=== PATIENT | male | born 1960 ===

== ENCOUNTER 2020-04-17 17:04 | Outpatient (REF) | payer OTHER, MEDICAID, SELFPAY | END 2020-04-17 17:05 | disposition home or self-care (01) | LOC: HO.LAB 17:04 | PROVIDERS: Visit Provider Internal Medicine | DX: Z20.828 Contact with and (suspected) exposure to other viral communicable diseases (principal) | CPT/HCPCS: 87635 ==

== ENCOUNTER 2020-06-16 08:38 | Outpatient (REF) | payer OTHER, MEDICAID, SELFPAY ==
--- NOTE | 2020-06-16 09:12 | XR_ITS ---
EXAMINATION: XR CHEST CLINICAL INFORMATION: Chest pain. COMPARISON: None TECHNIQUE: 2 views of the chest were obtained. FINDINGS: No significant abnormality is noted involving the heart, lungs, mediastinum, bony thorax or soft tissues. XR/XR chest 2V IMPRESSION: Unremarkable chest examination.
[2020-06-16 09:31] LABS: MANUAL DIFF FLAG NO
[2020-06-16 09:34] LABS: Basophils Percent Auto 0.6 % (0-2); Eosinophils Absolute Auto 0.1 X10*3/uL (0.0-0.4); Eosinophils Percent Auto 1.4 % (0-4); Hematocrit 42.8 % (42-52); Hemoglobin 14.4 g/dl (14.0-18.0); Imm Gran Abs Auto 0.02 X10*3/uL (0.00-0.03); Imm Gran Pct Auto 0.3 % (0.0-0.4); Lymphocytes Absolute Auto 3.5 X10*3/uL (1.2-4.9); Lymphocytes Percent Auto 51.1 % (20-40); Mean Corpuscular HGB Conc 33.6 g/dl (31.0-36.0); Mean Corpuscular Hemoglobin 30.8 pg (27.0-33.0); Mean Corpuscular Volume 91.5 fL (80-98); Mean Platelet Volume 9.7 fL (9.4-12.4); Monocytes Absolute Auto 0.7 X10*3/uL (0.1-1.2); Monocytes Percent Auto 9.6 % (2-11); Neutrophils Absolute Auto 2.6 X10*3/uL (2.0-8.3); Platelet Count 251 X10*3/uL (160-400); Red Blood Count 4.68 X10*6/uL (4.60-5.80); Red Cell Distribution Width 12.4 % (11.0-16.0); White Blood Count 6.9 X10*3/uL (4.8-10.8)
[2020-06-16 09:59] LABS: Alanine Aminotransferase 43 U/L (0-40); Albumin Level 4.7 g/dL (3.5-5.0); Alkaline Phosphatase 85 U/L (39-117); Anion Gap 12 (12-20); Aspartate Amino Transferase 25 U/L (5-37); Blood Urea Nitrogen 17 mg/dL (9-16); Calcium 9.5 mg/dL (8.4-10.2); Carbon Dioxide 30 mmol/L (22-29); Chloride 102 mmol/L (96-108); Cholesterol 156 mg/dL; Estimated Average Glucose 120 mg/dL; Estimated Glomerular Filt Rate > 60; Glucose Random 102 mg/dL (60-115); HDL Cholesterol 33 mg/dL; Hemoglobin A1c % 5.8 %; LDL Cholesterol Calculated 97 mg/dl; Potassium 4.3 mmol/l (3.3-5.1); Sodium 140 mmol/L (135-145); Total Protein 7.8 g/dL (6.5-8.0); Triglycerides 132 mg/dL
[2020-06-16 10:20] LABS: Prostate Specific Antigen Scr 0.81 ng/mL (<0.05-4.0); Thyroid Stimulating Hormone 1.06 uIU/mL (0.32-4.0)
[2020-06-16 10:49] LABS: Vitamin B12 261 pg/mL (200-900)
== END 2020-06-16 08:39 | disposition home or self-care (01) ==
LOC: HO.LAB 08:38
PROVIDERS: Visit Provider Internal Medicine
DX: R07.9 Chest pain, unspecified (principal)
CPT/HCPCS: 36415; 71046; 80053; 80061; 82550; 82607; 82746; 83036; 84153; 84443; 85025

== ENCOUNTER → 2020-06-25 10:17 | Outpatient (REF) | payer OTHER, MEDICAID, SELFPAY ==
--- NOTE | 2020-06-25 10:20 | CA_ITS ---
Transthoracic Echocardiogram Patient (Last, First, Middle): Earnest Jeffrey R Gender: Male Date of : 1960 Age: 59 Procedure Date: 06/25/2020 Procedure Type: Transthoracic Echocardiogram Location: OP Height: 170.18 cm Weight: 74.84 kg BSA: 1.86 m2 Heart Rate: bpm BP: 126 / 76 mmHg Agricultural Research Technician: AMIRA Referring MD: Danitza Humphreys MD Symptoms: R07.9 - Chest pain, unspecified Study Quality: Fair ECG Rhythm: Sinus Conclusions: - The left ventricular systolic function is normal. The visually estimated ejection fraction is between 60-65%. - The basal inferior segment is hypokinetic. - There is mild mitral valve regurgitation. Findings Left Ventricle Normal left ventricular cavity size. There is mildly increased left ventricular wall thickness. The left ventricular systolic function is normal. The visually estimated ejection fraction is between 60-65%. There is evidence of regional wall motion abnormalities. Diastolic function is normal for age. Wall Motion Rest Echo Findings The basal inferior segment is hypokinetic. Right Ventricle Normal right ventricular cavity size and systolic function. Atria Both atria are normal in size. Aortic Valve There is a normal trileaflet aortic valve. There is no aortic valve stenosis. There is no aortic valve regurgitation. Mitral Valve The mitral valve appears normal. There is mild mitral valve regurgitation. There is no mitral valve stenosis. Pulmonic Valve The pulmonic valve was not well visualized. Tricuspid Valve Normal tricuspid valve structure. There is trace tricuspid valve regurgitation. Tricuspid regurgitation envelope is inadequate for calculation of right ventricular systolic pressure. Great Vessels The aortic annulus, sinuses of valsalva, and asc aorta are normal in size. Venous The inferior vena cava is normal in size and collapses less than 50% with inspiration. Pericardium/Pleural There is no evidence of pericardial effusion. Prior Study Comparison No prior study available for comparison. Measurements 2D Linear Measurements IVSd: 1.08 0.6-0.9/0.6-1.0 cm LVIDd: 3.79 3.9-5.3/4.2-5.9 cm LVIDd Index: 2.04 2.4-3.2/2.2-3.1 cm/m2 LVIDs: 2.71 2.0-3.6 cm LVPWd: 1.08 0.7-1.1 cm Ao Root: 3.90 2.1-3.5 cm LA Diam: 3.20 2.7-3.8/3.0-4.0 cm LAIDs Index: 1.72 1.5-2.3 cm/m2 LV Mass: 162.45 67-162/88-224 g LV Mass Index: 87.34 43-95/49-115 g/m2 LVOT Diam: 2.10 3.0+(-)1.3 cm 2D Systolic Function EF 4C: 54.80 >55% EF 2C: 58.60 >55% EF BiP: 55.50 >55% Mitral Valve MV Pk E: 0.61 MV PK A: 0.56 MV Decel Time: 215.00 E/A: 1.10 E'Lateral: 7.06 E'Medial: 5.80 E/E' Med: 10.50 E/E' Lat: 8.70 PHT: 63.00 MVA PHT: 3.49 Decel Cocke: 2.85 Aortic Valve AoV Pk Shoaib: 1.19 AoV Mn Shoaib: 0.89 AoV VTI: 0.24 AoV Pk Grad: 6.00 Aov Mn Grad: 3.00 RY Cont.VTI: 3.23 LVOT LVOT Pk Shoaib: 1.17 LVOT Mn Shoaib: 0.78 LVOT VTI: 0.23 LVOT Pk Grad: 5.00 LVOT Mn Grad: 3.00 LVOT Diam: 2.10 LVOT Area: 3.46 Diastolic Function MV Pk E: 0.61 MV Pk A: 0.56 E/A: 1.10 E'Medial: 5.80 E/E' Med: 10.50 E' Laterial: 7.06 E/E' Lat: 8.70 Tricuspid Valve RA Press: 8.00 Great Vessels Aorta Ao Root-2D: 3.90 2.0-3.7 cm Ao Asc: 3.20 2.1-3.4 cm Ao Arch: 3.40 Updated in Other Vendor System with Status of Final Abdulaziz Rivera MD electronically signed on 06/27/2020 2:23:37 PM with status of Final
== END ==
LOC: HO.CARD 10:17
PROVIDERS: PCP Internal Medicine; Visit Provider Internal Medicine
DX: R07.9 Chest pain, unspecified (principal)
CPT/HCPCS: 93306

== ENCOUNTER 2020-07-07 08:55 | Outpatient (REF) | payer OTHER, MEDICAID, SELFPAY ==
--- NOTE | 2020-07-07 08:58 | US_ITS ---
EXAMINATION: US ABDOMEN COMPLETE CLINICAL INFORMATION: Other specified abnormal findings of blood chemistry. COMPARISON: None TECHNIQUE: Real-time imaging of the abdominal viscera. FINDINGS: PANCREAS: Normal. ABDOMINAL AORTA: The proximal, mid, and distal segments are normal in caliber. INFERIOR VENA CAVA: Visualized portions are normal. LIVER: The liver is normal in size. The liver contour is normal. Echotexture is slightly increased questionable for fatty infiltration. No focal hepatic lesion. There is no intrahepatic biliary duct dilatation seen. GALLBLADDER: Normal. The gallbladder is physiologically distended without evidence of stones, sludge, polyps, wall thickening or pericholecystic fluid. COMMON BILE DUCT: Normal in caliber measuring 0.3 cm in diameter. RIGHT KIDNEY: There is a 5 x 5 x 4 mm stone in the midpole. There are 2 cysts with question peripheral calcification in the midpole measuring 1.3 x 0.7 x 1.9 cm and measuring 0.5 cm. No hydronephrosis. The kidney measures 9.7 cm in maximum dimension. LEFT KIDNEY: Normal. No hydronephrosis. No renal calculi or focal parenchymal lesions. The kidney measures 10.6 cm in maximum dimension. SPLEEN: Normal. The spleen measures 8.2 cm in maximum dimension. FREE FLUID: None. US/US abdomen complete IMPRESSION: Slightly echogenic liver questionable for fatty infiltration. Right renal stone. Small right renal cysts.
== END 2020-07-07 08:56 | disposition home or self-care (01) ==
LOC: HO.US 08:55
PROVIDERS: Visit Provider Internal Medicine
DX: R79.89 Other specified abnormal findings of blood chemistry (principal)
CPT/HCPCS: 76700

== ENCOUNTER 2020-07-20 10:29 | Outpatient (REF) | payer OTHER, MEDICAID, SELFPAY ==
[2020-07-20 11:54] LABS: MANUAL DIFF FLAG NO
[2020-07-20 12:07] LABS: Basophils Percent Auto 0.6 % (0-2); Eosinophils Percent Auto 0.7 % (0-4); Hematocrit 43.7 % (42-52); Hemoglobin 14.4 g/dl (14.0-18.0); Imm Gran Abs Auto 0.01 X10*3/uL (0.00-0.03); Imm Gran Pct Auto 0.2 % (0.0-0.4); Lymphocytes Absolute Auto 2.4 X10*3/uL (1.2-4.9); Lymphocytes Percent Auto 44.9 % (20-40); Mean Corpuscular Hemoglobin 30.4 pg (27.0-33.0); Mean Corpuscular Volume 92.4 fL (80-98); Mean Platelet Volume 9.9 fL (9.4-12.4); Monocytes Absolute Auto 0.6 X10*3/uL (0.1-1.2); Monocytes Percent Auto 10.8 % (2-11); Neutrophils Absolute Auto 2.3 X10*3/uL (2.0-8.3); Neutrophils Percent Auto 42.8 % (45-73); Platelet Count 252 X10*3/uL (160-400); Red Blood Count 4.73 X10*6/uL (4.60-5.80); Red Cell Distribution Width 12.4 % (11.0-16.0); White Blood Count 5.4 X10*3/uL (4.8-10.8)
[2020-07-20 12:24] LABS: Alanine Aminotransferase 24 U/L (0-40); Albumin Level 4.8 g/dL (3.5-5.0); Alkaline Phosphatase 80 U/L (39-117); Anion Gap 15 (12-20); Aspartate Amino Transferase 20 U/L (5-37); Bilirubin Direct 0.3 mg/dL (0.0-0.5); Bilirubin Total 0.9 mg/dL (0.0-1.0); Blood Urea Nitrogen 22 mg/dL (9-16); Calcium 9.7 mg/dL (8.4-10.2); Carbon Dioxide 29 mmol/L (22-29); Chloride 101 mmol/L (96-108); Estimated Glomerular Filt Rate > 60; Glucose Random 90 mg/dL (60-115); Potassium 4.1 mmol/l (3.3-5.1); Sodium 141 mmol/L (135-145); Total Protein 7.9 g/dL (6.5-8.0)
[2020-07-20 12:36] LABS: Free T4 (Free Thyroxine) 0.88 ng/dL (0.71-1.85); Thyroid Stimulating Hormone 0.35 uIU/mL (0.32-4.0)
[2020-07-20 13:15] LABS: Erythrocyte Sedimentation Rate 12 MM/HR (0-15)
[2020-07-21 05:00] LABS: HBc Num1 0.23 S/CO (0.00-0.79); Hepatitis B Core Antibody Nonreactive (Nonreactive); ~Hepatitis B Surface Antibody NONREACTIVE (Nonreactive)
[2020-07-21 05:07] LABS: HBsAGNum1 0.24 S/CO (0.00-0.99); Hepatitis B Surface Antigen Negative (Negative); ~Hepatitis C Antibody Nonreactive (Nonreactive)
== END 2020-07-20 10:30 | disposition home or self-care (01) ==
LOC: HO.LAB 10:29
PROVIDERS: PCP Internal Medicine; Visit Provider Internal Medicine
DX: E78.00 Pure hypercholesterolemia, unspecified (principal); R73.01 Impaired fasting glucose; E53.8 Deficiency of other specified B group vitamins; M79.10 Myalgia, unspecified site; R79.89 Other specified abnormal findings of blood chemistry
CPT/HCPCS: 36415; 80053; 80076; 82248; 82550; 84439; 84443; 85025; 85652; 86704; 86706; 86803; 87340

== ENCOUNTER → 2020-08-06 14:16 | Outpatient (BNVA) | payer OTHER, MEDICAID, SELFPAY | PROVIDERS: PCP Internal Medicine; Visit Provider Internal Medicine Pulmonary Disease ==

== ENCOUNTER 2020-08-11 14:01 | Outpatient (REF) | payer OTHER, MEDICAID, SELFPAY ==
--- NOTE | 2020-08-11 16:48 | PFT_ITS ---
FLOWS: FEV1 of 106% of predicted at 3.53 L. FVC of 95% of predicted at 4.04 L. FEV1 to FVC ratio of 0.88. No bronchodilator response. LUNG VOLUMES: Total lung capacity 92% of predicted at 5.90 L. Residual volume 90% of predicted at 1.84 L. Slow vital capacity 93% of predicted at 4.06 L. Expiratory reserve volume 102% of predicted at 1.25 L. Diffusion capacity is normal. IMPRESSION: No obstructive or restrictive ventilatory defect. No bronchodilator response. Essentially normal pulmonary function test. Marcus Kiran MD AP/MODL / [id number]
== END 2020-08-11 14:02 | disposition home or self-care (01) ==
LOC: HO.RESP 14:01
PROVIDERS: Visit Provider Internal Medicine Pulmonary Disease
DX: B94.8 Sequelae of other specified infectious and parasitic diseases (principal)
CPT/HCPCS: 94060; 94727; 94729

== ENCOUNTER → 2020-08-20 09:53 | Outpatient (BNVA) | payer OTHER, MEDICAID, SELFPAY | PROVIDERS: PCP Internal Medicine; Visit Provider Internal Medicine Pulmonary Disease ==

== ENCOUNTER 2020-08-21 09:38 | Outpatient (REF) | payer OTHER, MEDICAID, SELFPAY ==
--- NOTE | ~2020-08-21 | CT_ITS ---
EXAMINATION: CT CHEST WITHOUT CONTRAST CLINICAL INFORMATION: Additional clinical history obtained from the clinician's office, from assistant Tiffany. Lingering Covid symptoms. COMPARISON: Chest x-ray 06/16/2020. TECHNIQUE: Multidetector volumetric CT imaging of the chest was done. Axial MIP volume rendering provided. Sagittal and coronal reformatted images were obtained. This CT examination was performed using dose optimization techniques as appropriate, variously including the following: *Automated exposure control *Adjustment of mA and/or kV according to patient size (this includes techniques or standardized protocols for targeted exams where dose is matched to indication/reason for exam; i.e. extremities or head) *Use of iterative reconstruction technique DLP: 155 mGy-cm FINDINGS: LUNGS: Central airways are patent. No focal consolidation. 2 mm nodule right upper lobe 7:191. 2 mm calcified nodule right lower lobe 7:313. MEDIASTINUM: Visualized thyroid gland appears unremarkable. No adenopathy is seen in the mediastinum or danya. Normal caliber aorta. Normal heart size. No pericardial effusion. Esophagus is nondistended. PLEURA: There is no pleural effusion. No pleural mass or thickening. AXILLA: No lymphadenopathy. UPPER ABDOMEN: The spleen measures 7.9 cm. Visualized structures appear unremarkable. OSSEOUS STRUCTURES: No acute or suspicious osseous abnormality. CT/CT chest wo con IMPRESSION: 1. No acute findings identified in the lungs. 2 mm pulmonary nodule right upper lobe. According to the UPDATED 2017 Fleischner Society recommendations, the advised follow-up imaging for solid nodules < 6 mm is: LOW RISK PATIENT: No routine follow-up. HIGH RISK PATIENT: Optional CT at 12 months. 2. No adenopathy.
== END 2020-08-21 09:39 | disposition home or self-care (01) ==
LOC: HO.CT 09:38
PROVIDERS: PCP Internal Medicine; Visit Provider Internal Medicine Pulmonary Disease
DX: B94.8 Sequelae of other specified infectious and parasitic diseases (principal)
CPT/HCPCS: 71250

== ENCOUNTER → 2020-09-11 11:24 | Outpatient (BNVA) | payer OTHER, MEDICAID, SELFPAY | PROVIDERS: PCP Internal Medicine; Visit Provider Internal Medicine Pulmonary Disease ==

== ENCOUNTER → 2020-10-23 10:29 | Outpatient (BNVA) | payer OTHER, MEDICAID, SELFPAY | PROVIDERS: PCP Internal Medicine; Visit Provider Internal Medicine Pulmonary Disease ==

== ENCOUNTER 2020-12-01 08:26 | Day surgery (SDC) | payer OTHER, MEDICAID, SELFPAY ==
--- NOTE | 2020-11-30 09:23 | HO.ANESPROP2 ---
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 All resolved per last pulmo note. PMFSH Active Problems Active Problems: All Active Problems (Updated 11/26/20 @ 11:40 by Jennifer Abraham) COVID-19 (Acute) HTN (hypertension) (Acute) Post-viral cough syndrome (Acute) Impaired fasting blood sugar (Acute) Vitamin B 12 deficiency (Acute) Myalgia (Acute) Dyspnea on exertion (Acute) [id number] syndrome (Acute) Mild cognitive impairment (Acute) Tubular adenoma of colon (Acute) Annual physical exam (Acute) Knee pain, bilateral (Acute) Right flank pain (Acute) Impacted cerumen of both ears (Acute) Right renal stone (Acute) Fatty liver (Acute) Hypercholesterolemia (Acute) BPH (benign prostatic hyperplasia) (Acute) Past Medical History Medical History BPH (benign prostatic hyperplasia) Fatty liver HTN (hypertension) Hypercholesterolemia Respiratory tract infection Right renal stone Right shoulder pain Rotator cuff disorder Tubular adenoma of colon Vitamin D deficiency Family History Family History Father Hypertension Mother No problems noted. Paternal Uncle Cancer Surgical History Surgical History History of arthroscopy of right shoulder History of eye surgery Social History Social History Alcohol intake: former Patient Tobacco Use Status: Never used Tobacco Use of substances other than those prescribed or required for medical reasons: No Have you been hit, kicked, punched, or otherwise hurt by someone within the past year? If so, by whom?: No Are you DNR?: No Advance Directives: No Advance Directives Information Provided: No Advance Directives on File: No Meds Allergies Allergy/AdvReac Type Severity Reaction Status Date / Time No Known Allergies Allergy Verified 11/26/20 11:40 Home Medications Medication Instructions Recorded Confirmed Last Taken Type hydrochlorothiazide 12.5 mg tablet 12.5 mg PO DAILY 06/25/20 11/26/20 Unknown History ascorbate calcium (vitamin C) 500 500 mg PO DAILY 07/20/20 11/26/20 Unknown History mg tablet cyanocobalamin (vitamin B-12) 1,000 mcg PO DAILY 07/20/20 11/26/20 Unknown History 1,000 mcg capsule simvastatin 1 tab PO BEDTIME 11/26/20 11/26/20 Unknown History Exam Exam Date and Time: November 30, [id number] Narrative Narrative: EKG 05/2020 NSR @ 67 PFT 07/2020 IMPRESSION: No obstructive or restrictive ventilatory defect. No bronchodilator response. Essentially normal pulmonary function test. Assessment and Plan Assessment Anesthesia Assessment: Chart Reviewed Documented by User: Ayse Hernandez 12/01/20 09:56 PMFSH Past Medical History Medical History BPH (benign prostatic hyperplasia) Fatty liver HTN (hypertension) Hypercholesterolemia Respiratory tract infection Right renal stone Right shoulder pain Rotator cuff disorder Tubular adenoma of colon Vitamin D deficiency Family History Family History Father Hypertension Mother No problems noted. Paternal Uncle Cancer Surgical History Surgical History History of arthroscopy of right shoulder History of eye surgery Social History Social History Alcohol intake: former Patient Tobacco Use Status: Never used Tobacco Use of substances other than those prescribed or required for medical reasons: No Have you been hit, kicked, punched, or otherwise hurt by someone within the past year? If so, by whom?: No Are you DNR?: No Advance Directives: No Advance Directives Information Provided: No Advance Directives on File: No Meds Allergies Allergy/AdvReac Type Severity Reaction Status Date / Time No Known Allergies Allergy Verified 11/26/20 11:40 Home Medications Medication Instructions Recorded Confirmed Last Taken Type hydrochlorothiazide 12.5 mg tablet 12.5 mg PO DAILY 06/25/20 11/26/20 Unknown History ascorbate calcium (vitamin C) 500 500 mg PO DAILY 07/20/20 11/26/20 Unknown History mg tablet cyanocobalamin (vitamin B-12) 1,000 mcg PO DAILY 07/20/20 11/26/20 Unknown History 1,000 mcg capsule simvastatin 1 tab PO BEDTIME 11/26/20 11/26/20 Unknown History Exam Airway Mallampati Class: II TM Dist: >3cm Neck ROM: Full Loose/Missing/Broken Teeth: No Heart: RRR Lungs: CTA Assessment and Plan Assessment Anesthesia Assessment: Anesthesia Plan Discussed and Chart Reviewed Final Anesthetic Review NPO: Yes ASA Class: II Final Preanesthetic Review: Meds/Allgs Chart Reviewed, Consent Obtained/Reviewed and Anes Risks/Benef Reviewed Patient Risk: Low Procedure Risk: Intermediate Anesthetic Plan Anesthetic Plan: MAC: Disposition: Standard PACU
[2020-12-01 07:17] VITALS: BMI 25.7
[2020-12-01 08:41] VITALS: BP 132/86; PULSE 70; RESP 18; TEMP 36.7; O2SAT 98
[2020-12-01] MEDS: Lactated Ringers 1,000 ML 100 ML IVCONT (08:50)
--- NOTE | 2020-12-01 09:32 | MHC.SHP ---
Pre-Procedural Eval Section A The patient is an INPATIENT: No Changes since office visit: No Cold of Flu in the past 2 weeks, No New Medical Problems, No Changes in Medication and No Patient answered all questions The History & Physical has been completed within 30 days and I have reviewed it.: Yes Section B Chief Complaint: polyps,bleeding Allergies: Allergies Allergy/AdvReac Type Severity Reaction Status Date / Time No Known Allergies Allergy Verified 11/26/20 11:40 Plan I have reviewed the history and physical and performed a pertinent physical examination on my patient. No changes have occurred unless specified.
[2020-12-01 10:10] VITALS: BP 106/68; PULSE 64; RESP 18; TEMP 36.1; O2SAT 99
--- NOTE | 2020-12-01 10:19 | P.BOP_ITS ---
Brief Operative Note Date of Service: 12/01/20 Pre-op diagnosis: epigastric pain,. rectal bleeding, hx polyps Post-op diagnosis: same Procedure: egd, colon Surgeon: John Diaz Anesthesia: MAC Was an Environmental Health Technician used for this Procedure?: No Estimated blood loss (mL): 5 Pathology: other (bxs antrum, egj, polyp cecum, polyp 015 cm) Condition: stable Disposition: PACU
[2020-12-01 10:25] VITALS: BP 121/73; PULSE 66; RESP 18; O2SAT 97
--- NOTE | 2020-12-01 21:27 | OP_ITS ---
SURGEON: John Diaz MD INDICATIONS: Epigastric pain, rectal bleeding, and personal history of colon polyps. PREOPERATIVE DIAGNOSIS: POSTOPERATIVE DIAGNOSIS: PROCEDURE PERFORMED: Upper endoscopy with biopsy, colonoscopy to the terminal ileum with biopsy and snare polypectomy. ESTIMATED BLOOD LOSS: COMPLICATIONS: ANESTHESIA: ASSISTANTS: SPECIMENS: MEDICATIONS: Monitored anesthesia care. DESCRIPTION OF PROCEDURE: The history and physical performed. The risks and benefits of the procedure were explained to the patient. Informed consent was obtained. The patient was placed in left lateral decubitus position. The Olympus video gastroscope was introduced into the esophagus, stomach, and duodenum. Examination was performed. The scope was removed. He was repositioned for colonoscopy. Digital rectal exam was performed and was found to be normal. The Olympus pediatric video colonoscope was introduced into the rectum and advanced to the cecum without difficulty. The cecum was identified by transillumination, palpation, and identification of ileocecal valve. Examination was performed. The scope was removed. He tolerated both procedures well, was returned to recovery room in stable condition. FINDINGS: UPPER ENDOSCOPY: Esophagus: The esophagus was normal. Biopsies were obtained from the EG junction. Stomach: The stomach showed mild erythema consistent with possible gastritis. Biopsies were obtained from the antrum. Duodenum: The bulb and second portion were normal. COLONOSCOPY: The terminal ileum was examined and appeared normal. The visualized colonic mucosa was normal. In the cecum, was a less than 5 mm sessile polyp which was removed with biopsy forceps at about 15 cm was a pedunculated 12 to 15 mm polyp, which was removed with a snare. No other polyps were identified. The quality of the prep was good. Retroflexed examination showed small internal hemorrhoids. IMPRESSION: 1. Gastroesophageal reflux disease. 2. Colon polyps. RECOMMENDATION: Follow up biopsy results. MD ROSALEE Pearce/ANNALISE / [id number]
== END 2020-12-01 11:11 | disposition home or self-care (01) ==
PROVIDERS: PCP Internal Medicine; Visit Provider Internal Medicine Gastroenterology
PROC: (CPT 43239; principal; 2020-12-01 09:30)
DX: K62.5 Hemorrhage of anus and rectum (principal); D12.0 Benign neoplasm of cecum; D12.7 Benign neoplasm of rectosigmoid junction; K29.70 Gastritis, unspecified, without bleeding; B96.81 Helicobacter pylori [H. pylori] as the cause of diseases classified elsewhere; K21.00 Gastro-esophageal reflux disease with esophagitis, without bleeding; Z86.010 Personal history of colon polyps; I10 Essential (primary) hypertension; Z79.899 Other long term (current) drug therapy
CPT/HCPCS: 43239; 45380; 45385; 88305; 88342

== ENCOUNTER 2020-12-07 07:21 | Outpatient (REF) | payer OTHER, MEDICAID, SELFPAY ==
--- NOTE | ~2020-12-07 | XR_ITS ---
EXAMINATION: XR KNEE, RIGHT XR KNEE, LEFT CLINICAL INFORMATION: Knee pain COMPARISON: None TECHNIQUE: Each knee is imaged in standing AP and lateral views. There are a total of 4 views, 2 on each side. FINDINGS: Right: There is normal bony mineralization. No fracture, dislocation, or suprapatellar effusion. Hoffa's fat pad appears normal. There is no joint narrowing or erosive change or chondrocalcinosis. No destructive process. Left: There is normal bony mineralization. There is no fracture or dislocation or destructive process. Borderline thickening suprapatellar bursa may represent trace fluid. Hoffa's fat pad appears normal. There is mild spurring at the quadriceps insertion on the patella. No joint narrowing or erosive change or chondrocalcinosis. XR/XR knee LT 2V IMPRESSION: 1. No joint narrowing, erosive change, or chondrocalcinosis. 2. Trace fluid left suprapatellar bursa. Mild spurring left quadriceps insertion patella.
--- NOTE | ~2020-12-07 | XR_ITS ---
EXAMINATION: XR KNEE, RIGHT XR KNEE, LEFT CLINICAL INFORMATION: Knee pain COMPARISON: None TECHNIQUE: Each knee is imaged in standing AP and lateral views. There are a total of 4 views, 2 on each side. FINDINGS: Right: There is normal bony mineralization. No fracture, dislocation, or suprapatellar effusion. Hoffa's fat pad appears normal. There is no joint narrowing or erosive change or chondrocalcinosis. No destructive process. Left: There is normal bony mineralization. There is no fracture or dislocation or destructive process. Borderline thickening suprapatellar bursa may represent trace fluid. Hoffa's fat pad appears normal. There is mild spurring at the quadriceps insertion on the patella. No joint narrowing or erosive change or chondrocalcinosis. XR/XR knee RT 2V IMPRESSION: 1. No joint narrowing, erosive change, or chondrocalcinosis. 2. Trace fluid left suprapatellar bursa. Mild spurring left quadriceps insertion patella.
[2020-12-07 08:43] LABS: MANUAL DIFF FLAG NO
[2020-12-07 08:47] LABS: Basophils Percent Auto 0.6 % (0-2); Eosinophils Absolute Auto 0.1 X10*3/uL (0.0-0.4); Eosinophils Percent Auto 2.4 % (0-4); Hematocrit 42.5 % (42-52); Hemoglobin 13.9 g/dl (14.0-18.0); Imm Gran Abs Auto 0.01 X10*3/uL (0.00-0.03); Imm Gran Pct Auto 0.2 % (0.0-0.4); Lymphocytes Absolute Auto 2.6 X10*3/uL (1.2-4.9); Lymphocytes Percent Auto 48.6 % (20-40); Mean Corpuscular HGB Conc 32.7 g/dl (31.0-36.0); Mean Corpuscular Hemoglobin 30.3 pg (27.0-33.0); Mean Corpuscular Volume 92.8 fL (80-98); Mean Platelet Volume 9.8 fL (9.4-12.4); Monocytes Absolute Auto 0.4 X10*3/uL (0.1-1.2); Monocytes Percent Auto 8.1 % (2-11); Neutrophils Absolute Auto 2.1 X10*3/uL (2.0-8.3); Neutrophils Percent Auto 40.1 % (45-73); Platelet Count 252 X10*3/uL (160-400); Red Blood Count 4.58 X10*6/uL (4.60-5.80); White Blood Count 5.3 X10*3/uL (4.8-10.8)
[2020-12-07 09:20] LABS: Alanine Aminotransferase 22 U/L (0-40); Albumin Level 4.7 g/dL (3.5-5.0); Alkaline Phosphatase 84 U/L (39-117); Anion Gap 14 (12-20); Aspartate Amino Transferase 21 U/L (5-37); Blood Urea Nitrogen 12 mg/dL (9-16); Calcium 9.6 mg/dL (8.4-10.2); Carbon Dioxide 26 mmol/L (22-29); Chloride 106 mmol/L (96-108); Cholesterol 209 mg/dL; Estimated Glomerular Filt Rate > 60; Glucose Random 96 mg/dL (60-115); HDL Cholesterol 35 mg/dL; LDL Cholesterol Calculated 143 mg/dl; Potassium 4.4 mmol/L (3.3-5.1); Sodium 142 mmol/L (135-145); Total Protein 7.5 g/dL (6.5-8.0); Triglycerides 159 mg/dL
[2020-12-07 09:35] LABS: Uric Acid 5.7 mg/dL (3.4-7.0)
[2020-12-07 09:37] LABS: Folate 12.7 ng/mL (> or = 4.0); Vitamin B12 312 pg/mL (200-900)
[2020-12-07 09:40] LABS: Free T4 (Free Thyroxine) 0.86 ng/dL (0.71-1.85); Thyroid Stimulating Hormone 0.47 uIU/mL (0.32-4.0)
== END 2020-12-07 07:22 | disposition home or self-care (01) ==
LOC: HO.LAB 07:21
PROVIDERS: PCP Internal Medicine; Visit Provider Internal Medicine
DX: M25.561 Pain in right knee (principal); E78.00 Pure hypercholesterolemia, unspecified
CPT/HCPCS: 36415; 73560; 80053; 80061; 82607; 82746; 84439; 84443; 84550; 85025

== ENCOUNTER 2020-12-25 07:53 | Outpatient (REF) | payer OTHER, MEDICAID, SELFPAY ==
--- NOTE | ~2020-12-25 | US_ITS ---
EXAMINATION: US RETROPERITONEAL LIMITED (RENAL ONLY) CLINICAL INFORMATION: Unspecified abdominal pain. COMPARISON: Ultrasound abdomen complete 07/07/2020. TECHNIQUE: Real-time imaging of the kidneys. FINDINGS: RIGHT KIDNEY: 10.1 x 5.1 x 5.6 cm (SAG x AP x TRV). The kidney is normal in size, contour, and echogenicity. Renal cortical thickness is normal. There are 2 small cysts measuring 7 mm in the upper pole and 7 mm in the lower pole. No renal calculi or hydronephrosis. LEFT KIDNEY: 10.2 x 5.9 x 5.0 cm (SAG x AP x TRV). The kidney is normal in size, contour, and echogenicity. Renal cortical thickness is normal. There is a small cyst in the lower pole measuring 7 x 4 x 4 mm. No renal calculi or hydronephrosis. US/US renal BI IMPRESSION: Small bilateral renal cysts otherwise unremarkable exam.
== END 2020-12-25 07:54 | disposition home or self-care (01) ==
LOC: HO.US 07:53
PROVIDERS: PCP Internal Medicine; Visit Provider Internal Medicine
DX: R10.9 Unspecified abdominal pain (principal)
CPT/HCPCS: 76775

== ENCOUNTER 2021-05-21 07:17 | Outpatient (REF) | payer OTHER, MEDICAID, SELFPAY ==
[2021-05-21 07:54] LABS: Alanine Aminotransferase 23 U/L (0-40); Albumin Level 4.5 g/dL (3.5-5.0); Alkaline Phosphatase 94 U/L (39-117); Anion Gap 12 (12-20); Aspartate Amino Transferase 29 U/L (5-37); Bilirubin Total 0.5 mg/dL (0.0-1.0); Blood Urea Nitrogen 23 mg/dL (9-16); Calcium 9.4 mg/dL (8.4-10.2); Carbon Dioxide 27 mmol/L (22-29); Chloride 105 mmol/L (96-108); Cholesterol 148 mg/dL; Estimated Glomerular Filt Rate > 60; Glucose Random 102 mg/dL (60-115); HDL Cholesterol 33 mg/dL; LDL Cholesterol Calculated 80 mg/dl; Potassium 3.9 mmol/L (3.3-5.1); Sodium 140 mmol/L (135-145); Total Protein 7.4 g/dL (6.5-8.0); Triglycerides 177 mg/dL
[2021-05-21 08:14] LABS: Prostate Specific Antigen Scr 0.55 ng/mL (<0.05-4.0)
== END 2021-05-21 07:18 | disposition home or self-care (01) ==
LOC: HO.LAB 07:17
PROVIDERS: PCP Internal Medicine; Visit Provider Internal Medicine
DX: Z12.5 Encounter for screening for malignant neoplasm of prostate (principal); E78.00 Pure hypercholesterolemia, unspecified
CPT/HCPCS: 36415; 80053; 80061; 84153

== ENCOUNTER 2021-05-21 07:19 | Outpatient (REF) | payer OTHER, MEDICAID, SELFPAY ==
[2021-05-21 07:54] LABS: COVID-19 Test Negative (Negative)
== END 2021-05-21 07:20 | disposition home or self-care (01) ==
LOC: HO.LAB 07:19
PROVIDERS: PCP Internal Medicine; Visit Provider Internal Medicine
DX: Z20.822 Contact with and (suspected) exposure to COVID-19 (principal)
CPT/HCPCS: 36415; 87635; C9803

== ENCOUNTER 2021-05-25 14:23 | Emergency (ER) | payer OTHER, MEDICAID, SELFPAY ==
--- NOTE | ~2021-05-25 | CT_ITS ---
EXAMINATION: CT ABDOMEN AND PELVIS WITHOUT CONTRAST CLINICAL INFORMATION: Right-sided flank pain COMPARISON: None TECHNIQUE: Multidetector volumetric imaging was performed from the superior aspect of the liver through the pubic symphysis. Sagittal and coronal reformatted images were obtained on the technologist's workstation. This CT examination was performed using dose optimization techniques as appropriate, variously including the following: *Automated exposure control *Adjustment of mA and/or kV according to patient size (this includes techniques or standardized protocols for targeted exams where dose is matched to indication/reason for exam; i.e. extremities or head) *Use of iterative reconstruction technique DLP: 435 mGy-cm FINDINGS: LUNG BASES: The visualized lung bases are unremarkable. LIVER, GALLBLADDER, AND BILIARY TREE: The liver is normal in size, shape, and attenuation. No focal hepatic lesion or biliary ductal dilatation is present. The gallbladder is unremarkable with no evidence of radiopaque gallstones, gallbladder wall thickening, or obvious pericholecystic inflammatory changes. PANCREAS: Unremarkable. SPLEEN: Unremarkable. ADRENAL GLANDS: Unremarkable. KIDNEYS AND URETERS: The kidneys are normal in size, shape, and attenuation. No hydronephrosis or hydroureter. There is a nonobstructive 0.4 cm calculus in the inferior pole region of the right kidney. Mild nonspecific perinephric stranding. BLADDER: Unremarkable. GASTROINTESTINAL TRACT: The stomach and small bowel are not dilated. No evidence for obstruction. Small hiatal hernia. Diverticulosis of the descending and sigmoid colon without evidence of diverticulitis. There is a normal appendix without surrounding inflammatory change. ABDOMINAL WALL: No significant hernia is appreciated. LYMPH NODES: Normal. VASCULAR: Normal caliber of the abdominal aorta. Scattered atherosclerotic calcifications. PELVIC VISCERA: Unremarkable. OSSEOUS STRUCTURES: No acute or suspicious osseous abnormality. Mild degenerative changes of the lumbar spine including mild intervertebral disc space narrowing and scattered endplate osteophytes. There are also mild degenerative changes of the bilateral hips. CT/CT abdomen pelvis wo con IMPRESSION: Nonobstructive 4 mm calculus in the inferior pole of the right kidney. No hydronephrosis or hydroureter. Diverticulosis of the colon without evidence of diverticulitis. Very mild degenerative changes of the lumbar spine. No acute bony abnormality.
[2021-05-25 15:43] VITALS: BP 161/92; PULSE 68; RESP 18; TEMP 37.7; O2SAT 98; BMI 25.0
[2021-05-25 17:13] VITALS: BP 166/91; PULSE 64; RESP 20; TEMP 36.4; O2SAT 99
--- NOTE | 2021-05-25 17:17 | ED_ITS ---
HPI - General Adult General Chief complaint: Back Pain/Injury Stated complaint: low back & leg pain, foot numbness Time Seen by Provider: 05/25/21 16:46 Source: patient Mode of arrival: ambulatory Limitations: no limitations History of Present Illness HPI narrative: 60-year-old male presents to ED for lower back pain radiating down right leg. Patient states he was changing his clothes and did a weird movement and felt sudden pain in right lower back. Patient states pain was severe and caused them to go to his knees. Patient denies any abdominal pain, nausea, vomiting, dysuria, hematuria, fever, or chills. Patient denies any urinary/bowel incontinence Related Data Home Medications Medication Instructions Recorded Confirmed ascorbate calcium (vitamin C) 500 500 mg PO DAILY 07/20/20 02/17/21 mg tablet cyanocobalamin (vitamin B-12) 1,000 mcg PO DAILY 07/20/20 02/17/21 1,000 mcg capsule Previous Rx's Medication Instructions Recorded hydrochlorothiazide 12.5 mg tablet 12.5 mg PO DAILY #90 tab 01/02/21 meloxicam 15 mg tablet 15 mg PO DAILY 90 Days #90 tab 01/11/21 omeprazole 20 mg capsule,delayed 20 mg PO DAILY 90 Days #90 cap 02/17/21 release simvastatin 10 mg tablet 10 mg PO BEDTIME 90 Days #90 tab 02/17/21 oxycodone-acetaminophen 5 mg-325 1 tab PO TID PRN #9 tab 05/25/21 mg tablet (Percocet) prednisone 20 mg tablet 60 mg PO DAILY 5 Days #15 tab 05/25/21 Allergies Allergy/AdvReac Type Severity Reaction Status Date / Time No Known Allergies Allergy Verified 05/25/21 15:43 Review of Systems Review of Systems: Yes all other systems are reviewed and are negative Constitutional: Constitutional: Reports as per HPI Eyes: Eyes: Reports as per HPI and Reports no additional eye complaints ENT: Reports system reviewed and no additional complaints, except as documented and Reports as per HPI Cardiovascular: Cardiovascular: Reports as per HPI and Reports no additional cardiovascular complaints Respiratory: Respiratory: Reports as per HPI and Reports no additional respiratory complaints Gastrointestinal: Gastrointestinal: Reports as per HPI and Reports no additional gastrointestinal complaints Genitourinary: Genitourinary: Reports no additional male genitourinary complaints and Reports as per HPI Musculoskeletal: Musculoskeletal: Reports no additional musculoskeletal complaints, Reports as per HPI and Reports back pain Integumentary/Breasts: Skin/Breast: Reports system reviewed and no additional complaints, except as docu and Reports as per HPI Neurologic: Reports system reviewed and no additional complaints, except as documented and Reports as per HPI [facility] Past Medical History Medical History (Updated 05/25/21 @ 18:52 by CALLIE Schwarz) BPH (benign prostatic hyperplasia) Fatty liver GERD (gastroesophageal reflux disease) HTN (hypertension) Hypercholesterolemia Respiratory tract infection Right renal stone Right shoulder pain Rotator cuff disorder Tubular adenoma of colon Vitamin D deficiency Surgical History History of arthroscopy of right shoulder History of eye surgery Family History Family History Father Hypertension Mother No problems noted. Paternal Uncle Cancer Social History Social History Housing: House Alcohol intake: former Patient Tobacco Use Status: Never used Tobacco Advance Directives: No Advance Directives Information Provided: Yes Current occupational status: employed Physical Exam Vital Signs: Vital Signs: Last Vital Signs Temp 97.5 F 05/25/21 17:13 Pulse 64 05/25/21 17:13 Resp 20 05/25/21 17:13 BP 166/91 H 05/25/21 17:13 Pulse Ox 99 05/25/21 17:13 Body Mass Index 25.0 Const: General: cooperative, healthy appearing, comfortable, no acute distress, well developed, alert, awake and Physically active Orientat ion/consciousness: oriented to time and patient oriented x3 HENMT: Head: Yes normal to inspection, Yes No palpable skull fracture present, Yes normocephalic, Yes atraumatic, No abrasion, No Ferreira's sign, No contusion, No cranial bruits, No hematoma, No laceration, No occipital foramen tenderness, No palpable skull fracture, No raccoon eyes, No scalp lesion, No scalp tenderness, No Temporal artery tenderness present and No periorbital ecchymosis Eyes: General: appearance normal, both eyes and all related structures Neck: Neck: Yes normal visual inspection, Yes full ROM, Yes no lymphadenopathy, Yes no meningeal signs, Yes trachea midline, Yes supple, No anterior neck swelling and No tender Chest: Chest palpation & inspection: normal inspection of the chest and normal palpation of entire chest wall Resp: Effort & Inspection: normal respiratory effort and able to speak in complete sentences Auscultation: clear to auscultation bilaterally Cardio: Jugular venous distension: no JVD Heart sounds: S1 normal heart sound present and S2 normal heart sound present GI: Inspection: Yes normal to inspection and No abdominal wall ecchymosis Palpation (GI): Soft to palpation, not firm, nontender, no guarding and not rigid : General: No CVA tenderness and Yes no CVA tenderness Back/Spine/Pelvis: Back: no CVA tenderness, No CVA tenderness and back tenderness (lumbar spine tenderness and right paraspinus tenderness) Skin: General skin exam: no rashes or lesions noted and elasticity normal Neuro: General: oriented to time, patient oriented x3, gait normal, no meningeal signs and CN's II-XI intact bilaterally Cranial nerves: Yes CN's II-XII intact bilaterally Extrem: General: Yes normal to inspection and Yes full ROM Psych: Appearance: grossly normal, well kempt and not disheveled Course Course Course Narrative: Patient has significant back pain on range of motion. will do CT scan to check spine for arthritis and kidney stones. Pain meds and muscle relaxers ordered. Reevaluation(s) Reevaluation #1: CT scan shows arthritis of lumbar spine with narrowing. Patient has right kidney stone inferior pole of kidney which would not cause the pain. Patient walking around the ER. Not suspecting cord compression or epidural abscess. Patient is safe for discharge Time: 18:45 Medical Decision Making [facility] Narrative Medical decision making narrative: Lumbar radiculopathy Lab Data Labs: Lab Results 05/25/21 Range/Units 17:17 Urine Color YELLOW Urine Appearance HAZY Urine pH 6.0 (5.0-8.0) Ur Specific [place] 1.020 (1.005-1.025) Urine Protein NEG (NEG-TRACE) MG/DL Urine Glucose (UA) NEG (NEG) MG/DL Urine Ketones NEG (NEG) MG/DL Urine Blood NEG (NEG) Urine Nitrite NEG (NEG) Ur Leukocyte Esterase NEG (NEG) Discharge Plan Discharge Clinical Impression: Lumbar radiculopathy Patient Disposition: Home, Self-Care Instructions: Lumbar Radiculopathy (ED) Additional Instructions: Your CT scan shows arthritis of the lumbar spine and narrowing which is causing pain. Return to ED immediately for any urinary/bowel incontinence, abdominal pain, nausea, vomiting, flank pain, fever, chills, dysuria, hematuria, tingling/numbness of lower extremity, paralysis of lower extremity, or any other concerning symptoms. Please follow up with PCP. Prescriptions: New oxycodone-acetaminophen [Percocet] 5-325 mg tablet 1 tab PO TID PRN (Reason: pain) Qty: 9 RF: 0 prednisone 20 mg tablet 60 mg PO DAILY 5 Days Qty: 15 RF: 0 No Action hydrochlorothiazide 12.5 mg tablet 12.5 mg PO DAILY Qty: 90 RF: 1 meloxicam 15 mg tablet 15 mg PO DAILY 90 Days Qty: 90 RF: 2 cyanocobalamin (vitamin B-12) 1,000 mcg capsule 1,000 mcg PO DAILY RF: 0 ascorbate calcium (vitamin C) 500 mg tablet 500 mg PO DAILY RF: 0 omeprazole 20 mg capsule,delayed release(DR/EC) 20 mg PO DAILY 90 Days Qty: 90 RF: 1 simvastatin 10 mg tablet 10 mg PO BEDTIME 90 Days Qty: 90 RF: 2 Stand Alone Forms: Work/School Release Interventions: ED Discharge Assessment Last Done: 05/25/21 19:06 Discharge Date/Time: 05/25/21 19:08 Print Language: Luxembourger
[2021-05-25] MEDS: Cyclobenzaprine HCl 10 MG TABLET PO (17:21)
[2021-05-25] MEDS: predniSONE 20 MG TABLET 60 MG PO (17:21)
[2021-05-25] MEDS: Ketorolac Tromethamine 60 MG/2 ML VIAL IM (17:21)
[2021-05-25 17:23] LABS: Appearance Urine HAZY; Color Urine YELLOW; Glucose Urine UA NEG (NEG); Leukocyte Esterase Urine NEG (NEG); Nitrite Urine NEG (NEG); Urine Blood NEG (NEG); Urine Ketones NEG (NEG); Urine Protein NEG (NEG-TRACE)
== END 2021-05-25 19:08 | disposition home or self-care (01) ==
PROVIDERS: Physician Assistant; Emergency Provider Emergency Medicine Emergency Medical Services; PCP Internal Medicine
DX: M54.16 Radiculopathy, lumbar region (principal); M54.50 Low back pain, unspecified; I10 Essential (primary) hypertension; E78.5 Hyperlipidemia, unspecified; Z79.02 Long term (current) use of antithrombotics/antiplatelets; Z79.899 Other long term (current) drug therapy
CPT/HCPCS: 74176; 81003; 96372; 99284; J1885

== ENCOUNTER 2021-06-16 08:03 | Outpatient (REF) | payer OTHER, MEDICAID, SELFPAY ==
--- NOTE | ~2021-06-16 | XR_ITS ---
EXAMINATION: XR LUMBOSACRAL SPINE CLINICAL INFORMATION: Lower back pain, right-sided radiculopathy COMPARISON: None TECHNIQUE: 4 views weightbearing FINDINGS: Very early disc space narrowing L4-L5. Generalized endplate mild spurring. No spondylolysis or subluxation. Vertebral pedicles and spinous processes intact. No fracture. XR/XR lumbar spine 2-3V IMPRESSION: Relatively mild degenerative disc disease most notable at L4-L5 as above.
== END 2021-06-16 08:04 | disposition home or self-care (01) ==
LOC: HO.XRAY 08:03
PROVIDERS: PCP Internal Medicine; Visit Provider Internal Medicine
DX: M54.50 Low back pain, unspecified (principal)
CPT/HCPCS: 72100

== ENCOUNTER 2021-07-12 13:00 | Outpatient (RCR) | payer OTHER, MEDICAID, SELFPAY ==
--- NOTE | 2021-06-09 10:53 | MHC.PT.EP ---
[facility] [place] Office [place] Office [place] Office [address] Chidi Colón [address] [phone] F: [phone] F: [phone] F: [phone] F: [phone] Physical Therapy Plan of Care Date of Evaluation: Date of Surgery: N/A Diagnosis: low back pain Assessment: pt's signs and symptoms consistent w/ R sided lumbar radiculopathy. pt presents to physical therapy with pain, decreased range of motion, decreased strength, impaired functional mobility, impaired postural awareness, and gait deviations. pt is a good candidate for skilled PT due to age, potential remediation of impairments, typical disease/condition progression and prognosis, comorbidities, and motivation. pt would benefit from tailored strengthening and stretching exercise program, functional training, gait training, postural re-training, neuromuscular re-education, modalities as needed for pain, equipment safety demonstration. Frequency and Duration: The patient will be seen 2x/wk for 5 wks Short Term Goals: pt will be I w/ HEP to promote self-management of condition. pt will demo proper sitting posture w/ lumbar roll to promote neutral spine w/ seated ADLs. Shelter Goals: pt will report a statistically significant improvement in self-reported outcome measure, Domitila, to promote return to PLOF. pt will lift 15# object from floor to waist height w/ proper lifting mechanics w/ no verbal cueing to promote return to work-related tasks. Treatment Plan: Modalities to reduce pain, spasms and effusion. Manual therapy to restore motion and function. Therapeutic exercise to improve strength and flexibility. Neuromuscular re-education for posture and balance. Therapeutic activities to return to functional activities of daily living. Electronically signed by: Cari Underwood PT, DPT Please sign and return to therapist. Thank you for your referral.
--- NOTE | 2021-08-10 15:14 | MHC.PT.DC ---
[place] Office [place] Office [place] Office [address] Chidi Colón 140 [facility] [phone] F: [phone] F: [phone] F: [phone] F: [phone] Physical Therapy Discharge Report Diagnosis: low back pain Date of Surgery: N/A Date of Evaluation: 06/09/21 Date of Discharge: 08/10/21 Treatments to Date: 6 Cancellations to Date: 1 No Shows to Date: 0 Discharge Status: Visit Non-compliance Discharge Summary: The patient was reporting overall no change in his back pain or radicular symptoms with physical therapy intervention this far. He has trialed repeated movements, core and pelvic stability exercises, and mechanical traction. He was awaiting an MRI at the time of his physical therapy plan of care. He cancelled his last scheduled visit and did not reschedule any other visits in nearly a month. He is discharged from this physical therapy plan of care for non-compliance. Electronically signed by: Cari Underwood PT, DPT Please sign and return to therapist. Thank you for your referral.
== END 2021-08-10 15:14 | disposition home or self-care (01) ==
LOC: HO.PT 13:00
PROVIDERS: Internal Medicine Gastroenterology; PCP Internal Medicine; Visit Provider Internal Medicine
DX: M54.50 Low back pain, unspecified (principal)
CPT/HCPCS: 87338; 97012; 97110; 97140; 97161; 97530

== ENCOUNTER 2021-07-27 15:50 | Outpatient (REF) | payer OTHER, MEDICAID, SELFPAY ==
--- NOTE | ~2021-07-27 | MR_ITS ---
EXAMINATION: MR LUMBAR SPINE WITHOUT CONTRAST CLINICAL INFORMATION: Radiculopathy. COMPARISON: None TECHNIQUE: MRI of the lumbar spine was obtained using routine sequences without contrast. FINDINGS: The lumbar vertebral bodies maintain normal heights and alignment. Mild amount of edema is seen at the inferior endplate of L2 and at the opposing endplates of L3-L4. There is mild to moderate disc height loss at L1-L2 and L2-L3. Small Schmorl's nodes are seen at the superior endplate of L2, L4, and L5. The distal spinal cord appears normal. The conus medullaris terminates normally at the L1 level. The visualized paraspinal muscles and intra-abdominal and pelvic contents are within normal limits. SPINAL LEVELS: L1-L2: Shallow central protrusion. No spinal canal or neural foraminal stenosis. L2-L3: Disc bulging with shallow central protrusion. No spinal canal or neural foraminal stenosis. L3-L4: Disc bulging with mild facet arthropathy. Shallow right foraminal protrusion narrowing the neural foramen without causing foraminal nerve root compression. Mild flattening of the ventral thecal sac without significant narrowing of the spinal canal. L4-L5: Disc bulging with ligamentum flavum infolding and moderate facet arthropathy. Mild spinal canal stenosis with encroachment on the subarticular zones. Mild bilateral neural foraminal stenosis. L5-S1: Right subarticular protrusion resulting in mild compression of the traversing right S1 nerve root. Mild facet arthropathy. Mild narrowing of the neural foramina. MR/MR lumbar spine wo con IMPRESSION: At L5-S1 there is right subarticular protrusion resulting in mild compression of the traversing right S1 nerve root. Additional mild degenerative spondylosis is noted without significant narrowing of the spinal canal. No definite foraminal nerve root compression is seen.
== END 2021-07-27 15:51 | disposition home or self-care (01) ==
LOC: HO.MRI 15:50
PROVIDERS: Visit Provider Internal Medicine
DX: M54.10 Radiculopathy, site unspecified (principal)
CPT/HCPCS: 72148

== ENCOUNTER 2021-11-19 10:28 | Outpatient (REF) | payer OTHER, MEDICAID, SELFPAY ==
[2021-11-19 10:52] LABS: COVID-19 Test Positive (Negative)
== END 2021-11-19 10:29 | disposition home or self-care (01) ==
LOC: HO.LAB 10:28
PROVIDERS: Visit Provider Internal Medicine
DX: Z20.822 Contact with and (suspected) exposure to COVID-19 (principal)
CPT/HCPCS: 87635; C9803

== ENCOUNTER 2021-11-24 08:02 | Outpatient (REF) | payer OTHER, MEDICAID, SELFPAY ==
[2021-11-24 08:36] LABS: COVID-19 Test Negative (Negative); IDNOW Serial# 16C4AD1C
== END 2021-11-24 08:03 | disposition home or self-care (01) ==
LOC: HO.LAB 08:02
PROVIDERS: Visit Provider Internal Medicine
DX: Z20.822 Contact with and (suspected) exposure to COVID-19 (principal)
CPT/HCPCS: 87635; C9803

== ENCOUNTER 2021-12-30 10:09 | Outpatient (REF) | payer OTHER, MEDICAID, SELFPAY ==
[2021-12-30 10:29] LABS: MANUAL DIFF FLAG NO
[2021-12-30 11:25] LABS: Basophils Absolute Auto 0.1 X10*3/uL (0.0-0.2); Basophils Percent Auto 0.7 % (0-2); Eosinophils Absolute Auto 0.2 X10*3/uL (0.0-0.4); Eosinophils Percent Auto 2.1 % (0-4); Hematocrit 42.3 % (42.0-52.0); Hemoglobin 14.1 g/dl (14.0-18.0); Imm Gran Abs Auto 0.02 X10*3/uL (0.00-0.03); Imm Gran Pct Auto 0.3 % (0.0-0.4); Lymphocytes Absolute Auto 3.6 X10*3/uL (1.2-4.9); Lymphocytes Percent Auto 48.2 % (20-40); Mean Corpuscular HGB Conc 33.3 g/dl (31.0-36.0); Mean Corpuscular Hemoglobin 29.9 pg (27.0-33.0); Mean Corpuscular Volume 89.8 fL (80.0-98.0); Mean Platelet Volume 9.5 fL (9.4-12.4); Monocytes Absolute Auto 0.7 X10*3/uL (0.1-1.2); Monocytes Percent Auto 9.3 % (2-11); Neutrophils Percent Auto 39.4 % (45-73); Platelet Count 275 X10*3/uL (160-400); Red Blood Count 4.71 X10*6/uL (4.60-5.80); Red Cell Distribution Width 12.5 % (11.0-16.0); White Blood Count 7.6 X10*3/uL (4.8-10.8)
[2021-12-30 11:35] LABS: Estimated Average Glucose 120 mg/dL; Hemoglobin A1C 150.1625 umol/L; Hemoglobin A1c % 5.8 %
[2021-12-30 12:11] LABS: Alanine Aminotransferase 51 U/L (0-40); Albumin Level 4.7 g/dL (3.5-5.0); Alkaline Phosphatase 85 U/L (39-117); Anion Gap 13 (12-20); Aspartate Amino Transferase 30 U/L (5-37); Bilirubin Total 1.1 mg/dL (0.0-1.0); Blood Urea Nitrogen 21 mg/dL (9-16); Calcium 9.7 mg/dL (8.4-10.2); Carbon Dioxide 25 mmol/L (22-29); Chloride 105 mmol/L (96-108); Cholesterol 215 mg/dL; Estimated Glomerular Filt Rate > 60; Glucose Random 95 mg/dL (60-115); HDL Cholesterol 40 mg/dL; LDL Cholesterol Calculated 134 mg/dl; Potassium 4.2 mmol/L (3.3-5.1); Sodium 139 mmol/L (135-145); Triglycerides 206 mg/dL
[2021-12-30 12:17] LABS: Free T4 (Free Thyroxine) 0.85 ng/dL (0.71-1.85); Prostate Specific Antigen Scr 0.71 ng/mL (<0.05-4.0); Thyroid Stimulating Hormone 1.02 uIU/mL (0.32-4.0)
[2021-12-30 12:29] LABS: Folate 19.3 ng/mL (> or = 4.0); Vitamin B12 338 pg/mL (200-900)
== END 2021-12-30 10:10 | disposition home or self-care (01) ==
LOC: HO.LAB 10:09
PROVIDERS: PCP Internal Medicine; Visit Provider Internal Medicine
DX: Z12.5 Encounter for screening for malignant neoplasm of prostate (principal); E78.00 Pure hypercholesterolemia, unspecified; I10 Essential (primary) hypertension; R73.01 Impaired fasting glucose
CPT/HCPCS: 36415; 80053; 80061; 82607; 82746; 83036; 84153; 84439; 84443; 85025

== ENCOUNTER 2022-03-09 14:00 | Outpatient (RCR) | payer OTHER, MEDICAID, SELFPAY | END 2022-04-25 14:26 | disposition home or self-care (01) | LOC: HO.PT 14:00 | PROVIDERS: PCP Internal Medicine; Visit Provider Physician Assistant | DX: M76.01 Gluteal tendinitis, right hip (principal) | CPT/HCPCS: 97110; 97112; 97162 ==

== ENCOUNTER 2022-04-04 09:15 | Outpatient (REF) | payer OTHER, MEDICAID, SELFPAY ==
[2022-04-04 09:56] LABS: Estimated Average Glucose 120 mg/dL; Hemoglobin A1c % 5.8 %
[2022-04-04 10:08] LABS: Alanine Aminotransferase 40 U/L (0-40); Albumin Level 4.9 g/dL (3.5-5.0); Alkaline Phosphatase 88 U/L (39-117); Anion Gap 15 (12-20); Aspartate Amino Transferase 28 U/L (5-37); Bilirubin Total 0.9 mg/dL (0.0-1.0); Blood Urea Nitrogen 17 mg/dL (9-16); Calcium 10.1 mg/dL (8.4-10.2); Carbon Dioxide 28 mmol/L (22-29); Chloride 103 mmol/L (96-108); Cholesterol 165 mg/dL; Estimated Glomerular Filt Rate > 60; Glucose Random 100 mg/dL (60-115); HDL Cholesterol 37 mg/dL; LDL Cholesterol Calculated 96 mg/dl; Potassium 4.5 mmol/L (3.3-5.1); Sodium 141 mmol/L (135-145); Triglycerides 162 mg/dL
== END 2022-04-04 09:16 | disposition home or self-care (01) ==
LOC: HO.LAB 09:15
PROVIDERS: PCP Internal Medicine; Visit Provider Internal Medicine
DX: R73.01 Impaired fasting glucose (principal); E78.00 Pure hypercholesterolemia, unspecified
CPT/HCPCS: 36415; 80053; 80061; 83036

== ENCOUNTER 2022-06-05 16:55 | Emergency (ER) | payer OTHER, MEDICAID, SELFPAY ==
--- NOTE | ~2022-06-05 | CT_ITS ---
EXAMINATION: CT HEAD WITHOUT CONTRAST CLINICAL INFORMATION: Severe headache with hypertension. COMPARISON: None TECHNIQUE: Contiguous axial imaging was performed from the skull base to vertex without intravenous administration of contrast. This CT examination was performed using dose optimization techniques as appropriate, variously including the following: *Automated exposure control *Adjustment of mA and/or kV according to patient size (this includes techniques or standardized protocols for targeted exams where dose is matched to indication/reason for exam; i.e. extremities or head) *Use of iterative reconstruction technique DLP: 750 mGy-cm FINDINGS: No intracranial hemorrhage, tumors or acute infarcts identified. The ventricles and sulci are normal in size and configuration. No focal parenchymal lesions of the brain or abnormal extra-axial fluid collections. The orbits and globes are partially included in the image [id number] and demonstrate no abnormalities. No significant opacification of the visualized paranasal sinuses, mastoid air cells and middle ear cavities. CT/CT head/brain wo IV con IMPRESSION: Normal unenhanced CT the head.
--- NOTE | ~2022-06-05 | XR_ITS ---
EXAMINATION: XR CHEST CLINICAL INFORMATION: Chest pain COMPARISON: 08/21/2020 TECHNIQUE: Frontal view of the chest was obtained. FINDINGS: The lungs are clear with no focal consolidation. No evidence of pneumothorax, pulmonary edema, or pleural effusions. The cardiomediastinal silhouette is unremarkable. No acute osseous findings. XR/XR chest 1V IMPRESSION: No acute cardiopulmonary findings.
[2022-06-05 17:11] VITALS: BP 159/96; PULSE 106; RESP 16; TEMP 36.9; O2SAT 100; BMI 25.3
[2022-06-05 17:15] VITALS: BP 171/100
--- NOTE | 2022-06-05 17:16 | ECG_ITS ---
Test Reason : HTN Blood Pressure : / mmHG Vent. Rate : 084 BPM Atrial Rate : 084 BPM P-R Int : 176 ms QRS Dur : 088 ms QT Int : 382 ms P-R-T Axes : 013 002 -10 degrees QTc Int : 451 ms Normal sinus rhythm Minimal voltage criteria for LVH, may be normal variant ( R in aVL ) Borderline ECG When compared with ECG of 19-MAR-2014 15:31, No significant change was found Referred By: Generic ED Physician Electronically Signed By:ASHU AGARWAL
--- OUTSIDE RECORDS SUMMARY | 2022-06-05 18:56 | XMS_ITS | Continuity of Care Document ---
:1960 Author Organization [facility] Address [address] [place] [id number]- Care Team Providers Name Role Phone Po Danitza MCCANN Primary Care Physician Encounter [facility] Date(s): 05/04/20 - 05/04/[address] [id number] Encounter Diagnosis Cough (Final) - 05/04/20 Discharge Disposition: A-D/C Home Attending Physician: Saritha Randle DO Admitting Physician: Saritha Randle DO Referring Physician: Not on Staff, Referring MD Allergies, Adverse Reactions, Alerts Substance Reaction Severity Status NKA Active Medications Golytely - oral powder for reconstitution See Instructions, Use split dose regimen, # 1 kit, 0 Refills, Maintenance, 08/06/19 13:12:00 EST, [id number], Use split dose regimen, 170.18, cm, 08/06/19 13:00:00 EST, Height Start Date: 08/06/19 Status: OrderedOmeprazole By Mouth, Daily, 0 Refills, Maintenance, 08/06/19 13:02:00 EST Start Date: 08/06/19 Status: OrderedSimvastatin By Mouth, 0 Refills, Maintenance, 08/06/19 13:01:00 EST Start Date: 08/06/19 Status: Ordered Results Radiology Reports Exam Date Time Procedure Performing Provider Status 05/04/20 1:02 PM Chest Portable Deshawn Vargas (Verified) Notes:(Chest Portable) Reason For Exam: Shortness of BreathRESULT: Chest Portable Examination: Portable chest performed on 05/04/2020. History: Chest pressure. Findings: A frontal view of the chest is submitted without comparison. The cardiac and mediastinal silhouettes are within normal limits. The lungs are clear. A right humeral head tendon anchor is seen. The osseous structures are intact. IMPRESSION: There is no acute cardiopulmonary disease. WSN: [id number] Ordering Physician: Saritha Randle Dictated By: Maria Guadalupe Pradhan MD Dictated Date/Time: 05/04/20 1:08 pm Reviewed By: Maria Guadalupe Pradhan MD Signed By: Maria Guadalupe Pradhan MD Signed Date/Time: 05/04/20 1:08 pm Transcribed By: CSChristelle Transcribed Date/Time: 05/04/20 1:07 pm Vital Signs Most recent to oldest 1 2 3 [Reference Range]: Oxygen Saturation [94-100 %] 100 % 100 % 100 % (05/04/20 3:08 PM) (05/04/20 12:07 PM) (05/04/20 11 :54 AM) Pulse Rate [55-90 bpm] 60 bpm 72 bpm 88 bpm (05/04/20 3:08 PM) (05/04/20 12:07 PM) (05/04/20 11 :54 AM) Blood Pressure [90-138/55-84 133/82 mm Hg 159/83 mm Hg mm Hg] (05/04/20 3:08 PM) *H* (05/04/20 12:07 PM) Respiratory Rate [16-30 16 br/min 18 br/min br/min] (05/04/20 3:08 PM) (05/04/20 12:07 PM) Temperature [96.8-100.4 DegF] 97.3 DegF 97.4 DegF (05/04/20 3:08 PM) (05/04/20 12:07 PM) Mode of Delivery (Oxygen) Room air Room air Room a ir (05/04/20 3:08 PM) (05/04/20 12:07 PM) (05/04/20 11 :54 AM) Blood pressure sites Arm, right Arm, left (05/04/20 3:08 PM) (05/04/20 12:07 PM) Temperature Route Oral Oral (05/04/20 3:08 PM) (05/04/20 12:07 PM) Social History Social History Type Response Smoking Status Never (less than 100 in life time) entered on: 08/06/19 Sex
--- OUTSIDE RECORDS SUMMARY | 2022-06-05 18:56 | XMS_ITS ---
:1960 Author Organization [facility] Address [address] [place] [address] Care Team Providers Name Role Phone Joe KellerJohn Unavailable Unavailable PROBLEMS Type Condition ICD9-CM [id number] Onset Condition SNOMED Cod e Code Code Dates Status Problem Rectal bleeding K62.5 Active 1206 3002 Problem H. pylori infection A04.8 Active 859163059 Problem Gastritis, K29.70 Active 528498781 unspecified, without bleeding Problem Personal history of Z86.010 Active 823998756 colonic polyps Problem Epigastric pain R10.13 Active 7992 2009 Problem History of colon Z86.010 Active polyps Problem Gastroesophageal K21.9 Active 266 071857 reflux disease without esophagitis ALLERGIES No Known Allergies ENCOUNTERS Encounter Location Date Diagnosis [address] Jun, [facility] [address] [place] [address] May, Gastriti s, unspecified, [facility] [address] [place] without bl eeding K29.70 ; H. pylori infection A04.8 and Gastroesophageal reflux disease without esophagitis K21.[address] Feb, [facility] [address] [place] [address] Nov, Helicoba cter pylori [facility] [address] [place] infection A04.8 [address] [facility] [address] [place] [address] Nov, Rectal bleeding K62.5 ; [place] Cisse [id number] Epigastric pain R10.13 ; Colon polyp K63. 5 and History of colon polyps Z86.010 [facility] [address] October, [facility] [address] [place] [address] [place] [address] October, Epigastr ic pain R10.13 ; [facility] [address] [place] Rectal ble eding K62.5 and [address] Personal history of colonic polyps Z86.010 [facility] [address] Jun, [facility] [address] [place] [address] [facility] [address] Jun, [facility] [address] [place] [address] [facility] [address] Jun, [facility] [address] [place] [address] [facility] [address] Jun, Rectal b leeding K62.5 and [facility] [address] [place] Personal h istory of colonic [address] polyps Z86.010 [facility] [address] Jun, [facility] [address] [place] [address] [facility] [address] Jun, [facility] [address] [place] [address] [facility] [address] [place] [address] Mar, [place] Cisse [id number] [place] [address] Mar, [facility] [address] [place] [address] [place] [address] Dec, Anemia 2 85.9 [facility] [address] [place] [address] IMMUNIZATIONS No Known Immunizations SOCIAL HISTORY Never Assessed REASON FOR REFERRAL FUNCTIONAL STATUS PLAN OF CARE Activity Details Follow Up 1 Year Reason: Pending Test H PYLORI AG, STOOL Future/Pending Procedure COLONOSCOPY 20201109 Future/Pending Procedure UPPER GI ENDOSCOPY 20201109 Future/Pending Procedure COLONOSCOPY 20180726 Future/Pending Procedure COLONOSCOPY 20121226 VITAL SIGNS Weight 162 lbs 2021-06-10 Weight 164 lbs 2020-11-09 Weight 158 lbs 2018-07-26 Weight 165 lbs 2012-12-26 Height 67 in 2021-06-10 Height 67 in 2020-11-09 Height 67 in 2018-07-26 Height 67 in 2012-12-26 BMI 25.37 kg/m2 2021-06-10 BMI 25.68 kg/m2 2020-11-09 BMI 24.74 kg/m2 2018-07-26 BMI 25.84 kg/m2 2012-12-26 Heart Rate 72 /min 2018-07-26 Heart Rate 88 /min 2012-12-26 Temperature 97.3 degrees Fahrenheit 2021-06-10 Temperature 97.5 degrees Fahrenheit 2020-11-09 Blood pressure systolic 000 mm Hg 2021-06-10 Blood pressure diastolic 00 mm Hg 2021-06-10 MEDICATIONS Medication Instructions Dosage Frequency Start End Duration Statu s Date Date hydroCHLOROthiazide Acti ve 12.5 MG Simvastatin 5 MG Oral Once a TAKE 1 24h Act estrellita day TABLET BY MOUTH EVERY DAY IN THE EVENING MiraLax (colon prep) orally begin mixed with 09 November, 1 d ay Active 8.3 ounce ((238) at 5:00 p.m. Gatorade 2020 grams the day before or Crystal the procedure Light Clarithromycin 500 MG Orally every 1 tablet 12h 10 Nov, 14 d ays Active 12 hrs 2020 Vitamin B12 Active Cyclobenzaprine HCl Acti ve Amoxicillin 500 MG Orally Twice a 2 capsules 12h 10 Nov, 14 days Unknown day 2020 Omeprazole 20 MG Orally Once a 1 capsule 24h 09 November, Active day 2020 Vitamin C Active oxyCODONE-Acetaminoph Ac tive en PROCEDURES Procedure Date Ordered Result Body Site DOC MEDS VERIFIED W/PT OR RE November 09, 2020 COLORECTAL CA SCREEN DOC REV November 09, 2020 DOC MEDS VERIFIED W/PT OR RE Jun 10, 2021 COLORECTAL CA SCREEN DOC REV Jun 10, 2021 TOBACCO NON-USER Jul 26, 2018 COLONOSCOPY AND BIOPSY December 01, 2020 FLU IMM NO ORD/ADMIN DOC GUILLE Jul 26, 2018 TOBACCO NON-USER November 09, 2020 Doc med rsn no tbco scrn Jun 10, 2021 LESION REMOVAL COLONOSCOPY December 01, 2020 UPPER GI ENDOSCOPY, BIOPSY December 01, 2020 COLORECTAL CA SCREEN DOC REV Jul 26, 2018 BP NOT ASSESS PATIENT NOT ELIGIBLE November 09, 2020 DOC RSN FOR NOT SCREEN/REC F/U HBP Jun 10, 2021 DOC MEDS VERIFIED W/PT OR RE Jul 26, 2018 BMI<30 AND >=22 CALC & DOCU Jul 26, 2018 RESULTS Name Result Date Reference Range H pylori Ag Stool 2021-06-29 H pylori Ag Stool SEE NOTE Pathology 2020-12-01 GI BIOPSY 2013-04-19 G.I. BIOPSY REASON FOR VISIT lab results, Patient presents today for h-pylori, Patient presents today for f/u from h pylori, r/s appt , pathology/ waiting on pt call back, epigastric pain,rectal bleeding, deductible, Patient presents today for followup of rectal bleeding and abdominal symptoms, rectal bleeding, [facility] is out of network, [employer] Insurance, patient presents today for Rectal bleeding, rectal bleeding, patient presents today for RECTAL BLEEDING, Got called into work, screening colonoscopy, anemia, Pt ate, ANEMIA,PRE-COLON Insurance Providers [facility] Member Patient Patient Patient Patient Patient Subscriber Subscriber Subscriber Group Insurance Plan Plan Plan Plan ID Relationship Address Phone Name Date of ID Name Date of No Type Insurance Insurance Insurance Coverage to Subscriber Address Phone Name Dates MEDICAID [id number] MEDICAID self KATLHEEN [id number] [place] [id number] [address] [place] [address] AETNA [phone] AETNA self KATHLEEN [id number] [place] [id number] MEDICAID [address] MEDICAID self KATHLEEN [id number] [place] [address] [place] [facility] [address] [facility] [place] [address] BLUE [phone] BLUE self KATHLEEN [id number] [place] [id number] [place] [address] [facility] Z [id number]
--- OUTSIDE RECORDS SUMMARY | 2022-06-05 18:56 | XMS_ITS | Continuity of Care Document ---
:1960 Author Organization [facility] Address [address] [place] [address]- Care Team Providers Name Role Phone Po Danitza MCCANN Primary Care Physician Encounter [facility] Date(s): 06/01/20 - 06/01/[address] [address] Encounter Diagnosis Chest pain (Final) - 06/01/20 Discharge Disposition: A-D/C Home Attending Physician: Jese Tellez MD Admitting Physician: Jese Tellez MD Referring Physician: Not on Staff, Referring MD Allergies, Adverse Reactions, Alerts Substance Reaction Severity Status NKA Active Medications Golytely - oral powder for reconstitution See Instructions, Use split dose regimen, # 1 kit, 0 Refills, Maintenance, 08/06/19 13:12:00 EST, [id number], Use split dose regimen, 170.18, cm, 08/06/19 13:00:00 EST, Height Start Date: 08/06/19 Status: OrderedOmeprazole By Mouth, Daily, 0 Refills, Maintenance, 08/06/19 13:02:00 EST Start Date: 08/06/19 Status: OrderedSimvastatin By Mouth, 0 Refills, Maintenance, 08/06/19 13:01:00 EST Start Date: 08/06/19 Status: Ordered Results Radiology Reports Exam Date Time Procedure Performing Provider Status 06/01/20 12:52 PM Chest Portable José Antonio Lopez (Ve rified) Notes:(Chest Portable) Reason For Exam: Chest Pain;Other:RESULT: Chest Portable Chest Portable Hx of Present Illness: CP, SOB, and left arm pain; Reason: Other:; Chest Pain; Clinical Question(s):Other: COMPARISON: 05/04/2020 FINDINGS: LINES AND TUBES: None. LUNGS AND PLEURA: Clear lungs. Normal pulmonary vascularity. No pleural effusion. No pneumothorax. HEART, MEDIASTINUM AND RADHA: Heart is normal in size. Normal upper mediastinal and hilar contour. BONES AND SOFT TISSUES: No acute abnormality. IMPRESSION: No acute abnormality. WSN: [id number] Ordering Physician: Jese Tellez Dictated By: Cyndi Arzola MD Dictated Date/Time: 06/01/20 1:05 pm Reviewed By: Cyndi Arzola MD Signed By: Cyndi Arzola MD Signed Date/Time: 06/01/20 1:05 pm Transcribed By: MELISSA Transcribed Date/Time: 06/01/20 1:04 pm Vital Signs Most recent to oldest 1 2 3 [Reference Range]: Oxygen Saturation [94-100 %] 100 % 100 % 100 % (06/01/20 4:12 PM) (06/01/20 11:41 AM) (06/01/20 11 :27 AM) Pulse Rate [55-90 bpm] 66 bpm 77 bpm 97 bpm (06/01/20 4:12 PM) (06/01/20 11:41 AM) *H* (06/01/20 11:27 A M) Blood Pressure [90-138/55-84 153/97 mm Hg 144/91 mm Hg mm Hg] *H* *H* (06/01/20 4:12 PM) (06/01/20 11:41 AM) Respiratory Rate [16-30 16 br/min 18 br/min 18 br/mi n br/min] (06/01/20 4:12 PM) (06/01/20 11:41 AM) (06/01/20 11 :27 AM) Temperature [96.8-100.4 98.1 DegF DegF] (06/01/20 11:41 AM) Mode of Delivery (Oxygen) Room air Room air (06/01/20 11:41 AM) (06/01/20 11:27 AM) Blood pressure sites Arm, left (06/01/20 11:41 AM) Temperature Route Oral (06/01/20 11:41 AM) Social History Social History Type Response Smoking Status Never (less than 100 in life time) entered on: 08/06/19 Sex
[2022-06-05 20:02] LABS: COVID-19 Test Negative (Negative); IDNOW Serial# 55D5AD1C; Influenza A Negative (Negative); Influenza B2 Negative (Negative)
--- NOTE | 2022-06-05 21:19 | ED_ITS ---
HPI - General Adult General Chief complaint: General Medical Stated complaint: high blood pressure Time Seen by Provider: 06/05/22 21:17 Source: patient Mode of arrival: ambulatory Limitations: no limitations History of Present Illness HPI narrative: Patient history of hypertension on hydrochlorothiazide occasional headaches? Migraine been having elevated blood pressure for last 2 weeks on arrival patient's blood pressure was 159/96 along with that patient has been having headaches mostly in the frontal behind eyes with light sensitivity and nausea no fever no chills no also patient noticed since he had his slight mid chest pain with no radiation of the pain pain is more like burning sensation no shortness of breath Related Data Home Medications Medication Instructions Recorded Confirmed ascorbate calcium (vitamin C) 500 500 mg PO DAILY 07/20/20 01/04/22 mg tablet cyanocobalamin (vitamin B-12) 1,000 mcg PO DAILY 07/20/20 01/04/22 1,000 mcg capsule Previous Rx's Medication Instructions Recorded cyclobenzaprine 10 mg tablet 10 mg PO TID PRN muscle spasm 15 12/15/21 days #45 tabs hydrochlorothiazide 12.5 mg tablet 12.5 mg PO DAILY #90 tabs 12/29/21 simvastatin 20 mg tablet 20 mg PO BEDTIME 90 days #90 tabs 01/04/22 meloxicam 15 mg tablet 15 mg PO DAILY #90 tabs 03/28/22 omeprazole 20 mg capsule,delayed 20 mg PO DAILY 90 days #90 caps 05/18/22 release hpabayovwx-pyrhjxqerwauy-xnwcxfye 1 cap PO Q6H PRN headache #20 caps 06/06/22 50 mg-300 mg-40 mg capsule (Fioricet) lisinopril 10 mg tablet 10 mg PO DAILY #30 tabs 06/06/22 Allergies Allergy/AdvReac Type Severity Reaction Status Date / Time No Known Allergies Allergy Verified 01/04/22 15:58 Review of Systems Review of Systems: Yes all other systems are reviewed and are negative PMFSH Past Medical History Medical History BPH (benign prostatic hyperplasia) Fatty liver GERD (gastroesophageal reflux disease) HTN (hypertension) Hypercholesterolemia Respiratory tract infection Right renal stone Right shoulder pain Rotator cuff disorder Tubular adenoma of colon Vitamin D deficiency Surgical History History of arthroscopy of right shoulder History of eye surgery Family History Family History Father Hypertension Mother No problems noted. Paternal Uncle Cancer Social History Social History Housing: House Alcohol intake: former Patient Tobacco Use Status: Never used Tobacco e-Cigarette/Vaping Use: Never Used Second Hand Smoke Exposure: No Advance Directives: No Advance Directives Information Provided: No Current occupational status: employed Cognitive needs: No Hearing needs: No Vision needs: Yes Physical Exam ED Vital Signs: Vital Signs - 24 hr 06/05/22 17:11 06/05/22 17:15 06/05/22 21:21 Temperature 98.4 F 97.5 F Pulse Rate 106 H 77 Respiratory Rate 16 24 H Blood Pressure 159/96 H 171/100 H 148/96 H Pulse Oximetry 100 97 Oxygen Delivery Method Room Air Room Air 06/05/22 23:41 Temperature 98.0 F Pulse Rate 75 Respiratory Rate 16 Blood Pressure 156/105 H Pulse Oximetry 97 Oxygen Delivery Method Room Air BMI result Body Mass Index 25.3 Appearance: Alert. Oriented X3. No acute distress. Eyes: PERRLA, No Nystagmus ENT: Pharynx normal. Oral Mucosa moist Neck: Normal inspection. Neck supple. CVS: Normal heart rate and rhythm. Pulses normal. Respiratory: No respiratory distress. Equal air entry bilateral, no wheezing/rales/rhonchi Abdomen: Soft and nontender. Bowel sounds are present, no mass palpable, no CVA tenderness Skin: Skin warm and dry. Normal skin color. Normal skin turgor. Extremities: No lower extremity edema. No calf tenderness Neuro: Oriented X 3. No motor deficit. No sensory deficit.No cerebellar signs , cranial nerves II-XII intact Medications Administered Discontinued Medications Generic Name Dose Route Start Last Admin Trade Name Freq PRN Reason Stop Dose Admin Ketorolac Tromethamine 60 mg 06/05/22 23:11 06/05/22 23:48 Ketorolac Tromethamine 60 Mg/2 Ml Vial IM 06/05/22 23:12 60 mg ONCE ONE Administration Lisinopril 20 mg 06/05/22 23:11 06/05/22 23:49 Lisinopril 20 Mg Tablet PO 06/05/22 23:12 20 mg ONCE ONE Administration Protocol Medical Decision Making Medical Decision Making [facility] Narrative: Patient with uncontrolled hypertension with history of migraine headache headache started within the last [address] scan of the head is negative will give IM Toradol for headache and give lisinopril for blood pressure control 00:45 patient feeling better now blood pressure 148/94 will discharge patient home on lisinopril and Fioricet Lab Attestation: I reviewed the patient's lab results. Independent interpretation of EKG, rhythm strip, radiology study: Independent interp EKG,rhythm strip, radiology study I performed an independent interpretation of the: EKG My interpretation is normal sinus rhythm heart rate 84 beats per minute LVH no acute ST T wave changes no acute ischemia Discharge Plan Discharge Clinical Impression: HTN (hypertension), Migraine Patient Disposition: Home, Self-Care Instructions: Migraine Headache (ED), Chronic Hypertension (ED) Additional Instructions: Rest at home Start taking lisinopril 10 mg daily for blood pressure control along with your hydrochlorothiazide Check blood pressure should be less than 130/85 Take Fioricet for migraine headaches Follow-up with PCP Prescriptions: New isybsfoahr-fmvyhnpzvjmks-jraw [Fioricet] 50-300-40 mg capsule 1 cap PO Q6H PRN (Reason: headache) Qty: 20 0RF lisinopril 10 mg tablet 10 mg PO DAILY Qty: 30 2RF No Action cyclobenzaprine 10 mg tablet 10 mg PO TID PRN (Reason: muscle spasm) 15 Days Qty: 45 1RF hydrochlorothiazide 12.5 mg tablet 12.5 mg PO DAILY Qty: 90 2RF meloxicam 15 mg tablet 15 mg PO DAILY Qty: 90 2RF omeprazole 20 mg capsule,delayed release(DR/EC) 20 mg PO DAILY 90 Days Qty: 90 1RF cyanocobalamin (vitamin B-12) 1,000 mcg capsule 1,000 mcg PO DAILY ascorbate calcium (vitamin C) 500 mg tablet 500 mg PO DAILY simvastatin 20 mg tablet 20 mg PO BEDTIME 90 Days Qty: 90 2RF
[2022-06-05 21:21] VITALS: BP 148/96; PULSE 77; RESP 24; TEMP 36.4; O2SAT 97
[2022-06-05 22:07] LABS: MANUAL DIFF FLAG NO
[2022-06-05 22:19] LABS: Basophils Absolute Auto 0.1 X10*3/uL (0.0-0.2); Basophils Percent Auto 0.6 % (0-2); Eosinophils Absolute Auto 0.1 X10*3/uL (0.0-0.4); Eosinophils Percent Auto 1.3 % (0-4); Hematocrit 39.4 % (42.0-52.0); Hemoglobin 13.5 g/dl (14.0-18.0); Imm Gran Abs Auto 0.02 X10*3/uL (0.00-0.03); Imm Gran Pct Auto 0.2 % (0.0-0.4); Lymphocytes Absolute Auto 3.5 X10*3/uL (1.2-4.9); Lymphocytes Percent Auto 41.3 % (20-40); Mean Corpuscular HGB Conc 34.3 g/dl (31.0-36.0); Mean Corpuscular Volume 87.6 fL (80.0-98.0); Mean Platelet Volume 8.9 fL (9.4-12.4); Monocytes Absolute Auto 0.8 X10*3/uL (0.1-1.2); Monocytes Percent Auto 9.4 % (2-11); Neutrophils Percent Auto 47.2 % (45-73); Platelet Count 295 X10*3/uL (160-400); Red Cell Distribution Width 12.5 % (11.0-16.0); White Blood Count 8.5 X10*3/uL (4.8-10.8)
[2022-06-05 22:26] LABS: Alanine Aminotransferase 49 U/L (0-40); Albumin Level 4.7 g/dL (3.5-5.0); Alkaline Phosphatase 100 U/L (39-117); Anion Gap 16 (12-20); Aspartate Amino Transferase 27 U/L (5-37); Blood Urea Nitrogen 13 mg/dL (9-16); Calcium 9.7 mg/dL (8.4-10.2); Carbon Dioxide 25 mmol/L (22-29); Chloride 104 mmol/L (96-108); Creatinine Clr Calc Pharmacy 68.2; Estimated Glomerular Filt Rate > 60; Glucose Random 124 mg/dL (60-115); Potassium 3.5 mmol/L (3.3-5.1); Sodium 141 mmol/L (135-145); Total Protein 7.7 g/dL (6.5-8.0)
[2022-06-05 22:56] LABS: Troponin-I High Sensitivity 5.6 ng/L (<3.5-35.0)
[2022-06-05 23:08] LABS: Bilirubin Total 0.6 mg/dL (0.0-1.0)
[2022-06-05 23:41] VITALS: BP 156/105; PULSE 75; RESP 16; TEMP 36.7; O2SAT 97
[2022-06-05] MEDS: Ketorolac Tromethamine 60 MG/2 ML VIAL IM (23:48)
[2022-06-05] MEDS: lisinopriL 20 MG TABLET PO (23:49)
[2022-06-06 01:36] VITALS: BP 142/90; PULSE 74; RESP 15; O2SAT 97
== END 2022-06-06 01:42 | disposition home or self-care (01) ==
PROVIDERS: Emergency Provider Internal Medicine; PCP Internal Medicine
DX: G43.909 Migraine, unspecified, not intractable, without status migrainosus (principal); I10 Essential (primary) hypertension; Z20.822 Contact with and (suspected) exposure to COVID-19; Z79.899 Other long term (current) drug therapy
CPT/HCPCS: 36415; 70450; 71045; 80053; 84484; 85025; 87502; 87635; 93005; 96372; 99284; J1885

== ENCOUNTER → 2022-06-29 14:57 | Outpatient (BNVA) | payer OTHER, MEDICAID, SELFPAY | PROVIDERS: PCP Physician Assistant; Visit Provider Anesthesiology | DX: M96.1 Postlaminectomy syndrome, not elsewhere classified (principal) ==

== ENCOUNTER 2022-07-26 06:13 | Outpatient (REF) | payer OTHER, MEDICAID, SELFPAY ==
--- NOTE | ~2022-07-26 | FL_ITS ---
EXAMINATION: XR FLUOROSCOPY WITH IMAGES CLINICAL INFORMATION: COMPARISON: None. TECHNIQUE: Fluoroscopy Supervised By: Kelly. Fluoroscopy Time: 0.1. Cumulative Dose: 3.62 mGy. DAP: 0.986 Gycm2. Images: 1. FINDINGS: There is a single digital image of right SI joint with needle positioned at the SI joint and contrast opacifying the joint space. Visualized SI joints and the adjacent pelvic bones are unremarkable. FL/FL guidance in treatment room IMPRESSION: Fluoroscopy guidance was provided to referrer for pain management.
== END 2022-07-26 06:14 | disposition home or self-care (01) ==
LOC: CF 06:13
PROVIDERS: Visit Provider Anesthesiology
DX: M53.3 Sacrococcygeal disorders, not elsewhere classified (principal); M46.1 Sacroiliitis, not elsewhere classified; G89.29 Other chronic pain
CPT/HCPCS: 27096

== ENCOUNTER → 2022-08-01 09:41 | Outpatient (BNVA) | payer OTHER, MEDICAID, SELFPAY | PROVIDERS: PCP Internal Medicine; Visit Provider Anesthesiology | DX: Z13.89 Encounter for screening for other disorder (principal) ==

== ENCOUNTER 2022-08-19 14:12 | Outpatient (REF) | payer OTHER, MEDICAID, SELFPAY ==
--- NOTE | ~2022-08-19 | CT_ITS ---
EXAMINATION: CT HEAD WITHOUT CONTRAST CLINICAL INFORMATION: Headache. COMPARISON: None. TECHNIQUE: Contiguous axial imaging was performed from the skull base to vertex without intravenous administration of contrast. This CT examination was performed using dose optimization techniques as appropriate, variously including the following: *Automated exposure control *Adjustment of mA and/or kV according to patient size (this includes techniques or standardized protocols for targeted exams where dose is matched to indication/reason for exam; i.e. extremities or head) *Use of iterative reconstruction technique DLP: 836. mGy-cm. FINDINGS: There is no acute intra-axial, extra-axial bleed, masses or midline shift. There is no acute infarction evolution. There is no edema. The ktrg-rn-egolk matter differentiation is maintained normal. Bone windows reveal no calvarial abnormality. There is no scalp soft tissue abnormality seen either. Bilateral paranasal sinuses and mastoid air cells are well aerated. CT/CT head/brain wo IV con IMPRESSION: No acute intracranial process seen.
== END 2022-08-19 14:13 | disposition home or self-care (01) ==
LOC: HO.CT 14:12
PROVIDERS: PCP Internal Medicine; Visit Provider Internal Medicine
DX: R51.9 Headache, unspecified (principal)
CPT/HCPCS: 70450

== ENCOUNTER 2022-09-06 06:07 | Outpatient (REF) | payer OTHER, MEDICAID, SELFPAY | END 2022-09-06 06:08 | disposition home or self-care (01) | LOC: CF 06:07 | PROVIDERS: Visit Provider Anesthesiology | DX: Z13.89 Encounter for screening for other disorder (principal) ==

== ENCOUNTER 2022-10-04 05:52 | Outpatient (REF) | payer OTHER, MEDICAID, SELFPAY ==
--- NOTE | ~2022-10-04 | FL_ITS ---
EXAMINATION: XR FLUOROSCOPY WITH IMAGES CLINICAL INFORMATION: Spondylosis without myelopathy or radiculopathy, lumbar region. COMPARISON: None available. TECHNIQUE: Fluoroscopy Supervised By: Dr. Cody Sawant. Fluoroscopy Time: 0.5 minutes. Cumulative Dose: 7.52 mGy-cm DAP: 2.02 Gy-cm2 Images: 2. FINDINGS: Needle and contrast seen about the right side of the L4 vertebral body. FL/FL guidance in treatment room IMPRESSION: Intraoperative fluoroscopy for pain management procedure.
== END 2022-10-04 05:53 | disposition home or self-care (01) ==
LOC: CF 05:52
PROVIDERS: Visit Provider Anesthesiology
DX: M96.1 Postlaminectomy syndrome, not elsewhere classified (principal); M46.1 Sacroiliitis, not elsewhere classified; M47.26 Other spondylosis with radiculopathy, lumbar region; M47.27 Other spondylosis with radiculopathy, lumbosacral region; M53.3 Sacrococcygeal disorders, not elsewhere classified; G89.4 Chronic pain syndrome
CPT/HCPCS: 64483; 64484; J3301

== ENCOUNTER → 2022-10-31 10:06 | Outpatient (BNVA) | payer OTHER, MEDICAID, SELFPAY | PROVIDERS: PCP Internal Medicine; Visit Provider Nurse Practitioner Family ==

== ENCOUNTER 2022-11-18 22:32 | Emergency (ER) | payer OTHER, MEDICAID, SELFPAY ==
--- NOTE | 2022-11-18 | ECG_ITS ---
Test Reason : CHEST PAIN Blood Pressure : / mmHG Vent. Rate : 072 BPM Atrial Rate : 072 BPM P-R Int : 170 ms QRS Dur : 084 ms QT Int : 398 ms P-R-T Axes : 021 017 -07 degrees QTc Int : 435 ms Normal sinus rhythm Normal ECG When compared with ECG of 05-JUN-2022 18:50, No significant change was found Referred By: Generic ED Physician Electronically Signed By:ASHU AGARWAL
--- NOTE | ~2022-11-18 | CT_ITS ---
EXAMINATION: CT ABDOMEN AND PELVIS WITHOUT CONTRAST CLINICAL INFORMATION: Right flank pain COMPARISON: 05.25.2021 TECHNIQUE: Multidetector volumetric imaging was performed from the superior aspect of the liver through the pubic symphysis. Sagittal and coronal reformatted images were obtained on the technologist's workstation. This CT examination was performed using dose optimization techniques as appropriate, variously including the following: *Automated exposure control *Adjustment of mA and/or kV according to patient size (this includes techniques or standardized protocols for targeted exams where dose is matched to indication/reason for exam; i.e. extremities or head) *Use of iterative reconstruction technique DLP: 468 mGy-cm FINDINGS: LUNG BASES: The visualized lung bases are unremarkable. LIVER, GALLBLADDER, AND BILIARY TREE: The liver is normal in size, shape, and attenuation. No focal hepatic lesion or biliary ductal dilatation is present. The gallbladder is unremarkable with no evidence of radiopaque gallstones, gallbladder wall thickening, or obvious pericholecystic inflammatory changes. PANCREAS: Unremarkable. SPLEEN: Unremarkable. ADRENAL GLANDS: Unremarkable. KIDNEYS AND URETERS: The kidneys are normal in size, shape, and attenuation. Unchanged 3 mm nonobstructing calculus in the lower pole. No hydronephrosis, hydroureter, or ureteral calculi seen. No perinephric stranding. BLADDER: Unremarkable. GASTROINTESTINAL TRACT: The small and large bowel are unremarkable. The appendix is normal. ABDOMINAL WALL: No significant hernia is appreciated. LYMPH NODES: Normal. VASCULAR: Unremarkable. PELVIC VISCERA: Unremarkable. OSSEOUS STRUCTURES: No acute or suspicious osseous abnormalities. CT/CT abdomen pelvis wo IV con IMPRESSION: * No acute findings within the abdomen or pelvis to explain the patient's symptomatology. * Stable 3 mm nonobstructing calculus, lower pole right kidney.
[2022-11-18 22:36] VITALS: BP 127/81; PULSE 78; RESP 20; TEMP 36.2; O2SAT 97; BMI 23.8
[2022-11-18 23:02] LABS: MANUAL DIFF FLAG NO
[2022-11-18 23:03] LABS: Basophils Absolute Auto 0.1 X10*3/uL (0.0-0.2); Basophils Percent Auto 0.6 % (0-2); Eosinophils Absolute Auto 0.1 X10*3/uL (0.0-0.4); Eosinophils Percent Auto 1.5 % (0-4); Hematocrit 38.9 % (42.0-52.0); Hemoglobin 13.1 g/dl (14.0-18.0); Imm Gran Abs Auto 0.02 X10*3/uL (0.00-0.03); Imm Gran Pct Auto 0.3 % (0.0-0.4); Lymphocytes Absolute Auto 3.5 X10*3/uL (1.2-4.9); Lymphocytes Percent Auto 44.1 % (20-40); Mean Corpuscular HGB Conc 33.7 g/dl (31.0-36.0); Mean Corpuscular Hemoglobin 30.7 pg (27.0-33.0); Mean Corpuscular Volume 91.1 fL (80.0-98.0); Monocytes Absolute Auto 0.5 X10*3/uL (0.1-1.2); Monocytes Percent Auto 6.5 % (2-11); Neutrophils Absolute Auto 3.8 x10*3/uL (2.0-8.3); Platelet Count 247 X10*3/uL (160-400); Red Blood Count 4.27 X10*6/uL (4.60-5.80); Red Cell Distribution Width 13.1 % (11.0-16.0)
[2022-11-18 23:16] LABS: Anion Gap 14 (12-20); Blood Urea Nitrogen 23 mg/dL (9-16); Calcium 9.7 mg/dL (8.4-10.2); Carbon Dioxide 25 mmol/L (22-29); Chloride 105 mmol/L (96-108); Creatinine Clr Calc Pharmacy 68.6; Estimated Glomerular Filt Rate > 60; Glucose Random 132 mg/dL (60-115); Potassium 3.7 mmol/L (3.3-5.1); Sodium 140 mmol/L (135-145)
[2022-11-18 23:42] LABS: Appearance Urine Clear; Color Urine Yellow; Glucose Urine UA Negative (Negative); Leukocyte Esterase Urine Negative (Negative); Nitrite Urine Negative (Negative); PH 5.5 (5.0-9.0); Specific Gravity - Urine 1.015 (1.005-1.025); Urine Blood Negative (Negative); Urine Ketones Negative (Negative); Urine Protein Negative (Neg-Trace)
[2022-11-18 23:44] LABS: Bacteria Urine None Seen (None Seen); Hyaline Casts Urine 0-2 /LPF (0-2); RBC Urine 0-2 /HPF (0-2); Squamous Epithelial Cell Urine 0-2 /HPF (0-2); WBC Urine 0-5 /HPF (0-5)
[2022-11-19] VITALS: BP 134/63; PULSE 77; RESP 16; TEMP 36.5; O2SAT 98
--- NOTE | 2022-11-19 00:09 | MHC.EDTECH ---
THIS PCT JUST ASSUMED CARE OF PT ,VITALS SIGN TAKEN ,PT WAS HOOKED UP TO [employer] HELPER .
--- NOTE | 2022-11-19 00:15 | ED_ITS ---
HPI - General Adult General Chief complaint: General Medical Stated complaint: Flank pain Time Seen by Provider: 11/19/22 00:15 Source: patient Mode of arrival: ambulatory Limitations: no limitations History of Present Illness HPI narrative: Patient has some chronic low back pain non obstructed kidney stone comes here for sudden onset of pain in the right flank to his few days patient does have chronic pain and received a steroid shot for that but this time for last 4 days pain is worse sharp in character get worse after deep inspiration with radiating of the pain to the left upper abdomen Related Data Home Medications Medication Instructions Recorded Confirmed simvastatin 10 mg tablet 10 mg PO BEDTIME 10/31/22 Previous Rx's Medication Instructions Recorded simvastatin 20 mg tablet 20 mg PO BEDTIME 90 days #90 tabs 01/04/22 meloxicam 15 mg tablet 15 mg PO DAILY #90 tabs 03/28/22 omeprazole 20 mg capsule,delayed 20 mg PO DAILY 90 days #90 caps 05/18/22 release sobzbtntlt-mixsvmdzbfnrq-puctivfh 1 cap PO Q6H PRN headache #20 caps 06/06/22 50 mg-300 mg-40 mg capsule (Fioricet) lisinopril 10 mg tablet 10 mg PO DAILY #30 tabs 06/06/22 hydrochlorothiazide 12.5 mg tablet 12.5 mg PO DAILY #90 tabs 09/16/22 cyclobenzaprine 10 mg tablet 10 mg PO TID PRN muscle spasm 15 11/09/22 days #45 tabs oxycodone-acetaminophen 5 mg-325 1 tab PO Q6H PRN pain #20 tabs 11/19/22 mg tablet (Percocet) Allergies Allergy/AdvReac Type Severity Reaction Status Date / Time No Known Allergies Allergy Verified 11/18/22 22:36 Review of Systems Review of Systems: Yes all other systems are reviewed and are negative [facility] Past Medical History Medical History Benign essential hypertension BPH (benign prostatic hyperplasia) Fatty liver GERD (gastroesophageal reflux disease) HTN (hypertension) Hypercholesterolemia Respiratory tract infection Right renal stone Right shoulder pain Rotator cuff disorder Tubular adenoma of colon Vitamin D deficiency Surgical History History of arthroscopy of right shoulder History of eye surgery History of spinal surgery Family History Family History Father Hypertension Mother No problems noted. Paternal Uncle Cancer Social History Social History Housing: House Alcohol intake: former Patient Tobacco Use Status: Never used Tobacco e-Cigarette/Vaping Use: Never Used Second Hand Smoke Exposure: No Advance Directives: No Advance Directives Information Provided: Yes service: No Current occupational status: employed Cognitive needs: No Hearing needs: No Vision needs: Yes (glasses) Physical Exam ED Vital Signs: Vital Signs - 24 hr 11/18/22 22:36 11/19/22 00:00 Temperature 97.2 F 97.7 F Pulse Rate 78 77 Respiratory Rate 20 16 Blood Pressure 127/81 134/63 Pulse Oximetry 97 98 Oxygen Delivery Method Room Air Room Air BMI result Body Mass Index 23.8 Appearance: Alert. Oriented X3. No acute distress. Eyes: PERRLA, No Nystagmus ENT: Pharynx normal. Oral Mucosa moist Neck: Normal inspection. Neck supple. CVS: Normal heart rate and rhythm. Pulses normal. Respiratory: No respiratory distress. Equal air entry bilateral, no wheezing/rales/rhonchi Abdomen: Soft and nontender. Bowel sounds are present, no mass palpable, R CVA tenderness ++ Skin: Skin warm and dry. Normal skin color. Normal skin turgor. Extremities: No lower extremity edema. No calf tenderness Neuro: Oriented X 3. No motor deficit. Medications Administered Discontinued Medications Generic Name Dose Route Start Last Admin Trade Name Freq PRN Reason Stop Dose Admin Sodium Chloride 1,000 mls @ 999 mls/hr 11/19/22 00:27 11/19/22 00:39 Ns IV 11/19/22 01:27 999 mls/hr .Q1H1M ONE Administration Ketorolac Tromethamine 30 mg 11/19/22 00:27 11/19/22 00:39 Ketorolac Tromethamine 30 Mg/Ml Vial IVPUSH 11/19/22 00:28 30 mg ONCE ONE Administration Morphine Sulfate 4 mg 11/19/22 00:27 11/19/22 00:40 Morphine Sulfate 4 Mg/Ml Cartridge IVPUSH 11/19/22 00:28 4 mg ONCE ONE Administration Protocol Ondansetron HCl 4 mg 11/19/22 00:27 11/19/22 00:39 Ondansetron Hcl 4 Mg/2 Ml Vial IVPUSH 11/19/22 00:28 4 mg ONCE ONE Administration Medical Decision Making Medical Decision Making [facility] Narrative: Patient's CT scan negative for acute pathology likely musculoskeletal pain as a cause of pain discharge patient home on Percocet Lab Data [facility] Lab Attestation statement: I reviewed the patient's lab results. 11/18/22 22:55 11/18/22 22:55 Labs: Lab Results 11/18/22 11/18/22 11/18/22 Range/Units 22:55 22:55 23:05 WBC 8.0 (4.8-10.8) X10*3/uL RBC 4.27 L (4.60-5.80) X10*6/uL Hgb 13.1 L (14.0-18.0) g/dl Hct 38.9 L (42.0-52.0) % MCV 91.1 (80.0-98.0) fL MCH 30.7 (27.0-33.0) pg MCHC 33.7 (31.0-36.0) g/dl RDW 13.1 (11.0-16.0) % Plt Count 247 (160-400) X10*3/uL MPV 9.0 L (9.4-12.4) fL Immature Gran % (Auto) 0.3 (0.0-0.4) % Neut % (Auto) 47.0 (45-73) % Lymph % (Auto) 44.1 H (20-40) % [place] % (Auto) 6.5 (2-11) % Eos % (Auto) 1.5 (0-4) % Baso % (Auto) 0.6 (0-2) % Lymph # (Auto) 3.5 (1.2-4.9) X10*3/uL [place] # (Auto) 0.5 (0.1-1.2) X10*3/uL Eos # (Auto) 0.1 (0.0-0.4) X10*3/uL Baso # (Auto) 0.1 (0.0-0.2) X10*3/uL Abs Immat Gran (auto) 0.02 (0.00-0.03) X10*3/uL Absolute Neuts (auto) 3.8 (2.0-8.3) x10*3/uL Absolute Nucleated RBC 0.000 (0.0-0.012) X10*3/uL Nucleated RBC % (auto) 0.0 (0.0-0.2) /100WBC Sodium 140 (135-145) mmol/L Potassium 3.7 (3.3-5.1) mmol/L Chloride 105 (96-108) mmol/L Carbon Dioxide 25 (22-29) mmol/L Anion Gap 14 (12-20) BUN 23 H (9-16) mg/dL Creatinine 1.07 (0.5-1.4) mg/dL Estim Creat Clear Calc 68.6 Estimated GFR > 60 Random Glucose 132 H (60-115) mg/dL Calcium 9.7 (8.4-10.2) mg/dL Urine Color Yellow Urine Appearance Clear Urine pH 5.5 (5.0-9.0) Ur Specific [place] 1.015 (1.005-1.025) Urine Protein Negative (Neg-Trace) mg/dL Urine Glucose (UA) Negative (Negative) mg/dL Urine Ketones Negative (Negative) mg/dL Urine Blood Negative (Negative) Urine Nitrite Negative (Negative) Ur Leukocyte Esterase Negative (Negative) Urine RBC 0-2 (0-2) /HPF Urine WBC 0-5 (0-5) /HPF Ur Squamous Epith Cells 0-2 (0-2) /HPF Urine Bacteria None Seen (None Seen) Hyaline Casts 0-2 (0-2) /LPF Radiology Impression Discussion of test interpretation with radiology: I have reviewed the radiologist's reading. Radiologist Impression: CT/CT abdomen pelvis wo IV con IMPRESSION: *? No acute findings within the abdomen or pelvis to explain the patient's symptomatology. *? Stable 3 mm nonobstructing calculus, lower pole right kidney. Discharge Plan Discharge Clinical Impression: Chronic right flank pain Patient Disposition: Home, Self-Care Instructions: Flank Pain (ED) Additional Instructions: Cause of your flank pain is likely musculoskeletal Take pain medication as prescribed and follow with PCP Prescriptions: New oxycodone-acetaminophen [Percocet] 5-325 mg tablet 1 tab PO Q6H PRN (Reason: pain) Qty: 20 0RF Rx Instructions: Partial Fill upon patient request. No Action meloxicam 15 mg tablet 15 mg PO DAILY Qty: 90 2RF omeprazole 20 mg capsule,delayed release(DR/EC) 20 mg PO DAILY 90 Days Qty: 90 1RF hydrochlorothiazide 12.5 mg tablet 12.5 mg PO DAILY Qty: 90 2RF cyclobenzaprine 10 mg tablet 10 mg PO TID PRN (Reason: muscle spasm) 15 Days Qty: 45 2RF gamycoaqcd-jhjtougenhewi-truk [Fioricet] 50-300-40 mg capsule 1 cap PO Q6H PRN (Reason: headache) Qty: 20 0RF lisinopril 10 mg tablet 10 mg PO DAILY Qty: 30 2RF simvastatin 20 mg tablet 20 mg PO BEDTIME 90 Days Qty: 90 2RF simvastatin 10 mg tablet 10 mg PO BEDTIME
[2022-11-19] MEDS: Ketorolac Tromethamine 30 MG/ML VIAL IVPUSH (00:39)
[2022-11-19] MEDS: ondansetron HCL 4 MG/2 ML VIAL IVPUSH (00:39)
[2022-11-19] MEDS: 0.9 % Sodium Chloride 1,000 ML 999 ML IV (00:39)
[2022-11-19] MEDS: Morphine Sulfate 4 MG/ML CARTRIDGE IVPUSH (00:40)
--- NOTE | 2022-11-19 00:46 | PC.NURSE ---
20g IV started in left wrist, all medications administered per MAR
--- NOTE | 2022-11-19 00:51 | PC.NURSE ---
pt denies dizziness and CP at this time. pt doses endorse mild shortness of breath
== END 2022-11-19 01:48 | disposition home or self-care (01) ==
PROVIDERS: Emergency Provider Internal Medicine; PCP Internal Medicine
DX: G89.29 Other chronic pain (principal); R10.9 Unspecified abdominal pain; I10 Essential (primary) hypertension; E78.00 Pure hypercholesterolemia, unspecified; Z79.899 Other long term (current) drug therapy; Z79.02 Long term (current) use of antithrombotics/antiplatelets
CPT/HCPCS: 36415; 74176; 80048; 81001; 85025; 93005; 96361; 96374; 96375; 99284; J1885; J2270; J2405

== ENCOUNTER 2022-12-05 07:36 | Outpatient (REF) | payer OTHER, MEDICAID, SELFPAY ==
[2022-12-05 07:48] LABS: MANUAL DIFF FLAG NO
[2022-12-05 08:24] LABS: Basophils Absolute Auto 0.1 X10*3/uL (0.0-0.2); Basophils Percent Auto 0.9 % (0-2); Eosinophils Absolute Auto 0.1 X10*3/uL (0.0-0.4); Eosinophils Percent Auto 2.2 % (0-4); Hematocrit 41.3 % (42.0-52.0); Hemoglobin 13.4 g/dl (14.0-18.0); Imm Gran Abs Auto 0.03 X10*3/uL (0.00-0.03); Imm Gran Pct Auto 0.5 % (0.0-0.4); Lymphocytes Absolute Auto 3.3 X10*3/uL (1.2-4.9); Lymphocytes Percent Auto 50.6 % (20-40); Mean Corpuscular HGB Conc 32.4 g/dl (31.0-36.0); Mean Corpuscular Volume 92.6 fL (80.0-98.0); Mean Platelet Volume 9.7 fL (9.4-12.4); Monocytes Absolute Auto 0.5 X10*3/uL (0.1-1.2); Monocytes Percent Auto 8.3 % (2-11); Neutrophils Absolute Auto 2.4 x10*3/uL (2.0-8.3); Neutrophils Percent Auto 37.5 % (45-73); Platelet Count 231 X10*3/uL (160-400); Red Blood Count 4.46 X10*6/uL (4.60-5.80); Red Cell Distribution Width 13.2 % (11.0-16.0); White Blood Count 6.5 X10*3/uL (4.8-10.8)
[2022-12-05 08:39] LABS: Estimated Average Glucose 117 mg/dL; Hemoglobin A1c % 5.7 %
[2022-12-05 09:15] LABS: Alanine Aminotransferase 40 U/L (0-40); Albumin Level 4.4 g/dL (3.5-5.0); Alkaline Phosphatase 77 U/L (39-117); Anion Gap 14 (12-20); Aspartate Amino Transferase 23 U/L (5-37); Blood Urea Nitrogen 19 mg/dL (9-16); Calcium 9.8 mg/dL (8.4-10.2); Carbon Dioxide 27 mmol/L (22-29); Chloride 106 mmol/L (96-108); Cholesterol 175 mg/dL; Estimated Glomerular Filt Rate > 60; Glucose Random 98 mg/dL (60-115); HDL Cholesterol 39 mg/dL; LDL Cholesterol Calculated 104 mg/dl; Potassium 4.5 mmol/L (3.3-5.1); Sodium 142 mmol/L (135-145); Total Protein 7.3 g/dL (6.5-8.0); Triglycerides 163 mg/dL
[2022-12-05 09:36] LABS: Folate 14.5 ng/mL (> or = 4.0); Free T4 (Free Thyroxine) 0.89 ng/dL (0.71-1.85); Prostate Specific Antigen Scr 0.84 ng/mL (<0.05-4.0); Thyroid Stimulating Hormone 0.61 uIU/mL (0.32-4.0); Vitamin B12 349 pg/mL (200-900)
== END 2022-12-05 07:37 | disposition home or self-care (01) ==
LOC: HO.LAB 07:36
PROVIDERS: PCP Internal Medicine; Visit Provider Internal Medicine
DX: I10 Essential (primary) hypertension (principal); R73.01 Impaired fasting glucose; E78.00 Pure hypercholesterolemia, unspecified; Z12.5 Encounter for screening for malignant neoplasm of prostate
CPT/HCPCS: 36415; 80053; 80061; 82607; 82746; 83036; 84153; 84439; 84443; 85025

== ENCOUNTER → 2022-12-15 12:55 | Outpatient (BNVA) | payer OTHER, MEDICAID, SELFPAY | PROVIDERS: PCP Internal Medicine; Visit Provider Nurse Practitioner Family ==

== ENCOUNTER 2023-03-09 09:47 | Outpatient (REF) | payer OTHER, MEDICAID, SELFPAY ==
[2023-03-09 09:59] LABS: MANUAL DIFF FLAG NO
[2023-03-09 10:39] LABS: Basophils Absolute Auto 0.1 X10*3/uL (0.0-0.2); Eosinophils Absolute Auto 0.3 X10*3/uL (0.0-0.4); Eosinophils Percent Auto 4.3 % (0-4); Hemoglobin 13.3 g/dl (14.0-18.0); Imm Gran Abs Auto 0.01 X10*3/uL (0.00-0.03); Imm Gran Pct Auto 0.1 % (0.0-0.4); Lymphocytes Absolute Auto 3.4 X10*3/uL (1.2-4.9); Lymphocytes Percent Auto 49.2 % (20-40); Mean Corpuscular HGB Conc 32.4 g/dl (31.0-36.0); Mean Corpuscular Hemoglobin 30.3 pg (27.0-33.0); Mean Corpuscular Volume 93.4 fL (80.0-98.0); Mean Platelet Volume 9.1 fL (9.4-12.4); Monocytes Absolute Auto 0.6 X10*3/uL (0.1-1.2); Monocytes Percent Auto 8.7 % (2-11); Neutrophils Absolute Auto 2.6 x10*3/uL (2.0-8.3); Neutrophils Percent Auto 36.7 % (45-73); Platelet Count 359 X10*3/uL (160-400); Red Blood Count 4.39 X10*6/uL (4.60-5.80)
[2023-03-09 11:09] LABS: Estimated Average Glucose 117 mg/dL; Hemoglobin A1c % 5.7 % (<6.0)
[2023-03-09 11:37] LABS: Alanine Aminotransferase 22 U/L (0-40); Albumin Level 4.4 g/dL (3.5-5.0); Alkaline Phosphatase 97 U/L (39-117); Anion Gap 13 (12-20); Aspartate Amino Transferase 18 U/L (5-37); Bilirubin Total 0.5 mg/dL (0.0-1.0); Blood Urea Nitrogen 20 mg/dL (9-16); Calcium 10.3 mg/dL (8.4-10.2); Carbon Dioxide 25 mmol/L (22-29); Chloride 107 mmol/L (96-108); Cholesterol 169 mg/dL (<200); Estimated Glomerular Filt Rate > 60; Glucose Random 93 mg/dL (60-115); HDL Cholesterol 30 mg/dL (>40); LDL Cholesterol Calculated 101 mg/dL (<100); Sodium 141 mmol/L (135-145); Total Protein 7.7 g/dL (6.5-8.0); Triglycerides 192 mg/dL (<150)
[2023-03-09 11:41] LABS: Free T4 (Free Thyroxine) 0.93 ng/dL (0.71-1.85); Thyroid Stimulating Hormone 1.56 uIU/mL (0.32-4.0)
[2023-03-09 11:43] LABS: Folate 13.8 ng/mL (> or = 4.0); Vitamin B12 395 pg/mL (200-900)
== END 2023-03-09 09:48 | disposition home or self-care (01) ==
LOC: HO.LAB 09:47
PROVIDERS: PCP Internal Medicine; Visit Provider Internal Medicine
DX: Z12.5 Encounter for screening for malignant neoplasm of prostate (principal); R73.01 Impaired fasting glucose; E78.00 Pure hypercholesterolemia, unspecified
CPT/HCPCS: 36415; 80053; 80061; 82607; 82746; 83036; 84153; 84439; 84443; 85025

== ENCOUNTER 2023-03-16 15:26 | Outpatient (AMB) | payer OTHER, MEDICAID, SELFPAY ==
[2023-03-16 15:34] VITALS: BP 130/74; PULSE 105; O2SAT 96; BMI 25.8
--- NOTE | 2023-03-16 15:34 | A.OFFPC_ITS ---
Vital Signs 3 03/16/23 15:34 Height 5 ft 7 in Weight 165 lb BMI 25.8 BP 130/74 Blood Pressure Location Lt brachial Position Sitting Pulse 105 H Pulse Source Pulse Oximeter Pulse Oximetry (%) 96 Oxygen Delivery Method Room Air Intake Visit Reasons: chest pain, CLBP [place]: Present Allergies oxycodone Adverse Reaction (Intermediate, Unverified 03/16/23 16:35) hand rash Medication List - Last Reconciled 03/16/23 by Danitza Humphreys MD cyclobenzaprine 10 mg PO TID PRN 15 days hydrochlorothiazide 12.5 mg PO DAILY lisinopril 10 mg PO DAILY meloxicam 15 mg PO DAILY methylprednisolone (Medrol (Elvin)) PO PER PKG DIR omeprazole 20 mg PO DAILY 90 days simvastatin 20 mg PO BEDTIME 90 days Tobacco use date assessed: 12/07/22 Dental Screening Dental Screen Date: 03/16/23 Did you have a dental visit in the last 12 months?: No Did you have a dental problem in the last 6 months where you did not have access to dental care?: No Was dental information given to patient?: Patient has dentist HPI chest pain, CLBP 2 HPI0 Details 62-year-old male with a history of nephr olithiasis right, hypercholesterolemia BPH fatty liver impaired glucose tolerance hypertension GERD and chronic low back pain coming in for follow-up. Last seen in November 2022. Patient's colonoscopy is up-to-date. For the lower back pain patien follows up with pain management. patient did have the surgery in [place]- February 13, 2023 which is helping. LE still weak and will take time. blood work discussed - was prescribed oxycodone but had hand rash. for the RLE - feeling a little better. [facility] Medical History BPH (benign prostatic hyperplasia) Chest pain Fatty liver GERD (gastroesophageal reflux disease) HTN (hypertension) Hypercholesterolemia Respiratory tract infection Right renal stone Right shoulder pain Rotator cuff disorder Tubular adenoma of colon Vitamin D deficiency Surgical History History of arthroscopy of right shoulder History of eye surgery History of spinal surgery Family History Father Hypertension Mother No problems noted. Paternal Uncle Cancer Social History Housing: House Alcohol intake: former Patient Tobacco Use Status: Never used Tobacco e-Cigarette/Vaping Use: Never Used Second Hand Smoke Exposure: No service: No Current occupational status: employed Cognitive needs: No Hearing needs: No Vision needs: Yes (glasses) Questionnaire PHQ-9 Over the last 2 weeks, how often have you been bothered by any of the following problems? 1. Little interest or pleasure in doing things: not at all 2. Feeling down, depressed, or hopeless: not at all 3. Trouble falling or staying asleep, or sleeping too much: not at all 4. Feeling tired or having little energy: not at all 5. Poor appetite or overeating: not at all 6. Feeling bad about yourself - or that you are a failure or have let yourself or your family down: not at all 7. Trouble concentrating on things, such as reading the newspaper or watching television: not at all 8. Moving or speaking so slowly that other people could have noticed. Or the opposite - being so fidgety or restless that you have been moving around a lot more than usual: not at all 9. Thoughts that you would be better off or of hurting yourself in some way: not at all Total score: 0 Depression Screening Interpretation: Negative Source: Developed by Drs. Omega Solomon, Edi Pressley and colleagues, with an educational jimmy from [employer]. Thrive Questionnaire Date Thrive assessed: 12/07/22 AUDIT C Alcohol Use Questionnaire (AUDIT-C) 1. How often do you have a drink containing alcohol?: Monthly or less 2. How many drinks containing alcohol do you have on a typical day when you are drinking?: 1 or 2 (0) 3. How often do you have six or more drinks on one occasion?: Never Total Score: 1 SATNAM-7 AMB Questionnaire SATNAM-7 Date SATNAM - 7 assessed: 12/07/22 Source: Developed by Drs. Omega Solomon, Trini Bingham, Edi Olsen and colleagues, with an educational jimmy from [employer]. Physical exam (Primary Care) Vital Signs: Last Vital Signs Pulse 105 H 03/16/23 15:34 BP 130/74 03/16/23 15:34 Pulse Ox 96 03/16/23 15:34 Oxygen Delivery Method Room Air 03/16/23 15:34 BMI result Body Mass Index 25.8 Tobacco/Smoking Status: Tobacco use Status Tobacco use date assessed 12/07/22 03/16/23 15:35 Patient Tobacco Use Status Never used Tobacco 03/16/23 15:35 e-Cigarette/Vaping Use Never Used 03/16/23 15:35 PHQ-9: PHQ-9 Score PHQ-9: Total score 0 03/16/23 15:35 Depression Screening Interpretation: Negative Thrive Assessment: Date of Thrive Assessment Date Thrive assessed 12/07/22 03/16/23 15:35 Const General: alert; No acute distress Eyes Conjunctivae: conjunctivae normal Resp Auscultation: clear to auscultation bilaterally Cardio Rate: regular rate Rhythm: regular rhythm GI Inspection: Yes normal to inspection Other: incisional scar back- no redness Back/Spine/Pelvis Back/spine/pelvis image: 2 1. 4 inches incisional scar Extrem General: Yes normal to inspection and No edema Assessment and Plan Assessment & Plan (1) Postlaminectomy syndrome: Comment: [place] Surgery done February 13, 2023 Code(s): M96.1 - Postlaminectomy syndrome, not elsewhere classified Plan: Keep active and continue to follow-up with pain management (2) HTN (hypertension): Code(s): I10 - Essential (primary) hypertension Qualifiers: Hypertension type: essential hypertension Qualified Code(s): I10 - Essential (primary) hypertension Plan: Continue with blood pressure medication. Decrease salt intake and exercise (3) Impaired fasting blood sugar: Code(s): R73.01 - Impaired fasting glucose Plan: Decrease the amount of carbohydrate intake, pasta, bread, rice and potatoes are all sugar and that is aside from all the sweet stuff, remember that fruits are good but they are Sweet also. (4) Hypercholesterolemia: Code(s): E78.00 - Pure hypercholesterolemia, unspecified Plan: Avoid fried foods, chicken skin, eggs, butter margarine, pastries and meat. Be it pork or beef they have a lot of cholesterol LDL goal of less than 130 and triglyceride of less than 150. Patient is on simvastatin 20 mg Medications: New 2 gabapentin 100 mg PO BEDTIME 30 caps 0RF M96.1 - Postlaminectomy syndrome, not elsewhere classified Refilled 2 lisinopril 10 mg PO DAILY 90 tabs 3RF I10 - Essential (primary) hypertension simvastatin 20 mg PO BEDTIME 90 days 90 tabs 3RF E78.00 - Pure hypercholesterolemia, unspecified omeprazole 20 mg PO DAILY 90 days 90 caps 1RF K21.9 - Gastro-esophageal reflux disease without esophagitis hydrochlorothiazide 12.5 mg PO DAILY 90 tabs 2RF Coding Level of Care Code Est Pt Level 4 (15158) Diagnoses Postlaminectomy syndrome M96.1 Essential hypertension I10 Hypertension type: essential hypertension Impaired fasting blood sugar R73.01 Hypercholesterolemia E78.00
== END 2023-03-16 16:41 | disposition home or self-care (01) ==
PROVIDERS: PCP Internal Medicine; Visit Provider Internal Medicine
DX: M96.1 Postlaminectomy syndrome, not elsewhere classified (principal); I10 Essential (primary) hypertension; R73.01 Impaired fasting glucose; E78.00 Pure hypercholesterolemia, unspecified
CPT/HCPCS: 99214

== ENCOUNTER 2023-06-22 14:38 | Outpatient (AMB) | payer MEDICAID, SELFPAY ==
[2023-06-22 14:41] VITALS: BP 124/80; PULSE 80; O2SAT 97; BMI 28.1
--- NOTE | 2023-06-22 14:41 | MHC.PC.OV ---
Vital Signs 06/22/23 14:41 06/22/23 15:01 Height 5 ft 7 in Weight 179 lb 6 oz BMI 28.1 BP 124/80 120/88 Blood Pressure Location Lt brachial Lt brachial Position Sitting Sitting Pulse 80 Pulse Source Pulse Oximeter Pulse Oximetry (%) 97 Oxygen Delivery Method Room Air Intake Visit Reasons: postlaminectomy syndrome Geophysical Computer Required: No Accompanied by: Self / Same As Patient Allergies oxycodone Adverse Reaction (Intermediate, Verified 06/22/23 14:41) hand rash Medication List - Last Reconciled 06/22/23 by Danitza Humphreys MD celecoxib 200 mg PO BID cyclobenzaprine 10 mg PO TID PRN 15 days gabapentin 100 mg PO BEDTIME hydrochlorothiazide 12.5 mg PO DAILY lisinopril 10 mg PO DAILY omeprazole 20 mg PO DAILY 90 days simvastatin 20 mg PO BEDTIME 90 days Tobacco use date assessed: 12/07/22 Dental Screening Dental Screen Date: 06/22/23 Did you have a dental visit in the last 12 months?: Yes Did you have a dental problem in the last 6 months where you did not have access to dental care?: No Was dental information given to patient?: Yes HPI postlaminectomy syndrome HPI Details 62-year-old overweight male with a history of post-laminectomy syndrome following up with pain management having hypertension impaired glucose tolerance hypercholesterolemia last seen in February 2023. Colonoscopy is up-to-date November 2020. 2 days of RLQW pain, no fevers, no n no v PFSH Medical History BPH (benign prostatic hyperplasia) Chest pain Fatty liver GERD (gastroesophageal reflux disease) HTN (hypertension) Hypercholesterolemia Respiratory tract infection Right renal stone Right shoulder pain Rotator cuff disorder Tubular adenoma of colon Vitamin D deficiency Surgical History History of spinal surgery History of arthroscopy of right shoulder History of eye surgery Family History Father Hypertension Mother No problems noted. Paternal Uncle Cancer Social History Housing: House Alcohol intake: former Patient Tobacco Use Status: Never used Tobacco e-Cigarette/Vaping Use: Never Used Second Hand Smoke Exposure: No service: No Current occupational status: employed Cognitive needs: No Hearing needs: No Vision needs: Yes (glasses) Questionnaire Thrive Questionnaire Date Thrive assessed: 12/07/22 SATNAM-7 AMB Questionnaire SATNAM-7 Date SATNAM - 7 assessed: 12/07/22 Source: Developed by Drs. Omega Solomon, Trini Bingham, Edi Olsen and colleagues, with an educational jimmy from [employer]. Physical exam (Primary Care) Vital Signs: Last Vital Signs Pulse 80 06/22/23 14:41 BP 124/80 06/22/23 14:41 Pulse Ox 97 06/22/23 14:41 Oxygen Delivery Method Room Air 06/22/23 14:41 BMI result Body Mass Index 28.1 Tobacco/Smoking Status: Tobacco use Status Tobacco use date assessed 12/07/22 06/22/23 14:49 Patient Tobacco Use Status Never used Tobacco 06/22/23 14:49 e-Cigarette/Vaping Use Never Used 06/22/23 14:49 Thrive Assessment: Date of Thrive Assessment Date Thrive assessed 12/07/22 06/22/23 14:49 Const General: alert; No acute distress Eyes Conjunctivae: conjunctivae normal Resp Auscultation: clear to auscultation bilaterally Cardio Rate: regular rate Rhythm: regular rhythm GI Other: RLQ , mild tenderness, ? rebound,mild guarding Extrem General: Yes normal to inspection and No edema Assessment and Plan Assessment & Plan (1) Postlaminectomy syndrome: Comment: [place] [facility] done February 13, 2023 Code(s): M96.1 - Postlaminectomy syndrome, not elsewhere classified Plan: Physical therapy, on anti-inflammatory and gabapentin (2) Overweight (BMI 25.0-29.9): Code(s): E66.3 - Overweight Plan: Diet and exercise. Discussed concern on weight gain , adviseed to walk and exercise (3) HTN (hypertension): Code(s): I10 - Essential (primary) hypertension Qualifiers: Hypertension type: essential hypertension Qualified Code(s): I10 - Essential (primary) hypertension Plan: Continue with blood pressure medication. Decrease salt intake and exercise presently on lisinopril 10 mg once a day (4) RLQ abdominal pain: Code(s): R10.31 - Right lower quadrant pain Plan: concern on appendix, excalating pain with mild guardng and rebound. Orders: Orders Creatinine Today R10.31 - Right lower quadrant pain CT abdomen pelvis wo/w IV con Today R10.31 - Right lower quadrant pain Blood Urea Nitrogen Today R10.31 - Right lower quadrant pain Medications: Changed From lisinopril 10 mg PO DAILY 90 tabs 3RF I10 - Essential (primary) hypertension To lisinopril 20 mg PO DAILY 90 tabs 1RF 90 days I10 - Essential (primary) hypertension Coding Level of Care Code Est Pt Level 4 (92860) Diagnoses Postlaminectomy syndrome M96.1 Overweight (BMI 25.0-29.9) E66.3 Essential hypertension I10 Hypertension type: essential hypertension RLQ abdominal pain R10.31
[2023-06-22 15:01] VITALS: BP 120/88
== END 2023-06-22 15:11 | disposition home or self-care (01) ==
PROVIDERS: PCP Internal Medicine; Visit Provider Internal Medicine
DX: M96.1 Postlaminectomy syndrome, not elsewhere classified (principal); E66.3 Overweight; I10 Essential (primary) hypertension; R10.31 Right lower quadrant pain
CPT/HCPCS: 99214

== ENCOUNTER 2023-07-06 11:45 | Outpatient (REF) | payer OTHER, SELFPAY ==
[2023-07-06 13:03] LABS: Blood Urea Nitrogen 20 mg/dL (9-16); Estimated Glomerular Filt Rate > 60
== END 2023-07-06 11:46 | disposition home or self-care (01) ==
LOC: HO.LAB 11:45
PROVIDERS: PCP Internal Medicine; Visit Provider Internal Medicine
DX: R10.31 Right lower quadrant pain (principal)
CPT/HCPCS: 36415; 82565; 84520

== ENCOUNTER 2023-07-18 11:00 | Outpatient (RCR) | payer MEDICAID, OTHER, SELFPAY ==
--- NOTE | 2023-08-28 10:50 | MHC.PT.DC ---
[facility] [place] Office [place] [facility] [place] [facility] [address] Chidi Colón [address] [phone] F: [phone] F: [phone] F: [phone] F: [phone] Physical Therapy Discharge Report Diagnosis: Lumbar surgery: disc decompression Date of Surgery: 02/13/2023 Date of Evaluation: 04/18/23 Date of Discharge: Treatments to Date: 18 Cancellations to Date: No Shows to Date: Discharge Status: Improved Function Patient Elected to Stop Recommend MD Follow-up Discharge Summary: At last attended visit, pt demonstrated improved body mechanics but wished to wait until MRI before cont PT. As we have not been contacted for additional visits in over 30 days we will dc his current chart. Electronically signed by: Quyen Marques PT DPT Please sign and return to therapist. Thank you for your referral.
== END 2023-08-28 10:50 | disposition home or self-care (01) ==
LOC: HO.PT 11:00
PROVIDERS: PCP Internal Medicine; Visit Provider Orthopaedic Surgery Orthopaedic Surgery of the Spine
DX: M54.16 Radiculopathy, lumbar region (principal)
CPT/HCPCS: 97014; 97110; 97116; 97140; 97162; 97530

== ENCOUNTER 2023-07-21 19:35 | Outpatient (REF) | payer OTHER, SELFPAY ==
--- NOTE | ~2023-07-21 | MR_ITS ---
EXAMINATION: MR CERVICAL SPINE WITHOUT CONTRAST CLINICAL INFORMATION: Neck pain. Bilateral arm pain. COMPARISON: None available. TECHNIQUE: Multiplanar, multisequential imaging of the cervical spine was performed without contrast. FINDINGS: VERTEBRAL BODIES AND PARASPINAL SOFT TISSUES: Chronic fatty marrow degenerative endplate changes noted at the C5-C6 level with vcsdtlcr-rx-qxtdfe disc space narrowing and a mild retrosubluxation. No marrow or soft tissue edema identified. The paraspinal soft tissues are normal. The vertebral artery flow-voids are maintained. The imaged lung apices are grossly clear. CERVICOMEDULLARY JUNCTION AND VISUALIZED POSTERIOR FOSSA: The craniovertebral junction and imaged portions of the brain demonstrate no acute abnormality. No cord signal abnormality or syrinx is seen. SPINAL LEVELS: C2-C3: No focal disc protrusion, central canal stenosis, or foraminal narrowing. C3-C4: Very mild disc bulge without central canal stenosis or foraminal narrowing. C4-C5: Shallow disc bulge and endplate spurring. No central canal stenosis. Patent foramina. C5-C6: Moderate loss of disc height and posterior ligamentous thickening with a mild disc bulge and uncovertebral joint hypertrophy. Findings result in mild central canal stenosis, severe left foraminal narrowing, and moderate right foraminal narrowing. C6-C7: Shallow central disc protrusion and left-sided hypertrophic facet arthropathy with iqtziwqb-kf-agzodp left foraminal narrowing. Mild right foraminal narrowing. C7-T1: No disc pathology. No central canal stenosis or foraminal narrowing. MR/MR cervical spine wo con IMPRESSION: 1. Moderate degenerative disc disease at the C5-C6 level with mild central canal stenosis and moderate to severe foraminal narrowing, worse on the left side. 2. Shallow central disc protrusion and left-sided facet arthropathy at the C6-C7 level with moderate to severe left foraminal narrowing.
--- NOTE | ~2023-07-21 | MR_ITS ---
MR LUMBAR SPINE WITHOUT CONTRAST CLINICAL INFORMATION: Low back pain and bilateral leg weakness. COMPARISON: Lumbar spine MRI 07/27/2021. TECHNIQUE: MRI of the lumbar spine was obtained using routine sequences without contrast. FINDINGS: There are 5 nonrib-bearing lumbar-type vertebral bodies. Lumbar alignment is normal. There are postoperative changes following L4 and L5 laminectomy. T2 signal changes within the paraspinal musculature at and below the postoperative levels most likely related to denervation. Small chronic endplate Schmorl's nodes at L2 and L4. Vertebral body heights are overall maintained. Conus terminates at the L1-L2 level. There is bilateral perinephric stranding. L1-L2: Disc contour is normal. There is no central canal stenosis and there is no foraminal stenosis. L2-L3: Slight annular disc bulge. Mild bilateral facet arthropathy. No central canal stenosis and no foraminal stenosis. Findings unchanged. L3-L4: There is a diffuse annular disc bulge and there is mild bilateral facet arthropathy. No central canal stenosis. Mild foraminal encroachment bilaterally. Findings unchanged. L4-L5: Laminectomy changes. There is a small annular disc bulge and there is moderate bilateral facet arthropathy. The subarticular zones have been decompressed and disc osteophyte and facet arthropathy result in similar mild to moderate bilateral foraminal encroachment. L5-S1: Postoperative changes following laminectomy and discectomy. There is favored granulation/scar tissue within the right subarticular zone inseparable from the traversing right S1 nerve root that can be further assessed with postcontrast imaging as indicated. No significant recurrent disc herniation. Disc osteophyte and facet arthropathy results in progressive moderate bilateral foraminal stenosis with mild mass effect on the exiting L5 nerve roots bilaterally. MR/MR lumbar spine wo con IMPRESSION: - At L5-S1, there are postoperative changes following laminectomy and discectomy. There is favored granulation/scar tissue within the right subarticular zone inseparable from the traversing right S1 nerve root that can be further assessed with postcontrast imaging as indicated. Disc osteophyte and facet arthropathy results in progressive moderate bilateral foraminal stenosis with mild mass effect on the exiting L5 nerve roots bilaterally. - At L4-L5, there are laminectomy changes and there has been decompression of the subarticular zones. Disc osteophyte and facet arthropathy result in similar mild to moderate bilateral foraminal stenosis.
== END 2023-07-21 19:36 | disposition home or self-care (01) ==
LOC: HO.MRI 19:35
PROVIDERS: Visit Provider Orthopaedic Surgery Orthopaedic Surgery of the Spine
DX: M54.16 Radiculopathy, lumbar region (principal); M54.12 Radiculopathy, cervical region
CPT/HCPCS: 72141; 72148

== ENCOUNTER 2023-07-26 13:24 | Outpatient (REF) | payer OTHER, SELFPAY ==
--- NOTE | ~2023-07-26 | CT_ITS ---
EXAMINATION: CT LUMBAR SPINE WITHOUT CONTRAST CLINICAL INFORMATION: 62-year-old with lumbar radiculopathy. COMPARISON: 07/21/2023 MRI TECHNIQUE: CT imaging of the lumbar spine was performed with 2D multiplanar reformatted reconstructions. This CT examination was performed using dose optimization techniques as appropriate, variously including the following: *Automated exposure control *Adjustment of mA and/or kV according to patient size (this includes techniques or standardized protocols for targeted exams where dose is matched to indication/reason for exam; i.e. extremities or head) *Use of iterative reconstruction technique Technical note: Noise limited study. DLP; 396 mGy-cm FINDINGS: Alignment: Slight lower lumbar dextrocurvature, minimally convex to the right at L4-L5 stable in appearance. Otherwise normal alignment in the sagittal plane. Lumbosacral Junction: Normal. There are 5 ghj-tjn-wczdifb lumbar-type vertebral bodies. Vertebral Bodies: Vertebral body heights are well-maintained. No acute fractures. There is a 0.8 cm ovoid radiolucency on the right side of the T12 vertebral body likely reflecting a vertebral hemangioma when compared to the prior MRI. Disc Spaces and Endplates: Mild multilevel Schmorl's nodes are again noted without severe disc space height loss, with mild multilevel anterior and paravertebral spondylosis throughout the lumbar spine. No destructive endplate changes. Spinal Levels: L5-S1: Redemonstrated is evidence of previous bilateral laminectomy and minor bilateral facet arthropathy without bony canal stenosis. Soft tissues in the canal are not well-visualized due to excessive image noise. There is mild left-sided and jzke-gk-qhnkrkvi right-sided neural foraminal narrowing. L4-L5: Redemonstrated is evidence of previous laminectomy for canal decompression. Soft tissues in the canal are partially obscured by excessive image noise but there is no bony canal stenosis. There is underlying disc bulging and there is mild facet arthrosis bilaterally with tnjr-po-azmoquai bilateral neural foraminal stenosis. L3-L4: Mild disc bulging again noted without significant canal or neural foraminal stenosis. L2-L3: No significant disc bulge or herniation. Minor facet hypertrophic change on the right. No significant canal or neural foraminal stenosis. L1-L2: No disc bulge or herniation. No significant facet arthrosis, canal or neural foraminal stenosis. T12-L1: Normal annular contour. No significant facet arthrosis, canal or neural foraminal stenosis. Paravertebral and Included Extraspinal Soft Tissues: The visualized paravertebral soft tissues and included retroperitoneal structures are unremarkable within the limitations of the exam. CT/CT lumbar spine wo IV con IMPRESSION: 1. Postoperative changes at L4-L5 and L5-S1 as described above, similar to previous MRI within the limitations of the study (suboptimal soft tissue detail due to excessive image noise limits the exam.) 2. Mild multilevel spondylosis and mild multilevel disc bulging with mild to moderate bilateral neural foraminal stenosis at L4-L5 and L5-S1, as described above. 3. Probable small vertebral hemangioma at T12.
--- NOTE | ~2023-07-26 | CT_ITS ---
EXAMINATION: CT ABDOMEN AND PELVIS WITH CONTRAST CLINICAL INFORMATION: Right lower quadrant abdominal pain COMPARISON: CT scan of abdomen and pelvis on 11/19/2022 TECHNIQUE: Multidetector volumetric images were obtained from the superior aspect of the liver through the pubic symphysis following administration 85 mL of Omnipaque 350 intravenous contrast. Sagittal and coronal reformatted images were obtained on the technologist's workstation. Oral contrast: No This CT examination was performed using dose optimization techniques as appropriate, variously including the following: *Automated exposure control *Adjustment of mA and/or kV according to patient size (this includes techniques or standardized protocols for targeted exams where dose is matched to indication/reason for exam; i.e. extremities or head) *Use of iterative reconstruction technique DLP: 395.58 mGy-cm FINDINGS: LUNG BASES: Bilateral lung bases are clear. LIVER: No focal lesion is seen in the liver. Liver shows relatively low density with mean attenuation of 60.8 Hounsfield units in spite of intravenous contrast enhancement, suggestive of hepatic steatosis. GALLBLADDER AND BILIARY TREE: Gallbladder appears unremarkable without calcified stones. Common bile duct is not dilated. SPLEEN: The spleen is normal in size without focal lesion. PANCREAS: The pancreas appears unremarkable. ADRENAL GLANDS: Adrenal glands are normal in size without focal lesion bilaterally. KIDNEYS: Bilateral kidneys are normal in size with tiny simple cyst is at superior lateral right renal cortex measuring 0.8 cm in diameter, mean attenuation of -1.7 Hounsfield units and exophytic posterior-superior left renal pole measuring 0.8 cm in diameter, mean attenuation of 7.6 Hounsfield units, for which no follow up imaging is recommended. Unchanged posterior lateral lower right renal calyceal calculus measuring 0.4 cm in diameter is seen, series 3 image #37. BOWELS: There is normal filling of only the small bowel loops with oral contrast down to distal pelvic ileum. Normal air-filled appendix is seen projecting medial and inferior to the cecum. RETROPERITONEUM: No abnormally enlarged retroperitoneal lymph nodes, mass or hematoma could be seen. BLOOD VESSELS: Abdominal aorta is normal in size and smoothly patent. ABDOMINAL WALL: A tiny umbilical hernia containing mesenteric fat is seen. PERITONEUM: There was no ascites. There were no abdominal peritoneal inflammatory changes seen. No free peritoneal air was seen. No abnormally enlarged mesenteric lymph nodes are found. BONES: Bilateral L5 laminectomies, resection of spinous process are seen. No fracture or dislocation. No focal bone lesion diagnostic of metastatic disease could be seen in the lumbar region. EXAMINATION: CT pelvis. TECHNIQUE: Multiple axial images were obtained from iliac crest to the inferior pubic rami following the administration of 85 mL of Omnipaque 350. Coronal and sagittal images were reconstructed from axial image data. Dose reduction technique: One or more of the following individual dose optimization techniques were used including: Automated exposure control, mA and/or kV were adjusted according to patient size or iterative reconstruction. FINDINGS: URINARY BLADDER: Urinary bladder fills normally with . BOWELS: There is no abnormal dilatation of the large and small bowel loops. GENITAL ORGANS: Seminal vesicles are unremarkable. Prostate gland is normal. LYMPH NODES: No abnormally enlarged iliac or inguinal lymph nodes are seen. PERITONEUM: No inflammatory changes, ascites or free peritoneal air are found in the pelvis. BONES: No fracture or dislocation. No focal bone lesion diagnostic of metastatic disease could be seen in the pelvis. CT/CT abdomen pelvis w IV con IMPRESSION: 1. Unchanged Nonobstructive right renal calyceal calculus and bilateral renal cysts, for which no follow up imaging is recommended. 2. No intestinal or colonic obstruction. 3. Interval performance of bilateral L5 laminectomies and resection of spinous process.
[2023-07-26] MEDS: iohexoL 350 MG/ML 100 ML INFUS..BTL IV (16:52)
[2023-07-26] MEDS: Barium Sulfate Oral (Mocha) 450 ML ORAL.SUSP 900 ML PO (16:55)
== END 2023-07-26 13:25 | disposition home or self-care (01) ==
LOC: HO.CT 13:24
PROVIDERS: PCP Internal Medicine; Visit Provider Internal Medicine
DX: R10.31 Right lower quadrant pain (principal)
CPT/HCPCS: 72132; 74177; Q9967

== ENCOUNTER 2023-08-17 07:45 | Outpatient (REF) | payer OTHER, SELFPAY ==
--- NOTE | ~2023-08-17 | CT_ITS ---
CT CERVICAL SPINE WITHOUT CONTRAST HISTORY: Cervical radiculopathy TECHNIQUE: CT images of the cervical spine were acquired without intravenous contrast. This CT examination was performed using dose optimization techniques as appropriate, variously including the following: *Automated exposure control *Adjustment of mA and/or kV according to patient size (this includes techniques or standardized protocols for targeted exams where dose is matched to indication/reason for exam; i.e. extremities or head) *Use of iterative reconstruction technique DLP: 389.47 mGy-cm COMPARISON: MRI cervical spine 07/21/2023 FINDINGS: The craniocervical junction is intact. Straightening of the normal cervical lordosis. There is no significant spondylolisthesis. Vertebral body heights are normal without acute compression fracture. No suspicious osseous lesion. Redemonstrated mild to moderate C5-C6 disc height loss where there are tiny opposing endplate Schmorl's nodes and a small ventral disc osteophyte. Please note canal patency is not well assessed on this examination due to inherent limitations of CT without intrathecal contrast. Within these limitations, multilevel degenerative changes with level by level detail are as follows: C2-C3: No spinal canal or foraminal stenosis. C3-C4: Shallow central disc protrusion and minimal right uncovertebral spurring. No spinal canal or foraminal stenosis. C4-C5: Small disc osteophyte complex with slight right uncovertebral spurring. No spinal canal stenosis. Patent neural foramina. C5-C6: A punctate focus of presumably extruded air is noted within the left paracentral ventral spinal canal above the level of the disc space. Small disc osteophyte complex with bilateral uncovertebral joint hypertrophy. Stable mild spinal canal, severe left and moderate right neural foraminal stenosis. C6-C7: Small annular disc bulge with minor uncovertebral spurring. Please note that artifact limits assessment of the spinal canal. No bony spinal canal stenosis. Stable mild bony bilateral neural foraminal stenosis. C7-T1: No bony spinal canal or foraminal stenosis. No significant abnormalities of the paraspinal musculature. Visualized lung apices are clear. The visualized intracranial structures are normal. Calcified right palatine sialoliths. Heterogeneous appearance of the thyroid gland. Prominent bilateral level 2 lymph nodes, presumably reactive. CT/CT cervical spine wo IV con IMPRESSION: Multilevel cervical spondylosis as described is not substantially changed since MRI from 07/21/2023. At C5-C6, there is stable mild spinal canal stenosis, severe left and moderate right neural foraminal stenosis. Stable mild bony neural foraminal narrowing at C5-C6.
== END 2023-08-17 07:46 | disposition home or self-care (01) ==
LOC: HO.CT 07:45
PROVIDERS: PCP Internal Medicine; Visit Provider Orthopaedic Surgery Orthopaedic Surgery of the Spine
DX: M54.12 Radiculopathy, cervical region (principal)
CPT/HCPCS: 72125

== ENCOUNTER 2023-08-23 08:10 | Outpatient (AMB) | payer OTHER, SELFPAY ==
--- NOTE | 2023-08-23 08:13 | MHC.OFFVIS ---
Intake Vital Signs 08/23/23 08:14 Height 5 ft 7 in Weight 180 lb BMI 28.2 BP 120/78 Blood Pressure Location Lt brachial Position Sitting Respiration 12 Pulse 110 H Pulse Source Pulse Oximeter Pulse Oximetry (%) 97 Oxygen Delivery Method Room Air Intake Visit Reasons: LOW BACK PAIN Allergies oxycodone Adverse Reaction (Intermediate, Verified 08/23/23 08:16) hand rash Medication List - Last Reconciled 08/23/23 by Kiah Andrew LPN celecoxib 200 mg PO BID cyclobenzaprine 10 mg PO TID PRN 15 days gabapentin 100 mg PO BEDTIME hydrochlorothiazide 12.5 mg PO DAILY lisinopril 20 mg PO DAILY 90 days omeprazole 20 mg PO DAILY 90 days simvastatin 20 mg PO BEDTIME 90 days HPI LOW BACK PAIN HPI Details 63-year-old male who presents today to the office for low back pain. He reports low back pain that radiates to his right side and down to his right leg. He continues to endorse significant pain with walking, standing or bending. He reports weakness in his bilateral leg. He also reports pain and heaviness in his neck that radiates to back side of the head. He has noticed weakness in his hands. He has occasional tremor in his right hand. He recently visited Kelly Mcgovern who recommended trial of SCS implant which he deferred. He saw Dr. Sawant about a year ago. He had right L3, L4 AND L4, L5 TFESI on 10/04/[address] Sawant that provided about 80% relief for 1 week. He had right diagnostic sacroiliac joint injection on 07/26/2022 which provided no significant relief. He did physical therapy for three months in the past. He has scheduled ACDF surgery tomorrow in [place]. [facility] Medical History (Updated 08/30/23 @ 14:28 by Paresh Montgomery MD) Spondylosis of lumbar spine Radicular low back pain RLQ abdominal pain Frequent falls Headache Radiculopathy, lumbar region Facet arthropathy Sacroiliitis Right flank pain Dyspnea on exertion Myalgia Post-viral cough syndrome COVID-19 GERD (gastroesophageal reflux disease) HTN (hypertension) Right renal stone Fatty liver Respiratory tract infection Rotator cuff disorder Vitamin D deficiency Tubular adenoma of colon Hypercholesterolemia BPH (benign prostatic hyperplasia) Right shoulder pain Surgical History History of spinal surgery History of arthroscopy of right shoulder History of eye surgery Family History Father Hypertension Mother No problems noted. Paternal Uncle Cancer Social History Housing: House Alcohol intake: former Patient Tobacco Use Status: Never used Tobacco e-Cigarette/Vaping Use: Never Used Second Hand Smoke Exposure: No service: No Current occupational status: employed Cognitive needs: No Hearing needs: No Vision needs: Yes (glasses) Review of Systems Const All systems reviewed & are unremarkable except as noted in HPI and below Physical Exam Vital Signs: Last Vital Signs Pulse 110 H 08/23/23 08:14 Resp 12 08/23/23 08:14 BP 120/78 08/23/23 08:14 Pulse Ox 97 08/23/23 08:14 Oxygen Delivery Method Room Air 08/23/23 08:14 BMI result Body Mass Index 28.2 General: Appears afebrile. Alert and oriented. Mood and affect appropriate. Follows and participates in conversation appropriately. Respiratory effort is unlabored. Able to transition from sit to stand unassisted. Ambulates with bilaterally normal heel strike and toe off. Straight leg raise is positive on the right side. Well healed midline incision in his lumbar spine that is tender to superficial palpation. Results Reviewed Results Reviewed: 07/21/23: MR LUMBAR SPINE WITHOUT CONTRAST FINDINGS: There are 5 nonrib-bearing lumbar-type vertebral bodies. Lumbar alignment is normal. There are postoperative changes following L4 and L5 laminectomy. T2 signal changes within the paraspinal musculature at and below the postoperative levels most likely related to denervation. Small chronic endplate Schmorl's nodes at L2 and L4. Vertebral body heights are overall maintained. Conus terminates at the L1-L2 level. There is bilateral perinephric stranding. L1-L2: Disc contour is normal. There is no central canal stenosis and there is no foraminal stenosis. L2-L3: Slight annular disc bulge. Mild bilateral facet arthropathy. No central canal stenosis and no foraminal stenosis. Findings unchanged. L3-L4: There is a diffuse annular disc bulge and there is mild bilateral facet arthropathy. No central canal stenosis. Mild foraminal encroachment bilaterally. Findings unchanged. L4-L5: Laminectomy changes. There is a small annular disc bulge and there is moderate bilateral facet arthropathy. The subarticular zones have been decompressed and disc osteophyte and facet arthropathy result in similar mild to moderate bilateral foraminal encroachment. L5-S1: Postoperative changes following laminectomy and discectomy. There is favored granulation/scar tissue within the right subarticular zone inseparable from the traversing right S1 nerve root that can be further assessed with postcontrast imaging as indicated. No significant recurrent disc herniation. Disc osteophyte and facet arthropathy results in progressive moderate bilateral foraminal stenosis with mild mass effect on the exiting L5 nerve roots bilaterally. IMPRESSION: - At L5-S1, there are postoperative changes following laminectomy and discectomy. There is favored granulation/scar tissue within the right subarticular zone inseparable from the traversing right S1 nerve root that can be further assessed with postcontrast imaging as indicated. Disc osteophyte and facet arthropathy results in progressive moderate bilateral foraminal stenosis with mild mass effect on the exiting L5 nerve roots bilaterally. - At L4-L5, there are laminectomy changes and there has been decompression of the subarticular zones. Disc osteophyte and facet arthropathy result in similar mild to moderate bilateral foraminal stenosis. 07/21/23: MR CERVICAL SPINE WITHOUT CONTRAST FINDINGS: VERTEBRAL BODIES AND PARASPINAL SOFT TISSUES: Chronic fatty marrow degenerative endplate changes noted at the C5-C6 level with zdupyann-ua-hgvneo disc space narrowing and a mild retrosubluxation. No marrow or soft tissue edema identified. The paraspinal soft tissues are normal. The vertebral artery flow-voids are maintained. The imaged lung apices are grossly clear. CERVICOMEDULLARY JUNCTION AND VISUALIZED POSTERIOR FOSSA: The craniovertebral junction and imaged portions of the brain demonstrate no acute abnormality. No cord signal abnormality or syrinx is seen. SPINAL LEVELS: C2-C3: No focal disc protrusion, central canal stenosis, or foraminal narrowing. C3-C4: Very mild disc bulge without central canal stenosis or foraminal narrowing. C4-C5: Shallow disc bulge and endplate spurring. No central canal stenosis. Patent foramina. C5-C6: Moderate loss of disc height and posterior ligamentous thickening with a mild disc bulge and uncovertebral joint hypertrophy. Findings result in mild central canal stenosis, severe left foraminal narrowing, and moderate right foraminal narrowing. C6-C7: Shallow central disc protrusion and left-sided hypertrophic facet arthropathy with ucabfylk-yi-bchesl left foraminal narrowing. Mild right foraminal narrowing. C7-T1: No disc pathology. No central canal stenosis or foraminal narrowing. IMPRESSION: 1. Moderate degenerative disc disease at the C5-C6 level with mild central canal stenosis and moderate to severe foraminal narrowing, worse on the left side. 2. Shallow central disc protrusion and left-sided facet arthropathy at the C6-C7 level with moderate to severe left foraminal narrowing. Assessment & Plan Assessment & Plan (1) Postlaminectomy syndrome: Comment: [place] Surgery done February 13, 2023 Code(s): M96.1 - Postlaminectomy syndrome, not elsewhere classified (2) Radicular low back pain: Comment: Lumbar laminotomy and microdisckectomy Dr. Grove 10/2021 Code(s): M54.10 - Radiculopathy, site unspecified (3) Spondylosis of lumbar spine: Code(s): M47.816 - Spondylosis without myelopathy or radiculopathy, lumbar region Plan With respect to his lumbar spine, he seems to be suffering from a radiculopathy due to compression of the S1 traversing nerve root of the L5-S1 level. I offered him a right L5 TFESI, which he has not had before. We will see how he does with the TFESI and decide the future course of action after that. I also offered him a trial of lumbar medial branch nerve stimulation for his axial back pain associated with multifidus atrophy and spondylosis, which he is amenable to proceeding with at some point in the future. At this point, he is scheduled for ACDF in [place] tomorrow. After the review of his cervical spine, it is actually not impressive in terms of a clear surgical target. I encouraged him to think about undergoing the surgery, especially given his prior experience with failed lumbar surgery. His neural foraminal stenosis is actually worse on the left side and the neck, whereas his symptoms are worse on the right, and he does not have any clear central canal stenosis at any level. The patient expressed understanding and is in agreement with the plan. Scribed for Dr. Montgomery by Wesley Mendieta medical service representative, on 08/23/2023. I, Dr. Montgomery, have personally reviewed and agree with the information entered by the earle. Coding Level of Care Code New Pt Level 4 (48039) Diagnoses Postlaminectomy syndrome M96.1 Radicular low back pain M54.10 Spondylosis of lumbar spine M47.816
[2023-08-23 08:14] VITALS: BP 120/78; PULSE 110; RESP 12; O2SAT 97; BMI 28.2
== END 2023-08-23 08:50 | disposition home or self-care (01) ==
PROVIDERS: PCP Internal Medicine; Visit Provider Internal Medicine
DX: M96.1 Postlaminectomy syndrome, not elsewhere classified (principal); M54.10 Radiculopathy, site unspecified; M47.816 Spondylosis without myelopathy or radiculopathy, lumbar region
CPT/HCPCS: 99204

== ENCOUNTER → 2023-08-23 08:10 | Outpatient (BNVA) | payer OTHER, SELFPAY | PROVIDERS: PCP Internal Medicine; Visit Provider Internal Medicine | DX: M96.1 Postlaminectomy syndrome, not elsewhere classified (principal); M54.10 Radiculopathy, site unspecified; M47.816 Spondylosis without myelopathy or radiculopathy, lumbar region | CPT/HCPCS: 99202 ==

== ENCOUNTER 2023-09-22 14:38 | Outpatient (AMB) | payer OTHER, SELFPAY ==
[2023-09-22 14:44] VITALS: BP 108/82; PULSE 86; O2SAT 98; BMI 27.9
--- NOTE | 2023-09-22 14:44 | A.OFFPC_ITS ---
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 Patient is up-to-date with colonoscopy November 2020 patient is seeing pain management presently for the back pain has had TF JORGE September 2022 patient has a scheduled ACDF surgery in [place]. Dr. ROBERT PAtient had procedure for the cervical spine and. but pain. patient is on valium for muscle spasm but wants cyclobenzaprine. [facility] Medical History (Updated 09/22/23 @ 15:10 by Danitza Humphreys MD) Spondylosis of lumbar spine Radicular low back pain RLQ abdominal pain Frequent falls Headache Radiculopathy, lumbar region Facet arthropathy Sacroiliitis Right flank pain Dyspnea on exertion Myalgia Post-viral cough syndrome COVID-19 GERD (gastroesophageal reflux disease) HTN (hypertension) Right renal stone Fatty liver Respiratory tract infection Rotator cuff disorder Vitamin D deficiency Tubular adenoma of colon Hypercholesterolemia BPH (benign prostatic hyperplasia) Right shoulder pain Surgical History History of spinal surgery History of arthroscopy of right shoulder History of eye surgery Family History Father Hypertension Mother No problems noted. Paternal Uncle Cancer Social History Housing: House Alcohol intake: former Patient Tobacco Use Status: Never used Tobacco e-Cigarette/Vaping Use: Never Used Second Hand Smoke Exposure: No service: No Current occupational status: employed Cognitive needs: No Hearing needs: No Vision needs: Yes (glasses) Questionnaire PHQ-9 Over the last 2 weeks, how often have you been bothered by any of the following problems? 1. Little interest or pleasure in doing things: not at all 2. Feeling down, depressed, or hopeless: not at all 3. Trouble falling or staying asleep, or sleeping too much: not at all 4. Feeling tired or having little energy: not at all 5. Poor appetite or overeating: not at all 6. Feeling bad about yourself - or that you are a failure or have let yourself or your family down: not at all 7. Trouble concentrating on things, such as reading the newspaper or watching television: not at all 8. Moving or speaking so slowly that other people could have noticed. Or the opposite - being so fidgety or restless that you have been moving around a lot more than usual: not at all 9. Thoughts that you would be better off or of hurting yourself in some way: not at all Total score: 0 Depression Screening Interpretation: Negative Depression Screening Done: Yes 01663 - PHQ-9 Billing: Yes Source: Developed by Drs. Omega Solomon, Trini Bingham, Edi Olsen and colleagues, with an educational jimmy from [employer] Thrive Questionnaire Date Thrive assessed: 09/22/23 I am a: Patient What is your living situation today?: I have a steady place to live Within the past 12 months, did the food you bought not last and you didn't have the money to get more?: Never true Within the past 12 months, did you worry whether your food would run out before you got money to buy more?: Never true Do you have trouble paying for medicines?: No Do you have trouble getting transportation to medical appointments?: No Do you have trouble paying your heating and electricity bill?: No Do you have trouble taking care of your child, family member or friend?: No Do you have trouble with day-to-day activities such as bathing, preparing meals, shopping, managing finances, etc.?: No Are you currently unemployed and looking for a job?: No Are you interested in more education?: No Please select the resources that you would like help with: None Currently or been in a relationship where the following occur: no concerns reported THRIVE Score: 0 AUDIT C Alcohol Use Questionnaire (AUDIT-C) 1. How often do you have a drink containing alcohol?: Monthly or less 2. How many drinks containing alcohol do you have on a typical day when you are drinking?: 1 or 2 (0) 3. How often do you have six or more drinks on one occasion?: Never Total Score: 1 SATNAM-7 AMB Questionnaire SATNAM-7 Date SATNAM - 7 assessed: 09/22/23 Feeling nervous, anxious, or on edge: 0 = Not at all Not being able to stop or control worryin = Not at all Worrying too much about different things: 0 = Not at all Trouble relaxin = Not at all Being so restless that it is hard to sit still: 0 = Not at all Becoming easily annoyed or irritable: 0 = Not at all Feeling afraid as if something awful might happen: 0 = Not at all Total SATNAM-7 score (0-4 normal; 5-9 mild; 10-14 moderate; 15-21 severe): 0 Source: Developed by Drs. Omega Solomon, Trini Bingham, Edi Olsen and colleagues, with an educational jimmy from [employer] SATNAM-7 Assessment Billing SATNAM-7 Assessment Tool: SATNAM-7 Assessment 87781 Physical exam (Primary Care) Vital Signs: Last Vital Signs Pulse 86 09/22/23 14:44 BP 108/82 09/22/23 14:44 Pulse Ox 98 09/22/23 14:44 Oxygen Delivery Method Room Air 09/22/23 14:44 BMI result Body Mass Index 27.9 Tobacco/Smoking Status: Tobacco use Status Tobacco use date assessed 09/22/23 09/22/23 14:45 Patient Tobacco Use Status Never used Tobacco 09/22/23 14:45 e-Cigarette/Vaping Use Never Used 09/22/23 14:45 PHQ-9: PHQ-9 Score PHQ-9: Total score 0 09/22/23 14:52 Depression Screening Interpretation: Negative Thrive Assessment: Date of Thrive Assessment Date Thrive assessed 09/22/23 09/22/23 14:45 Currently or been in a relationship where the following occur: no concerns reported Const General: alert; No acute distress Eyes Conjunctivae: conjunctivae normal Resp Auscultation: clear to auscultation bilaterally Cardio Rate: regular rate Rhythm: regular rhythm GI Inspection: Yes normal to inspection Extrem General: Yes normal to inspection and No edema Assessment and Plan Assessment & Plan (1) Radicular low back pain: Comment: Lumbar laminotomy and microdisckectomy Dr. Grove 10/2021 Code(s): M54.10 - Radiculopathy, site unspecified Plan: Reviewed the notes and patient has been seeing pain management and had a planned surgery on the back. (2) Overweight (BMI 25.0-29.9): Code(s): E66.3 - Overweight Plan: Diet and exercise (3) GERD (gastroesophageal reflux disease): Code(s): K21.9 - Gastro-esophageal reflux disease without esophagitis Qualifiers: Esophagitis presence: without esophagitis Qualified Code(s): K21.9 - Gastro-esophageal reflux disease without esophagitis Plan: Reflux (4) HTN (hypertension): Code(s): I10 - Essential (primary) hypertension Qualifiers: Hypertension type: essential hypertension Qualified Code(s): I10 - Essential (primary) hypertension Plan: Continue with blood pressure medication. Decrease salt intake and exercise presently on hydrochlorothiazide and lisinopril (5) Cervical spine degeneration: Comment: Dr. Rosanne Coker 08/24/2023 Code(s): M47.812 - Spondylosis without myelopathy or radiculopathy, cervical region Orders: Orders Complete Blood Count Auto Diff Today R73.01 - Impaired fasting glucose Comprehensive Met. Panel Today R73.01 - Impaired fasting glucose Reticulocyte Count Today R73.01 - Impaired fasting glucose Lipid Panel Today E78.00 - Pure hypercholesterolemia, unspecified, R73.01 - Impaired fasting glucose IRON PROFILE Today R73.01 - Impaired fasting glucose Thyroid Stimulating Hormone Today R73.01 - Impaired fasting glucose Vitamin B12 and Folate Today R73.01 - Impaired fasting glucose Free T4 (Free Thyroxine) Today R73.01 - Impaired fasting glucose Ferritin Today R73.01 - Impaired fasting glucose Prostate Specific Antigen Scr Today R73.01 - Impaired fasting glucose Hemoglobin A1c Today R73.01 - Impaired fasting glucose Coding Level of Care Code Est Pt Level 4 (72087) Diagnoses Radicular low back pain M54.10 Overweight (BMI 25.0-29.9) E66.3 Gastroesophageal reflux disease without esophagitis K21.9 Esophagitis presence: without esophagitis Essential hypertension I10 Hypertension type: essential hypertension Cervical spine degeneration M47.812 Additional Codes SATNAM-7 Assessment Billing - SATNAM-7 Assessment Tool: SATNAM-7 Assessment 24653 ([id number])
== END 2023-09-22 15:21 | disposition home or self-care (01) ==
PROVIDERS: PCP Internal Medicine; Visit Provider Internal Medicine
DX: M54.10 Radiculopathy, site unspecified (principal); E66.3 Overweight; K21.9 Gastro-esophageal reflux disease without esophagitis; I10 Essential (primary) hypertension; M47.812 Spondylosis without myelopathy or radiculopathy, cervical region
CPT/HCPCS: 99214

== ENCOUNTER 2023-11-02 15:01 | Outpatient (REF) | payer OTHER, SELFPAY ==
--- NOTE | 2023-11-02 15:03 | EMG_ITS ---
Chief complaint: Leg pain, numbness in both feet, loss of balance, history of lumbar surgery Reason for referral: Evaluate for radiculopathy Referred by: Dr. Humphreys Procedure done: Bilateral lower extremity NCS/EMG Precautions and/or limitations: None The limb temperature was monitored continuously and remained between 32-36 degrees C during the performance of the NCS. Nerve Conduction Studies Anti Sensory Summary Table ?Stim Site NR Onset (ms) Norm Onset (ms) Peak (ms) Norm Peak (ms) O-P Amp (?V) Norm O-P Amp Site1 Site2 Delta-0 (ms) Dist (cm) Shoaib (m/s) Norm Shoaib (m/s) Left Sural Anti Sensory (Lat Mall) Calf ? 2.6 3.6 <4.0 24.2 >5.0 Calf Lat Mall 2.6 14.0 54 Right Sural Anti Sensory (Lat Mall) Calf ? 2.2 3.7 <4.0 6.6 >5.0 Calf Lat Mall 2.2 14.0 64 Motor Summary Table ?Stim Site NR Onset (ms) Norm Onset (ms) O-P Amp (mV) Norm O-P Amp iAmp (mV) Amp (1st) (%) Site1 Site2 Delta-0 (ms) Dist (cm) Shoaib (m/s) Norm Shoaib (m/s) Right Peroneal Motor (Ext Dig Brev) Ankle ? 3.8 <4.0 6.4 >2.5 7.3 100.0 Ankle Ext Dig Brev 3.8 0.0 B Fib ? 10.1 6.9 7.7 107.8 B Fib Ankle 6.3 32.5 52 >40 Poplt ? 10.8 6.9 7.7 107.8 Poplt B Fib 0.7 5.5 79 >40 Left Tibial Motor (Abd Herron Brev) Ankle ? 4.1 <5 14.2 >2.5 20.1 100.0 Ankle Abd Herron Brev 4.1 0.0 Knee ? 10.9 11.4 16.1 80.3 Knee Ankle 6.8 35.0 51 >40 Right Tibial Motor (Abd Herron Brev) Ankle ? 3.9 <5 15.7 >2.5 22.5 100.0 Ankle Abd Herron Brev 3.9 0.0 Knee ? 11.9 11.9 17.4 75.8 Knee Ankle 8.0 37.5 47 >40 EMG ?Side Muscle Nerve Root Ins Act Fibs Psw Amp Dur Poly Recrt Int Pat Comment Right AbdHallucis MedPlantar S1-2 Nml Nml Nml Nml Nml 0 Nml Complete Right AntTibialis Dp Br Peron L4-5 Nml Nml Nml Nml Nml 0 Nml Complete Right PostTibialis Tibial L5, S1 Nml Nml Nml Nml Nml 0 Nml Complete Right MedGastroc Tibial S1-2 Nml Nml Nml Nml Nml 0 Nml Complete Right VastusMed Femoral L2-4 Nml Nml Nml Nml Nml 0 Nml Complete Left AbdHallucis MedPlantar S1-2 Nml Nml Nml Nml Nml 0 Nml Complete Left AntTibialis Dp Br Peron L4-5 Nml Nml Nml Nml Nml 0 Nml Complete Left PostTibialis Tibial L5, S1 Nml Nml Nml Nml Nml 0 Nml Complete Left MedGastroc Tibial S1-2 Nml Nml Nml Nml Nml 0 Nml Complete Left VastusMed Femoral L2-4 Nml Nml Nml Nml Nml 0 Nml Complete FINDINGS: All motor and sensory nerves tested showed normal latencies, amplitudes and conduction velocities. Concentric needle EMG was performed in selected muscles of the bilateral lower extremity. Study did not reveal signs of electric abnormalities as shown in the table below. IMPRESSION: 1. This is a normal study. 2. There is no electrodiagnostic evidence for peroneal neuropathy, tibial neuropathy, lumbosacral plexopathy, lumbar radiculopathy, or peripheral neuropathy. Thank you for your kind referral. Chandni Mauro MD, HAYLIE Board Certified, [place] [employer] and Rehabilitation (ABPMR) Board Certified, [place] [employer] Electrodiagnostic Medicine (ABEM) CODIN 65286 x 2 MTDD
== END 2023-11-02 15:02 | disposition home or self-care (01) ==
LOC: HO.NEURO 15:01
PROVIDERS: Absent Provider Orthopaedic Surgery Orthopaedic Surgery of the Spine; PCP Internal Medicine; Visit Provider Internal Medicine
DX: M54.10 Radiculopathy, site unspecified (principal)
CPT/HCPCS: 95886; 95909

== ENCOUNTER → 2023-11-02 15:03 | Outpatient (BNV) | payer OTHER, SELFPAY | PROVIDERS: Absent Provider Orthopaedic Surgery Orthopaedic Surgery of the Spine; PCP Internal Medicine; Visit Provider Physical Medicine & Rehabilitation | DX: M79.604 Pain in right leg (principal); M79.605 Pain in left leg; R20.2 Paresthesia of skin | CPT/HCPCS: 95886; 95909 ==

== ENCOUNTER 2023-11-09 08:38 | Outpatient (REF) | payer OTHER, SELFPAY ==
--- NOTE | ~2023-11-09 | XR_ITS ---
EXAMINATION: XR SHOULDER, LEFT CLINICAL INFORMATION: Pain in the left shoulder COMPARISON: None available. TECHNIQUE: AP external rotation, Grashey, scapular Y, and axillary views of the left shoulder. FINDINGS: Mild osteoarthritis of the acromioclavicular joint. Glenohumeral joint: Normal. Surrounding bone and soft tissues unremarkable.. XR/XR shoulder LT min 2V IMPRESSION: Mild osteoarthritis of the acromioclavicular joint.
== END 2023-11-09 08:39 | disposition home or self-care (01) ==
LOC: HO.HOSX 08:38
PROVIDERS: Visit Provider Physician Assistant
DX: M75.82 Other shoulder lesions, left shoulder (principal)
CPT/HCPCS: 20610; 73030; 99202; J1010

== ENCOUNTER 2023-11-09 13:44 | Outpatient (AMB) | payer OTHER, SELFPAY ==
--- NOTE | 2023-11-09 14:00 | A.OFFVIS_ITS ---
Vital Signs 11/09/23 14:07 Height 5 ft 7 in Weight 178 lb BMI 27.9 Intake Visit Reasons: New Pt - left shoulder pain Intake Note: Earnest is a 63 year old right hand dominant male who presents today as a new patient for a evaluation of his left shoulder pain. Patient reports pain in left shoulder has been present for a while however his pain has been getting worse the past 3-4 weeks. He mentions having a fall about a month ago. Currently his pain makes it difficult to sleep at night and is tender to the touch. His pain radiates into his neck and down to his bicep. States numbness and tingling in his arm. Hx of cervical fusion. unable to sleep. Finds no relief with celebrex or Tylenol. No previous tx. Allergies oxycodone Adverse Reaction (Intermediate, Verified 11/09/23 14:31) hand rash HPI HPI New Pt - left shoulder pain: Details: 63-year-old right hand dominant male who presents to the office today for evaluation of left shoulder pain for about 4 weeks. He reports he had a recent fall. He currently states he has pain in his left shoulder that radiates from his neck down to bicep area. His pain is aggravated with lifting, laying on his left side, holding objects, twisting motions and at night. He also experiences occasional shocking sensation in his shoulder throughout the day. He also reports numbness and tingling on his left hand. He has a history of cervical fusion about 10 years ago. He does not have a history of diabetes. [facility] Medical History (Updated 11/09/23 @ 14:15 by Reji Mcdonough PA-C) Spondylosis of lumbar spine Radicular low back pain RLQ abdominal pain Frequent falls Headache Radiculopathy, lumbar region Facet arthropathy Sacroiliitis Right flank pain Dyspnea on exertion Myalgia Post-viral cough syndrome COVID-19 GERD (gastroesophageal reflux disease) HTN (hypertension) Right renal stone Fatty liver Respiratory tract infection Rotator cuff disorder Vitamin D deficiency Tubular adenoma of colon Hypercholesterolemia BPH (benign prostatic hyperplasia) Right shoulder pain Surgical History Hx of fusion of cervical spine History of spinal surgery History of arthroscopy of right shoulder History of eye surgery Family History Father Hypertension Mother No problems noted. Paternal Uncle Cancer Social History Housing: House Alcohol intake: former Patient Tobacco Use Status: Never used Tobacco e-Cigarette/Vaping Use: Never Used Second Hand Smoke Exposure: No service: No Current occupational status: employed Current occupation: right hand dominant Cognitive needs: No Hearing needs: No Vision needs: Yes (glasses) Review of Systems Const All systems reviewed & are unremarkable except as noted in HPI and below Physical Exam Vital Signs: BMI result Body Mass Index 27.9 Const General: cooperative, healthy appearing, comfortable, no acute distress, well developed and alert Orientation/consciousness: patient oriented x3 HEENT Head: Yes normal to inspection, Yes normocephalic and Yes atraumatic Eyes General: appearance normal, both eyes and all related structures Resp Effort & Inspection: normal respiratory effort and able to speak in complete sentences Cardio Rate: regular rate Peripheral pulses: Peripheral pulses 2+ throughout GI Palpation (GI): Soft to palpation Skin Lesions: no lesions Rashes: no rashes Neuro General: patient oriented x3 Extrem Other: Left shoulder normal to inspection. Tenderness over the bicipital groove and along the deltoid region of the shoulder. Forward flexion to 175, external rotation to 90, internal rotation to S1. 5/5 RTC strength. Negative Goel and cross body abduction. NVI. Left wrist: Normal to inspection.? Tenderness over the carpal canal.? Numbness and tingling over the median nerve distribution of the right hand.? Able to make a full fist and fully extend all fingers.? Positive Tinel's. Office Procedures Joint Injection/Drain Joint Injection/Drain Primary Site: left shoulder Prep: site was prepped using aseptic technique, ethochloride spray was applied and injection warnings given Injected: 80 mg of, DepoMedrol, with 8 mL of, 1% plain lidocaine and in the subcromial space Approach Used: posterolateral Procedure: The patient tolerated the procedure well and there was some relief with the local anesthesia Coding 59962 - Glenohumeral/Tronchanteric Bursa/Intraarticular Procedure code (CPT) selection complete Results Reviewed Results Reviewed: Xrays were obtained in the office today and personally reviewed by me of the left shoulder show ac joint oa Assessment & Plan Assessment & Plan (1) Tendonitis of left rotator cuff: Code(s): M75.82 - Other shoulder lesions, left shoulder Category: Medical Plan We discussed options today which include steroid injection. They did consent to move forward with the left shoulder injection, which was tolerated well. I recommended rest, ice and elevation and OTC anti-inflammatories PRN for discomfort. He was also referred to physical therapy for his left shoulder. If symptoms persist or worsens over the next 6-8 weeks, patient will contact the office, otherwise follow-up as needed. An EMG/nerve conduction study was ordered to further evaluate the etiology of his numbness on his left hand. Orders: Orders XR shoulder LT min 2V Today Nola Hu PA-C M25.519 - Pain in unspecified shoulder NE nerve conduction velocity Today Reji Mcdonough PA-C R20.0 - Anesthesia of skin, R20.2 - Paresthesia of skin NE electromyogram (EMG) Today Reji Mcdonough PA-C R20.0 - Anesthesia of skin, R20.2 - Paresthesia of skin PT Evaluation and Treatment Today Reji Mcdonough PA-C M75.82 - Other shoulder lesions, left shoulder Patient Instructions: Scribed for Reji Mcdonough PA-C, by Louie Purcell medical laboratory technicians, on 11/09/2023 at 1:45 PM EST.? I, Reji Mcdonough PA-C, have personally reviewed and agree with the information entered by the scribe. Coding Level of Care Code New Pt Level 3 (09650) Diagnoses Tendonitis of left rotator cuff M75.82 CPT Codes Coding - Joint 7: 26114 - Glenohumeral/Tronchanteric Bursa/Intraarticular ([id number])
[2023-11-09 14:07] VITALS: BMI 27.9
== END 2023-11-09 15:07 | disposition home or self-care (01) ==
PROVIDERS: PCP Internal Medicine; Visit Provider Physician Assistant
DX: M75.82 Other shoulder lesions, left shoulder (principal)
CPT/HCPCS: 20610; 99203

== ENCOUNTER 2023-11-16 06:08 | Outpatient (REF) | payer OTHER, SELFPAY ==
--- NOTE | ~2023-11-16 | FL_ITS ---
EXAMINATION: XR FLUOROSCOPY WITH IMAGES CLINICAL INFORMATION: Radiculopathy. COMPARISON: None available. TECHNIQUE: Fluoroscopy Supervised By: Dr. Paresh Montgomery. Fluoroscopy Time: 0.2 minutes. Cumulative Dose: 2.89 mGy. DAP: 0.0205 Gy-cm2. Images: 2. FINDINGS: Intraoperative fluoroscopy and spot films were performed during a procedure in the OR. A single needle is seen on the right at the lower lumbar level in a transforaminal location. Please see Dr. Paresh Montgomery' report for complete details. FL/FL guidance in treatment room IMPRESSION: Intraoperative fluoroscopy and spot films were obtained. Please see Dr. Paresh Montgomery' report for complete details.
== END 2023-11-16 06:09 | disposition home or self-care (01) ==
LOC: CF 06:08
PROVIDERS: Visit Provider Internal Medicine
DX: M54.10 Radiculopathy, site unspecified (principal)
CPT/HCPCS: 64483; J1100; Q9967

== ENCOUNTER 2023-11-16 08:05 | Outpatient (AMB) | payer OTHER, SELFPAY ==
--- NOTE | 2023-11-16 08:09 | A.OFFVIS_ITS ---
Vital Signs 11/16/23 09:17 11/16/23 09:20 Height 5 ft 7 in Weight 178 lb BMI 27.9 BP 118/80 120/72 Blood Pressure Location Lt brachial Lt brachial Position Sitting Sitting Respiration 18 18 Pulse 88 80 Pulse Source Pulse Oximeter Pulse Oximeter Pulse Oximetry (%) 96 96 Oxygen Delivery Method Room Air Room Air Comment Pre-Op Post-Op Intake Visit Reasons: Right L5 TFESI Allergies oxycodone Adverse Reaction (Intermediate, Verified 11/09/23 14:31) hand rash HPI HPI Right L5 TFESI: Details: Patient presents for scheduled procedure. Denies any recent cough, cold, infection, fever or other significant changes in medical history since last office visit. [facility] Medical History (Updated 11/09/23 @ 14:15 by Reji Mcdonough PA-C) Spondylosis of lumbar spine Radicular low back pain RLQ abdominal pain Frequent falls Headache Radiculopathy, lumbar region Facet arthropathy Sacroiliitis Right flank pain Dyspnea on exertion Myalgia Post-viral cough syndrome COVID-19 GERD (gastroesophageal reflux disease) HTN (hypertension) Right renal stone Fatty liver Respiratory tract infection Rotator cuff disorder Vitamin D deficiency Tubular adenoma of colon Hypercholesterolemia BPH (benign prostatic hyperplasia) Right shoulder pain Surgical History Hx of fusion of cervical spine History of spinal surgery History of arthroscopy of right shoulder History of eye surgery Family History Father Hypertension Mother No problems noted. Paternal Uncle Cancer Social History Housing: House Alcohol intake: former Patient Tobacco Use Status: Never used Tobacco e-Cigarette/Vaping Use: Never Used Second Hand Smoke Exposure: No service: No Current occupational status: employed Current occupation: right hand dominant Cognitive needs: No Hearing needs: No Vision needs: Yes (glasses) Physical Exam Vital Signs: Last Vital Signs Pulse 80 11/16/23 09:20 Resp 18 11/16/23 09:20 BP 120/72 11/16/23 09:20 Pulse Ox 96 11/16/23 09:20 Oxygen Delivery Method Room Air 11/16/23 09:20 BMI result Body Mass Index 27.9 Office Procedures Details: Transforaminal epidural steroid injection, right L5-S1 After obtaining written consent, pre-procedure blood pressure and heart rate were stable and recorded in the nursing record. The patient was placed in the prone position on the fluoroscopy table. The l umbosacral area was prepped with chloraprep, allowed to dry and draped in sterile fashion. Using fluoroscopy, the skin overlying our target was anesthetized with 0.5% lidocaine. A 22 gauge 3.5 inch spinal needle was advanced to the safe triangle in the upper pole of the right L5 foramen. No paresthesias were elicited with needle placement and aspiration was negative for blood and CSF. Correct needle position was confirmed with approximately 1 ml contrast dye (Omnipaque 180 mg/ml) injected under real-time fluoroscopy. No evidence of vascular or intrathecal uptake was seen and there was both epidural and peripheral spread of the contrast agent. 10 mg dexamethasone plus 1 ml containing 0.5% lidocaine was slowly injected. The needle was flushed and removed. the same procedure was repeated for the remaining levels. The skin was cleansed and a sterile bandages were applied. The patient tolerated the procedure well and no complications were encountered. Following the procedure the patient's vital signs were stable. The patient was discharged home in good condition with post-procedural instructions. Time Out: Immediately prior to the procedure, the following was verbally confirmed that there is a signed consent form and that the correct patient, planned procedure, site and side are consistent with documentation and that necessary equipment and/or blood products are available prior to the start of the case. Complications: none EBL: <5 cc 21958 - Lumbar/Sacral Procedure code (CPT) selection complete Assessment & Plan Assessment & Plan (1) Radicular low back pain: Comment: Lumbar laminotomy and microdisckectomy Dr. Grove 10/2021 Code(s): M54.10 - Radiculopathy, site unspecified Category: Medical Plan Patient is status post right L5 TFESI. Patient tolerated procedure well and was discharged home in stable condition with discharge instructions. All questions were answered. We will follow-up via telephone or in clinic to assess response to therapy. A follow-up appointment was made during today's visit. Orders: Orders FL guidance in treatment room Today M54.10 - Radiculopathy, site unspecified Coding Level of Care Code Procedure Only Diagnoses Radicular low back pain M54.10 CPT Codes Transforaminal Epidural Steroid Inj - TESI 3: 99102 - Lumbar/Sacral ([id number])
[2023-11-16 09:17] VITALS: BP 118/80; PULSE 88; RESP 18; O2SAT 96; BMI 27.9
[2023-11-16 09:20] VITALS: BP 120/72; PULSE 80; RESP 18; O2SAT 96
== END 2023-11-16 09:13 | disposition home or self-care (01) ==
LOC: HO.PMCPRC 08:05
PROVIDERS: PCP Internal Medicine; Visit Provider Internal Medicine
DX: M54.10 Radiculopathy, site unspecified (principal)
CPT/HCPCS: 64483

== ENCOUNTER 2023-11-22 18:17 | Outpatient (REF) | payer OTHER, SELFPAY ==
--- NOTE | ~2023-11-22 | MR_ITS ---
EXAMINATION: MR BRAIN WITHOUT CONTRAST MR THORACIC SPINE WITHOUT CONTRAST CLINICAL INFORMATION: Neck pain, gait abnormality COMPARISON: None TECHNIQUE: MRI of the brain and thoracic spine was obtained using routine sequences without contrast. FINDINGS: BRAIN: No acute infarct. No acute intracranial hemorrhage or extra-axial fluid collection. Background of mild generalized parenchymal volume loss. A couple nonspecific punctate supratentorial white matter lesions of no clinical significance. No mass lesion, mass effect, or herniation pattern. Normal intracranial arterial and dural venous sinus flow voids. Normal appearance of the midline structures. The orbits are grossly unremarkable. Mild ethmoid air cell mucosal thickening. No mastoid effusion. Small arachnoid granulations remodel the squamosal occipital calvarium. THORACIC SPINE: Partially imaged C5-C6 ACDF hardware. Normal thoracic kyphosis is preserved. No significant spondylolisthesis. Vertebral body heights are maintained. There is no suspicious osseous lesion. The intervertebral disc space heights are normal. Few small disc protrusions in the lower thoracic spine. There is no significant spinal canal or neural foraminal stenosis at any level. The thoracic spinal cord is normal in signal and morphology. No epidural fluid collection, hematoma, or mass. No significant abnormalities of the paraspinal musculature. No demonstrated abnormalities in the visualized neck, thorax, or upper abdomen. The descending thoracic aorta is of normal contour and caliber. MR/MR thoracic spine wo con IMPRESSION: 1. Unremarkable brain MRI. 2. Few small disc protrusions in the lower thoracic spine. No thoracic spinal canal or neural foraminal stenosis at any level.
--- NOTE | ~2023-11-22 | MR_ITS ---
EXAMINATION: MR BRAIN WITHOUT CONTRAST MR THORACIC SPINE WITHOUT CONTRAST CLINICAL INFORMATION: Neck pain, gait abnormality COMPARISON: None TECHNIQUE: MRI of the brain and thoracic spine was obtained using routine sequences without contrast. FINDINGS: BRAIN: No acute infarct. No acute intracranial hemorrhage or extra-axial fluid collection. Background of mild generalized parenchymal volume loss. A couple nonspecific punctate supratentorial white matter lesions of no clinical significance. No mass lesion, mass effect, or herniation pattern. Normal intracranial arterial and dural venous sinus flow voids. Normal appearance of the midline structures. The orbits are grossly unremarkable. Mild ethmoid air cell mucosal thickening. No mastoid effusion. Small arachnoid granulations remodel the squamosal occipital calvarium. THORACIC SPINE: Partially imaged C5-C6 ACDF hardware. Normal thoracic kyphosis is preserved. No significant spondylolisthesis. Vertebral body heights are maintained. There is no suspicious osseous lesion. The intervertebral disc space heights are normal. Few small disc protrusions in the lower thoracic spine. There is no significant spinal canal or neural foraminal stenosis at any level. The thoracic spinal cord is normal in signal and morphology. No epidural fluid collection, hematoma, or mass. No significant abnormalities of the paraspinal musculature. No demonstrated abnormalities in the visualized neck, thorax, or upper abdomen. The descending thoracic aorta is of normal contour and caliber. MR/MR head/brain wo con IMPRESSION: 1. Unremarkable brain MRI. 2. Few small disc protrusions in the lower thoracic spine. No thoracic spinal canal or neural foraminal stenosis at any level.
== END 2023-11-22 18:18 | disposition home or self-care (01) ==
LOC: HO.MRI 18:17
PROVIDERS: PCP Internal Medicine; Visit Provider Orthopaedic Surgery Orthopaedic Surgery of the Spine
DX: M54.6 Pain in thoracic spine (principal); R26.9 Unspecified abnormalities of gait and mobility
CPT/HCPCS: 70551; 72146

== ENCOUNTER 2023-12-11 14:03 | Outpatient (AMB) | payer OTHER, SELFPAY ==
--- NOTE | 2023-12-11 14:14 | MHC.OFFVIS ---
Vital Signs 12/11/23 14:19 Height 5 ft 7 in Weight 178 lb BMI 27.9 Intake Visit Reasons: OV-6wk f/u lt shldr s/p inj Intake Note: Earnest is a 63 year old right hand dominant male who presents today for a follow up on his left shoulder pain, last injection 11/09/23. Patient reports injection did not provide him with any relief. He was seen by PT last week who suggest he have a follow up due to inflammation and pain. Allergies oxycodone Adverse Reaction (Intermediate, Verified 12/11/23 14:19) hand rash Medication List - Last Reconciled 12/11/23 by Reji Mcdonough PA-C celecoxib 200 mg PO BID cyclobenzaprine 10 mg PO TID PRN 15 days gabapentin 100 mg PO BEDTIME hydrochlorothiazide 12.5 mg PO DAILY lisinopril 20 mg PO DAILY 90 days omeprazole 20 mg PO DAILY 90 days simvastatin 20 mg PO BEDTIME 90 days HPI HPI OV-6wk f/u lt shldr s/p inj: Details: 63-year-old right hand dominant male who returns to the office today for a follow-up of left shoulder pain. He had his last injection on 11/09/23 which did not provide him any relief. He currently states he has worsening pain, swelling, numbness, tingling and occasional burning sensation in his shoulder that radiates down to all of his fingers. He finds no relief with Tylenol. [facility] Medical History (Updated 11/09/23 @ 14:15 by Reji Mcdonough PA-C) Spondylosis of lumbar spine Radicular low back pain RLQ abdominal pain Frequent falls Headache Radiculopathy, lumbar region Facet arthropathy Sacroiliitis Right flank pain Dyspnea on exertion Myalgia Post-viral cough syndrome COVID-19 GERD (gastroesophageal reflux disease) HTN (hypertension) Right renal stone Fatty liver Respiratory tract infection Rotator cuff disorder Vitamin D deficiency Tubular adenoma of colon Hypercholesterolemia BPH (benign prostatic hyperplasia) Right shoulder pain Surgical History Hx of fusion of cervical spine History of spinal surgery History of arthroscopy of right shoulder History of eye surgery Family History Father Hypertension Mother No problems noted. Paternal Uncle Cancer Social History Housing: House Alcohol intake: former Patient Tobacco Use Status: Never used Tobacco e-Cigarette/Vaping Use: Never Used Second Hand Smoke Exposure: No service: No Current occupational status: employed Current occupation: right hand dominant Cognitive needs: No Hearing needs: No Vision needs: Yes (glasses) Review of Systems Const All systems reviewed & are unremarkable except as noted in HPI and below Physical Exam Vital Signs: BMI result Body Mass Index 27.9 Const General: cooperative, healthy appearing, comfortable, no acute distress, well developed and alert Orientation/consciousness: patient oriented x3 HEENT Head: Yes normal to inspection, Yes normocephalic and Yes atraumatic Eyes General: appearance normal, both eyes and all related structures Resp Effort & Inspection: normal respiratory effort and able to speak in complete sentences Cardio Rate: regular rate Peripheral pulses: Peripheral pulses 2+ throughout GI Palpation (GI): Soft to palpation Skin Lesions: no lesions Rashes: no rashes Neuro General: patient oriented x3 Extrem Other: Left shoulder normal to inspection. Tenderness over the bicipital groove and along the deltoid region of the shoulder. Forward flexion to 175, external rotation to 90, internal rotation to S1. 5/5 RTC strength. Negative Goel and cross body abduction. NVI. Results Reviewed Results Reviewed: IMPRESSION: 1. This is a normal study. 2. There is no electrodiagnostic evidence for peroneal neuropathy, tibial neuropathy, lumbosacral plexopathy, lumbar radiculopathy, or peripheral neuropathy. Assessment & Plan Assessment & Plan (1) Tendonitis of left rotator cuff: Code(s): M75.82 - Other shoulder lesions, left shoulder Category: Medical Plan An MRI of the left shoulder was ordered to further assess the etiology of his of symptoms. As far as for his radiculopathy/neuropathy symptoms, I did encourage him to return to see Dr. Grove with whom he had surgery with years ago for another opinion to see if he can help determine the source of his symptoms. He will see me back once the MRI is complete. Orders: Orders MR shoulder LT wo con Today S46.009A - Unspecified injury of muscle(s) and tendon(s) of the rotator cuff of unspecified shoulder, initial encounter Patient Instructions: Scribed for Reji Mcdonough PA-C, by Louie Purcell, medical researcher, on 12/11/2023 at 2:00 PM EST.? I, Reji Mcdonough PA-C, have personally reviewed and agree with the information entered by the scribe. Coding Level of Care Code Est Pt Level 3 (56949) Diagnoses Tendonitis of left rotator cuff M75.82
[2023-12-11 14:19] VITALS: BMI 27.9
== END 2023-12-11 15:45 | disposition home or self-care (01) ==
LOC: HO.HOS 14:03
PROVIDERS: PCP Internal Medicine; Visit Provider Physician Assistant
DX: M75.82 Other shoulder lesions, left shoulder (principal)
CPT/HCPCS: 99213

== ENCOUNTER → 2023-12-11 14:03 | Outpatient (BNVA) | payer OTHER, SELFPAY | PROVIDERS: PCP Internal Medicine; Visit Provider Physician Assistant | DX: M75.82 Other shoulder lesions, left shoulder (principal) | CPT/HCPCS: 99212 ==

== ENCOUNTER 2023-12-12 15:00 | Outpatient (RCR) | payer OTHER, SELFPAY ==
--- NOTE | 2023-12-01 12:25 | MHC.PT.EP ---
[facility] [place] Office [place] Office [place] Office [address] [place] [address] [phone] F: [phone] F: [phone] F: [phone] F: [phone] Physical Therapy Plan of Care Date of Evaluation: 12/01/23 Date of Surgery: Diagnosis: TENDONITIS LEFT SHOULDER/ ROTATOR CUFF Assessment: 63 YO MALE REF TO PT FOR Lt SH PAIN- HE HAS A H/O CERV DECOMP AND FUSION / Rt SH SURG/ LB SURG- HE IS RT HAND DOMINANT- THE Pt HAS DECR POSTURAL AWARENESS, LIMITED SH SROM, DECR CERV AROM, VERY WEAK PARASCAP MM/ POST RC, AND PAIN IN Lt UT/LEV/AC LIMITING HIS FUNCT MOB- THE Pt IS LIMITED W ADLs REQ LIFTING, INCR Lt UE USAGE- NO OBVIOUS MOTOR/SENSORY DEFICITS. HE AGREES W PT PLAN TO ADDRESS THE ABOVE FINDINGS, ESPEC PAIN/SX MGMT TECHN AND MAXIMIZE FUNCT INDEP. Frequency and Duration: The patient will be seen 2 X wk X 4 wks Short Term Goals: *IMPROVE POSTURAL CORRECTION TO DECR CERV AND Lt ANT GH TISSUE TENSION * DECR PAIN IN Lt SH TO 2-3/10 *INITIATE HEP *WFL AROM Lt SH [employer]inist Goals: *Pt INDEP HEP AND SELF-SX MGMT TECHN *Pt RESUME REG ADLs EVIDENT W IMPROVED SPADI (126/130) *Pt DEMON WFL POST RC STRENGTH; (-) NEER'S SIGN Lt) Treatment Plan: Modalities to reduce pain, spasms and effusion. Manual therapy to restore motion and function. Therapeutic exercise to improve strength and flexibility. Neuromuscular re-education for posture and balance. Therapeutic activities to return to functional activities of daily living. Electronically signed by: ANASTASIA JARAMILLO,PT Please sign and return to therapist. Thank you for your referral.
--- NOTE | 2023-12-20 11:44 | MHC.PT.DC ---
[facility] [place] Office [place] Office [place] Office [address] [phone] F: [phone] F: [phone] F: [phone] F: [phone] Physical Therapy Discharge Report Diagnosis: TENDONITIS LEFT SHOULDER/ ROTATOR CUFF Date of Surgery: Date of Evaluation: 12/01/23 Date of Discharge: 12/20/23 Treatments to Date: 3 Cancellations to Date: 0 No Shows to Date: 0 Discharge Status: Patient Elected to Stop Recommend MD Follow-up Discharge Summary: KATHLEEN PRESENTED TO PT W A DX OF LEFT SHOULDER/RC TENDONITIS. HE HAS A H/O CERVICAL DECOMPRESSION W FUSION, ANT APPROACH C5-C6)-> HE IS ALSO AWAITING A LUMBAR MRI. KATHLEEN WAS CONCERNED RE RADICULAR SXS/ TWITCHING INTO HIS LEFT HAND/ FINGERS AND NOTES INCR TISSUE TENSION. HE HAD AN ORTHO CONSULT WITH RECOMMENDATIONS TO F/U W DR BARAJAS. THE Pt DID NOT HAVE ANY OBJECTIVE Lt SH INSTABILITY-> HE HAD MILD NEER'S SIGN-> WE EDUC HIM RE THE IMPORTANCE OF POSTURAL SELF CORRECTION TO REDUCE TISSUE TENSION IN HIS POSTERIOR CHAIN. THE Pt PREFERS TO DISCONTINUE PT AT THIS TIME. Electronically signed by: ANASTASIA JARAMILLO,PT Please sign and return to therapist. Thank you for your referral.
== END 2023-12-20 11:45 | disposition home or self-care (01) ==
LOC: HO.PT 15:00
PROVIDERS: PCP Internal Medicine; Visit Provider Physician Assistant
DX: M75.82 Other shoulder lesions, left shoulder (principal)
CPT/HCPCS: 97014; 97110; 97140; 97162

== ENCOUNTER 2023-12-15 09:25 | Outpatient (AMB) | payer OTHER, SELFPAY ==
--- NOTE | 2023-12-15 09:29 | MHC.OFFVIS ---
Vital Signs 12/15/23 09:30 Height 5 ft 7 in Weight 178 lb BMI 27.9 BP 122/99 H Blood Pressure Location Lt brachial Position Sitting Respiration 14 Pulse 117 H Pulse Source Pulse Oximeter Pulse Oximetry (%) 97 Oxygen Delivery Method Room Air Intake Visit Reasons: s/p Right L5 TFESI Allergies oxycodone Adverse Reaction (Intermediate, Verified 12/15/23 09:31) hand rash Medication List - Last Reconciled 12/15/23 by Kiah Andrew LPN celecoxib 200 mg PO BID cyclobenzaprine 10 mg PO TID PRN 15 days gabapentin 100 mg PO BEDTIME hydrochlorothiazide 12.5 mg PO DAILY lisinopril 20 mg PO DAILY 90 days omeprazole 20 mg PO DAILY 90 days simvastatin 20 mg PO BEDTIME 90 days HPI HPI s/p Right L5 TFESI: Details: 63-year-old male who presents today to the office for a status post right L5 TFESI The patient reports no relief following the procedure. He is rescheduled for a lumbar MRI scan with contrast on 12/25/2023. He will follow up with Dr. Alan for further evaluation. His back pain aggravates with movements or any activity. The pain limits his ability to perform daily activities. The pain radiates down to the leg from the lower back region He reports pain in his neck and left shoulder after his neck surgery. He had neck surgery in the past. He had difficulty sleeping at night. He discussed treatment options today in the office. Past procedures 11/16/23: Transforaminal epidural steroid injection, right L5-S1: no relief. [facility] Medical History (Updated 12/25/23 @ 12:10 by Paresh Montgomery MD) Spondylosis of lumbar spine Radicular low back pain RLQ abdominal pain Frequent falls Headache Radiculopathy, lumbar region Facet arthropathy Sacroiliitis Right flank pain Dyspnea on exertion Myalgia Post-viral cough syndrome COVID-19 GERD (gastroesophageal reflux disease) HTN (hypertension) Right renal stone Fatty liver Respiratory tract infection Rotator cuff disorder Vitamin D deficiency Tubular adenoma of colon Hypercholesterolemia BPH (benign prostatic hyperplasia) Right shoulder pain Surgical History Hx of fusion of cervical spine History of spinal surgery History of arthroscopy of right shoulder History of eye surgery Family History Father Hypertension Mother No problems noted. Paternal Uncle Cancer Social History Housing: House Alcohol intake: former Patient Tobacco Use Status: Never used Tobacco e-Cigarette/Vaping Use: Never Used Second Hand Smoke Exposure: No service: No Current occupational status: employed Current occupation: right hand dominant Cognitive needs: No Hearing needs: No Vision needs: Yes (glasses) Review of Systems Const All systems reviewed & are unremarkable except as noted in HPI and below Physical Exam Vital Signs: Last Vital Signs Pulse 117 H 12/15/23 09:30 Resp 14 12/15/23 09:30 BP 122/99 H 12/15/23 09:30 Pulse Ox 97 12/15/23 09:30 Oxygen Delivery Method Room Air 12/15/23 09:30 BMI result Body Mass Index 27.9 General: Appears afebrile. Alert and oriented. Mood and affect appropriate. Follows and participates in conversation appropriately. Respiratory effort is unlabored. Able to transition from sit to stand unassisted. Ambulates with bilaterally normal heel strike and toe off. Results Reviewed Results Reviewed: No imaging is available for review. Assessment & Plan Assessment & Plan (1) Cervical radicular pain: Code(s): M54.12 - Radiculopathy, cervical region Category: Medical Plan Discussed nerve ablation vs. peripheral nerve stimulator vs spinal cord stimulator as a possible treatment option. Will schedule him for a left parasagittal interlaminar C7-T1 JORGE. I also discussed the trial of temporary nerve stimulation and potentially BVN nerve ablation for his facet mediated and vertebral endplate mediated pain respectively. If these are not helpful, we can consider spinal cord stimulation in the future. I provided a brochure for PNS device and BVN ablation. Discussed the risks and benefits of the procedure with the patient in detail. All questions were answered. The patient is on board with the plan. Justification for interventional therapy: ? Patient with average pain > 6/10 ? Patient has exhausted conservative therapy ? Patient unable to tolerate physical therapy due to pain. . Patient has a good understanding of their pain condition and has appropriate mental and social support Scribed for Dr. Montgomery by Wesley Mendieta, adjunct faculty for medical terminology, on 12/15/2023. I, Dr. Montgomery, have personally reviewed and agree with the information entered by the scribe. Coding Level of Care Code Est Pt Level 4 (73476) Diagnoses Cervical radicular pain M54.12
[2023-12-15 09:30] VITALS: BP 122/99; PULSE 117; RESP 14; O2SAT 97; BMI 27.9
== END 2023-12-15 10:00 | disposition home or self-care (01) ==
PROVIDERS: PCP Internal Medicine; Visit Provider Internal Medicine
DX: M54.12 Radiculopathy, cervical region (principal)
CPT/HCPCS: 99214

== ENCOUNTER → 2023-12-15 09:25 | Outpatient (BNVA) | payer OTHER, SELFPAY | PROVIDERS: PCP Internal Medicine; Visit Provider Internal Medicine | DX: M54.12 Radiculopathy, cervical region (principal) | CPT/HCPCS: 99212 ==

== ENCOUNTER 2023-12-25 07:23 | Outpatient (REF) | payer OTHER, SELFPAY ==
--- NOTE | ~2023-12-25 | MR_ITS ---
EXAMINATION: MR LUMBAR SPINE WITHOUT CONTRAST CLINICAL INFORMATION: Lumbar radiculopathy COMPARISON: MRI lumbar spine on 07/21/2023 TECHNIQUE: MRI of the lumbar spine was obtained using routine sequences without contrast. FINDINGS: The visualized lumbar vertebrae are intact with normal alignment. No focal bone lesion with abnormal signal can be seen. Evaluation of the intervertebral discs show: T12/L1: Intervertebral disc height is normal, with normal T2 signal. No focal disc herniation is seen. Bilateral T12/L1 neuroforamina are patent. Bilateral apophyseal joints are intact with normal alignment. L-1/L-2: Intervertebral disc height is mildly decreased, with mild loss of T2 signal. No focal disc herniation is seen. Bilateral L1-L2 neuroforamina are patent. Bilateral apophyseal joints are intact with normal alignment. L2/L3: Intervertebral disc height is normal, with normal T2 signal. No focal disc herniation is seen. Bilateral L2-L3 neuroforamina are patent. Bilateral apophyseal joints are intact with normal alignment. L3/L4: Intervertebral disc height is normal, with mild loss of T2 signal. No focal disc herniation is seen. Bilateral L3-L4 neuroforamina are patent. A tiny sclerotic Schmorl's node is seen at superior L4 vertebral endplate. Bilateral apophyseal joints are intact with normal alignment. L4/L5: Bilateral L5 laminectomies, resection of spinous process are seen. Intervertebral disc height is normal, with normal T2 signal. No focal disc herniation is seen. Bilateral L4-L5 neuroforamina are patent. Bilateral apophyseal joints are intact with normal alignment. L5/S1: Bilateral L5 laminectomies, resection of spinous process are seen. Intervertebral disc height is normal, with normal T2 signal. No focal disc herniation is seen. There is asymmetric mild right L5-S1 neuroforaminal stenosis. Bilateral apophyseal joints are intact with normal alignment. Conus medullaris is seen normally at L1 level. MR/MR lumbar spine wo con IMPRESSION: 1. Change status post Bilateral L5 laminectomies, resection of spinous process are seen. 2. There is persistent asymmetric mild right L5-S1 neuroforaminal stenosis. 3. No focal disc herniation is seen.
== END 2023-12-25 07:24 | disposition home or self-care (01) ==
LOC: HO.MRI 07:23
PROVIDERS: PCP Internal Medicine; Visit Provider Orthopaedic Surgery Orthopaedic Surgery of the Spine
DX: M54.6 Pain in thoracic spine (principal); R26.9 Unspecified abnormalities of gait and mobility
CPT/HCPCS: 72148

== ENCOUNTER 2023-12-30 11:44 | Emergency (ER) | payer OTHER, SELFPAY ==
--- NOTE | ~2023-12-30 | CT_ITS ---
EXAMINATION: CT cervical spine wo IV con INDICATION INFORMATION: Reason for Exam left c spine pain COMPARISON: CT cervical spine 08/17/2023 TECHNIQUE: Noncontrast CT examinations of the cervical spine was performed. Coronal and sagittal images were created for each examination at the technologist workstation. This CT examination was performed using dose optimization techniques as appropriate, variously including the following: *Automated exposure control *Adjustment of mA and/or kV according to patient size (this includes techniques or standardized protocols for targeted exams where dose is matched to indication/reason for exam; i.e. extremities or head) *Use of iterative reconstruction technique DLP: 364 mGy-cm FINDINGS: There is no evidence of acute cervical spine fracture. Vertebral bodies remain normal in height. Status post C5-C6 anterior discectomy and spinal fusion with interbody disc spacer. No evidence of hardware fracture or complication. No osseous fusion across the fused vertebral bodies. Remainder of disc space heights are maintained. Again seen is uncovertebral hypertrophy and facet arthropathy resulting in severe left and moderate right neural foraminal narrowing at C5-C6 and mild neuroforaminal narrowing bilaterally at C6-C7 similar to prior without definite appreciable canal stenosis, within the limitations of CT. Small anterior disc osteophyte complex at C6-C7 unchanged. No pre- or paravertebral soft tissue abnormality is identified. Visualized portions of the lung apices are unremarkable. The thyroid gland is unremarkable. Limited views of the brain are unremarkable. CT/CT cervical spine wo IV con IMPRESSION: 1. No cervical spine fracture or traumatic malalignment. 2. Status post C5-C6 anterior discectomy and spinal fusion with interbody disc spacer. No evidence of hardware fracture or complication. No osseous fusion across the fused vertebral bodies. 3. Again seen is uncovertebral hypertrophy and facet arthropathy resulting in severe left and moderate right neural foraminal narrowing at C5-C6 and mild neuroforaminal narrowing bilaterally at C6-C7 similar to prior without definite appreciable canal stenosis, within the limitations of CT.
--- NOTE | ~2023-12-30 | XR_ITS ---
EXAMINATION: XR SHOULDER, LEFT CLINICAL INFORMATION: Reason for Exam atraumatic left shoulder pain COMPARISON: Shoulder radiographs 11/09/2023 TECHNIQUE: Three views of the shoulder. FINDINGS: No acute fracture or dislocation. Mild to moderate degenerative changes of the shoulder with loss of the acromioclavicular joint space similar to prior. Soft tissues are unremarkable. XR/XR shoulder LT min 2V IMPRESSION: Mild to moderate degenerative changes of the shoulder with loss of the acromioclavicular joint space similar to prior.
[2023-12-30 12:05] VITALS: BP 136/95; PULSE 106; RESP 16; TEMP 36.1; O2SAT 98; BMI 28.2
--- NOTE | 2023-12-30 12:08 | ED_ITS ---
HPI - General Adult General Chief complaint: Back Pain/Injury Stated complaint: back and shoulder pain Time Seen by Provider: 12/30/23 12:20 Source: patient and RN notes reviewed Mode of arrival: ambulatory Limitations: no limitations History of Present Illness ED Provider: Carmen Oliveira PA-C HPI narrative: This is a 63-year-old male, with a history of chronic back pain and neck pain with multiple cervical fusions, hypertension, BPH, GERD, who presents emergency department with acute on chronic back pain. Patient denies any recent trauma or injury. He states that over the last several weeks his pain has only worsened. He has been taking tramadol which has provided him without any relief. He has follow-up with his depilatory painter and orthopedist in the coming weeks. He denies any fevers, chills, chest pain, shortness of breath, numbness, tingling, weakness, abdominal pain, nausea, vomiting or diarrhea. No urinary or bowel incontinence/retention. No saddle anesthesia. MD complaint: Back pain, pain, chronic Onset (ago): week(s) Location: neck and back Radiation: back, neck and extremity Quality: burning and aching Pain Consistency: constant Relieving factors: none Exacerbating factors: movement Associated symptoms: denies other symptoms Treatments prior to arrival: none Related Data Home Medications ?Medication ?Instructions ?Recorded ?Confirmed celecoxib 200 mg capsule 200 mg PO BID 06/22/23 12/15/23 Previous Rx's ?Medication ?Instructions ?Recorded gabapentin 100 mg capsule 100 mg PO BEDTIME #30 caps 03/16/23 simvastatin 20 mg tablet 20 mg PO BEDTIME 90 days #90 tabs 03/16/23 cyclobenzaprine 10 mg tablet 10 mg PO TID PRN muscle spasm 15 10/12/23 days #45 tabs omeprazole 20 mg capsule,delayed 20 mg PO DAILY 90 days #90 caps 10/12/23 release hydrochlorothiazide 12.5 mg tablet 12.5 mg PO DAILY #90 tabs 12/18/23 lisinopril 30 mg tablet 30 mg PO DAILY 90 days #90 tabs 12/22/23 acetaminophen 500 mg tablet 500 mg PO Q6H PRN pain #30 tabs 12/30/23 (Tylenol Extra Strength) lidocaine 5 % topical patch 1 patch topical DAILY #30 ea 12/30/23 (Lidoderm) methocarbamol 750 mg tablet 750 mg PO TID #9 tabs 12/30/23 prednisone 20 mg tablet 40 mg (2 x 20 mg) PO DAILY 5 days 12/30/23 #10 tabs Allergies Allergy/AdvReac Type Severity Reaction Status Date / Time oxycodone AdvReac Intermediate hand rash Verified 12/30/23 12:09 Review of Systems Review of Systems: Yes all other systems are reviewed and are negative Constitutional: Constitutional: Reports as per [facility] Past Medical History Medical History (Updated 12/30/23 @ 15:03 by CALLIE Demarco) Spondylosis of lumbar spine Radicular low back pain RLQ abdominal pain Frequent falls Headache Radiculopathy, lumbar region Facet arthropathy Sacroiliitis Right flank pain Dyspnea on exertion Myalgia Post-viral cough syndrome COVID-19 GERD (gastroesophageal reflux disease) HTN (hypertension) Right renal stone Fatty liver Respiratory tract infection Rotator cuff disorder Vitamin D deficiency Tubular adenoma of colon Hypercholesterolemia BPH (benign prostatic hyperplasia) Right shoulder pain Surgical History Hx of fusion of cervical spine History of spinal surgery History of arthroscopy of right shoulder History of eye surgery Family History Family History Father Hypertension Mother No problems noted. Paternal Uncle Cancer Social History Social History Housing: House Alcohol intake: former Patient Tobacco Use Status: Never used Tobacco e-Cigarette/Vaping Use: Never Used Second Hand Smoke Exposure: No Advance Directives: No Advance Directives Information Provided: No Do you have a plan to hurt others: No Plan service: No Current occupational status: employed Current occupation: right hand dominant Cognitive needs: No Hearing needs: No Vision needs: Yes (glasses) Physical Exam ED Vital Signs: Vital Signs - 24 hr 12/30/23 12:05 12/30/23 14:45 12/30/23 15:14 Temperature 96.9 F 97.8 F 97.8 F Pulse Rate 106 H 94 94 Respiratory Rate 16 14 14 Blood Pressure 136/95 H 111/73 111/73 Pulse Oximetry 98 98 98 Oxygen Delivery Method Room Air Room Air Room Air BMI result Body Mass Index 28.2 Const General: cooperative, comfortable and no acute distress Orientation/consciousness: patient oriented x3 Limitations: no limitations HENMT Head: Yes normal to inspection, Yes normocephalic and Yes atraumatic Ears: hearing grossly normal bilaterally General nose exam: Normal external nose present Face and sinus: Yes normal facial exam Mouth: Normal oral and palatal mucosa present, oropharynx normal and moist mucous membranes Throat: Yes posterior oropharynx normal Eyes General: appearance normal, both eyes and all related structures Eyelids: Yes eyelids normal Conjunctivae: conjunctivae normal Sclerae: sclerae normal Pupils: Equal, round and reactive pupils present EOM: EOMs intact bilaterally Neck Other: No midline cervical spine tenderness, patient has tenderness palpation along the left cervical paraspinous muscles into the left trapezius muscles. Full range of motion of the neck, no nuchal rigidity. Neck: Yes normal visual inspection, Yes full ROM and Yes no lymphadenopathy Lymphatic: no lymphadenopathy noted Chest Chest palpation & inspection: normal inspection of the chest Resp Effort & Inspection: normal respiratory effort and able to speak in complete sentences Auscultation: clear to auscultation bilaterally, no crackles, no rales, no rhonchi and no wheezes Cardio Rate: regular rate Rhythm: regular rhythm Heart sounds: S1 normal heart sound present and S2 normal heart sound present GI Inspection: Yes normal to inspection Back/Spine/Pelvis Other: Tenderness palpation along the lumbar midline spine, old surgical scar noted along the lumbar spine, no signs of erythema, edema or fluctuance. Skin General skin exam: no rashes or lesions noted Trauma: no lacerations or abrasions Wounds: no wounds Neuro General: patient oriented x3 and moves all extremities Cranial nerves: Yes Equal, round and reactive pupils present Extrem General: Yes normal to inspection Right upper extremity: normal to inspection Left upper extremity: normal to inspection Right lower extremity: normal to inspection Left lower extremity: normal to inspection Course Course Course Narrative: This is a Rapid Medical Examination (RME) performed by Delbert Walter PA-C in triage. Full HPI, ROS, assessment and treatment plan per primary provider in the Main ED. 63 yo male hx of chronic back pain, s/p right L5 TFESI with Dr. Alan and multiple operations on his neck here for eval of left sided neck pain radiating into left shoulder. took tramadol this morning without relief. has MRI of cspine scheduled on 01/11. may ROM to cspine d/t discomfort. no midline spinous tenderness or step off deformity. Plan: ct c spine, xr left shoulder Medications Administered Discontinued Medications Generic Name Dose Route Start Last Admin Trade Name Sophie PRN Reason Stop Dose Admin Diazepam 2 mg 12/30/23 13:08 12/30/23 13:18 Diazepam 2 Mg Tablet PO 12/30/23 13:09 2 mg ONCE ONE Administration Ketorolac Tromethamine 30 mg 12/30/23 13:08 12/30/23 13:18 Ketorolac Tromethamine 30 Mg/Ml Vial IM 12/30/23 13:09 30 mg ONCE ONE Administration Medical Decision Making Medical Decision Making [facility] Narrative: This is a 63-year-old male who presents emergency department with complaints of acute on chronic neck and back pain. On arrival, patient slightly tachycardic and hypertensive, likely secondary to pain. Patient has tenderness palpation along the cervical paraspinous muscles. He also has tenderness palpation along the left AC joint. He is currently being followed by pain management, and Orthopedics. He was previously seen by pain management on December 14. There was consideration that he may have a spinal cord stimulator. He will follow-up with an outpatient. He was medicated with Toradol 30 mg IM and Valium in the department. This provided him with good relief. Discussed return precautions. He understands and agrees with plan and he will follow-up with his outpatient providers for further management of his chronic pain. He has no red flag back symptoms to suggest cauda equina syndrome, or neurologic deficits to warrant a emergent MRI. He understands. Patient stable for discharge Differential Diagnosis Differential Diagnoses: The differential diagnosis associated with the presentation includes Cauda equina syndrome, cervical radiculopathy, muscle spasms, acute on chronic pain Radiology Impression Discussion of test interpretation with radiology: I have reviewed the radiologist's reading. Radiologist Impression: XR/XR shoulder LT min 2V IMPRESSION: Mild to moderate degenerative changes of the shoulder with loss of the acromioclavicular joint space similar to prior. Dictated By: Temi Kingsley MD CT/CT cervical spine wo IV con IMPRESSION: 1. No cervical spine fracture or traumatic malalignment. 2. Status post C5-C6 anterior discectomy and spinal fusion with interbody disc spacer. No evidence of hardware fracture or complication. No osseous fusion across the fused vertebral bodies. 3. Again seen is uncovertebral hypertrophy and facet arthropathy resulting in severe left and moderate right neural foraminal narrowing at C5-C6 and mild neuroforaminal narrowing bilaterally at C6-C7 similar to prior without definite appreciable canal stenosis, within the limitations of CT. Dictated By: Temi Kingsley MD Independent Historian Clinical information obtained from an independent historian. History obtained from or confirmed by: Spouse Discharge Plan Discharge Clinical Impression: Chronic neck pain Patient Disposition: Home, Self-Care Instructions: Chronic Pain (ED) Additional Instructions: You were seen in the emergency department due to worsening neck and left shoulder pain. Your CT scan shows severe arthritis, you need follow-up with your depilatory painter and providers regarding this visit. Shoulder x-ray does show arthritis a your AC joint. Please take prescribed medication as directed. Prednisone is a steroid to help decrease inflammation. Methocarbamol is a muscle relaxants, please be advised that this can cause drowsiness, do not drink alcohol or drive while taking this medication. You may apply Lidoderm patches to the area for relief. If any new or worsening symptoms occur including but not limited to worsening pain, fevers, chills, weakness, numbness, chest pain, shortness breast, please return for re-evaluation. Prescriptions: New methocarbamol 750 mg tablet 750 mg PO TID Qty: 9 0RF acetaminophen [Tylenol Extra Strength] 500 mg tablet 500 mg PO Q6H PRN (Reason: pain) Qty: 30 0RF lidocaine [Lidoderm] 5 % adhesive patch,medicated 1 patch topical DAILY Qty: 30 0RF Rx Instructions: leave on most painful area for up to 12 hrs prednisone 20 mg tablet 40 mg PO DAILY 5 Days Qty: 10 0RF No Action omeprazole 20 mg capsule,delayed release(DR/EC) 20 mg PO DAILY 90 Days Qty: 90 2RF cyclobenzaprine 10 mg tablet 10 mg PO TID PRN (Reason: muscle spasm) 15 Days Qty: 45 2RF hydrochlorothiazide 12.5 mg tablet 12.5 mg PO DAILY Qty: 90 2RF lisinopril 30 mg tablet 30 mg PO DAILY 90 Days Qty: 90 1RF celecoxib 200 mg capsule 200 mg PO BID simvastatin 20 mg tablet 20 mg PO BEDTIME 90 Days Qty: 90 3RF gabapentin 100 mg capsule 100 mg PO BEDTIME Qty: 30 0RF Interventions: ED Discharge Assessment Last Done: 12/30/23 15:14 Discharge Date/Time: 12/30/23 15:14 Print Language: Croatian
[2023-12-30] MEDS: Ketorolac Tromethamine 30 MG/ML VIAL IM (13:18)
[2023-12-30] MEDS: diazePAM 2 MG TABLET PO (13:18)
[2023-12-30 14:45] VITALS: BP 111/73; PULSE 94; RESP 14; TEMP 36.6; O2SAT 98
[2023-12-30 15:14] VITALS: BP 111/73; PULSE 94; RESP 14; TEMP 36.6; O2SAT 98
== END 2023-12-30 15:14 | disposition home or self-care (01) ==
PROVIDERS: Emergency Provider Emergency Medicine; PCP Internal Medicine
DX: G89.29 Other chronic pain (principal); M54.2 Cervicalgia; M19.012 Primary osteoarthritis, left shoulder; R00.0 Tachycardia, unspecified; M54.9 Dorsalgia, unspecified
CPT/HCPCS: 72125; 73030; 96372; 99284; J1885

== ENCOUNTER 2024-01-08 08:10 | Outpatient (REF) | payer OTHER, SELFPAY ==
[2024-01-08 08:21] LABS: MANUAL DIFF FLAG NO
[2024-01-08 08:53] LABS: Basophils Percent Auto 0.5 % (0-2); Eosinophils Absolute Auto 0.2 X10*3/uL (0.0-0.4); Eosinophils Percent Auto 2.7 % (0-4); Hemoglobin 14.7 g/dl (14.0-18.0); Imm Gran Abs Auto 0.02 X10*3/uL (0.00-0.03); Imm Gran Pct Auto 0.3 % (0.0-0.4); Lymphocytes Absolute Auto 3.7 X10*3/uL (1.2-4.9); Lymphocytes Percent Auto 50.4 % (20-40); Mean Corpuscular HGB Conc 34.2 g/dl (31.0-36.0); Mean Corpuscular Hemoglobin 30.8 pg (27.0-33.0); Mean Platelet Volume 8.9 fL (9.4-12.4); Monocytes Absolute Auto 0.8 X10*3/uL (0.1-1.2); Monocytes Percent Auto 10.6 % (2-11); Neutrophils Absolute Auto 2.6 x10*3/uL (2.0-8.3); Neutrophils Percent Auto 35.5 % (45-73); Platelet Count 288 X10*3/uL (160-400); Red Blood Count 4.78 X10*6/uL (4.60-5.80); Red Cell Distribution Width 12.9 % (11.0-16.0); Reticulocyte Percent 1.5 % (0.5-1.8); White Blood Count 7.3 X10*3/uL (4.8-10.8)
[2024-01-08 08:59] LABS: Estimated Average Glucose 128 mg/dL; Hemoglobin A1C 170.2796 umol/L; Hemoglobin A1c % 6.1 % (<6.0)
[2024-01-08 09:33] LABS: Alanine Aminotransferase 90 U/L (0-40); Albumin Level 4.5 g/dL (3.5-5.0); Alkaline Phosphatase 87 U/L (39-117); Anion Gap 15 (12-20); Aspartate Amino Transferase 41 U/L (5-37); Bilirubin Total 0.6 mg/dL (0.0-1.0); Blood Urea Nitrogen 19 mg/dL (9-16); Calcium 9.5 mg/dL (8.4-10.2); Carbon Dioxide 27 mmol/L (22-29); Chloride 103 mmol/L (96-108); Cholesterol 166 mg/dL (<200); Estimated Glomerular Filt Rate > 60; Glucose Random 106 mg/dL (60-115); HDL Cholesterol 32 mg/dL (>40); Iron 75 mcg/dL (45-160); LDL Cholesterol Calculated 84 mg/dL (<100); Percent Iron Saturation 31 % (15-50); Potassium 3.8 mmol/L (3.3-5.1); Sodium 141 mmol/L (135-145); Total Iron Binding Capacity 241 mcg/dL (228-428); Total Protein 7.7 g/dL (6.5-8.0); Triglycerides 250 mg/dL (<150); Unsaturated Iron Binding 166 ug/dL
[2024-01-08 09:43] LABS: Ferritin 285 ng/mL (20-250); Free T4 (Free Thyroxine) 1.04 ng/dL (0.71-1.85)
[2024-01-08 12:18] LABS: Prostate Specific Antigen Scr 1.04 ng/mL (<0.05-4.0); Vitamin B12 327 pg/mL (200-900)
== END 2024-01-08 08:11 | disposition home or self-care (01) ==
LOC: HO.LAB 08:10
PROVIDERS: PCP Internal Medicine; Visit Provider Internal Medicine
DX: R73.01 Impaired fasting glucose (principal); E78.00 Pure hypercholesterolemia, unspecified
CPT/HCPCS: 36415; 80053; 80061; 82607; 82728; 82746; 83036; 83540; 84153; 84439; 84443; 85025; 85045

== ENCOUNTER 2024-01-12 12:44 | Outpatient (AMB) | payer OTHER, SELFPAY ==
--- NOTE | 2024-01-12 13:26 | A.SPINEOV_ITS ---
Intake Visit Reasons: lower back pain Intake Note: Mr. Wojciech Casas is here today c/o low back pain and bilateral leg numbness. Edge Roller Required: No Allergies oxycodone Adverse Reaction (Intermediate, Verified 12/30/23 12:09) hand rash Assessment & Plan Assessment & Plan (1) Chronic back pain greater than 3 months duration: Code(s): M54.9 - Dorsalgia, unspecified; G89.29 - Other chronic pain Category: Medical Plan Dear colleague, On 01/12/2024, I saw Earnest Casas for a 2nd opinion regarding chronic low back pain. History of present illness: This 63-year-old male underwent a lumbar decompression for neurogenic claudication for which he responded well. He had a 2nd surgery but never had improvement from his intractable low back pain. The low back or in his constant and debilitating. The radiating pain in his legs disappeared. His last surgeon told him that all the imaging looked fine. He is under treatment from pain management who are considering a stimulator placement. He comes in for 2nd opinion. 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 On exam there is a frozen shoulder on the left side with the discoloration of his left arm. Pulsations are present. No neurological deficits for motor sensation or reflexes. I reviewed an MRI of the lumbar spine of 11/27/2023 in detail with the patient and his . The MRI shows good quality of the discs. No ongoing spinal stenosis or nerve compression. I told the patient that I do not see a surgical cause for his back pain. I hope that is pain management can help this gentleman who is obviously in severe agony. I spent 25 minutes in his consult. Chapito Alan MD, PhD Spine Fellowship Trained Neurosurgeon Director, [facility] Coding Level of Care Code New Pt Level 2 (59185) Diagnoses Chronic back pain greater than 3 months duration M54.9; G89.29
== END 2024-01-12 14:01 | disposition home or self-care (01) ==
PROVIDERS: PCP Internal Medicine; Visit Provider Neurological Surgery
DX: M54.9 Dorsalgia, unspecified (principal); G89.29 Other chronic pain
CPT/HCPCS: 99202

== ENCOUNTER → 2024-01-12 12:44 | Outpatient (BNVA) | payer OTHER, SELFPAY | PROVIDERS: PCP Internal Medicine; Visit Provider Neurological Surgery | DX: M54.50 Low back pain, unspecified (principal); G89.29 Other chronic pain | CPT/HCPCS: 99202 ==

== ENCOUNTER 2024-01-15 15:36 | Outpatient (AMB) | payer OTHER, SELFPAY ==
[2024-01-15 15:38] VITALS: BP 138/72; PULSE 67; O2SAT 98; BMI 28.0
--- NOTE | 2024-01-15 15:38 | MHC.PC.OV ---
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 Last seen in August 2023. Colon test up-to-date. Review of the notes has seen the neurosurgeon January 11 for the chronic back pain underwent lumbar decompression and had a 2nd surgery with no improvement. Patient is presently under pain management considering stimulator. No surgical recommendation. ER visit in December 29 for the neck pain with CT showing severe arthritis. Patient also sees Orthopedics for the left shoulder pain. PAtient had a fall again and has been falling. [facility] Medical History (Updated 01/15/24 @ 16:26 by Danitza Humphreys MD) Spondylosis of lumbar spine Radicular low back pain RLQ abdominal pain Frequent falls Headache Radiculopathy, lumbar region Facet arthropathy Sacroiliitis Right flank pain Dyspnea on exertion Myalgia Post-viral cough syndrome COVID-19 GERD (gastroesophageal reflux disease) HTN (hypertension) Right renal stone Fatty liver Respiratory tract infection Rotator cuff disorder Vitamin D deficiency Tubular adenoma of colon Hypercholesterolemia BPH (benign prostatic hyperplasia) Right shoulder pain Surgical History Hx of fusion of cervical spine History of spinal surgery History of arthroscopy of right shoulder History of eye surgery Family History Father Hypertension Mother No problems noted. Paternal Uncle Cancer Social History Housing: House Alcohol intake: former Patient Tobacco Use Status: Never used Tobacco e-Cigarette/Vaping Use: Never Used Second Hand Smoke Exposure: No service: No Current occupational status: employed Current occupation: right hand dominant Cognitive needs: No Hearing needs: No Vision needs: Yes (glasses) Questionnaire PHQ-9 Over the last 2 weeks, how often have you been bothered by any of the following problems? 1. Little interest or pleasure in doing things: not at all 2. Feeling down, depressed, or hopeless: not at all 3. Trouble falling or staying asleep, or sleeping too much: not at all 4. Feeling tired or having little energy: not at all 5. Poor appetite or overeating: not at all 6. Feeling bad about yourself - or that you are a failure or have let yourself or your family down: not at all 7. Trouble concentrating on things, such as reading the newspaper or watching television: not at all 8. Moving or speaking so slowly that other people could have noticed. Or the opposite - being so fidgety or restless that you have been moving around a lot more than usual: not at all 9. Thoughts that you would be better off or of hurting yourself in some way: not at all Total score: 0 Depression Screening Interpretation: Negative Depression Screening Done: Yes 88231 - PHQ-9 Billing: Yes Source: Developed by Drs. Omega Solomon, Trini Bingham, Edi Olsen and colleagues, with an educational jimmy from [employer]. Thrive Questionnaire Date Thrive assessed: 09/22/23 I am a: Patient What is your living situation today?: I have a steady place to live Within the past 12 months, did the food you bought not last and you didn't have the money to get more?: Never true Within the past 12 months, did you worry whether your food would run out before you got money to buy more?: Never true Do you have trouble paying for medicines?: No Do you have trouble getting transportation to medical appointments?: No Do you have trouble paying your heating and electricity bill?: No Do you have trouble taking care of your child, family member or friend?: No Do you have trouble with day-to-day activities such as bathing, preparing meals, shopping, managing finances, etc.?: No Are you currently unemployed and looking for a job?: No Are you interested in more education?: No Please select the resources that you would like help with: None THRIVE Score: 0 AUDIT C Alcohol Use Questionnaire (AUDIT-C) 1. How often do you have a drink containing alcohol?: Monthly or less 2. How many drinks containing alcohol do you have on a typical day when you are drinking?: 1 or 2 (0) 3. How often do you have six or more drinks on one occasion?: Never Total Score: 1 SATNAM-7 AMB Questionnaire SATNAM-7 Date SATNAM - 7 assessed: 09/22/23 Feeling nervous, anxious, or on edge: 0 = Not at all Not being able to stop or control worryin = Not at all Worrying too much about different things: 0 = Not at all Trouble relaxin = Not at all Being so restless that it is hard to sit still: 0 = Not at all Becoming easily annoyed or irritable: 0 = Not at all Feeling afraid as if something awful might happen: 0 = Not at all Total SATNAM-7 score (0-4 normal; 5-9 mild; 10-14 moderate; 15-21 severe): 0 Source: Developed by Drs. Omega Solomon, Trini Bingham, Edi Olsen and colleagues, with an educational jimmy from [employer]. SATNAM-7 Assessment Billing SATNAM-7 Assessment Tool: SATNAM-7 Assessment 48751 Physical exam (Primary Care) Vital Signs: Last Vital Signs Pulse 67 01/15/24 15:38 BP 138/72 01/15/24 15:38 Pulse Ox 98 01/15/24 15:38 Oxygen Delivery Method Room Air 01/15/24 15:38 BMI result Body Mass Index 28.0 Tobacco/Smoking Status: Tobacco use Status Tobacco use date assessed 09/22/23 01/15/24 15:39 Patient Tobacco Use Status Never used Tobacco 01/15/24 15:39 e-Cigarette/Vaping Use Never Used 01/15/24 15:39 PHQ-9: PHQ-9 Score PHQ-9: Total score 0 01/15/24 15:42 Depression Screening Interpretation: Negative Thrive Assessment: Date of Thrive Assessment Date Thrive assessed 09/22/23 01/15/24 15:39 Const General: alert; No acute distress Eyes Conjunctivae: conjunctivae normal Resp Auscultation: clear to auscultation bilaterally Cardio Rate: regular rate Rhythm: regular rhythm GI Inspection: Yes normal to inspection Extrem General: Yes normal to inspection and No edema Assessment and Plan Assessment & Plan (1) Cervical radicular pain: Comment: [facility] decompression and fusion C5-6 07/2023 CT scan 12/2023 No cervical spine fracture or traumatic malalignment. 2. Status post C5-C6 anterior discectomy and spinal fusion with interbody disc spacer. No evidence of hardware fracture or complication. No osseous fusion across the fused vertebral bodies. 3. Again seen is uncovertebral hypertrophy and facet arthropathy resulting in severe left and moderate right neural foraminal narrowing at C5-C6 and mild neuroforaminal narrowing bilaterally at C6-C7 similar to prior without definite appreciable canal stenosis, within the limitations of CT. Code(s): M54.12 - Radiculopathy, cervical region Plan: .ff up with [facility] neurosurgeon (2) Radicular low back pain: Comment: Lumbar laminotomy and microdisckectomy Dr. Grove 10/2021 Code(s): M54.10 - Radiculopathy, site unspecified Plan: Patient has seen the neurosurgeon for a 2nd opinion and is nonsurgical. Seeing pain mgmt. ? stimulator (3) HTN (hypertension): Code(s): I10 - Essential (primary) hypertension Qualifiers: Hypertension type: essential hypertension Qualified Code(s): I10 - Essential (primary) hypertension Plan: Continue with blood pressure medication. Decrease salt intake and exercise on lisinopril 30 mg once a day hydrochlorothiazide 12.5 mg once a day (4) GERD (gastroesophageal reflux disease): Code(s): K21.9 - Gastro-esophageal reflux disease without esophagitis Qualifiers: Esophagitis presence: without esophagitis Qualified Code(s): K21.9 - Gastro-esophageal reflux disease without esophagitis Plan: Avoid the foods that causes that usually spicy foods, tomato products, juices, coffee, soda and foods that your sensitive to. After eating do not lie down, allow 3-4 hours before in lie down. And keep the head of bed above 30 degrees to avoid the acid from going up. (5) Hypercholesterolemia: Code(s): E78.00 - Pure hypercholesterolemia, unspecified Plan: Avoid fried foods, chicken skin, eggs, butter margarine, pastries and meat. Be it pork or beef they have a lot of cholesterol LDL goal of less than 130 and triglyceride of less than 150 on simvastatin 20 mg once a day (6) BPH (benign prostatic hyperplasia): Code(s): N40.0 - Benign prostatic hyperplasia without lower urinary tract symptoms Qualifiers: Lower urinary tract symptom presence: symptoms absent Qualified Code(s): N40.0 - Benign prostatic hyperplasia without lower urinary tract symptoms Plan: Continue to monitor. (7) Left shoulder pain: Code(s): M25.512 - Pain in left shoulder Plan: seeing ORTho Dr. Mckeon. PT done and was stopped due to pain (8) Impaired fasting blood sugar: Code(s): R73.01 - Impaired fasting glucose Coding Level of Care Code Est Pt Level 4 (06848) Diagnoses Cervical radicular pain M54.12 Radicular low back pain M54.10 Essential hypertension I10 Hypertension type: essential hypertension Gastroesophageal reflux disease without esophagitis K21.9 Esophagitis presence: without esophagitis Hypercholesterolemia E78.00 Benign prostatic hyperplasia without lower urinary tract symptoms N40.0 Lower urinary tract symptom presence: symptoms absent Left shoulder pain M25.512 Impaired fasting blood sugar R73.01 Additional Codes SATNAM-7 Assessment Billing - SATNAM-7 Assessment Tool: SATNAM-7 Assessment [id number] ([id number])
== END 2024-01-15 16:41 | disposition home or self-care (01) ==
PROVIDERS: PCP Internal Medicine; Visit Provider Internal Medicine
DX: M54.12 Radiculopathy, cervical region (principal); I10 Essential (primary) hypertension; K21.9 Gastro-esophageal reflux disease without esophagitis; E78.00 Pure hypercholesterolemia, unspecified; N40.0 Benign prostatic hyperplasia without lower urinary tract symptoms; M25.512 Pain in left shoulder; R73.01 Impaired fasting glucose
CPT/HCPCS: 99214

== ENCOUNTER 2024-01-16 19:40 | Outpatient (REF) | payer OTHER, SELFPAY ==
--- NOTE | ~2024-01-16 | MR_ITS ---
EXAMINATION: MR SHOULDER WITHOUT CONTRAST, LEFT CLINICAL INFORMATION: Left shoulder pain and swelling. COMPARISON: Left shoulder radiographs dated 12/30/2023. TECHNIQUE: MRI of the shoulder without contrast was performed on a high-field scanner. FINDINGS: ROTATOR CUFF: Mild supraspinatus tendinosis with distal bursal surface partial tearing measuring 0.9 x 0.6 cm (AP x ML). The articular surface tendon fibers remain intact. Mild subscapularis tendinosis with distal articular surface partial tearing measuring 1.3 cm in ML dimension. No full-thickness rotator cuff tendon tear. No muscle atrophy or fatty infiltration. BICEPS: Intact. CORACOACROMIAL ARCH: The undersurface of the acromion is flat with small subchondral spurs. Moderate acromioclavicular osteoarthritis. Mild fluid and edema within the subacromial-subdeltoid bursa, consistent with mild bursitis. LABRUM/CAPSULE: No labral tear. Mild thickening and edema of the anteroinferior joint capsule which can be seen the setting of adhesive capsulitis. GLENOHUMERAL JOINT/MARROW: Intact articular cartilage. No acute osseous injury. MR/MR shoulder LT wo con IMPRESSION: 1. Mild supraspinatus tendinosis with distal bursal surface partial tearing measuring 0.9 x 0.6 cm (AP x ML). Mild subscapularis tendinosis with distal articular surface partial tearing measuring 1.3 cm in ML dimension. No full-thickness rotator cuff tendon tear. 2. Moderate acromioclavicular osteoarthritis with small subchondral spurs. 3. Mild subacromial-subdeltoid bursitis. 4. Mild thickening and edema of the anteroinferior joint capsule which can be seen the setting of adhesive capsulitis.
== END 2024-01-16 19:41 | disposition home or self-care (01) ==
LOC: HO.MRI 19:40
PROVIDERS: PCP Internal Medicine; Visit Provider Physician Assistant
DX: S46.002A Unspecified injury of muscle(s) and tendon(s) of the rotator cuff of left shoulder, initial encounter (principal)
CPT/HCPCS: 73221

== ENCOUNTER 2024-01-19 08:51 | Outpatient (AMB) | payer OTHER, SELFPAY ==
[2024-01-19 08:56] VITALS: BP 155/73; PULSE 99; O2SAT 99; BMI 28.2
--- NOTE | 2024-01-19 08:56 | MHC.OFFVIS ---
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 His insurance company has approved his neck injection. He reports worsening of the shoulder and neck pain. He reports low back pain and left shoulder pain and visited Dr. Alan. He had two back surgeries in the past. Dr. Alan referred him to Dr. Carver for left shoulder pain. He was supposed to receive a left shoulder injection. His left shoulder pain started after the neck surgery. Past procedures 11/16/23: Transforaminal epidural steroid injection, right L5-S1: no relief. [facility] Medical History (Updated 01/23/24 @ 14:42 by Paresh Montgomery MD) Spondylosis of lumbar spine Radicular low back pain RLQ abdominal pain Frequent falls Headache Radiculopathy, lumbar region Facet arthropathy Sacroiliitis Right flank pain Dyspnea on exertion Myalgia Post-viral cough syndrome COVID-19 GERD (gastroesophageal reflux disease) HTN (hypertension) Right renal stone Fatty liver Respiratory tract infection Rotator cuff disorder Vitamin D deficiency Tubular adenoma of colon Hypercholesterolemia BPH (benign prostatic hyperplasia) Right shoulder pain Surgical History Hx of fusion of cervical spine History of spinal surgery History of arthroscopy of right shoulder History of eye surgery Family History Father Hypertension Mother No problems noted. Paternal Uncle Cancer Social History Housing: House Alcohol intake: former Patient Tobacco Use Status: Never used Tobacco e-Cigarette/Vaping Use: Never Used Second Hand Smoke Exposure: No service: No Current occupational status: employed Current occupation: right hand dominant Cognitive needs: No Hearing needs: No Vision needs: Yes (glasses) Review of Systems Const All systems reviewed & are unremarkable except as noted in HPI and below Physical Exam Vital Signs: Last Vital Signs Pulse 99 01/19/24 08:56 BP 155/73 H 01/19/24 08:56 Pulse Ox 99 01/19/24 08:56 Oxygen Delivery Method Room Air 01/19/24 08:56 BMI result Body Mass Index 28.2 General: Appears afebrile. Alert and oriented. Mood and affect appropriate. Follows and participates in conversation appropriately. Respiratory effort is unlabored. Able to transition from sit to stand unassisted. Ambulates with bilaterally normal heel strike and toe off. Left shoulder range of motion is severely limited. Neck range of motion is limited as well. Office Procedures Joint Injection/Aspiration Joint Injection/Aspiration Details: Left glenohumeral joint steroid injection, ultrasound guided. Primary Site: left shoulder Prep: site was prepped using aseptic technique and site was prepped using sterile technique Injected: 20 mg of, Kenalog, with 1 mL of (lidocaine 1%), with 4 mL of (ropivacaine 0.25%) and in the joint (Left side) Approach Used: posterolateral Procedure: The patient tolerated the procedure well Coding Details: An ultrasound image of the injection was taken and stored in the permanent record. - Glenohumeral with ultrasound guidance (Left side) Procedure code (CPT) selection complete Joint Injection/Aspiration Joint Injection/Aspiration Details: Left subacromial shoulder injection, under ultrasound guidance Primary Site: left shoulder Prep: site was prepped using aseptic technique and site was prepped using sterile technique Injected: 20 mg of, Kenalog, with 3 mL of (0.25% ropivacaine ) and in the subcromial space (on left side) Approach Used: posterolateral Procedure: The patient tolerated the procedure well Coding Details: An ultrasound image of the injection was taken and stored in the permanent record. - Acromioclavicular with ultrasound guidance (Left side) Procedure code (CPT) selection complete Results Reviewed Results Reviewed: 12/30/2023: XR SHOULDER, LEFT FINDINGS: No acute fracture or dislocation. Mild to moderate degenerative changes of the shoulder with loss of the acromioclavicular joint space similar to prior. Soft tissues are unremarkable. IMPRESSION: Mild to moderate degenerative changes of the shoulder with loss of the acromioclavicular joint space similar to prior. 12/25/23: MR LUMBAR SPINE WITHOUT CONTRAST FINDINGS: The visualized lumbar vertebrae are intact with normal alignment. No focal bone lesion with abnormal signal can be seen. Evaluation of the intervertebral discs show: T12/L1: Intervertebral disc height is normal, with normal T2 signal. No focal disc herniation is seen. Bilateral T12/L1 neuroforamina are patent. Bilateral apophyseal joints are intact with normal alignment. L-1/L-2: Intervertebral disc height is mildly decreased, with mild loss of T2 signal. No focal disc herniation is seen. Bilateral L1-L2 neuroforamina are patent. Bilateral apophyseal joints are intact with normal alignment. L2/L3: Intervertebral disc height is normal, with normal T2 signal. No focal disc herniation is seen. Bilateral L2-L3 neuroforamina are patent. Bilateral apophyseal joints are intact with normal alignment. L3/L4: Intervertebral disc height is normal, with mild loss of T2 signal. No focal disc herniation is seen. Bilateral L3-L4 neuroforamina are patent. A tiny sclerotic Schmorl's node is seen at superior L4 vertebral endplate. Bilateral apophyseal joints are intact with normal alignment. L4/L5: Bilateral L5 laminectomies, resection of spinous process are seen. Intervertebral disc height is normal, with normal T2 signal. No focal disc herniation is seen. Bilateral L4-L5 neuroforamina are patent. Bilateral apophyseal joints are intact with normal alignment. L5/S1: Bilateral L5 laminectomies, resection of spinous process are seen. Intervertebral disc height is normal, with normal T2 signal. No focal disc herniation is seen. There is asymmetric mild right L5-S1 neuroforaminal stenosis. Bilateral apophyseal joints are intact with normal alignment. Conus medullaris is seen normally at L1 level. IMPRESSION: 1. Change status post Bilateral L5 laminectomies, resection of spinous process are seen. 2. There is persistent asymmetric mild right L5-S1 neuroforaminal stenosis. 3. No focal disc herniation is seen. 11/22/2023: MR BRAIN WITHOUT CONTRAST/MR THORACIC SPINE WITHOUT CONTRAST FINDINGS: BRAIN: No acute infarct. No acute intracranial hemorrhage or extra-axial fluid collection. Background of mild generalized parenchymal volume loss. A couple nonspecific punctate supratentorial white matter lesions of no clinical significance. No mass lesion, mass effect, or herniation pattern. Normal intracranial arterial and dural venous sinus flow voids. Normal appearance of the midline structures. The orbits are grossly unremarkable. Mild ethmoid air cell mucosal thickening. No mastoid effusion. Small arachnoid granulations remodel the squamosal occipital calvarium. THORACIC SPINE: Partially imaged C5-C6 ACDF hardware. Normal thoracic kyphosis is preserved. No significant spondylolisthesis. Vertebral body heights are maintained. There is no suspicious osseous lesion. The intervertebral disc space heights are normal. Few small disc protrusions in the lower thoracic spine. There is no significant spinal canal or neural foraminal stenosis at any level. The thoracic spinal cord is normal in signal and morphology. No epidural fluid collection, hematoma, or mass. No significant abnormalities of the paraspinal musculature. No demonstrated abnormalities in the visualized neck, thorax, or upper abdomen. The descending thoracic aorta is of normal contour and caliber. IMPRESSION: 1. Unremarkable brain MRI. 2. Few small disc protrusions in the lower thoracic spine. No thoracic spinal canal or neural foraminal stenosis at any level. 12/30/2023: CT cervical spine wo IV con FINDINGS: There is no evidence of acute cervical spine fracture. Vertebral bodies remain normal in height. Status post C5-C6 anterior discectomy and spinal fusion with interbody disc spacer. No evidence of hardware fracture or complication. No osseous fusion across the fused vertebral bodies. Remainder of disc space heights are maintained. Again seen is uncovertebral hypertrophy and facet arthropathy resulting in severe left and moderate right neural foraminal narrowing at C5-C6 and mild neuroforaminal narrowing bilaterally at C6-C7 similar to prior without definite appreciable canal stenosis, within the limitations of CT. Small anterior disc osteophyte complex at C6-C7 unchanged. No pre- or paravertebral soft tissue abnormality is identified. Visualized portions of the lung apices are unremarkable. The thyroid gland is unremarkable. Limited views of the brain are unremarkable. IMPRESSION: 1. No cervical spine fracture or traumatic malalignment. 2. Status post C5-C6 anterior discectomy and spinal fusion with interbody disc spacer. No evidence of hardware fracture or complication. No osseous fusion across the fused vertebral bodies. 3. Again seen is uncovertebral hypertrophy and facet arthropathy resulting in severe left and moderate right neural foraminal narrowing at C5-C6 and mild neuroforaminal narrowing bilaterally at C6-C7 similar to prior without definite appreciable canal stenosis, within the limitations of CT. Assessment & Plan Assessment & Plan (1) Tendonitis of left rotator cuff: Code(s): M75.82 - Other shoulder lesions, left shoulder Category: Medical (2) Vertebrogenic low back pain: Code(s): M54.51 - Vertebrogenic low back pain Category: Medical (3) Postlaminectomy syndrome: Comment: [facility] done February 13, 2023, [facility] Dr. Lay Code(s): M96.1 - Postlaminectomy syndrome, not elsewhere classified Category: Medical Plan Patient is status post left subacromial shoulder injection, under ultrasound guidance and left glenohumeral joint steroid injection, ultrasound guided. Patient tolerated procedure well and was discharged home in stable condition with discharge instructions.? All questions were answered. We will follow-up in two weeks via telephone or in clinic to assess response to therapy. A follow-up appointment was made during today's visit. He will return to the office for a left cervical interlaminar epidural steroid injection once he comes back from the vacation in the second week of January. Discussed the risks and benefits of the procedure with the patient in detail. All questions were answered. The patient is on board with the plan. Justification for interventional therapy: ? Patient with average pain > 6/10 ? Patient has exhausted conservative as well as surgical therapy ? Patient unable to tolerate physical therapy due to pain . Patient has a good understanding of their pain condition and has appropriate mental and social support For his lower back pain, I went over the details of the intracept procedure today in the office. He signed the consent form today to start the insurance authorization process. Once his neck issue is resolved, we will plan for L3-L4-L5 BVN ablation for vertebrogenic low back pain that is persistent despite lumbar spine surgery, injections and conservative management. Scribed for Dr. Montgomery by Wesley Mendieta, medical pathologist, on 01/19/2024. I, Dr. Montgomery, have personally reviewed and agree with the information entered by the scribe. Coding Level of Care Code Est Pt Level 4 (84238) Diagnoses Tendonitis of left rotator cuff M75.82 Vertebrogenic low back pain M54.51 Postlaminectomy syndrome M96.1 CPT Codes Coding - Joint 8: - Glenohumeral with ultrasound guidance ([id number]) Coding - Joint 6: 42063 - Acromioclavicular with ultrasound guidance ([id number])
== END 2024-01-19 09:29 | disposition home or self-care (01) ==
PROVIDERS: PCP Internal Medicine; Visit Provider Internal Medicine
DX: M54.51 Vertebrogenic low back pain (principal); M96.1 Postlaminectomy syndrome, not elsewhere classified; M75.82 Other shoulder lesions, left shoulder
CPT/HCPCS: 20606; 20611; 99214

== ENCOUNTER → 2024-01-19 08:51 | Outpatient (BNVA) | payer OTHER, SELFPAY | PROVIDERS: PCP Internal Medicine; Visit Provider Internal Medicine | DX: M75.82 Other shoulder lesions, left shoulder (principal); M54.51 Vertebrogenic low back pain; M96.1 Postlaminectomy syndrome, not elsewhere classified | CPT/HCPCS: 20606; 20611; 99212 ==

== ENCOUNTER 2024-01-24 08:36 | Outpatient (AMB) | payer OTHER, SELFPAY ==
--- NOTE | 2024-01-24 08:48 | MHC.OFFVIS ---
Vital Signs 01/24/24 08:51 Height 5 ft 7 in Weight 180 lb BMI 28.2 Intake Visit Reasons: MRI Review Left Shoulder Intake Note: Sandra 63 year old male who presents today for an MRI review of left shoulder. Patient reports his pain has increased since his last visit. States having an ultrasound guided injection last week with pain management however this did not provide him with any relief. Allergies oxycodone Adverse Reaction (Intermediate, Verified 01/24/24 08:54) hand rash HPI HPI MRI Review Left Shoulder: Details: Earnest is a 63-year-old male who presents today for an MRI review of his left shoulder. Since his last visit, he claims, his pain has gotten worsen. He had an ultrasound-guided injection for pain management last week, but the treatment did not relieve his symptoms. He claims that upon waking up this morning, he was in excruciating pain and feels like ?he cannot even move.? He took Cyclobenzaprine for two weeks with mild relief. [facility] Medical History (Updated 01/24/24 @ 09:23 by Reji Mcdonough PA-C) Spondylosis of lumbar spine Radicular low back pain RLQ abdominal pain Frequent falls Headache Radiculopathy, lumbar region Facet arthropathy Sacroiliitis Right flank pain Dyspnea on exertion Myalgia Post-viral cough syndrome COVID-19 GERD (gastroesophageal reflux disease) HTN (hypertension) Right renal stone Fatty liver Respiratory tract infection Rotator cuff disorder Vitamin D deficiency Tubular adenoma of colon Hypercholesterolemia BPH (benign prostatic hyperplasia) Right shoulder pain Surgical History Hx of fusion of cervical spine History of spinal surgery History of arthroscopy of right shoulder History of eye surgery Family History Father Hypertension Mother No problems noted. Paternal Uncle Cancer Social History Housing: House Alcohol intake: former Patient Tobacco Use Status: Never used Tobacco e-Cigarette/Vaping Use: Never Used Second Hand Smoke Exposure: No service: No Current occupational status: employed Current occupation: right hand dominant Cognitive needs: No Hearing needs: No Vision needs: Yes (glasses) Review of Systems Const All systems reviewed & are unremarkable except as noted in HPI and below Physical Exam Vital Signs: BMI result Body Mass Index 28.2 Const General: cooperative, healthy appearing, comfortable and no acute distress Orientation/consciousness: patient oriented x3 HEENT Head: Yes normal to inspection, Yes normocephalic and Yes atraumatic Eyes General: appearance normal, both eyes and all related structures Neck Neck: Yes normal visual inspection and Yes no JVD Chest Chest palpation & inspection: normal inspection of the chest Resp Effort & Inspection: normal respiratory effort Auscultation: clear to auscultation bilaterally, crackles (no), rales (no), rhonchi (no) and wheezes (no) Cardio Jugular venous distension: no JVD Rate: regular rate Rhythm: regular rhythm Heart sounds: S1 normal heart sound present, S2 normal heart sound present, Murmur heart sound present (no) and Rub heart sound present (no) Peripheral pulses: Peripheral pulses 2+ throughout GI Palpation (GI): Soft to palpation Skin Lesions: no lesions Rashes: no rashes Neuro General: patient oriented x3 Extrem Other: Left shoulder normal to inspection. Tenderness over the bicipital groove and along the deltoid region of the shoulder. Forward flexion to 100, external rotation to 90, internal rotation to S1. 5/5 RTC strength. Negative Goel and cross body abduction. NVI. General: Yes normal to inspection, Yes no pedal edema and Yes no calf tenderness Results Reviewed Results Reviewed: MR shoulder LT wo con IMPRESSION: 1. Mild supraspinatus tendinosis with distal bursal surface partial tearing measuring 0.9 x 0.6 cm (AP x ML). Mild subscapularis tendinosis with distal articular surface partial tearing measuring 1.3 cm in ML dimension. No full-thickness rotator cuff tendon tear. 2. Moderate acromioclavicular osteoarthritis with small subchondral spurs. 3. Mild subacromial-subdeltoid bursitis. 4. Mild thickening and edema of the anteroinferior joint capsule which can be seen the setting of adhesive capsulitis. Assessment & Plan Assessment & Plan (1) Tendonitis of left rotator cuff: Code(s): M75.82 - Other shoulder lesions, left shoulder Category: Medical (2) Adhesive capsulitis of left shoulder: Code(s): M75.02 - Adhesive capsulitis of left shoulder Category: Medical Plan He was seen by pain management on January 18 and had an AC joint and glenohumeral joint injection of the shoulder. I did reassure him that this can take anywhere from 4 to 6 weeks to be fully effective. Therefore, I encouraged him to be patient. I encouraged him to take the Celebrex 200 mg twice a day and to work with physical therapy for range of motion, postural training, and rotator cuff strengthening and in the setting that he may have early frozen shoulder, I did explain to him that with the amount of pain he is experiencing, this is significant. This is unusual given the multiple modalities we have trialed with him and he has not had any relief, it leads me to be a bit concerned as if there is any chance that surgical intervention if he may not have any relief with that, given his chronic pain. I did explain that the MRI does show some arthritis and also some abnormality of the rotator cuff, however, working with physical therapy may help this, along with his injection. I did recommend follow up in [address] Carver for further evaluation if there is no improvement and he is content with this plan. Orders: Orders PT Evaluation and Treatment Today M75.02 - Adhesive capsulitis of left shoulder, M75.82 - Other shoulder lesions, left shoulder Medications: Changed From celecoxib 200 mg PO BID To celecoxib 200 mg PO BID 60 caps 3RF 1 month Patient Instructions: Scribed for Reji Mcdonough PA-C, by Rick Castro medical secretary receptionist, on 01/24/2024 at 8:45 AM EST. Irma, Reji Mcdonough PA-C, have personally reviewed and agree with the information entered by the scribe. Coding Level of Care Code Est Pt Level 3 (84889) Diagnoses Tendonitis of left rotator cuff M75.82 Adhesive capsulitis of left shoulder M75.02
[2024-01-24 08:51] VITALS: BMI 28.2
== END 2024-01-24 09:30 | disposition home or self-care (01) ==
PROVIDERS: PCP Internal Medicine; Visit Provider Physician Assistant
DX: M75.82 Other shoulder lesions, left shoulder (principal); M75.02 Adhesive capsulitis of left shoulder
CPT/HCPCS: 99214

== ENCOUNTER → 2024-01-24 08:36 | Outpatient (BNVA) | payer OTHER, SELFPAY | PROVIDERS: PCP Internal Medicine; Visit Provider Physician Assistant | DX: M75.82 Other shoulder lesions, left shoulder (principal); M75.02 Adhesive capsulitis of left shoulder | CPT/HCPCS: 99212 ==

== ENCOUNTER 2024-02-08 07:16 | Outpatient (REF) | payer OTHER, SELFPAY | END 2024-02-08 07:17 | disposition home or self-care (01) | LOC: CF 07:16 | PROVIDERS: Visit Provider Internal Medicine | DX: M54.12 Radiculopathy, cervical region (principal) | CPT/HCPCS: 62321; J1100; Q9967 ==

== ENCOUNTER 2024-02-08 09:42 | Outpatient (AMB) | payer OTHER, SELFPAY ==
[2024-02-08 09:46] VITALS: BP 131/79; PULSE 96; RESP 18; O2SAT 99
[2024-02-08 10:08] VITALS: BP 118/79; PULSE 79; RESP 19; O2SAT 99
--- NOTE | 2024-02-08 10:12 | MHC.OFFVIS ---
Vital Signs 02/08/24 09:46 02/08/24 10:08 BP 131/79 118/79 Blood Pressure Location Rt brachial Rt brachial Position Sitting Sitting Respiration 18 19 Pulse 96 79 Pulse Source Pulse Oximeter Pulse Oximeter Pulse Oximetry (%) 99 99 Oxygen Delivery Method Room Air Room Air Comment Pre-op Post-op Intake Visit Reasons: Left C7-T1 parasagittal interlaminar JORGE Allergies oxycodone Adverse Reaction (Intermediate, Verified 01/24/24 08:54) hand rash HPI HPI Left C7-T1 parasagittal interlaminar JORGE: Details: Patient presents for scheduled procedure. Denies any recent cough, cold, infection, fever or other significant changes in medical history since last office visit. [facility] Medical History (Updated 01/24/24 @ 09:23 by Reji Mcdonough PA-C) Spondylosis of lumbar spine Radicular low back pain RLQ abdominal pain Frequent falls Headache Radiculopathy, lumbar region Facet arthropathy Sacroiliitis Right flank pain Dyspnea on exertion Myalgia Post-viral cough syndrome COVID-19 GERD (gastroesophageal reflux disease) HTN (hypertension) Right renal stone Fatty liver Respiratory tract infection Rotator cuff disorder Vitamin D deficiency Tubular adenoma of colon Hypercholesterolemia BPH (benign prostatic hyperplasia) Right shoulder pain Surgical History Hx of fusion of cervical spine History of spinal surgery History of arthroscopy of right shoulder History of eye surgery Family History Father Hypertension Mother No problems noted. Paternal Uncle Cancer Social History Housing: House Alcohol intake: former Patient Tobacco Use Status: Never used Tobacco e-Cigarette/Vaping Use: Never Used Second Hand Smoke Exposure: No service: No Current occupational status: employed Current occupation: right hand dominant Cognitive needs: No Hearing needs: No Vision needs: Yes (glasses) Physical Exam Vital Signs: Last Vital Signs Pulse 79 02/08/24 10:08 Resp 19 02/08/24 10:08 BP 118/79 02/08/24 10:08 Pulse Ox 99 02/08/24 10:08 Oxygen Delivery Method Room Air 02/08/24 10:08 Office Procedures Joint Injection/Aspiration Joint Injection/Aspiration Details: Interlaminar epidural steroid injection, C7/T1, Left parasaggital After obtaining written consent, pre-procedure blood pressure and heart rate were stable and recorded in the nursing record. The patient was placed in the prone position. The cervicothoracic area was widely prepped with chloraprep and draped in sterile fashion. Fluoroscopic guidance was used to identify the desired interlaminar space and for needle placement. Subcutaneous 0.5% lidocaine was used to anesthetize the skin overlying the target. A 20-gauge Hernández needle was advanced to the epidural space using loss of resistance to contrast technique under fluoroscopic AP and contralateral oblique views. There was no evidence of heme or CSF and no paresthesias were elicited with needle placement. Confirmation of epidural needle placement was performed with 1cc of omnipaque 180. Next 3 ml 0.5% lidocaine mixed with 80 mg triamcinilone was administered epidurally with no pain elicited on injection. The needle tract tubing was then cleared with 1 ml of 0.5% lidocaine. The needle was removed, skin cleansed and a sterile bandage was applied. The patient tolerated the procedure well and no complications were encountered. Following the procedure the patient's vital signs were stable. The patient was discharged home in good condition with post-procedural instructions. Time Out: Immediately prior to the procedure, the following was verbally confirmed that there is a signed consent form and that the correct patient, planned procedure, site and side are consistent with documentation and that necessary equipment and/or blood products are available prior to the start of the case. Complications: none EBL: <2 cc Coding 96363 - Cervical Epidural/Interlaminar with fluoroscopy Procedure code (CPT) selection complete Assessment & Plan Assessment & Plan (1) Cervical radicular pain: [facility] 12/2023 No cervical spine fracture or traumatic malalignment. 2. Status post C5-C6 anterior discectomy and spinal fusion with interbody disc spacer. No evidence of hardware fracture or complication. No osseous fusion across the fused vertebral bodies. 3. Again seen is uncovertebral hypertrophy and facet arthropathy resulting in severe left and moderate right neural foraminal narrowing at C5-C6 and mild neuroforaminal narrowing bilaterally at C6-C7 similar to prior without definite appreciable canal stenosis, within the limitations of CT. Code(s): M54.12 - Radiculopathy, cervical region Category: Medical Plan Patient is status post left parasagittal C7-T1 interlaminar JORGE. Patient tolerated procedure well and was discharged home in stable condition with discharge instructions. All questions were answered. We will follow-up via telephone or in clinic to assess response to therapy. A follow-up appointment was made during today's visit. Orders: Orders FL guidance in treatment room Today M54.12 - Radiculopathy, cervical region Coding Level of Care Code Procedure Only Diagnoses Cervical radicular pain M54.12 CPT Codes Coding - Joint 10: 47633 - Cervical Epidural/Interlaminar with fluoroscopy ([id number])
== END 2024-02-08 10:11 | disposition home or self-care (01) ==
LOC: HO.PMCPRC 09:42
PROVIDERS: PCP Internal Medicine; Visit Provider Internal Medicine
DX: M54.12 Radiculopathy, cervical region (principal)
CPT/HCPCS: 62321

== ENCOUNTER 2024-02-21 11:26 | Outpatient (AMB) | payer OTHER, SELFPAY ==
[2024-02-21 11:27] VITALS: BP 106/78; PULSE 78; O2SAT 98; BMI 27.6
--- NOTE | 2024-02-21 11:27 | MHC.PC.OV ---
Vital Signs 02/21/24 11:27 Height 5 ft 7 in Weight 176 lb BMI 27.6 BP 106/78 Blood Pressure Location Lt brachial Position Sitting Pulse 78 Pulse Source Pulse Oximeter Pulse Oximetry (%) 98 Oxygen Delivery Method Room Air Intake Visit Reasons: Results of MRI, Requesting Neurology Referral Paid Search Manager Required: No Allergies oxycodone Adverse Reaction (Intermediate, Verified 02/21/24 11:27) hand rash Tobacco use date assessed: 09/22/23 Dental Screening Dental Screen Date: 09/22/23 HPI Results of MRI, Requesting Neurology Referral HPI Details 63-year-old overweight male with a history of radicular low back pain GERD hypertension and cervical degenerative disc disease coming in for follow-up.? In review of the notes, patient follows with pain management for cervical back pain and received injections. Today he tells us he is coming in to discuss his previous MRI results. He has recently had shoulder MRI as well as multiple spinal MRIs and brain MRI in the last 6 months. He was scheduled an appointment for neurology consult in [place] but there was a miscommunication and he was unable to have the MRI results. He continues to have numbness and tingling in the legs and has previously had an EMG to evaluate for this which was negative. [facility] Medical History Spondylosis of lumbar spine Radicular low back pain RLQ abdominal pain Frequent falls Headache Radiculopathy, lumbar region Facet arthropathy Sacroiliitis Right flank pain Dyspnea on exertion Myalgia Post-viral cough syndrome COVID-19 GERD (gastroesophageal reflux disease) HTN (hypertension) Right renal stone Fatty liver Respiratory tract infection Rotator cuff disorder Vitamin D deficiency Tubular adenoma of colon Hypercholesterolemia BPH (benign prostatic hyperplasia) Right shoulder pain Surgical History Hx of fusion of cervical spine History of spinal surgery History of arthroscopy of right shoulder History of eye surgery Family History Father Hypertension Mother No problems noted. Paternal Uncle Cancer Social History Housing: House Alcohol intake: former Patient Tobacco Use Status: Never used Tobacco e-Cigarette/Vaping Use: Never Used Second Hand Smoke Exposure: No service: No Current occupational status: employed Current occupation: right hand dominant Cognitive needs: No Hearing needs: No Vision needs: Yes (glasses) Questionnaire PHQ-9 Over the last 2 weeks, how often have you been bothered by any of the following problems? 1. Little interest or pleasure in doing things: not at all 2. Feeling down, depressed, or hopeless: not at all 3. Trouble falling or staying asleep, or sleeping too much: not at all 4. Feeling tired or having little energy: not at all 5. Poor appetite or overeating: not at all 6. Feeling bad about yourself - or that you are a failure or have let yourself or your family down: not at all 7. Trouble concentrating on things, such as reading the newspaper or watching television: not at all 8. Moving or speaking so slowly that other people could have noticed. Or the opposite - being so fidgety or restless that you have been moving around a lot more than usual: not at all 9. Thoughts that you would be better off or of hurting yourself in some way: not at all Total score: 0 Depression Screening Interpretation: Negative Depression Screening Done: Yes 26485 - PHQ-9 Billing: Yes Source: Developed by Drs. Omega Solomon, Trini Bingham, Edi Olsen and colleagues, with an educational jimmy from [employer]. Thrive Questionnaire Date Thrive assessed: 09/22/23 I am a: Patient What is your living situation today?: I have a steady place to live Within the past 12 months, did the food you bought not last and you didn't have the money to get more?: Never true Within the past 12 months, did you worry whether your food would run out before you got money to buy more?: Never true Do you have trouble paying for medicines?: No Do you have trouble getting transportation to medical appointments?: No Do you have trouble paying your heating and electricity bill?: No Do you have trouble taking care of your child, family member or friend?: No Do you have trouble with day-to-day activities such as bathing, preparing meals, shopping, managing finances, etc.?: No Are you currently unemployed and looking for a job?: No Are you interested in more education?: No Please select the resources that you would like help with: None THRIVE Score: 0 AUDIT C Alcohol Use Questionnaire (AUDIT-C) 1. How often do you have a drink containing alcohol?: Monthly or less 2. How many drinks containing alcohol do you have on a typical day when you are drinking?: 1 or 2 (0) 3. How often do you have six or more drinks on one occasion?: Never Total Score: 1 SATNAM-7 AMB Questionnaire SATNAM-7 Date SATNAM - 7 assessed: 09/22/23 Source: Developed by Drs. Omega Solomon, Trini Bingham, Edi Olsen and colleagues, with an educational jimmy from [employer]. Review of Systems Const Denies body aches, Denies chills, Denies fever(s), Denies headache(s) and Denies poor appetite Eyes Reports no additional complaints ENT Denies dizziness and Denies headache(s) Card Denies chest pain, Denies syncope, Denies edema, Denies irregular heart rhythm, Denies lightheadedness and Denies dyspnea Resp Denies cough and Denies dyspnea GI Denies abdominal pain, Denies nausea and Denies vomiting Reports no additional complaints Musc Reports as per HPI and Reports abnormal gait Skin/Breast Reports system reviewed and no additional complaints, except as documented Neuro Details: Numbness and tingling in bilateral lower extremities Reports abnormal gait, Denies dizziness, Denies syncope and Denies headache(s) Psych Reports no additional complaints Physical exam (Primary Care) Vital Signs: Last Vital Signs Pulse 78 02/21/24 11:27 BP 106/78 02/21/24 11:27 Pulse Ox 98 02/21/24 11:27 Oxygen Delivery Method Room Air 02/21/24 11:27 BMI result Body Mass Index 27.6 Tobacco/Smoking Status: Tobacco use Status Tobacco use date assessed 09/22/23 02/21/24 11:29 Patient Tobacco Use Status Never used Tobacco 02/21/24 11:29 e-Cigarette/Vaping Use Never Used 02/21/24 11:29 PHQ-9: PHQ-9 Score PHQ-9: Total score 0 02/21/24 11:29 Depression Screening Interpretation: Negative Thrive Assessment: Date of Thrive Assessment Date Thrive assessed 09/22/23 02/21/24 11:29 Const General: cooperative, healthy appearing, comfortable and no acute distress Orientation/consciousness: patient oriented x3 HENMT Head: Yes normocephalic Ears: hearing grossly normal bilaterally General nose exam: Normal external nose present Eyes General: appearance normal, both eyes and all related structures Conjunctivae: conjunctivae normal Neck Neck: Yes full ROM and Yes no lymphadenopathy Resp Effort & Inspection: normal respiratory effort Auscultation: clear to auscultation bilaterally, no crackles, no rales, no rhonchi and no wheezes Cardio Rate: regular rate Rhythm: regular rhythm Skin General skin exam: no rashes or lesions noted Neuro General: patient oriented x3 Gait exam (Neuro): Normal gait present Extrem General: Yes normal to inspection, Yes full ROM and No edema Psych Affect: normal affect Attitude: cooperative Insight: Good insight present (Psych) Judgement: Good judgement present (Psych) Assessment and Plan Assessment & Plan (1) Cervical radicular pain: Comment: [facility] decompression and fusion C5-6 07/2023 CT scan 12/2023 No cervical spine fracture or traumatic malalignment. 2. Status post C5-C6 anterior discectomy and spinal fusion with interbody disc spacer. No evidence of hardware fracture or complication. No osseous fusion across the fused vertebral bodies. 3. Again seen is uncovertebral hypertrophy and facet arthropathy resulting in severe left and moderate right neural foraminal narrowing at C5-C6 and mild neuroforaminal narrowing bilaterally at C6-C7 similar to prior without definite appreciable canal stenosis, within the limitations of CT. Code(s): M54.12 - Radiculopathy, cervical region Plan: Reviewed with patient the MRI results. Continue to follow with pain management for cervical pain. Currently working on getting insurance coverage on different procedure. (2) Radicular low back pain: Comment: Lumbar laminotomy and microdisckectomy Dr. Grove 10/2021 Code(s): M54.10 - Radiculopathy, site unspecified Plan: EMG was negative for nerve involvement in bilateral lower extremities. Will continue with pain management and physical therapy at this time. (3) Adhesive capsulitis of left shoulder: Code(s): M75.02 - Adhesive capsulitis of left shoulder Plan: continue to follow with orthopedics and physical therapy. Plan This note was constructed using voice recognition software. While every effort has been made to ensure accuracy and window sash installer, still areas may have been included sometimes these areas may affect the content or meeting of the given symptoms. Total time spent caring for the patient today was 20 minutes. This includes time spent before the visit reviewing the chart, time spent during the visit, and time spent after the visit and documentation. Coding Level of Care Code Est Pt Level 3 (55294) Diagnoses Cervical radicular pain M54.12 Radicular low back pain M54.10 Adhesive capsulitis of left shoulder M75.02
== END 2024-02-21 12:00 | disposition home or self-care (01) ==
PROVIDERS: PCP Internal Medicine
DX: M54.12 Radiculopathy, cervical region (principal); M54.10 Radiculopathy, site unspecified; M75.02 Adhesive capsulitis of left shoulder
CPT/HCPCS: 99213

== ENCOUNTER 2024-03-06 12:41 | Outpatient (AMB) | payer OTHER, SELFPAY ==
--- NOTE | 2024-03-06 12:44 | MHC.OFFVIS ---
Intake Visit Reasons: OV-6wk fu Left shoulder s/p inj w/pain mgmnt/ PT Intake Note: Sandra 63 year old male who presents today for a follow up of left shoulder. Patient reports a little relief with injection that was given through pain management. States he continues to have pain and is Limited in his ROM, he is unable to lift his arm above her shoulder. He started PT on Monday. Allergies oxycodone Adverse Reaction (Intermediate, Verified 03/06/24 12:48) hand rash Medication List - Last Reconciled 03/06/24 by Reji Mcdonough PA-C acetaminophen (Tylenol Extra Strength) 500 mg PO Q6H PRN celecoxib 200 mg PO BID 1 month cyclobenzaprine 10 mg PO TID PRN 15 days gabapentin 100 mg PO BEDTIME hydrochlorothiazide 12.5 mg PO DAILY lidocaine 5% (Lidoderm) 1 patch topical DAILY lisinopril 30 mg PO DAILY 90 days methocarbamol 750 mg PO TID omeprazole 20 mg PO DAILY 90 days simvastatin 20 mg PO BEDTIME 90 days HPI HPI OV-6wk fu Left shoulder s/p inj w/pain mgmnt/ PT: Details: 63-year-old male who returns to the office today for a follow-up of left shoulder. He had his last injection with pain management which provided him mild relief. He continues to have pain and limited ROM in his shoulder. He is unable to lift his arm overhead due to the pain. He had attended physical therapy as instructed. COUNTS INCLUDE 234 BEDS AT THE [facility] Medical History Spondylosis of lumbar spine Radicular low back pain RLQ abdominal pain Frequent falls Headache Radiculopathy, lumbar region Facet arthropathy Sacroiliitis Right flank pain Dyspnea on exertion Myalgia Post-viral cough syndrome COVID-19 GERD (gastroesophageal reflux disease) HTN (hypertension) Right renal stone Fatty liver Respiratory tract infection Rotator cuff disorder Vitamin D deficiency Tubular adenoma of colon Hypercholesterolemia BPH (benign prostatic hyperplasia) Right shoulder pain Surgical History Hx of fusion of cervical spine History of spinal surgery History of arthroscopy of right shoulder History of eye surgery Family History Father Hypertension Mother No problems noted. Paternal Uncle Cancer Social History Housing: House Alcohol intake: former Patient Tobacco Use Status: Never used Tobacco e-Cigarette/Vaping Use: Never Used Second Hand Smoke Exposure: No service: No Current occupational status: employed Current occupation: right hand dominant Cognitive needs: No Hearing needs: No Vision needs: Yes (glasses) Review of Systems Const All systems reviewed & are unremarkable except as noted in HPI and below Physical Exam Const General: cooperative, healthy appearing, comfortable and no acute distress Orientation/consciousness: patient oriented x3 HEENT Head: Yes normal to inspection, Yes normocephalic and Yes atraumatic Eyes General: appearance normal, both eyes and all related structures Neck Neck: Yes normal visual inspection and Yes no JVD Chest Chest palpation & inspection: normal inspection of the chest Resp Effort & Inspection: normal respiratory effort Auscultation: clear to auscultation bilaterally, crackles (no), rales (no), rhonchi (no) and wheezes (no) Cardio Jugular venous distension: no JVD Rate: regular rate Rhythm: regular rhythm Heart sounds: S1 normal heart sound present, S2 normal heart sound present, Murmur heart sound present (no) and Rub heart sound present (no) Peripheral pulses: Peripheral pulses 2+ throughout GI Palpation (GI): Soft to palpation Skin Lesions: no lesions Rashes: no rashes Neuro General: patient oriented x3 Extrem Other: Left shoulder normal to inspection. Tenderness over the bicipital groove and along the deltoid region of the shoulder. Forward flexion to 100, external rotation to 90, internal rotation to S1. 5/5 RTC strength. Negative Goel and cross body abduction. NVI. General: Yes normal to inspection, Yes no pedal edema and Yes no calf tenderness Results Reviewed Results Reviewed: MR shoulder LT wo con IMPRESSION: 1. Mild supraspinatus tendinosis with distal bursal surface partial tearing measuring 0.9 x 0.6 cm (AP x ML). Mild subscapularis tendinosis with distal articular surface partial tearing measuring 1.3 cm in ML dimension. No full-thickness rotator cuff tendon tear. 2. Moderate acromioclavicular osteoarthritis with small subchondral spurs. 3. Mild subacromial-subdeltoid bursitis. 4. Mild thickening and edema of the anteroinferior joint capsule which can be seen the setting of adhesive capsulitis. Assessment & Plan Assessment & Plan (1) Tendonitis of left rotator cuff: Code(s): M75.82 - Other shoulder lesions, left shoulder Category: Medical Plan He does have relief from the injection and getting continued exercises with physical therapy. He will continue further with the pain management appointment for nerve stimulator. I did explain that there is nothing more orthopedically I would like to offer this time which he is content with. He will follow-up as needed. Patient Instructions: Scribed for Reji Mcdonough PA-C, by Louie Purcell medical surgery nurse, on 02/25/2024 at 12:45 PM EST.? I, Reji Mcdonough PA-C, have personally reviewed and agree with the information entered by the scribe. Coding Level of Care Code Est Pt Level 3 (28735) Complex EM visit Add On G2211 Diagnoses Tendonitis of left rotator cuff M75.82
== END 2024-03-06 13:04 | disposition home or self-care (01) ==
PROVIDERS: PCP Internal Medicine; Visit Provider Physician Assistant
DX: M75.82 Other shoulder lesions, left shoulder (principal)
CPT/HCPCS: 99213; G2211

== ENCOUNTER → 2024-03-06 12:41 | Outpatient (BNVA) | payer OTHER, SELFPAY | PROVIDERS: PCP Internal Medicine; Visit Provider Physician Assistant | DX: M75.82 Other shoulder lesions, left shoulder (principal) | CPT/HCPCS: 99212 ==

== ENCOUNTER 2024-03-11 09:57 | Outpatient (AMB) | payer OTHER, SELFPAY ==
--- NOTE | 2024-03-11 09:58 | MHC.OFFVIS ---
Vital Signs 03/11/24 10:00 Height 5 ft 7 in Weight 176 lb BMI 27.6 BP 116/78 Blood Pressure Location Lt brachial Position Sitting Respiration 15 Pulse 107 H Pulse Source Pulse Oximeter Pulse Oximetry (%) 99 Oxygen Delivery Method Room Air Intake Visit Reasons: s/p Left C7-T1 interlaminar JORGE Allergies oxycodone Adverse Reaction (Intermediate, Verified 03/20/24 11:29) hand rash Medication List - Last Reconciled 03/11/24 by Kiah Andrew LPN acetaminophen (Tylenol Extra Strength) 500 mg PO Q6H PRN celecoxib 200 mg PO BID 1 month cyclobenzaprine 10 mg PO TID PRN 15 days gabapentin 100 mg PO BEDTIME hydrochlorothiazide 12.5 mg PO DAILY lidocaine 5% (Lidoderm) 1 patch topical DAILY lisinopril 30 mg PO DAILY 90 days methocarbamol 750 mg PO TID omeprazole 20 mg PO DAILY 90 days simvastatin 20 mg PO BEDTIME 90 days HPI HPI s/p Left C7-T1 interlaminar JORGE: Details: 63-year-old male who presents today to the office for status post left C7-T1 interlaminar epidural steroid injection. The patient reports 50% relief following the procedure. He states that his pain was worse yesterday and the day before it. He states that Dr. Carver explained to him that his pain is secondary to arthritis in his shoulder. He had a shoulder injection in the past with minimal relief. He also inquired about the status of the PA of the intracept procedure. Past procedures 02/08/2024: Interlaminar epidural steroid injection, C7/T1, Left parasaggital: 50% relief. 01/19/2024: Left glenohumeral joint steroid injection, ultrasound guided. 01/19/2024: Left subacromial shoulder injection, under ultrasound guidance 11/16/23: Transforaminal epidural steroid injection, right L5-S1: no relief. [facility] Medical History Spondylosis of lumbar spine Radicular low back pain RLQ abdominal pain Frequent falls Headache Radiculopathy, lumbar region Facet arthropathy Sacroiliitis Right flank pain Dyspnea on exertion Myalgia Post-viral cough syndrome COVID-19 GERD (gastroesophageal reflux disease) HTN (hypertension) Right renal stone Fatty liver Respiratory tract infection Rotator cuff disorder Vitamin D deficiency Tubular adenoma of colon Hypercholesterolemia BPH (benign prostatic hyperplasia) Right shoulder pain Surgical History Hx of fusion of cervical spine History of spinal surgery History of arthroscopy of right shoulder History of eye surgery Family History Father Hypertension Mother No problems noted. Paternal Uncle Cancer Social History Housing: House Alcohol intake: former Patient Tobacco Use Status: Never used Tobacco e-Cigarette/Vaping Use: Never Used Second Hand Smoke Exposure: No service: No Current occupational status: employed Current occupation: right hand dominant Cognitive needs: No Hearing needs: No Vision needs: Yes (glasses) Review of Systems Const All systems reviewed & are unremarkable except as noted in HPI and below Physical Exam Vital Signs: Last Vital Signs Pulse 107 H 03/11/24 10:00 Resp 15 03/11/24 10:00 BP 116/78 03/11/24 10:00 Pulse Ox 99 03/11/24 10:00 Oxygen Delivery Method Room Air 03/11/24 10:00 BMI result Body Mass Index 27.6 General: Appears afebrile. Alert and oriented. Mood and affect appropriate. Follows and participates in conversation appropriately. Respiratory effort is unlabored. Able to transition from sit to stand unassisted. Ambulates with bilaterally normal heel strike and toe off. Tenderness overlying left AC joint. Results Reviewed Results Reviewed: No imaging is available for review. Assessment & Plan Assessment & Plan (1) Acromioclavicular joint arthritis: Code(s): M19.019 - Primary osteoarthritis, unspecified shoulder Category: Medical (2) Vertebrogenic low back pain: Code(s): M54.51 - Vertebrogenic low back pain Category: Medical (3) Cervical radicular pain: Comment: John Paul CASTILLOQUR decompression and fusion C5-6 07/2023 CT scan 12/2023 No cervical spine fracture or traumatic malalignment. 2. Status post C5-C6 anterior discectomy and spinal fusion with interbody disc spacer. No evidence of hardware fracture or complication. No osseous fusion across the fused vertebral bodies. 3. Again seen is uncovertebral hypertrophy and facet arthropathy resulting in severe left and moderate right neural foraminal narrowing at C5-C6 and mild neuroforaminal narrowing bilaterally at C6-C7 similar to prior without definite appreciable canal stenosis, within the limitations of CT. Code(s): M54.12 - Radiculopathy, cervical region Category: Medical Plan We will schedule him for a left AC joint and sub-deltoid bursa injection, ultrasound guidance based on moderate AC joint arthritis noted on MRI. Discussed the risks and benefits of the procedure with the patient in detail. All questions were answered. The patient is on board with the plan. We will also follow up on the status of the PA for his intercept procedure. Justification for interventional therapy: ? Patient with average pain > 6/10 ? Patient has exhausted conservative therapy ? Patient unable to tolerate physical therapy due to pain . Patient has a good understanding of their pain condition and has appropriate mental and social support Scribed for Dr. Montgomery by Wesley Mendieta, medical biller coder, on 03/11/2024. I, Dr. Montgomery, have personally reviewed and agree with the information entered by the scribe. Coding Level of Care Code Est Pt Level 4 (99585) Diagnoses Acromioclavicular joint arthritis M19.019 Vertebrogenic low back pain M54.51 Cervical radicular pain M54.12
[2024-03-11 10:00] VITALS: BP 116/78; PULSE 107; RESP 15; O2SAT 99; BMI 27.6
== END 2024-03-11 10:14 | disposition home or self-care (01) ==
PROVIDERS: PCP Internal Medicine; Visit Provider Internal Medicine
DX: M19.019 Primary osteoarthritis, unspecified shoulder (principal); M54.51 Vertebrogenic low back pain; M54.12 Radiculopathy, cervical region
CPT/HCPCS: 99214

== ENCOUNTER → 2024-03-11 09:57 | Outpatient (BNVA) | payer OTHER, SELFPAY | PROVIDERS: PCP Internal Medicine; Visit Provider Internal Medicine | DX: M54.51 Vertebrogenic low back pain (principal); M54.12 Radiculopathy, cervical region; M19.012 Primary osteoarthritis, left shoulder | CPT/HCPCS: 99212 ==

== ENCOUNTER 2024-03-20 11:21 | Outpatient (AMB) | payer OTHER, SELFPAY ==
--- NOTE | 2024-03-20 11:25 | A.OFFVIS_ITS ---
Vital Signs 03/20/24 11:27 Height 5 ft 7 in Weight 176 lb BMI 27.6 BP 109/80 Blood Pressure Location Lt brachial Position Sitting Respiration 14 Pulse 108 H Pulse Source Pulse Oximeter Intake Visit Reasons: Left AC joint inj Allergies oxycodone Adverse Reaction (Intermediate, Verified 03/20/24 11:29) hand rash Medication List - Last Reconciled 03/20/24 by Kiah Andrew LPN acetaminophen (Tylenol Extra Strength) 500 mg PO Q6H PRN celecoxib 200 mg PO BID 1 month cyclobenzaprine 10 mg PO TID PRN 15 days gabapentin 100 mg PO BEDTIME hydrochlorothiazide 12.5 mg PO DAILY lidocaine 5% (Lidoderm) 1 patch topical DAILY lisinopril 30 mg PO DAILY 90 days methocarbamol 750 mg PO TID omeprazole 20 mg PO DAILY 90 days simvastatin 20 mg PO BEDTIME 90 days HPI HPI Left AC joint inj: Details: 63-year-old male who presents today to the office for for left AC joint and sub- deltoid bursa injection. Denies any recent cough, cold, infection, fever or other significant changes in medical history since last office visit. [facility] Medical History Spondylosis of lumbar spine Radicular low back pain RLQ abdominal pain Frequent falls Headache Radiculopathy, lumbar region Facet arthropathy Sacroiliitis Right flank pain Dyspnea on exertion Myalgia Post-viral cough syndrome COVID-19 GERD (gastroesophageal reflux disease) HTN (hypertension) Right renal stone Fatty liver Respiratory tract infection Rotator cuff disorder Vitamin D deficiency Tubular adenoma of colon Hypercholesterolemia BPH (benign prostatic hyperplasia) Right shoulder pain Surgical History Hx of fusion of cervical spine History of spinal surgery History of arthroscopy of right shoulder History of eye surgery Family History Father Hypertension Mother No problems noted. Paternal Uncle Cancer Social History Housing: House Alcohol intake: former Patient Tobacco Use Status: Never used Tobacco e-Cigarette/Vaping Use: Never Used Second Hand Smoke Exposure: No service: No Current occupational status: employed Current occupation: right hand dominant Cognitive needs: No Hearing needs: No Vision needs: Yes (glasses) Physical Exam Vital Signs: Last Vital Signs Pulse 108 H 03/20/24 11:27 Resp 14 03/20/24 11:27 BP 109/80 03/20/24 11:27 BMI result Body Mass Index 27.6 Office Procedures Joint Injection/Aspiration Joint Injection/Aspiration Primary Site: left shoulder (Ultrasound-guided acromioclavicular joint and sub acromial bursa injections) Prep: site was prepped using sterile technique Injected: 20 mg of, Kenalog, with 1 mL of (Ropivacaine 0.5%), in the joint (AC joint) and in the subcromial space Approach Used: anterolateral Procedure: The patient tolerated the procedure well Coding Details: Images of the injections were taken and saved to the patient's record. 89068 - Acromioclavicular Procedure code (CPT) selection complete Assessment & Plan Assessment & Plan (1) Acromioclavicular joint arthritis: Code(s): M19.019 - Primary osteoarthritis, unspecified shoulder Category: Medical (2) Adhesive capsulitis of left shoulder: Code(s): M75.02 - Adhesive capsulitis of left shoulder Category: Medical (3) Tendonitis of left rotator cuff: Code(s): M75.82 - Other shoulder lesions, left shoulder Category: Medical Plan Patient is status post left AC joint and sub-acromial bursa injection, US-g uided. Patient tolerated procedure well and was discharged home in stable condition with discharge instructions. All questions were answered. We will follow-up in two weeks via telephone or in clinic to assess response to therapy. A follow-up appointment was made during today's visit. Coding Level of Care Code Procedure Only Diagnoses Acromioclavicular joint arthritis M19.019 Adhesive capsulitis of left shoulder M75.02 Tendonitis of left rotator cuff M75.82 CPT Codes Coding - Joint 5: 93550 - Acromioclavicular ([id number])
[2024-03-20 11:27] VITALS: BP 109/80; PULSE 108; RESP 14; BMI 27.6
== END 2024-03-20 11:54 | disposition home or self-care (01) ==
PROVIDERS: PCP Internal Medicine; Visit Provider Internal Medicine
DX: M19.019 Primary osteoarthritis, unspecified shoulder (principal); M75.02 Adhesive capsulitis of left shoulder; M75.82 Other shoulder lesions, left shoulder
CPT/HCPCS: 20606

== ENCOUNTER → 2024-03-20 11:21 | Outpatient (BNVA) | payer OTHER, SELFPAY | PROVIDERS: PCP Internal Medicine; Visit Provider Internal Medicine | DX: M19.012 Primary osteoarthritis, left shoulder (principal); M75.02 Adhesive capsulitis of left shoulder; M75.82 Other shoulder lesions, left shoulder | CPT/HCPCS: 20606; J3301 ==

== ENCOUNTER 2024-04-15 11:00 | Outpatient (RCR) | payer OTHER, SELFPAY ==
--- NOTE | 2024-02-28 12:34 | MHC.PT.EP ---
[facility] [place] Office [place] Office [place] Office [address] [phone] F: [phone] F: [phone] F: [phone] F: [phone] Physical Therapy Plan of Care Date of Evaluation: 02/28/24 Date of Surgery: Diagnosis: ADHESIVE CAPSULITIS LEFT SHOULDER ->ROM, RTC STRENGTH, POSTURAL TRAINING Assessment: 63 YO Rt HAND DOMIN MALE REF TO PT FOR Lt SH ADHESIVE CAPSULITIS x 3-4 MONTHS. THE Pt HAS A H/O CERV DECOMPR SURG AND Rt RTC REPAIR. HE HAS BEEN OOW x 1 YR. HE HAS PAIN AND Lt GH Jt RESTRICTION LIMITING Lt SH ROM AND ADL TOLERANCE. HE IS A GOOD PT CANDIDATE AND AGREES W PT POC AT THIS TIME. Frequency and Duration: The patient will be seen 2 x WK x 5 WKS Short Term Goals: DECR Lt SH PAIN TO 2-3/10 Pt EDUC RE DX/ IMPORTANCE OF HEP TO IMPROVE ROM Lt SH INDEP SELF POSTURAL CORRECTION, SLEEPING POSITIONS, ETC Mcfp Goals: Pt RESUME REG ADLs W Lt UE, EVIDENT W IMPROVED SPADI (AT EVAL 125/130) FULL,PAINLESS PASSIVE AND ACTIVE LEFT SHOULDER ROM IMPROVE Lt SHOULDER COMPLEX STRENGTH Treatment Plan: Modalities to reduce pain, spasms and effusion. Manual therapy to restore motion and function. Therapeutic exercise to improve strength and flexibility. Neuromuscular re-education for posture and balance. Therapeutic activities to return to functional activities of daily living. Electronically signed by: ANASTASIA JARAMILLO,PT Please sign and return to therapist. Thank you for your referral.
--- NOTE | 2024-06-06 08:26 | MHC.PT.DC ---
[facility] [place] Office [place] Office [place] Office [address] Chidi Colón [address] [facility] [phone] F: [phone] F: [phone] F: [phone] F: [phone] Physical Therapy Discharge Report Diagnosis: ADHESIVE CAPSULITIS LEFT SHOULDER ->ROM, RTC STRENGTH, POSTURAL TRAINING Date of Surgery: Date of Evaluation: 02/28/24 Date of Discharge: 06/06/24 Treatments to Date: 8 Cancellations to Date: 3 No Shows to Date: 0 Discharge Status: Improved Function Patient Elected to Stop Visit Non-compliance Discharge Summary: KATHLEEN WAS ADVANCING W SCAP STAB/ POST RC STRENGTHENING EXER- HIS SUBJECTIVE PAIN LEVEL HADN'T CHANGED MUCH, HOWEVER, OBJECTIVELY THER HAS BEEN SIGNIF ADVANCEMENT IN ROM, STRENGTH, FUNCTION. THE Pt CANC HIS LAST 3 APPTS, AND, THEREFORE, A FORMAL REASSESSMENT WAS NOT PERFORMED. Electronically signed by: ANASTASIA JARAMILLO,PT Please sign and return to therapist. Thank you for your referral.
== END 2024-06-06 08:27 | disposition home or self-care (01) ==
LOC: HO.PT 11:00
PROVIDERS: PCP Internal Medicine; Visit Provider Physician Assistant
DX: M75.82 Other shoulder lesions, left shoulder (principal); M75.02 Adhesive capsulitis of left shoulder
CPT/HCPCS: 97110; 97140; 97162

== ENCOUNTER 2024-04-25 14:52 | Outpatient (AMB) | payer OTHER, SELFPAY ==
--- NOTE | 2024-04-25 15:22 | A.SPINEOV_ITS ---
Intake Visit Reasons: LBP Intake Note: Mr. Wojciech Casas is here today to F/u after seeing pain management. [employer] Required: No Allergies oxycodone Adverse Reaction (Intermediate, Verified 03/20/24 11:29) hand rash Assessment & Plan Assessment & Plan (1) Spondylosis of lumbar spine: Code(s): M47.816 - Spondylosis without myelopathy or radiculopathy, lumbar region Category: Medical Plan Mr Jeffrey was here today to follow-up regarding his chronic back pain. He is still continuing to have back pain, he was looking forward to getting a procedure done with , I believe it might have been an intrasept procedure, but he has not heard back yet. Apparently there some hang up with the insurance company. He is starting to have a little bit of leg pain going down his right anterior thigh as well. I went back and reviewed all his imaging as was discussed at the time when he saw Dr. Alan and there is no evidence of residual nerve compression or structural abnormalities that would explain his back pain that we can do surgery to fix. 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 I do not think there is anything we can offer him, as outlined in Dr. Alan's last note. Total amount of time spent in this visit was 20 minutes in discussion of symptoms, lumbar MRI imaging results and subsequent plan of care Prateek Alan MD,PhD [facility] Coding Level of Care Code Est Pt Level 3 (41563) Diagnoses Spondylosis of lumbar spine M47.816
== END 2024-04-25 15:56 | disposition home or self-care (01) ==
LOC: HO.HNS 14:53
PROVIDERS: PCP Internal Medicine; Visit Provider Physician Assistant
DX: M47.816 Spondylosis without myelopathy or radiculopathy, lumbar region (principal)
CPT/HCPCS: 99213

== ENCOUNTER → 2024-04-25 14:52 | Outpatient (BNVA) | payer OTHER, SELFPAY | PROVIDERS: PCP Internal Medicine; Visit Provider Physician Assistant | DX: M47.816 Spondylosis without myelopathy or radiculopathy, lumbar region (principal) | CPT/HCPCS: 99212 ==

== ENCOUNTER 2024-05-03 09:36 | Outpatient (REF) | payer OTHER, SELFPAY ==
[2024-05-03 10:48] LABS: Basophils Absolute Auto 0.1 X10*3/uL (0.0-0.2); Basophils Percent Auto 0.7 % (0-2); Eosinophils Absolute Auto 0.1 X10*3/uL (0.0-0.4); Eosinophils Percent Auto 1.5 % (0-4); Hemoglobin 13.7 g/dl (14.0-18.0); Imm Gran Abs Auto 0.01 X10*3/uL (0.00-0.03); Imm Gran Pct Auto 0.1 % (0.0-0.4); Lymphocytes Percent Auto 41.3 % (20-40); MANUAL DIFF FLAG NO; Mean Corpuscular HGB Conc 33.4 g/dl (31.0-36.0); Mean Corpuscular Hemoglobin 30.8 pg (27.0-33.0); Mean Corpuscular Volume 92.1 fL (80.0-98.0); Mean Platelet Volume 9.5 fL (9.4-12.4); Monocytes Absolute Auto 0.6 X10*3/uL (0.1-1.2); Neutrophils Absolute Auto 3.4 x10*3/uL (2.0-8.3); Neutrophils Percent Auto 47.4 % (45-73); Platelet Count 282 X10*3/uL (160-400); Red Blood Count 4.45 X10*6/uL (4.60-5.80); Red Cell Distribution Width 13.2 % (11.0-16.0); White Blood Count 7.1 X10*3/uL (4.8-10.8)
[2024-05-03 11:34] LABS: Estimated Average Glucose 126 mg/dL; Hemoglobin A1C 149.6628 umol/L; Total Hemoglobin (HGBA1C) 3588.6968 umol/L
[2024-05-03 12:14] LABS: Alanine Aminotransferase 56 U/L (0-40); Albumin Level 4.7 g/dL (3.5-5.0); Alkaline Phosphatase 85 U/L (39-117); Anion Gap 17 (12-20); Aspartate Amino Transferase 38 U/L (5-37); Bilirubin Total 0.7 mg/dL (0.0-1.0); Blood Urea Nitrogen 17 mg/dL (9-16); Calcium 10.5 mg/dL (8.4-10.2); Carbon Dioxide 23 mmol/L (22-29); Chloride 104 mmol/L (96-108); Cholesterol 174 mg/dL (<200); Estimated Glomerular Filt Rate > 60; Glucose Random 105 mg/dL (60-115); HDL Cholesterol 33 mg/dL (>40); LDL Cholesterol Calculated 100 mg/dL (<100); Sodium 140 mmol/L (135-145); Thyroid Stimulating Hormone 0.66 uIU/mL (0.32-4.0); Total Protein 8.1 g/dL (6.5-8.0); Triglycerides 207 mg/dL (<150)
== END 2024-05-03 09:37 | disposition home or self-care (01) ==
LOC: HO.LAB 09:36
PROVIDERS: PCP Internal Medicine; Visit Provider Internal Medicine
DX: R73.01 Impaired fasting glucose (principal); E78.00 Pure hypercholesterolemia, unspecified
CPT/HCPCS: 36415; 80053; 80061; 83036; 84443; 85025

== ENCOUNTER 2024-05-16 15:50 | Outpatient (AMB) | payer OTHER, SELFPAY ==
[2024-05-16 15:53] VITALS: BP 100/66; PULSE 102; O2SAT 96; BMI 27.5
--- NOTE | 2024-05-16 15:53 | A.OFFPC_ITS ---
Vital Signs 3 05/16/24 15:53 Height 5 ft 7 in Weight 175 lb 6 oz BMI 27.5 BP 100/66 Blood Pressure Location Lt brachial Position Sitting Pulse 102 H Pulse Source Pulse Oximeter Pulse Oximetry (%) 96 Oxygen Delivery Method Room Air Intake Visit Reasons: cervical DDD, Lumbar DDD, HTN ,. Cholesterol Individualized Education Plan Aide Required: No Accompanied by: Self / Same As Patient Allergies oxycodone Adverse Reaction (Intermediate, Verified 05/16/24 15:54) hand rash Tobacco use date assessed: 05/16/24 Dental Screening Dental Screen Date: 05/16/24 Did you have a dental visit in the last 12 months?: Yes Did you have a dental problem in the last 6 months where you did not have access to dental care?: No Was dental information given to patient?: Patient has dentist HPI cervical DDD, Lumbar DDD, HTN ,. Cholesterol 2 HPI0 Details 63-year-old overweight male with a histo ry of cervical radicular pain and lumbar radicular pain left shoulder sees of colitis coming in for follow-up. Last seen in 02/21/2024. Other medical problems BPH, hypercholesterolemia nephrolithiasis hypertension GERD. Patient has colon test was done in 2020. Review of the notes has seen spine center regarding the lower back pain seeing pain management interested procedure no evidence of residual nerve compression structural abnormalities. 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 Pain management in April 16 had a procedure done for the left shoulder. PAtient states was advised to see Neurology and possiblem MRI brain. PAtient continues with physical therapy for the L shoulder but still on movement still having pain. complains of L arm mass that is painful [facility] Medical History Spondylosis of lumbar spine Radicular low back pain RLQ abdominal pain Frequent falls Headache Radiculopathy, lumbar region Facet arthropathy Sacroiliitis Right flank pain Dyspnea on exertion Myalgia Post-viral cough syndrome COVID-19 GERD (gastroesophageal reflux disease) HTN (hypertension) Right renal stone Fatty liver Respiratory tract infection Rotator cuff disorder Vitamin D deficiency Tubular adenoma of colon Hypercholesterolemia BPH (benign prostatic hyperplasia) Right shoulder pain Surgical History Hx of fusion of cervical spine History of spinal surgery History of arthroscopy of right shoulder History of eye surgery Family History Father Hypertension Mother No problems noted. Paternal Uncle Cancer Social History Housing: House Alcohol intake: former Patient Tobacco Use Status: Never used Tobacco e-Cigarette/Vaping Use: Never Used Second Hand Smoke Exposure: No service: No Current occupational status: employed Current occupation: right hand dominant Cognitive needs: No Hearing needs: No Vision needs: Yes (glasses) Questionnaire PHQ-9 Over the last 2 weeks, how often have you been bothered by any of the following problems? 1. Little interest or pleasure in doing things: not at all 2. Feeling down, depressed, or hopeless: not at all 3. Trouble falling or staying asleep, or sleeping too much: not at all 4. Feeling tired or having little energy: not at all 5. Poor appetite or overeating: not at all 6. Feeling bad about yourself - or that you are a failure or have let yourself or your family down: not at all 7. Trouble concentrating on things, such as reading the newspaper or watching television: not at all 8. Moving or speaking so slowly that other people could have noticed. Or the opposite - being so fidgety or restless that you have been moving around a lot more than usual: not at all 9. Thoughts that you would be better off or of hurting yourself in some way: not at all Total score: 0 Depression Screening Interpretation: Negative Depression Screening Done: Yes 60183 - PHQ-9 Billing: Yes Source: Developed by Drs. Omega Solomon, Trini Bingham, Edi Olsen and colleagues, with an educational jimmy from [email or web address]. Thrive Questionnaire Date Thrive assessed: 05/16/24 I am a: Patient What is your living situation today?: I have a steady place to live Within the past 12 months, did the food you bought not last and you didn't have the money to get more?: Never true Within the past 12 months, did you worry whether your food would run out before you got money to buy more?: Never true Do you have trouble paying for medicines?: No Do you have trouble getting transportation to medical appointments?: No Do you have trouble paying your heating and electricity bill?: No Do you have trouble taking care of your child, family member or friend?: No Do you have trouble with day-to-day activities such as bathing, preparing meals, shopping, managing finances, etc.?: No Are you currently unemployed and looking for a job?: No Are you interested in more education?: No Please select the resources that you would like help with: None Currently or been in a relationship where the following occur: No concerns reported THRIVE Score: 0 AUDIT C Alcohol Use Questionnaire (AUDIT-C) 1. How often do you have a drink containing alcohol?: Monthly or less 2. How many drinks containing alcohol do you have on a typical day when you are drinking?: 1 or 2 (0) 3. How often do you have six or more drinks on one occasion?: Never Total Score: 1 SATNAM-7 AMB Questionnaire SATNAM-7 Date SATNAM - 7 assessed: 05/16/24 Feeling nervous, anxious, or on edge: 0 = Not at all Not being able to stop or control worryin = Not at all Worrying too much about different things: 0 = Not at all Trouble relaxin = Not at all Being so restless that it is hard to sit still: 0 = Not at all Becoming easily annoyed or irritable: 0 = Not at all Feeling afraid as if something awful might happen: 0 = Not at all Total SATNAM-7 score (0-4 normal; 5-9 mild; 10-14 moderate; 15-21 severe): 0 Source: Developed by Drs. Omega Solomon, Trini Bingham, Edi Olsen and colleagues, with an educational jimmy from [email or web address]. Physical exam (Primary Care) Vital Signs: Last Vital Signs Pulse 102 H 05/16/24 15:53 BP 100/66 05/16/24 15:53 Pulse Ox 96 05/16/24 15:53 Oxygen Delivery Method Room Air 05/16/24 15:53 BMI result Body Mass Index 27.5 Tobacco/Smoking Status: Tobacco use Status Tobacco use date assessed 05/16/24 05/16/24 15:57 Patient Tobacco Use Status Never used Tobacco 05/16/24 15:57 e-Cigarette/Vaping Use Never Used 05/16/24 15:57 PHQ-9: PHQ-9 Score PHQ-9: Total score 0 05/16/24 15:57 Depression Screening Interpretation: Negative Thrive Assessment: Date of Thrive Assessment Date Thrive assessed 05/16/24 05/16/24 15:57 Currently or been in a relationship where the following occur: No concerns reported Const General: alert; No acute distress Eyes Conjunctivae: conjunctivae normal Resp Auscultation: clear to auscultation bilaterally Cardio Rate: regular rate Rhythm: regular rhythm GI Inspection: Yes normal to inspection Extrem Other: L arm mass 4 by 5 cm General: No edema Shoulder/upper arm images: 2 1. L arm mass 4 by 5 cm Coding Level of Care Code Est Pt Level 4 (33554) Complex EM visit Add On G2211 Diagnoses Chronic anemia D64.9 Adhesive capsulitis of left shoulder M75.02 Radicular low back pain M54.10 Gastroesophageal reflux disease without esophagitis K21.9 Esophagitis presence: without esophagitis Essential hypertension I10 Hypertension type: essential hypertension Impaired fasting blood sugar R73.01 Hypercholesterolemia E78.00 Fatty liver K76.0 Subcutaneous mass of left upper extremity R22.32 Additional Codes PHQ-9 - 45615 - PHQ-9 Billing: Yes ([id number]) Assessment & Plan Assessment & Plan (1) Chronic anemia: Code(s): D64.9 - Anemia, unspecified Category: Medical Plan: continue to follow-up and stable (2) Adhesive capsulitis of left shoulder: Code(s): M75.02 - Adhesive capsulitis of left shoulder Category: Medical Plan: patient did see pain manage and had injections done (3) Radicular low back pain: Comment: Lumbar laminotomy and microdisckectomy Dr. Grove 10/2021 Code(s): M54.10 - Radiculopathy, site unspecified Category: Medical Plan: patient has met with spine center failed back syndrome going back to pain management (4) GERD (gastroesophageal reflux disease): Code(s): K21.9 - Gastro-esophageal reflux disease without esophagitis Category: Medical Qualifiers: Esophagitis presence: without esophagitis Qualified Code(s): K21.9 - Gastro-esophageal reflux disease without esophagitis Plan: Avoid the foods that causes that usually spicy foods, tomato products, juices, coffee, soda and foods that your sensitive to. After eating do not lie down, allow 3-4 hours before in lie down. And keep the head of bed above 30 degrees to avoid the acid from going up. (5) HTN (hypertension): Code(s): I10 - Essential (primary) hypertension Category: Medical Qualifiers: Hypertension type: essential hypertension Qualified Code(s): I10 - Essential (primary) hypertension Plan: Continue with blood pressure medication. Decrease salt intake and exercise on lisinopril 30 mg once a day (6) Impaired fasting blood sugar: Code(s): R73.01 - Impaired fasting glucose Category: Medical Plan: Decrease the amount of carbohydrate intake, pasta, bread, rice and potatoes are all sugar and that is aside from all the sweet stuff, remember that fruits are good but they are Sweet also. (7) Hypercholesterolemia: Code(s): E78.00 - Pure hypercholesterolemia, unspecified Category: Medical Plan: Avoid fried foods, chicken skin, eggs, butter margarine, pastries and meat. Be it pork or beef they have a lot of cholesterol taking simvastatin 20 mg once a day. Goal of LDL below 130 and triglyceride of less than 150 (8) Fatty liver: Comment: June 2020 Code(s): K76.0 - Fatty (change of) liver, not elsewhere classified Category: Medical Plan: low-fat diet and exercise (9) Subcutaneous mass of left upper extremity: Code(s): R22.32 - Localized swelling, mass and lump, left upper limb Category: Medical Plan: with the mass Jacqueline - will do US Orders: Orders 2 US extremity nonvascular Today R22.32 - Localized swelling, mass and lump, left upper limb Referrals 2 Neurology Referral M47.27 - Other spondylosis with radiculopathy, lumbosacral region
== END 2024-05-16 16:38 | disposition home or self-care (01) ==
PROVIDERS: PCP Internal Medicine; Visit Provider Internal Medicine
DX: D64.9 Anemia, unspecified (principal); M75.02 Adhesive capsulitis of left shoulder; M54.10 Radiculopathy, site unspecified; K21.9 Gastro-esophageal reflux disease without esophagitis; I10 Essential (primary) hypertension; R73.01 Impaired fasting glucose; E78.00 Pure hypercholesterolemia, unspecified; K76.0 Fatty (change of) liver, not elsewhere classified; R22.32 Localized swelling, mass and lump, left upper limb

== ENCOUNTER → 2024-05-16 15:50 | Outpatient (BNVA) | payer OTHER, SELFPAY | PROVIDERS: PCP Internal Medicine; Visit Provider Internal Medicine | DX: D64.9 Anemia, unspecified (principal); M75.02 Adhesive capsulitis of left shoulder; M54.10 Radiculopathy, site unspecified; K21.9 Gastro-esophageal reflux disease without esophagitis; R73.01 Impaired fasting glucose; I10 Essential (primary) hypertension; E78.00 Pure hypercholesterolemia, unspecified; K76.0 Fatty (change of) liver, not elsewhere classified; R22.32 Localized swelling, mass and lump, left upper limb | CPT/HCPCS: 96127; 99212 ==

== ENCOUNTER 2024-05-22 14:30 | Outpatient (REF) | payer OTHER, SELFPAY | END 2024-05-22 14:31 | disposition home or self-care (01) | LOC: HO.US 14:30 | PROVIDERS: PCP Internal Medicine; Visit Provider Internal Medicine | DX: R22.32 Localized swelling, mass and lump, left upper limb (principal) | CPT/HCPCS: 76882 ==

== ENCOUNTER 2024-07-09 12:49 | Outpatient (REF) | payer OTHER, SELFPAY ==
[2024-07-09 14:13] LABS: Rheumatoid Factor < 13.0 IU/mL (<15.0)
[2024-07-09 14:20] LABS: Erythrocyte Sedimentation Rate 30 MM/HR (0-15)
[2024-07-10 22:33] LABS: Lyme Abs Screen <0.90 index
[2024-07-11 14:53] LABS: Anti Nuclear Antibody Screen NEGATIVE (NEGATIVE)
[2024-07-15 16:59] LABS: Treponema pallidum Ab FTA ABS Nonreactive (Nonreactive)
== END 2024-07-09 12:50 | disposition home or self-care (01) ==
LOC: HO.LAB 12:49
PROVIDERS: PCP Internal Medicine; Visit Provider Psychiatry & Neurology Neurology
DX: G43.009 Migraine without aura, not intractable, without status migrainosus (principal)
CPT/HCPCS: 36415; 82550; 85652; 86038; 86431; 86617; 86618; 86780

== ENCOUNTER 2024-07-17 09:55 | Day surgery (SDC) | payer OTHER, SELFPAY ==
--- NOTE | 2024-07-15 15:00 | HO.ANESPROP2 ---
Documented by User: Patricia Carey NP 07/15/24 15:01 HPI - Anesthesia Eval Consult details Narrative: 63yo M for L3,L4 and L5 Intracept RFA (Basivertebral Nerve Ablation PMFSH Active Problems Active Problems: All Active Problems Subcutaneous mass of left upper extremity (Acute) Chronic anemia (Acute) Acromioclavicular joint arthritis (Acute) Adhesive capsulitis of left shoulder (Acute) Vertebrogenic low back pain (Acute) Chronic back pain greater than 3 months duration (Acute) Cervical radicular pain (Acute) Tendonitis of left rotator cuff (Acute) Left shoulder pain (Acute) Cervical spine degeneration (Acute) Radicular low back pain (Acute) Spondylosis of lumbar spine (Acute) Lumbar radicular pain (Acute) Overweight (BMI 25.0-29.9) (Acute) Sciatic nerve pain (Acute) Spinal stenosis of lumbar region with neurogenic claudication (Acute) Lumbosacral radiculopathy due to degenerative joint disease of spine (Acute) Chronic pain syndrome (Acute) Chronic right sacroiliac joint pain (Acute) Postlaminectomy syndrome (Acute) Essential tremor (Acute) Annual physical exam (Acute) GERD (gastroesophageal reflux disease) (Acute) H. 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 (Acute) Mild cognitive impairment (Acute) Tubular adenoma of colon (Acute) Annual physical exam (Acute) Knee pain, bilateral (Acute) Impacted cerumen of both ears (Acute) Right renal stone (Acute) Fatty liver (Acute) Hypercholesterolemia (Acute) BPH (benign prostatic hyperplasia) (Acute) Past Medical History Medical History Spondylosis of lumbar spine Radicular low back pain RLQ abdominal pain Frequent falls Headache Radiculopathy, lumbar region Facet arthropathy Sacroiliitis Right flank pain Dyspnea on exertion Myalgia Post-viral cough syndrome COVID-19 GERD (gastroesophageal reflux disease) HTN (hypertension) Right renal stone Fatty liver Respiratory tract infection Rotator cuff disorder Vitamin D deficiency Tubular adenoma of colon Hypercholesterolemia BPH (benign prostatic hyperplasia) Right shoulder pain Family History Family History Father Hypertension Mother No problems noted. Paternal Uncle Cancer Surgical History Surgical History Hx of fusion of cervical spine History of spinal surgery History of arthroscopy of right shoulder History of eye surgery Social History Social History Housing: House Are you a primary care coordination manager to a significant other at home: No Do you presently have visiting nurse or other home services: No Alcohol intake: former Patient Tobacco Use Status: Never used Tobacco e-Cigarette/Vaping Use: Never Used Second Hand Smoke Exposure: No Use of substances other than those prescribed or required for medical reasons: No Have you been hit, kicked, punched, or otherwise hurt by someone within the past year? If so, by whom?: No Are you DNR?: No Advance Directives: No Advance Directives Information Provided: Yes Recently lost weight without trying: No Nutrition Risks: No Nutritional Risk Poor oral hygiene: No service: No Current occupational status: employed Current occupation: right hand dominant Cognitive needs: No Hearing needs: No Vision needs: Yes (glasses) Meds Allergies Allergy/AdvReac Type Severity Reaction Status Date / Time oxycodone AdvReac Intermediate hand rash Verified 07/17/24 10:09 Exam Pertinent Lab Results Pertinent Lab Results: Laboratory Tests 05/03/24 10:28 WBC 7.1 Hgb 13.7 L Hct 41.0 L Plt Count 282 Sodium 140 Potassium 4.0 Chloride 104 Carbon Dioxide 23 BUN 17 H Creatinine 1.12 Narrative Narrative: EKG 2022 Vent. Rate : 072 BPM Atrial Rate : 072 BPM P-R Int : 170 ms QRS Dur : 084 ms QT Int : 398 ms P-R-T Axes : 021 017 -07 degrees QTc Int : 435 ms Normal sinus rhythm Normal ECG When compared with ECG of 05-JUN-2022 18:50, No significant change was found Assessment and Plan Assessment Anesthesia Assessment: Chart Reviewed Documented by User: Cari Layne MD 07/17/24 12:19 [facility] Past Medical History Medical History Spondylosis of lumbar spine Radicular low back pain RLQ abdominal pain Frequent falls Headache Radiculopathy, lumbar region Facet arthropathy Sacroiliitis Right flank pain Dyspnea on exertion Myalgia Post-viral cough syndrome COVID-19 GERD (gastroesophageal reflux disease) HTN (hypertension) Right renal stone Fatty liver Respiratory tract infection Rotator cuff disorder Vitamin D deficiency Tubular adenoma of colon Hypercholesterolemia BPH (benign prostatic hyperplasia) Right shoulder pain Family History Family History Father Hypertension Mother No problems noted. Paternal Uncle Cancer Family history of problems with anesthesia: No Surgical History Surgical History Hx of fusion of cervical spine History of spinal surgery History of arthroscopy of right shoulder History of eye surgery History of Problems with Anesthesia: No Social History Social History Housing: House Are you a primary care coordination manager to a significant other at home: No Do you presently have visiting nurse or other home services: No Alcohol intake: former Patient Tobacco Use Status: Never used Tobacco e-Cigarette/Vaping Use: Never Used Second Hand Smoke Exposure: No Use of substances other than those prescribed or required for medical reasons: No Have you been hit, kicked, punched, or otherwise hurt by someone within the past year? If so, by whom?: No Are you DNR?: No Advance Directives: No Advance Directives Information Provided: Yes Recently lost weight without trying: No Nutrition Risks: No Nutritional Risk Poor oral hygiene: No service: No Current occupational status: employed Current occupation: right hand dominant Cognitive needs: No Hearing needs: No Vision needs: Yes (glasses) Meds Allergies Allergy/AdvReac Type Severity Reaction Status Date / Time oxycodone AdvReac Intermediate hand rash Verified 07/17/24 10:09 Exam Airway Mallampati Class: II (caps top 3) TM Dist: >3cm Neck ROM: Full Heart: rrr Lungs: cta Assessment and Plan Assessment Anesthesia Assessment: Anesthesia Plan Discussed Final Anesthetic Review Family History of Problems with Anesthesia: No History of Problems with Anesthesia: No NPO: Yes ASA Class: III Final Preanesthetic Review: No Changes in Pt Med Stat, Meds/Allgs Chart Reviewed and Consent Obtained/Reviewed Patient Risk: Intermediate Procedure Risk: Intermediate Anesthetic Plan Anesthetic Plan: GA Disposition: Standard PACU
[2024-07-17] VITALS (12 sets, daily range): BP systolic 113–135; BP diastolic 65–83; PULSE 72–89; RESP 13–18; TEMP 36.4; O2SAT 95–98; BMI 26.8
--- NOTE | ~2024-07-17 | FL_ITS ---
EXAMINATION: FL GUIDANCE ONLY HISTORY: l3-5 RFA COMPARISON: None available. TECHNIQUE: Fluoroscopy time: 3.0 minutes. Cumulative Dose: 103.625 mGy. DAP: 10.3357 uGy-m2 (microgray-meter squared). Images: 4. FINDINGS: Images demonstrate probes directed toward lumbar vertebral bodies from a posterior approach. FL/FL guidance in OR IMPRESSION: Fluoroscopy during procedure. Please see procedure report for additional information. Electronically signed by: Omega Lucas MD 07/18/2024 08:58 AM EST
--- OUTSIDE RECORDS SUMMARY | 2024-07-17 10:50 | XMS_ITS | Patient Health Record ---
Author Organization [facility] Address [address] [place] [address] Care Team Providers Care Speech/Language Therapist Name Role Phone Danitza Humphreys MD Primary Care Provider John Gomez Jr Unavailable REASON FOR REFERRAL No Information MEDICATIONS Medication SIG (Take, Route, Frequency, Duration) Notes Start Date End Date Status Vitamin B12 Active Vitamin C Active hydroCHLOROthiazide 12.5 MG Orally Active Simvastatin 5 MG TAKE 1 TABLET BY MOUTH EVERY DAY IN THE EVENING Oral Once a day Active oxyCODONE-Acetaminophen Active Cyclobenzaprine HCl Active Amoxicillin 500 MG 2 capsules Orally Twice a day for 14 days 12/03/2020 Unknown Clarithromycin 500 MG 1 tablet Orally ev parish 12 hrs for 14 days 12/03/2020 Active MiraLax (colon prep) 8.3 oun ce ((238) grams mixed with Gatorade or Crystal Light orally begin at 5:00 p.m. the day before the procedure for 1 day 11/09/2020 Active Omeprazole 20 MG 1 capsule Orally Onc e a day 11/09/2020 Active IMMUNIZATIONS Vaccine Route Administration Date Status Comme nts Influenza Unknown 07/26/2018 Refused Influenza Unknown 11/09/2020 Refused SOCIAL HISTORY Sex Assigned At : Social History Observation Description Sex Assigned At Unknown PROBLEMS Problem Type ICD Code Onset Dates Problem Status W/U Status Risk SNOMED Code Notes Problem Rectal bleeding (K62.5) Active confirmed 27265223 Problem Epigastric pain (R10.13) Active confirmed 24554668 Problem Personal history of colonic polyps (Z86.010) Active confirmed 528207057 Problem Gastritis, unspecified, without bleeding (K29.70) Active confirmed 289498437 Problem Gastroesophageal reflux disease without esophagitis (K21.9) Active confirmed 859401700 Problem History of colon polyps (Z86.010) Active confirmed History of polyp of colon (861651852) Problem H. pylori infection (A04.8) Active confirmed 474939859 PLAN OF TREATMENT Pending Test Test Name Order Date H PYLORI AG, STOOL 06/10/2021 Future Test Test Name Order Date COLONOSCOPY 12/26/2012 COLONOSCOPY 07/26/2018 UPPER GI ENDOSCOPY 11/09/2020 COLONOSCOPY 11/09/2020 Insurance Providers Payer Name Payer Address Payer Phone Subscriber Number Group Number Insured Name Patient Relationship to Insured Coverage Start Date Coverage End Date [facility] [address] [place], [place] [id number] KATHLEEN MOODY Self - patient is the insured MEDICAID OF [facility] [address] [place] [address] [id number] KATHLEEN MOODY Self - patient is the insured MEDICAL (GENERAL) HISTORY Medical History History ICD Code colonoscopy 12/01/20, tubular and tubulovi llous adenomas, seven-year followup. hypertension hyperlipidemia Epigastric pain, upper endos copy 12/01/20, antral biopsies showed H. pylori gastritis, treated with OAC x2 weeks Surgical History Surgery Date(Month/Year) rotator cuff tear repair eye surgery - bilateral
[2024-07-17] MEDS: Lactated Ringers 1,000 ML 100 ML IVCONT (10:51)
[2024-07-17 12:00] LABS: MRSA Nasal PCR NEGATIVE (Negative); SA Nasal PCR NEGATIVE (Negative)
--- NOTE | 2024-07-17 12:44 | MHC.SHP ---
Pre-Procedural Eval Section A - 24 Hr Update-Section A only Date of Service: 07/17/24 The patient is an INPATIENT: No The patient has been examined within 24 hours of the surgical procedure. The History & Physical has been completed within 30 days and I have reviewed it.: No Section B - Complete if H&P > 30 days Chief Complaint: Vertebrogenic low back pain Relevant Family History (Specify if Yes): No Relevant Social History: None Present Medications: see Short Stay Collaborative assessment Medical History: No relevant PMH History of Previous Operations: No relevant previous surgery Allergies: Allergies Allergy/AdvReac Type Severity Reaction Status Date / Time oxycodone AdvReac Intermediate hand rash Verified 07/17/24 10:09 Review of Systems Sugical H&P ROS: Negative: Constitution, Cardiovascular and Respiratory Exam Surgical H&P Exam: Normal: HEENT, Normal: Heart and Normal: Lungs Plan Diagnosis/Plan: Unchanged I have reviewed the history and physical and performed a pertinent physical examination on my patient. No changes have occurred unless specified. Time Spent With Patient Time: Total time managing care of this patient today ____ minutes.
--- NOTE | 2024-07-17 14:44 | PM.OP ---
Brief Operative Note Date of Service: 07/17/24 Pre-op diagnosis: Vertebrogenic low back pain Post-op diagnosis: same Procedure: Basivertebral nerve ablation L2, L3, L4, L5 (Intracept procedure) Implants: None Surgeon: Paresh Montgomery MD Anesthesia: GETA Was an Extrusion Die Corrector used for this Procedure?: No Estimated blood loss (mL): 10 Pathology: none sent Condition: stable Disposition: PACU
--- NOTE | 2024-07-17 14:49 | P.OP_ITS ---
Operative Note Operative Note Date of Service: 07/17/24 Narrative: Preoperative diagnosis: Vertebrogenic low back pain Postoperative diagnosis: Same Procedure: Basivertebral nerve (BVN) ablation ? Intracept Procedure L2, L2, L3, L5 Procedure Time Out: Patient ID confirmed, correct procedure to be performed, correct site and/or side for procedure as per marked location and correct medication(s), including antibiotic to be used for the procedure. Description of Procedure: After receiving anesthesia in the supine position, the patient was placed prone on the operating room table and all pressure points w ere appropriately padded. The back was sterilely prepped and draped. The C-arm was sterilely draped and moved into position to visualize the L5 vertebral body in the AP and lateral plane. The C-arm was rotated to square off the superior endplate at L5. The skin entry point was identified. A skin incision was made with 15 scalpel blade to access the right L5 pedicle. The introducer cannula with bevel tip was then introduced through the skin, subcutaneous tissue and paraspinal muscle until bony contact was made. The position was checked in the AP and lateral plane. Using a mallet, the trocar was then advanced thru the pedicle to the posterior aspect of the vertebral body using a combination of AP and lateral views to ensure appropriate traversing of the pedicle and no breaching of the pedicle medially. Once the trocar was in the posterior aspect of the L5 vertebral body, the trocar was removed from the cannula and the curved cannula assembly with the nitinol J-stylet was inserted. The spin wheel was rotated counterclockwise permitting excursion of the J-stylet. The curved cannula assembly was then advanced using a mallet in 1-2 mm increments. The J- stylet was observed to traverse the vertebral body in the AP and lateral views. The J-stylet was removed and replaced with the straight stylet to reach the BVN target. Target was reached when the tip of the stylet was 30% anterior of the posterior wall of the L5 in the lateral view (midway between the superior and inferior endplates) and it crossed the midline of the L5 spinous process in the AP view. The stylet was then removed. The bipolar radiofrequency (RF) probe was connected to the generator and then inserted into the introducer cannula in its ablation position. The spin wheel was rotated clockwise to retract the PEEK sle colt to expose the proximal electrode on the radiofrequency probe. The BVN was then ablated using [employer]?s targeted RFG algorithm. While the ablation was occurring at L5, the C-arm was moved to visualize the target at the superolateral aspect of the L4 vertebral body. The C-arm was rotated to square off the superior endplate at L4. The superolateral left L4 pedicle was identified for access. The same process was utilized to place the tip of the cannular 30% anterior of the posterior wall of the L5 in the lateral view (midway between the superior and inferior endplates) and it crossed the mi dline of the L5 spinous process in the AP view. The stylet was then removed. The bipolar radiofrequency (RF) probe was removed from the previous vertebral body, the tip cleaned and was inserted into the introducer cannula in its ablation position. The spin wheel was rotated clockwise to retract the PEEK sleeve to expose the proximal electrode on the radiofrequency probe. The BVN was then ablated using [employer]?s targeted RFG algorithm. While the ablation was occurring at L4, the C-arm was moved to visualize the target at the superolateral aspect of the L3 vertebral body using the approach similar to the L5 vertebral body. The C-arm was rotated to square off the superior endplate at L3. The superolateral right L3 pedicle was identified, and the skin entry point identified. Same steps were followed as for L5. Target was reached when the tip of the stylet was 30% anterior of the posterior wall of the L3 in the lateral view (midway between the superior and inferior endplates) and it crossed the midline of the L3 spinous process in the AP view. The stylet was then removed. The bipolar radiofrequency (RF) probe was removed from the previous vertebral body, the tip cleaned and was inserted into the introducer cannula in its ablation position. The spin wheel was rotated clockwise to retract the PEEK sleeve to expose the proximal electrode on the radiofrequency probe. The BVN was then ablated using [employer]?s targeted RFG algorithm. While the ablation was occurring at L3, the C-arm was moved to visualize the target at the superolateral aspect of the L2 vertebral body. The C-arm was rotated to square off the superior endplate at L2. The superolateral left L2 pedicle was identified for access. The same process was utilized to place the tip of the cannular 40% anterior of the posterior wall of the L2 in the lateral view (midway between the superior and inferior endplates) and it crossed the midline of the L2 spinous process in the AP view. The stylet was then removed. The bipolar radiofrequency (RF) probe was removed from the previous vertebral body, the tip cleaned and was inserted into the introducer cannula in its ablation position. The spin wheel was rotated clockwise to retract the PEEK sleeve to expose the proximal electrode on the radiofrequency probe. The BVN was then ablated using [employer]?s targeted RFG algorithm. With all ablations completed, the instruments were removed from the vertebral bodies. The surgical wounds were closed with 2-0 silk sutures and a sterile dressing was applied. The patient was returned to the supine position and the anesthesia reversed. The patient tolerated the procedure well and was brought to the recovery room. The patient was provided post-op and follow up instructions. Complications: None Estimate Blood Loss: 10 mL
[2024-07-17] MEDS: fentaNYL citrate/PF 100 MCG/2 ML VIAL 25 MCG IVPUSH ×4 (15:23→15:38)
[2024-07-17] MEDS: traMADoL HCL 50 MG TABLET 25 MG PO (15:44)
== END 2024-07-17 16:15 | disposition home or self-care (01) ==
PROVIDERS: Registered Nurse Emergency; PCP Internal Medicine; Visit Provider Internal Medicine
PROC: (CPT 64628; principal; 2024-07-17 11:30)
DX: M54.51 Vertebrogenic low back pain (principal); Z79.899 Other long term (current) drug therapy; Z88.5 Allergy status to narcotic agent; I10 Essential (primary) hypertension; E78.00 Pure hypercholesterolemia, unspecified; M47.816 Spondylosis without myelopathy or radiculopathy, lumbar region; M54.16 Radiculopathy, lumbar region; M46.1 Sacroiliitis, not elsewhere classified; M79.10 Myalgia, unspecified site; Z91.81 History of falling; Z98.1 Arthrodesis status; K76.0 Fatty (change of) liver, not elsewhere classified; R05.3 Chronic cough; Z98.890 Other specified postprocedural states
CPT/HCPCS: 64628; 64629 ×2; 87640; 87641; C1889; J0131; J0690; J1100; J2003; J2250; J2371; J2405; J2704; J3010

== ENCOUNTER → 2024-07-17 09:55 | Outpatient (BNV) | payer OTHER, SELFPAY | PROVIDERS: PCP Internal Medicine; Visit Provider Internal Medicine | DX: M54.51 Vertebrogenic low back pain (principal) | CPT/HCPCS: 64628; 64629 ==

== ENCOUNTER → 2024-07-26 10:46 | Outpatient (BNVA) | payer OTHER, SELFPAY | PROVIDERS: PCP Internal Medicine; Visit Provider Internal Medicine | DX: M54.51 Vertebrogenic low back pain (principal); M75.82 Other shoulder lesions, left shoulder | CPT/HCPCS: 99212 ==

== ENCOUNTER 2024-08-19 09:01 | Outpatient (AMB) | payer OTHER, SELFPAY ==
[2024-08-19 09:07] VITALS: BP 132/81; PULSE 90; O2SAT 98; BMI 27.2
--- NOTE | 2024-08-19 09:07 | MHC.OFFVIS ---
Vital Signs 08/19/24 09:07 Height 5 ft 7 in Weight 174 lb BMI 27.2 BP 132/81 Blood Pressure Location Rt brachial Position Sitting Pulse 90 Pulse Source Pulse Oximeter Pulse Oximetry (%) 98 Oxygen Delivery Method Room Air Intake Visit Reasons: discuss alternatives to Sprint Intake Note: rm 5 Carbonating Stone Cleaner Required: No Allergies tramadol Adverse Reaction (Severe, Verified 08/19/24 09:08) chest pain, anxiety oxycodone Adverse Reaction (Intermediate, Verified 08/19/24 09:08) hand rash Medication List - Last Reconciled 08/19/24 by Demetria Houston, EMPLOYEE RELATIONS ADVISOR acetaminophen (Tylenol Extra Strength) 500 mg PO Q6H PRN celecoxib 200 mg PO BID 1 month cyclobenzaprine 10 mg PO TID PRN 15 days gabapentin 100 mg PO BEDTIME hydrochlorothiazide 12.5 mg PO DAILY lidocaine 5% (Lidoderm) 1 patch topical DAILY lisinopril 30 mg PO DAILY 90 days methocarbamol 750 mg PO TID omeprazole 20 mg PO DAILY 90 days simvastatin 20 mg PO BEDTIME 90 days HPI HPI discuss alternatives to Sprint: Details: History of Present Illness The patient is a 64-year-old male presenting with shoulder pain that has been ongoing and worsening in intensity. An MRI from about a year back revealed supraspinatus tendinosis, bursitis, and tendinitis, though there's no recent surgical suggestion. Previously reported issues include a diagnosis of frozen shoulder, and attempts with physical therapy and cortisone injections provided little relief. Movement exacerbates the shoulder pain which slightly improves with heat application. His capacity to engage in ordinary tasks is markedly reduced, particularly due to the pain's interference with sleep. This chronic pain remains a significant issue despite past therapeutic measures. Pain Description - Onset and Timing: Chronic, progressively worsening - Quality: Severe, constant - Location: Primarily shoulder, radiating to the hand - Exacerbating Factors: Movement - Relieving Factors: Application of heat - Activities Affected: Sleep, daily activities, unable to perform physical therapy exercises Physical Exam - Limited ROM - Unable to lift left arm above head Results - MRI Findings: Mild supraspinatus tendinosis, bursitis, tendinitis, fluid in the bursa Pain Management - Affect: Pain affecting sleep and potentially mood, as frustration with current management is apparent - Analgesia: Previous cortisone injections, currently limited relief from medications - Adverse Effects: No specific adverse effects noted - Activities of Daily Living: Significant impairment due to pain interference with sleep and activities - Aberrant Drug Related Behaviors: Not reported or indicated [facility] Medical History Spondylosis of lumbar spine Radicular low back pain RLQ abdominal pain Frequent falls Headache Radiculopathy, lumbar region Facet arthropathy Sacroiliitis Right flank pain Dyspnea on exertion Myalgia Post-viral cough syndrome COVID-19 GERD (gastroesophageal reflux disease) HTN (hypertension) Right renal stone Fatty liver Respiratory tract infection Rotator cuff disorder Vitamin D deficiency Tubular adenoma of colon Hypercholesterolemia BPH (benign prostatic hyperplasia) Right shoulder pain Surgical History Hx of fusion of cervical spine History of spinal surgery History of arthroscopy of right shoulder History of eye surgery Family History Father Hypertension Mother No problems noted. Paternal Uncle Cancer Social History Housing: House Are you a primary child day care teacher to a significant other at home: No Do you presently have visiting nurse or other home services: No Alcohol intake: former Comment: tolerable Patient Tobacco Use Status: Never used Tobacco e-Cigarette/Vaping Use: Never Used Second Hand Smoke Exposure: No service: No Current occupational status: employed Current occupation: right hand dominant Cognitive needs: No Hearing needs: No Vision needs: Yes (glasses) Physical Exam Vital Signs: Last Vital Signs Pulse 90 08/19/24 09:07 BP 132/81 08/19/24 09:07 Pulse Ox 98 08/19/24 09:07 Oxygen Delivery Method Room Air 08/19/24 09:07 BMI result Body Mass Index 27.2 Assessment & Plan Assessment & Plan (1) Adhesive capsulitis of left shoulder: Code(s): M75.02 - Adhesive capsulitis of left shoulder Category: Medical (2) Tendonitis of left rotator cuff: Code(s): M75.82 - Other shoulder lesions, left shoulder Category: Medical Plan Plan Patient was informed and verbally consented to the use of an ambient scribe for clinic note documentation during this visit. 1. Chronic Shoulder Pain The patient continues to experience chronic shoulder pain, identified as a result of previous tendinosis, bursitis, and tendinitis. We discussed the possibility of another cortisone injection, recognizing its mixed efficacy previously. PRP was identified as another treatment option but would necessitate [id number] payment. Based on current MRI and clinical findings, surgery is not indicated. Plans include reassessment following any injections and consideration for PRP if cortisone re-administration does not provide satisfactory relief. Discussion Notes During the consultation, I reviewed the patient's MRI results and discussed the chronic nature of his shoulder issues which include supraspinatus tendinosis, bursitis, and tendinitis. Given the ineffective relief from past interventions including cortisone and physical therapy, I proposed the continued use of cortisone injections, potentially with ultrasound guidance for improved accuracy. We also considered PRP injections, though this would incur personal cost due to lack of insurance coverage. I made clear that surgical treatment is not currently indicated according to orthopedic notes. Plans were put in place to follow up on the outcome of any future injections and to further explore PRP if necessary. Patient Instructions - Continue with any conservative management, such as heat application, for symptom relief. - Monitor symptoms and report any changes or exacerbations. - Plan for a follow-up visit to reassess pain management and potential further interventions. - If cortisone injection is administered, observe for any adverse reactions and inform if the pain persists or worsens. Coding Level of Care Code Est Pt Level 3 (96439) Diagnoses Adhesive capsulitis of left shoulder M75.02 Tendonitis of left rotator cuff M75.82
--- OUTSIDE RECORDS SUMMARY | 2024-08-19 09:33 | XMS_ITS | Patient Health Record ---
Author Organization [facility] Address [address] [place] [address] Care Team Providers Care An Employee Sponsor Or Advocate And Name Role Phone Danitza Humphreys MD Primary [...] Notes Problem Rectal bleeding (K62.5) Active confirmed 59278560 Problem Epigastric pain (R10.13) Active confirmed 72344070 Problem Personal history of colonic polyps (Z86.010) Active confirmed 197709144 Problem Gastritis, unspecified, without bleeding (K29.70) Active confirmed 234472112 Problem Gastroesophageal reflux disease without esophagitis (K21.9) Active confirmed 663728553 Problem History of colon polyps (Z86.010) Active confirmed History of polyp of colon (023526509) Problem H. pylori infection (A04.8) Active confirmed 019632151 PLAN OF TREATMENT Pending Test Test Name Order Date H PYLORI AG, STOOL 06/10/2021 Future Test Test Name Order Date COLONOSCOPY 12/26/2012 COLONOSCOPY 07/26/2018 UPPER GI ENDOSCOPY 11/09/2020 COLONOSCOPY 11/09/2020 Insurance Providers Payer Name Payer Address Payer Phone Subscriber Number Group Number Insured Name Patient Relationship to Insured Coverage Start Date Coverage End Date [facility] [address] [place], [place] [id number] KATHLEEN MOODY Self - patient is the insured MEDICAID OF [facility] [address] [place] [address] [id number] KATHLEEN MOODY Self - patient is the insured MEDICAL (GENERAL) HISTORY Medical History History ICD Code colonoscopy 12/01/20, tubular and tubulovi llous adenomas, seven-year followup. hypertension hyperlipidemia Epigastric pain, upper endos copy 12/01/20, antral biopsies showed H. pylori gastritis, treated with OAC x2 weeks Surgical History Surgery Date(Month/Year) rotator cuff tear repair eye surgery - bilateral
== END 2024-08-19 09:45 | disposition home or self-care (01) ==
PROVIDERS: PCP Internal Medicine; Visit Provider Internal Medicine
DX: M75.02 Adhesive capsulitis of left shoulder (principal); M75.82 Other shoulder lesions, left shoulder
CPT/HCPCS: 99213

== ENCOUNTER → 2024-08-19 09:01 | Outpatient (BNVA) | payer OTHER, SELFPAY | PROVIDERS: PCP Internal Medicine; Visit Provider Internal Medicine | DX: D64.9 Anemia, unspecified (principal); M75.02 Adhesive capsulitis of left shoulder; M54.51 Vertebrogenic low back pain; I10 Essential (primary) hypertension; K21.9 Gastro-esophageal reflux disease without esophagitis; R73.01 Impaired fasting glucose; E78.00 Pure hypercholesterolemia, unspecified; N40.0 Benign prostatic hyperplasia without lower urinary tract symptoms; R10.11 Right upper quadrant pain; M75.82 Other shoulder lesions, left shoulder; Z79.899 Other long term (current) drug therapy | CPT/HCPCS: 96127; 99212 ==

== ENCOUNTER 2024-08-19 14:21 | Outpatient (AMB) | payer OTHER, SELFPAY ==
--- NOTE | 2024-08-19 14:39 | MHC.PC.OV ---
Vital Signs 08/19/24 14:56 Height 5 ft 7 in Weight 174 lb BMI 27.2 BP 108/80 Blood Pressure Location Lt brachial Position Sitting Pulse 80 Pulse Source Pulse Oximeter Pulse Oximetry (%) 98 Oxygen Delivery Method Room Air Intake Visit Reasons: 3mth f/u Allergies tramadol Adverse Reaction (Severe, Verified 08/19/24 09:08) chest pain, anxiety oxycodone Adverse Reaction (Intermediate, Verified 08/19/24 09:08) hand rash Tobacco use date assessed: 05/16/24 Dental Screening Dental Screen Date: 05/16/24 HPI 3mth f/u HPI Details back is better [facility] Medical History Spondylosis of lumbar spine Radicular low back pain RLQ abdominal pain Frequent falls Headache Radiculopathy, lumbar region Facet arthropathy Sacroiliitis Right flank pain Dyspnea on exertion Myalgia Post-viral cough syndrome COVID-19 GERD (gastroesophageal reflux disease) HTN (hypertension) Right renal stone Fatty liver Respiratory tract infection Rotator cuff disorder Vitamin D deficiency Tubular adenoma of colon Hypercholesterolemia BPH (benign prostatic hyperplasia) Right shoulder pain Surgical History Hx of fusion of cervical spine History of spinal surgery History of arthroscopy of right shoulder History of eye surgery Family History Father Hypertension Mother No problems noted. Paternal Uncle Cancer Social History Housing: House Are you a primary adult daycare coordinator to a significant other at home: No Do you presently have visiting nurse or other home services: No Alcohol intake: former Comment: tolerable Patient Tobacco Use Status: Never used Tobacco e-Cigarette/Vaping Use: Never Used Second Hand Smoke Exposure: No service: No Current occupational status: employed Current occupation: right hand dominant Cognitive needs: No Hearing needs: No Vision needs: Yes (glasses) Questionnaire PHQ-9 Over the last 2 weeks, how often have you been bothered by any of the following problems? 1. Little interest or pleasure in doing things: not at all 2. Feeling down, depressed, or hopeless: not at all 3. Trouble falling or staying asleep, or sleeping too much: not at all 4. Feeling tired or having little energy: not at all 5. Poor appetite or overeating: not at all 6. Feeling bad about yourself - or that you are a failure or have let yourself or your family down: not at all 7. Trouble concentrating on things, such as reading the newspaper or watching television: not at all 8. Moving or speaking so slowly that other people could have noticed. Or the opposite - being so fidgety or restless that you have been moving around a lot more than usual: not at all 9. Thoughts that you would be better off or of hurting yourself in some way: not at all Total score: 0 Depression Screening Interpretation: Negative Depression Screening Done: Yes 83321 - PHQ-9 Billing: Yes Source: Developed by Drs. Omega Solomon, Trini Bingham, Edi Olsen and colleagues, with an educational jimmy from [employer]. Thrive Questionnaire Date Thrive assessed: 08/19/24 I am a: Patient What is your living situation today?: I have a steady place to live Within the past 12 months, did the food you bought not last and you didn't have the money to get more?: Never true Within the past 12 months, did you worry whether your food would run out before you got money to buy more?: Never true Do you have trouble paying for medicines?: No Do you have trouble getting transportation to medical appointments?: No Do you have trouble paying your heating and electricity bill?: No Do you have trouble taking care of your child, family member or friend?: No Do you have trouble with day-to-day activities such as bathing, preparing meals, shopping, managing finances, etc.?: No Are you currently unemployed and looking for a job?: No Are you interested in more education?: No Please select the resources that you would like help with: None Currently or been in a relationship where the following occur: No concerns reported THRIVE Score: 0 AUDIT C Alcohol Use Questionnaire (AUDIT-C) 1. How often do you have a drink containing alcohol?: Monthly or less 2. How many drinks containing alcohol do you have on a typical day when you are drinking?: 1 or 2 (0) 3. How often do you have six or more drinks on one occasion?: Never Total Score: 1 SATNAM-7 AMB Questionnaire SATNAM-7 Date SATNAM - 7 assessed: 08/19/24 Feeling nervous, anxious, or on edge: 0 = Not at all Not being able to stop or control worryin = Not at all Worrying too much about different things: 0 = Not at all Trouble relaxin = Not at all Being so restless that it is hard to sit still: 0 = Not at all Becoming easily annoyed or irritable: 0 = Not at all Feeling afraid as if something awful might happen: 0 = Not at all Total SATNAM-7 score (0-4 normal; 5-9 mild; 10-14 moderate; 15-21 severe): 0 Source: Developed by Drs. Omega Solomon, Trini Bingham, Edi Olsen and colleagues, with an educational jimmy from [employer]. Physical exam (Primary Care) Vital Signs: Last Vital Signs Pulse 80 08/19/24 14:56 BP 108/80 08/19/24 14:56 Pulse Ox 98 08/19/24 14:56 Oxygen Delivery Method Room Air 08/19/24 14:56 BMI result Body Mass Index 27.2 Tobacco/Smoking Status: Tobacco use Status Tobacco use date assessed 05/16/24 08/19/24 14:41 Patient Tobacco Use Status Never used Tobacco 08/19/24 14:41 e-Cigarette/Vaping Use Never Used 08/19/24 14:41 PHQ-9: PHQ-9 Score PHQ-9: Total score 0 08/19/24 15:23 Depression Screening Interpretation: Negative Thrive Assessment: Date of Thrive Assessment Date Thrive assessed 08/19/24 08/19/24 14:41 Currently or been in a relationship where the following occur: No concerns reported Const General: alert; No acute distress Eyes Conjunctivae: conjunctivae normal Resp Auscultation: clear to auscultation bilaterally Cardio Rate: regular rate Rhythm: regular rhythm GI Inspection: Yes normal to inspection Extrem General: Yes normal to inspection and No edema Coding Level of Care Code Est Pt Level 4 (83403) Complex EM visit Add On G2211 Diagnoses Chronic anemia D64.9 Adhesive capsulitis of left shoulder M75.02 Vertebrogenic low back pain M54.51 Essential hypertension I10 Hypertension type: essential hypertension Gastroesophageal reflux disease without esophagitis K21.9 Esophagitis presence: without esophagitis Impaired fasting blood sugar R73.01 Hypercholesterolemia E78.00 Benign prostatic hyperplasia without lower urinary tract symptoms N40.0 Lower urinary tract symptom presence: symptoms absent RUQ abdominal pain R10.11 Additional Codes PHQ-9 - 97405 - PHQ-9 Billing: Yes ([id number]) Assessment & Plan Assessment & Plan (1) Chronic anemia: Code(s): D64.9 - Anemia, unspecified Category: Medical Plan: Continue to monitor (2) Adhesive capsulitis of left shoulder: Code(s): M75.02 - Adhesive capsulitis of left shoulder Category: Medical Plan: Patient has seen pain management for this and treated conservatively (3) Vertebrogenic low back pain: Code(s): M54.51 - Vertebrogenic low back pain Category: Medical Plan: Patient had some ablation done under pain management (4) HTN (hypertension): Code(s): I10 - Essential (primary) hypertension Category: Medical Qualifiers: Hypertension type: essential hypertension Qualified Code(s): I10 - Essential (primary) hypertension Plan: Continue with blood pressure medication. Decrease salt intake and exercise (5) GERD (gastroesophageal reflux disease): Code(s): K21.9 - Gastro-esophageal reflux disease without esophagitis Category: Medical Qualifiers: Esophagitis presence: without esophagitis Qualified Code(s): K21.9 - Gastro-esophageal reflux disease without esophagitis Plan: Avoid the foods that causes that usually spicy foods, tomato products, juices, coffee, soda and foods that your sensitive to. After eating do not lie down, allow 3-4 hours before in lie down. And keep the head of bed above 30 degrees to avoid the acid from going up. (6) Impaired fasting blood sugar: Code(s): R73.01 - Impaired fasting glucose Category: Medical Plan: Decrease the amount of carbohydrate intake, pasta, bread, rice and potatoes are all sugar and that is aside from all the sweet stuff, remember that fruits are good but they are Sweet also. April hemoglobin A1c 6.0 (7) Hypercholesterolemia: Code(s): E78.00 - Pure hypercholesterolemia, unspecified Category: Medical Plan: Avoid fried foods, chicken skin, eggs, butter margarine, pastries and meat. Be it pork or beef they have a lot of cholesterol on simvastatin (8) BPH (benign prostatic hyperplasia): Code(s): N40.0 - Benign prostatic hyperplasia without lower urinary tract symptoms Category: Medical Qualifiers: Lower urinary tract symptom presence: symptoms absent Qualified Code(s): N40.0 - Benign prostatic hyperplasia without lower urinary tract symptoms Plan: Stable (9) RUQ abdominal pain: Code(s): R10.11 - Right upper quadrant pain Category: Medical Plan History of Present Illness The patient is a 64-year-old male presenting with chronic pain management needs. The patient has a history of chronic low back pain, for which he has undergone fluoroscopy-guided injections and basic vertebral nerve ablation targeting L2, L3, L4, and L5 vertebrae performed in June 2021 resulting in some improvement. He also reports ongoing left shoulder pain, which has been refractory to conservative management. Imaging previously revealed bursitis, tendinitis, and arthritis. His pain periodically disrupts sleep, and conservative therapies have provided limited relief. In conjunction with his pain, the patient has nephrolithiasis, specifically mentioning having two kidney stones in the past without recent symptoms of expulsion, and was advised to maintain adequate hydration. His recent blood work from April indicates mild anemia, with a hemoglobin level of 13.7. Hypercholesterolemia is managed with simvastatin, as evidenced by improved LDL levels; however, triglycerides remain elevated at 206.7 mg/dL, despite a prior level of 250 mg/dL. Additionally, liver function tests show mild elevation, consistent with his history of fatty liver disease, but liver function has not drastically worsened. Although the patient has impaired glucose tolerance, indicated by a hemoglobin A1c of 6.0%, he does not meet the criteria for diabetes. Thyroid function tests returned normal results. The patient discusses recent tests, including negative findings for rheumatoid factor and syphilis, indicating no rheumatoid arthritis or immunological conditions. Health Maintenance - Diabetes Screening: Hemoglobin A1c at 6.0%, indicating impaired glucose tolerance but not diabetes. - Cholesterol Management: Ongoing management with simvastatin; LDL recently improved to 100 mg/dL. - Cardiovascular Risk Reduction: Discussion of controlling blood pressure and lifestyle modifications including hydration to prevent worsening of nephrolithiasis. - Pain Management: Conservative approach with consideration of nerve ablation. Social History - Family Status: Has grandchildren. - Activity Level: Engages with grandchildren, indicating a degree of physical activity. - Hydration: Drinks a substantial amount of water, particularly relevant for kidney stone management. Review of Systems - Musculoskeletal: Reports left shoulder pain and chronic low back pain. - Abdominal: Denies current symptoms related to kidney stones. - General: Denies having migraines but reports taking medication for it. Physical Exam - Musculoskeletal- Pain localized in the left shoulder, electric-stimulation indicated more discomfort around hip bone on one side than the other. Results - Labs: Hemoglobin level of 13.7 (mild anemia), Triglycerides at 206.7 mg/dL (elevated), Hemoglobin A1c at 6.0%, normal renal function, elevated liver functions, negative rheumatoid factor, and syphilis. - Imaging/Procedures: Recent ultrasound of left arm showed no mass; MRI of shoulder demonstrated bursitis, tendinitis, and arthritis. Plan - Continue conservative management of left shoulder pain with potential additional injections as insurance permits. - Maintain current management of chronic low back pain and evaluate potential need for further nerve ablation. - Monitor kidney stone status; encourage ongoing hydration. - Continue simvastatin for hypercholesterolemia; re-evaluate lipid profile regularly. - Monitor liver function and triglycerides, consider dietary modifications. - Follow up on mild anemia and impaired glucose tolerance; monitor hemoglobin A1c and CBC as needed. Patient was informed and verbally consented to the use of an ambient scribe for clinic note documentation during this visit. Discussion Notes During the visit, we discussed the potential benefits and limitations of continuing conservative management for musculoskeletal pain, particularly given insurance constraints on more advanced procedures such as PRP injections or stimulators. The patient acknowledges the ongoing challenge of his chronic pain but is in agreement with the management plan, including continued medication use. Risks of untreated high triglycerides and liver function results were reviewed; the patient understands the importance of monitoring and lifestyle modifications. Encouraged patient to maintain hydration to manage nephrolithiasis risk. Follow-up discussions emphasized the importance of regular monitoring for all chronic conditions and engagement in proactive health maintenance. Patient Instructions - Continue with prescribed pain medications and follow up with pain management as scheduled. - Ensure adequate hydration, especially for kidney stone prevention. - Continue taking simvastatin as directed and follow a cholesterol-friendly diet. - Regularly monitor blood glucose levels and dietary intake to address impaired glucose tolerance. - Make lifestyle modifications as discussed: maintain physical activity and dietary balance to aid lipid control and overall well-being. - Return for follow-up appointments as scheduled, and keep updated on any new symptoms or significant changes in your condition. Orders: Orders US abdomen complete Today R10.11 - Right upper quadrant pain, R79.89 - Other specified abnormal findings of blood chemistry
[2024-08-19 14:56] VITALS: BP 108/80; PULSE 80; O2SAT 98; BMI 27.2
== END 2024-08-19 15:32 | disposition home or self-care (01) ==
PROVIDERS: PCP Internal Medicine; Visit Provider Internal Medicine
DX: D64.9 Anemia, unspecified (principal); M75.02 Adhesive capsulitis of left shoulder; M54.51 Vertebrogenic low back pain; I10 Essential (primary) hypertension; K21.9 Gastro-esophageal reflux disease without esophagitis; R73.01 Impaired fasting glucose; E78.00 Pure hypercholesterolemia, unspecified; N40.0 Benign prostatic hyperplasia without lower urinary tract symptoms; R10.11 Right upper quadrant pain

== ENCOUNTER 2024-08-23 12:14 | Outpatient (AMB) | payer OTHER, SELFPAY ==
--- NOTE | 2024-08-23 12:32 | A.OFFVIS_ITS ---
Vital Signs 08/23/24 12:33 Height 5 ft 7 in Weight 174 lb BMI 27.2 BP 137/77 Blood Pressure Location Lt brachial Position Sitting Respiration 16 Pulse 99 Pulse Source Pulse Oximeter Pulse Oximetry (%) 97 Oxygen Delivery Method Room Air Intake Visit Reasons: Shoulder Inj w/ US Guidance Mainframe Systems Administrator Required: No Medical Stenographer: Medical Stenographer Present Accompanied by: Dale Tidwell Allergies tramadol Adverse Reaction (Severe, Verified 08/23/24 12:33) chest pain, anxiety oxycodone Adverse Reaction (Intermediate, Verified 08/23/24 12:33) hand rash Medication List - Last Reconciled 08/23/24 by Kiah Andrew LPN acetaminophen (Tylenol Extra Strength) 500 mg PO Q6H PRN celecoxib 200 mg PO BID 1 month cyclobenzaprine 10 mg PO TID PRN 15 days gabapentin 100 mg PO BEDTIME hydrochlorothiazide 12.5 mg PO DAILY lidocaine 5% (Lidoderm) 1 patch topical DAILY lisinopril 30 mg PO DAILY 90 days methocarbamol 750 mg PO TID omeprazole 20 mg PO DAILY 90 days simvastatin 20 mg PO BEDTIME 90 days [facility] Medical History Spondylosis of lumbar spine Radicular low back pain RLQ abdominal pain Frequent falls Headache Radiculopathy, lumbar region Facet arthropathy Sacroiliitis Right flank pain Dyspnea on exertion Myalgia Post-viral cough syndrome COVID-19 GERD (gastroesophageal reflux disease) HTN (hypertension) Right renal stone Fatty liver Respiratory tract infection Rotator cuff disorder Vitamin D deficiency Tubular adenoma of colon Hypercholesterolemia BPH (benign prostatic hyperplasia) Right shoulder pain Surgical History Hx of fusion of cervical spine History of spinal surgery History of arthroscopy of right shoulder History of eye surgery Family History Father Hypertension Mother No problems noted. Paternal Uncle Cancer Social History Housing: House Are you a primary career and guidance counselor to a significant other at home: No Do you presently have visiting nurse or other home services: No Alcohol intake: former Comment: tolerable Patient Tobacco Use Status: Never used Tobacco e-Cigarette/Vaping Use: Never Used Second Hand Smoke Exposure: No service: No Current occupational status: employed Current occupation: right hand dominant Cognitive needs: No Hearing needs: No Vision needs: Yes (glasses) Physical Exam Vital Signs: Last Vital Signs Pulse 99 08/23/24 12:33 Resp 16 08/23/24 12:33 BP 137/77 08/23/24 12:33 Pulse Ox 97 08/23/24 12:33 Oxygen Delivery Method Room Air 08/23/24 12:33 BMI result Body Mass Index 27.2 Office Procedures AMB Joint Injection/Aspiration Joint Injection/Aspiration Primary Site: left shoulder Prep: site was prepped using sterile technique Injected: 40 mg of, Kenalog, with 4 mL of (ropivacaine 0.25%) and in the joint Approach Used: posterolateral (US guided) Procedure: The patient tolerated the procedure well Coding 16373 - Glenohumeral with ultrasound guidance Procedure code (CPT) selection complete Office Meds Kenalog 40 mg/mL suspension for injection Performing Provider: Paresh Montgomery MD Performing Location: [facility] Administered by: Paresh Montgomery MD on 08/23/24 12:33 Dose Route Admin Location Dispensed Lot Number Expiration Date NDC [employer] 40 mg intra-articular 1 mL Assessment & Plan Assessment & Plan (1) Adhesive capsulitis of left shoulder: Code(s): M75.02 - Adhesive capsulitis of left shoulder Category: Medical Plan Patient is status post left GH inj under US. Patient tolerated procedure well and was discharged home in stable condition with discharge instructions. All questions were answered. We will follow-up via telephone or in clinic to assess response to therapy. A follow-up appointment was made during today's visit. Orders: Orders AMB Joint Injection/Aspiration Today M75.02 - Adhesive capsulitis of left shoulder Medications: New Kenalog (triamcinolone acetonide) 40 mg intra-articular ONCE 1 mL 0RF NS M75.02 - Adhesive capsulitis of left shoulder Coding Level of Care Code Procedure Only Diagnoses Adhesive capsulitis of left shoulder M75.02 CPT Codes Coding - Joint 8: 23700 - Glenohumeral with ultrasound guidance ([id number])
[2024-08-23 12:33] VITALS: BP 137/77; PULSE 99; RESP 16; O2SAT 97; BMI 27.2
--- OUTSIDE RECORDS SUMMARY | 2024-08-23 14:28 | XMS_ITS | Patient Health Record ---
Author Organization [facility] Address [address] [place] [address] Care Team Providers Care Routing Equipment Tender Name Role Phone Danitza Humphreys MD Primary [...] Notes Problem Rectal bleeding (K62.5) Active confirmed 49932900 Problem Epigastric pain (R10.13) Active confirmed 37514671 Problem Personal history of colonic polyps (Z86.010) Active confirmed 673280606 Problem Gastritis, unspecified, without bleeding (K29.70) Active confirmed 446183260 Problem Gastroesophageal reflux disease without esophagitis (K21.9) Active confirmed 758426777 Problem History of colon polyps (Z86.010) Active confirmed History of polyp of colon (160062411) Problem H. pylori infection (A04.8) Active confirmed 686091915 PLAN OF TREATMENT Pending Test Test Name Order Date H PYLORI AG, STOOL 06/10/2021 Future Test Test Name Order Date COLONOSCOPY 12/26/2012 COLONOSCOPY 07/26/2018 UPPER GI ENDOSCOPY 11/09/2020 COLONOSCOPY 11/09/2020 Insurance Providers Payer Name Payer Address Payer Phone Subscriber Number Group Number Insured Name Patient Relationship to Insured Coverage Start Date Coverage End Date [facility] [address] [place], [place] [phone] [id number] KATHLEEN MOODY Self - patient is the insured MEDICAID OF [facility] [address] [place] [address] [id number] KATHLEEN MOODY Self - patient is the insured MEDICAL (GENERAL) HISTORY Medical History History ICD Code colonoscopy 12/01/20, tubular and tubulovi llous adenomas, seven-year followup. hypertension hyperlipidemia Epigastric pain, upper endos copy 12/01/20, antral biopsies showed H. pylori gastritis, treated with OAC x2 weeks Surgical History Surgery Date(Month/Year) rotator cuff tear repair eye surgery - bilateral
== END 2024-08-23 12:55 | disposition home or self-care (01) ==
PROVIDERS: PCP Internal Medicine; Visit Provider Internal Medicine
DX: M75.02 Adhesive capsulitis of left shoulder (principal)
CPT/HCPCS: 20611

== ENCOUNTER → 2024-08-23 12:14 | Outpatient (BNVA) | payer OTHER, SELFPAY | PROVIDERS: PCP Internal Medicine; Visit Provider Internal Medicine | DX: M75.02 Adhesive capsulitis of left shoulder (principal) | CPT/HCPCS: 20610; 20611; J3300 ==

== ENCOUNTER 2024-09-05 09:50 | Outpatient (REF) | payer OTHER, SELFPAY ==
--- NOTE | ~2024-09-05 | US_ITS ---
CLINICAL HISTORY: R79.89 - Other specified abnormal findings of blood chemistry US abdomen complete with duplex and color Doppler Comparison: CT/REG/[place]/SR - CT ABDOMEN PELVIS W IV CON - 07/26/23 15:39 EST US - US ABDOMEN COMPLETE - 07/07/20 09:10 EST Findings: The visualized pancreas, aorta, and inferior vena cava are unremarkable. Liver normal size and mildly echogenic Right lobe 15.5 cm length. No focal hepatic masses. Common duct 3.2 mm diameter. Physiologic distention of the gallbladder. No gallstones or sludge. No gallbladder wall thickening. No pericholecystic fluid. No sonographic Sharma sign. Main portal vein antegrade. Right kidney normal size, 10.8 cm in length. Normal cortical width and echotexture. No hydronephrosis.Nonobstructing caliceal stone midpole measuring 3 x 2 x 2 mm and lower pole measuring 3 x 4 x 4 mm previously measuring 4 x 5 mm. Renal cortical cyst upper pole measuring 7 x 5 x 5 mm previously measuring 13 x 7 x 9 mm. Left kidney normal, 10.4 cm in length. Normal cortical width and echotexture. No solid or cystic renal masses. No nephrolithiasis. No hydronephrosis. Spleen measures 7.8 cm. No splenic masses. No ascites. No lymphadenopathy. Impression: 1. Hepatic steatosis 2. Normal gallbladder. 3. Nephrolithiasis and right renal cyst as described This document has been electronically signed by: Gt Oates MD on 09/06/2024 08:44:43
--- OUTSIDE RECORDS SUMMARY | 2024-09-05 12:00 | XMS_ITS | Patient Health Record ---
Author Organization [facility] Address [address] [place] [address] Care Team Providers Care Veterinarian Laboratory Animal Care Name Role Phone Danitza Humphreys MD Primary Care Provider John Gomez Jr Unavailable Reason For Referral No Information Medications Medication SIG (Take, Route, Frequency, Duration) Notes [...] Orally Onc e a day 11/09/2020 Active Immunizations Vaccine Route Administration Date Status Comme nts Influenza Unknown 07/26/2018 Refused Influenza Unknown 11/09/2020 Refused Problems Problem Type SNOMED Code ICD Code Onset Dates Problem Status W/U Status Risk Notes Problem 02701948 Rectal bleeding (K62.5) Active confirmed Problem 75448709 Epigastric pain (R10.13) Active confirmed Problem 143530353 Personal history of colonic polyps (Z86.010) Active confirmed Problem 772330711 Gastritis, unspecified, without bleeding (K29.70) Active confirmed Problem 090992001 Gastroesophageal reflux disease without esophagitis (K21.9) Active confirmed Problem History of polyp of colon (707564743) History of colon polyps (Z86.010) Active confirmed Problem 672362033 H. pylori infect ion (A04.8) Active confirmed Plan Of Treatment Pending Test Test Name Order Date H PYLORI AG, STOOL 06/10/2021 Future Test Test Name Order Date COLONOSCOPY 12/26/2012 COLONOSCOPY 07/26/2018 UPPER GI ENDOSCOPY 11/09/2020 COLONOSCOPY 11/09/2020 Insurance Providers Payer Name Payer Address Payer Phone Subscriber Number Group Number Insured Name Patient Relationship to Insured Coverage Start Date Coverage End Date [facility] [address] [place], [place] [id number] KATHLEEN MOODY Self - patient is the insured MEDICAID OF [facility] [employer] [address] [place] [address] [id number] KATHLEEN MOODY Self - patient is the insured Medical (General) History Medical History History ICD Code colonoscopy 12/01/20, tubular and tubulovi llous adenomas, seven-year followup. hypertension hyperlipidemia Epigastric pain, upper endos copy 12/01/20, antral biopsies showed H. pylori gastritis, treated with OAC x2 weeks Surgical History Surgery Date(Month/Year) rotator cuff tear repair eye surgery - bilateral
== END 2024-09-05 09:51 | disposition home or self-care (01) ==
LOC: HO.HMGCX 09:50
PROVIDERS: PCP Internal Medicine; Visit Provider Internal Medicine
DX: R10.11 Right upper quadrant pain (principal); R79.89 Other specified abnormal findings of blood chemistry
CPT/HCPCS: 76700

== ENCOUNTER → 2024-09-05 09:53 | Outpatient (BNV) | payer OTHER, SELFPAY | PROVIDERS: PCP Internal Medicine; Visit Provider Radiology Diagnostic Radiology | DX: R10.11 Right upper quadrant pain (principal) | CPT/HCPCS: 76700 ==

== ENCOUNTER 2024-11-26 13:22 | Outpatient (AMB) | payer OTHER, SELFPAY ==
[2024-11-26 13:26] VITALS: BP 110/80; PULSE 77; O2SAT 98; BMI 26.7
--- NOTE | 2024-11-26 13:26 | A.OFFPC_ITS ---
Vital Signs 11/26/24 13:26 Height 5 ft 7 in Weight 170 lb 8 oz BMI 26.7 BP 110/80 Blood Pressure Location Lt brachial Position Sitting Pulse 77 Pulse Source Pulse Oximeter Pulse Oximetry (%) 98 Oxygen Delivery Method Room Air Intake Visit Reasons: LBP Door Slinger Required: No Accompanied by: Self / Same As Patient Allergies tramadol Adverse Reaction (Severe, Verified 11/26/24 13:26) chest pain, anxiety oxycodone Adverse Reaction (Intermediate, Verified 11/26/24 13:26) hand rash Medication List - Last Reconciled 11/26/24 by Danitza Humphreys MD acetaminophen (Tylenol Extra Strength) 500 mg PO Q6H PRN celecoxib 200 mg PO BID 1 month cyclobenzaprine 10 mg PO TID PRN 15 days gabapentin 100 mg PO BEDTIME hydrochlorothiazide 12.5 mg PO DAILY hydrocortisone 2.5% (Proctosol HC) 1 appl RI BID-QID PRN lidocaine 5% (Lidoderm) 1 patch topical DAILY lisinopril 30 mg PO DAILY 90 days methocarbamol 750 mg PO TID omeprazole 20 mg PO DAILY 90 days simvastatin 20 mg PO BEDTIME 90 days Tobacco use date assessed: 11/26/24 Dental Screening Dental Screen Date: 11/26/24 Did you have a dental visit in the last 12 months?: Yes Did you have a dental problem in the last 6 months where you did not have access to dental care?: No Was dental information given to patient?: Patient has dentist [facility] Medical History (Updated 11/26/24 @ 13:42 by Danitza Humphreys MD) Impacted cerumen of both ears Knee pain, bilateral [id number] syndrome H. pylori infection Chronic right sacroiliac joint pain Chronic pain syndrome Sciatic nerve pain Lumbosacral radiculopathy due to degenerative joint disease of spine Lumbar radicular pain Left shoulder pain Tendonitis of left rotator cuff Chronic back pain greater than 3 months duration Vertebrogenic low back pain Acromioclavicular joint arthritis Chronic anemia Spondylosis of lumbar spine Radicular low back pain RLQ abdominal pain Frequent falls Headache Radiculopathy, lumbar region Facet arthropathy Sacroiliitis Right flank pain Dyspnea on exertion Myalgia Post-viral cough syndrome COVID-19 GERD (gastroesophageal reflux disease) HTN (hypertension) Right renal stone Fatty liver Respiratory tract infection Rotator cuff disorder Vitamin D deficiency Tubular adenoma of colon Hypercholesterolemia BPH (benign prostatic hyperplasia) Right shoulder pain Surgical History Hx of fusion of cervical spine History of spinal surgery History of arthroscopy of right shoulder History of eye surgery Family History Father Hypertension Mother No problems noted. Paternal Uncle Cancer Social History Housing: House Are you a primary manager managed care to a significant other at home: No Do you presently have visiting nurse or other home services: No Alcohol intake: former Comment: tolerable Patient Tobacco Use Status: Never used Tobacco e-Cigarette/Vaping Use: Never Used Second Hand Smoke Exposure: No service: No Current occupational status: employed Current occupation: right hand dominant Cognitive needs: No Hearing needs: No Vision needs: Yes (glasses) Questionnaire PHQ-9 Over the last 2 weeks, how often have you been bothered by any of the following problems? 1. Little interest or pleasure in doing things: not at all 2. Feeling down, depressed, or hopeless: not at all 3. Trouble falling or staying asleep, or sleeping too much: not at all 4. Feeling tired or having little energy: not at all 5. Poor appetite or overeating: not at all 6. Feeling bad about yourself - or that you are a failure or have let yourself or your family down: not at all 7. Trouble concentrating on things, such as reading the newspaper or watching television: not at all 8. Moving or speaking so slowly that other people could have noticed. Or the opposite - being so fidgety or restless that you have been moving around a lot more than usual: not at all 9. Thoughts that you would be better off or of hurting yourself in some way: not at all Total score: 0 Source: Developed by Drs. Omega Solomon, Trini Bingham, Edi Olsen and colleagues, with an educational jimmy from [employer]. Thrive Questionnaire Date Thrive assessed: 11/26/24 I am a: Patient What is your living situation today?: I have a steady place to live Within the past 12 months, did the food you bought not last and you didn't have the money to get more?: Never true Within the past 12 months, did you worry whether your food would run out before you got money to buy more?: Never true Do you have trouble paying for medicines?: No Do you have trouble getting transportation to medical appointments?: No Do you have trouble paying your heating and electricity bill?: No Do you have trouble taking care of your child, family member or friend?: No Do you have trouble with day-to-day activities such as bathing, preparing meals, shopping, managing finances, etc.?: Yes Are you currently unemployed and looking for a job?: Yes Are you interested in more education?: No Please select the resources that you would like help with: None Currently or been in a relationship where the following occur: I choose not to answer THRIVE Score: 0 AUDIT C Alcohol Use Questionnaire (AUDIT-C) 1. How often do you have a drink containing alcohol?: Never 3. How often do you have six or more drinks on one occasion?: Never Total Score: 0 SATNAM-7 AMB Questionnaire SATNAM-7 Date SATNAM - 7 assessed: 11/26/24 Feeling nervous, anxious, or on edge: 0 = Not at all Not being able to stop or control worryin = Not at all Worrying too much about different things: 0 = Not at all Trouble relaxin = Not at all Being so restless that it is hard to sit still: 1 = Several days Becoming easily annoyed or irritable: 1 = Several days Feeling afraid as if something awful might happen: 0 = Not at all Total SATNAM-7 score (0-4 normal; 5-9 mild; 10-14 moderate; 15-21 severe): 2 Source: Developed by Drs. Omega Solomon, Trini Bingham, Edi Olsen and colleagues, with an educational jimmy from [employer]. Physical exam (Primary Care) Vital Signs: Last Vital Signs Pulse 77 11/26/24 13:26 BP 110/80 11/26/24 13:26 Pulse Ox 98 11/26/24 13:26 Oxygen Delivery Method Room Air 11/26/24 13:26 BMI result Body Mass Index 26.7 Tobacco/Smoking Status: Tobacco use Status Tobacco use date assessed 11/26/24 11/26/24 13:32 Patient Tobacco Use Status Never used Tobacco 11/26/24 13:32 e-Cigarette/Vaping Use Never Used 11/26/24 13:32 PHQ-9: PHQ-9 Score PHQ-9: Total score 0 11/26/24 13:35 Thrive Assessment: Date of Thrive Assessment Date Thrive assessed 11/26/24 11/26/24 13:32 Currently or been in a relationship where the following occur: I choose not to answer Const General: alert; No acute distress Eyes Conjunctivae: conjunctivae normal Resp Auscultation: clear to auscultation bilaterally Cardio Rate: regular rate Rhythm: regular rhythm GI Inspection: Yes normal to inspection Extrem General: Yes normal to inspection and No edema Coding Level of Care Code Est Pt Level 4 (27311) Complex EM visit Add On G2211 Diagnoses Adhesive capsulitis of left shoulder M75.02 Postlaminectomy syndrome M96.1 Essential hypertension I10 Hypertension type: essential hypertension Gastroesophageal reflux disease without esophagitis K21.9 Esophagitis presence: without esophagitis Right renal stone N20.0 Fatty liver K76.0 Hemorrhoid K64.9 Assessment & Plan Assessment & Plan (1) Adhesive capsulitis of left shoulder: Code(s): M75.02 - Adhesive capsulitis of left shoulder Category: Medical Plan: Patient has had injection with steroids under Orthopedics (2) Postlaminectomy syndrome: Comment: [place] [facility] done February 13, 2023, [place] Dr. Lay Code(s): M96.1 - Postlaminectomy syndrome, not elsewhere classified Category: Medical Plan: Patient continues to see pain management (3) HTN (hypertension): Code(s): I10 - Essential (primary) hypertension Category: Medical Qualifiers: Hypertension type: essential hypertension Qualified Code(s): I10 - Essential (primary) hypertension Plan: Continue with blood pressure medication. Decrease salt intake and exercise takes lisinopril 30 mg once a day hydrochlorothiazide 12.5 mg once a day (4) GERD (gastroesophageal reflux disease): Code(s): K21.9 - Gastro-esophageal reflux disease without esophagitis Category: Medical Qualifiers: Esophagitis presence: without esophagitis Qualified Code(s): K21.9 - Gastro-esophageal reflux disease without esophagitis Plan: Avoid the foods that causes that usually spicy foods, tomato products, juices, coffee, soda and foods that your sensitive to. After eating do not lie down, allow 3-4 hours before in lie down. And keep the head of bed above 30 degrees to avoid the acid from going up. (5) Right renal stone: Comment: June 2020October/2022June 2023, multiple August 2024 Code(s): N20.0 - Calculus of kidney Category: Medical Plan: Keep well hydrated renal stone stable size (6) Fatty liver: Comment: June 2020 Code(s): K76.0 - Fatty (change of) liver, not elsewhere classified Category: Medical Plan: Low-fat diet and exercise (7) Hemorrhoid: Code(s): K64.9 - Unspecified hemorrhoids Category: Medical Plan History of Present Illness The patient is a 64-year-old male presenting with multiple follow-up needs for his existing chronic medical conditions. Central to his visit is the management of longstanding conditions including benign prostatic hyperplasia, hepatic steatosis, hypolipidemia, nephrolithiasis, glucose intolerance, and hypertension. An earlier colon screening in November 2020 revealed a history of tubular adenoma, and while there are no reports of progression, continuity of surveillance is acknowledged. Sonographic imaging in August identified a stable-sized right renal calculus coinciding with laboratory reports indicating hepatic steatosis, fair cholesterol control, and varied hematologic panels manifesting mild anemia with manageable fluctuations across metrics. Despite consistent medication adherence that holistically manages cholesterol and blood pressure, the patient continues to contend with his existing skeletal pain complaints exacerbated by lumbar inadequacies post-spinal intervention. The conversation explores delayed physical therapy benefits associated with adhesive capsulitis in the left shoulder, indicating improved range post- intervention but persisting mild pain complaints. Pain management complexity increases without access to previously tolerated tramadol prescribing physicians, highlighting systemic barriers impeding adequate symptom palliation. Remedial causes are complicated by known hypersensitivities to opioid derivatives and varied communications regarding procuring necessary analgesics further compound regular pain control. Apropos anemia presents minor fluctuations; though, routine evaluations are suggested by the latest results in April indicating RBC count control persists with occasional deviations. The latest pharmacy listing confirms arteri al coalescence post regular administration of prescribed antihypertensives alongside necessary nutritional modifications and lifestyle conditioning for hepatic restitutive intent. Subsequent engagement ensures integral proactive counseling about further preventive health measures, including compliance towards vaccinations particularly the shingles vaccine, as well as routine updates circulated through eligible channels, for augmentative consumption. Health Maintenance - Shingles vaccination is recommended and discussed, with available access at [facility]. - Low-fat diet adherence to manage hypercholesterolemia and hepatic steatosis is advocated. - Continual follow-up on glucose intolerance with lifestyle modifications is advised. Social History - The patient reports adherence to a lower-fat diet. - Shoulder mobility is limited, impacting physical activity to some degree. - Discusses pharmaceutical barriers in accessing historical prescriptions for pain management. Review of Systems - Constitutional: Reports severe intermittent back pain exacerbated by postlaminectomy syndrome. - Skin: Reports occasional itchiness from tramadol use. - Gastrointestinal: Reports GERD, denies constipation; recurrence of hemorrhoidal symptoms discussed. - Musculoskeletal: Reports left shoulder pain from adhesive capsulitis, and lumbar pain. - Genitourinary: Reports right flank discomfort attributed to nephrolithiasis. - Hematologic: Reports a history of anemia, with stability issues described. Physical Exam - Musculoskeletal- Left shoulder reports limited movement and persistent mild pain post-steroid injection. - Abdomen- Reports mild right flank tenderness consistent with stable nephrolithiasis. Results - Imaging (August): Persistent hepatic steatosis; stable nephrolithiasis sizings at 3 x 2 x 2 mm. - Hematology (April): Mild anemia fluctuating RBC counts. Plan Symptomatic management of nephrolithiasis will focus on adequate hydration to minimize stone progression. Dietary adherence to low-fat principles is advised for hepatic steatosis and hypercholesterolemia management. The left shoulder capsulitis is tentatively reassessed; despite steroid therapy benefits, additional focus on monitored therapeutic movements remains recommended. Anemia trends will continue to be observed with possible evaluation if future perturbations arise. Pain management alternatives such as interdiction of tramadol prescriptions are actively mediated amidst bridging options citing adherence to allergic contraindications with existing opioids. Patient was informed and verbally consented to the use of an ambient scribe for clinic note documentation during this visit. Discussion Notes We discussed that nephrolithiasis shows stability without dimensional increase as per August imaging, emphasizing hydration. For hepatic steatosis and hypercholesterolemia, patient adherence to low-fat diet continues advised with possible further testing if significant fluctuations occur. We reviewed limits on shoulder movement despite steroid improvement from capsulitis; suggestion aligns with more flexible physical activity. We explored possible shingle vaccination uptake, as family history conveys its necessity amidst commonly influenced rubric. I acknowledged barriers in previous analgesics prescription and assured attempts to regain access to prior supportive care would be pursued, including by proxy shaping of regimens with tramadol should current situative channels remain non-responsive. Patient Instructions - Ensure adequate water intake to prevent progression of kidney stones. - Continue with a low-fat diet to manage liver and cholesterol levels. - Keep the shoulder mobile and engage in physical therapy exercises within tolerance. - Acquire shingles vaccination at the local [facility] to prevent future complications. - Contact my office if retrieving pain medications becomes difficult. - Use prescribed topical treatment for any hemorrhoidal flare-ups. - Continue with regular health screenings and lab follow-ups as discussed. Medications: New hydrocortisone 2.5% (Proctosol HC) 1 appl RI BID-QID PRN 30 grams 3RF itching K64.9 - Unspecified hemorrhoids
--- OUTSIDE RECORDS SUMMARY | 2024-11-26 14:57 | XMS_ITS | Patient Health Record ---
Author Organization [facility] Address [address] [place] [address] Care Team Providers Care Ict Sales Assistant Name Role Phone Danitza Humphreys MD Primary Care Provider John Gomez Jr Unavailable [phone] Reason For Referral No Information Medications Medication [...] Problem Status W/U Status Risk Notes Problem 14951320 Rectal bleeding (K62.5) Active confirmed Problem [id number] Epigastric pain (R10.13) Active confirmed Problem 939400564 Personal history of colonic polyps (Z86.010) Active confirmed Problem 461719960 Gastritis, unspecified, without bleeding (K29.70) Active confirmed Problem 402722273 Gastroesophageal reflux disease without esophagitis (K21.9) Active confirmed Problem History of polyp of colon (163576142) History of colon polyps (Z86.010) Active confirmed Problem 930642315 H. pylori infect ion (A04.8) Active confirmed Plan Of Treatment Pending Test Test Name Order Date H PYLORI AG, STOOL 06/10/2021 Future Test Test Name Order Date COLONOSCOPY 12/26/2012 COLONOSCOPY 07/26/2018 UPPER GI ENDOSCOPY 11/09/2020 COLONOSCOPY 11/09/2020 Insurance Providers Payer Name Payer Address Payer Phone Subscriber Number Group Number Insured Name Patient Relationship to Insured Coverage Start Date Coverage End Date [facility] [address] [place], [place] [id number] KATHLEEN MOODY Self - patient is the insured MED[employer] OF [employer] [address] [place] [address] [id number] KATHLEEN MOODY Self - patient is the insured Medical (General) History Medical History History ICD Code colonoscopy 12/01/20, tubular and tubulovi llous adenomas, seven-year followup. hypertension hyperlipidemia Epigastric pain, upper endos copy 12/01/20, antral biopsies showed H. pylori gastritis, treated with OAC x2 weeks Surgical History Surgery Date(Month/Year) rotator cuff tear repair eye surgery - bilateral
== END 2024-11-26 13:52 | disposition home or self-care (01) ==
LOC: HO.HMCH 13:23
PROVIDERS: PCP Internal Medicine; Visit Provider Internal Medicine
DX: M75.02 Adhesive capsulitis of left shoulder (principal); M96.1 Postlaminectomy syndrome, not elsewhere classified; I10 Essential (primary) hypertension; K21.9 Gastro-esophageal reflux disease without esophagitis; N20.0 Calculus of kidney; K76.0 Fatty (change of) liver, not elsewhere classified; K64.9 Unspecified hemorrhoids

== ENCOUNTER → 2024-11-26 13:22 | Outpatient (BNVA) | payer OTHER, SELFPAY | PROVIDERS: PCP Internal Medicine; Visit Provider Internal Medicine | DX: M75.02 Adhesive capsulitis of left shoulder (principal); M96.1 Postlaminectomy syndrome, not elsewhere classified; I10 Essential (primary) hypertension; K21.9 Gastro-esophageal reflux disease without esophagitis; N20.0 Calculus of kidney; K76.0 Fatty (change of) liver, not elsewhere classified; K64.9 Unspecified hemorrhoids; N40.0 Benign prostatic hyperplasia without lower urinary tract symptoms | CPT/HCPCS: 99212 ==

== ENCOUNTER 2024-11-27 09:37 | Outpatient (AMB) | payer OTHER, SELFPAY ==
[2024-11-27 09:44] VITALS: BP 117/67; PULSE 81; RESP 16; O2SAT 97; BMI 26.8
--- NOTE | 2024-11-27 09:44 | A.OFFVIS_ITS ---
Vital Signs 11/27/24 09:44 Height 5 ft 7 in Weight 171 lb BMI 26.8 BP 117/67 Blood Pressure Location Lt brachial Position Sitting Respiration 16 Pulse 81 Pulse Source Pulse Oximeter Pulse Oximetry (%) 97 Oxygen Delivery Method Room Air Intake Visit Reasons: increased pain Safety Representative Required: No Allergies tramadol Adverse Reaction (Severe, Verified 11/27/24 09:45) chest pain, anxiety oxycodone Adverse Reaction (Intermediate, Verified 11/27/24 09:45) hand rash Medication List - Last Reconciled 11/27/24 by Kiah Andrew LPN acetaminophen (Tylenol Extra Strength) 500 mg PO Q6H PRN hydrochlorothiazide 12.5 mg PO DAILY hydrocortisone 2.5% (Proctosol HC) 1 appl ME BID-QID PRN lidocaine 5% (Lidoderm) 1 patch topical DAILY lisinopril 30 mg PO DAILY 90 days omeprazole 20 mg PO DAILY 90 days simvastatin 20 mg PO BEDTIME 90 days HPI HPI increased pain : Details: History of Present Illness The patient is a 64-year-old male presenting with chronic low back pain for follow-up. The pain is predominantly located in the lower back and has been persistent for several years, mainly in the axial region with occasional radiation to the lateral aspects. The patient underwent two lumbar decompression surgeries, which provided temporary relief. However, there has been a resurgence of pain impacting his daily activities. The pain intensity increases with lumbar extension and facet loading, indicating lumbar facet arthritis as a possible source of discomfort. Previously conducted MRI evaluations did not indicate any new alarming developments. The patient's historical treatments included surgical decompression, facet joint interventions, and physical therapy with varying degrees of temporary relief reported. Pain Description - Onset: Persistent over several years, worsening recently - Quality: Dull, aching, with sharp intermittent episodes - Primary Location: Lower back - Radiation: To lateral aspects of the back - Exacerbating Factors: Standing after sitting, loading of the lumbar spine, lumbar extension - Relieving Factors: Avoidance of heavy lifting, inability to lay flat due to increased pain, no effective relief with current strategies - Interference with Activities: Difficulty with prolonged sitting, standing, impairment in sleep due to inability to lay flat Physical Exam - Musculoskeletal- Pain on lumbar extension and facet loading, indicating potential lumbar facet source Results - Previous MRI of Lumbar Spine: Conducted less than one year ago, no significant new findings Pain Management - Affect: Increased pain is impacting daily functionality and sleep - Analgesia: Current pain levels are high without specified current medications mentioned - Adverse Effects: NONE reported - Activities of Daily Living: Difficulty with usual motions such as sitting, standing, sleeping flat - Aberrant Drug-Related Behaviors: NONE reported [facility] Medical History (Updated 11/26/24 @ 13:42 by Danitza Humphreys MD) Impacted cerumen of both ears Knee pain, bilateral [id number] syndrome H. pylori infection Chronic right sacroiliac joint pain Chronic pain syndrome Sciatic nerve pain Lumbosacral radiculopathy due to degenerative joint disease of spine Lumbar radicular pain Left shoulder pain Tendonitis of left rotator cuff Chronic back pain greater than 3 months duration Vertebrogenic low back pain Acromioclavicular joint arthritis Chronic anemia Spondylosis of lumbar spine Radicular low back pain RLQ abdominal pain Frequent falls Headache Radiculopathy, lumbar region Facet arthropathy Sacroiliitis Right flank pain Dyspnea on exertion Myalgia Post-viral cough syndrome COVID-19 GERD (gastroesophageal reflux disease) HTN (hypertension) Right renal stone Fatty liver Respiratory tract infection Rotator cuff disorder Vitamin D deficiency Tubular adenoma of colon Hypercholesterolemia BPH (benign prostatic hyperplasia) Right shoulder pain Surgical History Hx of fusion of cervical spine History of spinal surgery History of arthroscopy of right shoulder History of eye surgery Family History Father Hypertension Mother No problems noted. Paternal Uncle Cancer Social History Housing: House Are you a primary manager medicare marketing to a significant other at home: No Do you presently have visiting nurse or other home services: No Alcohol intake: former Comment: tolerable Patient Tobacco Use Status: Never used Tobacco e-Cigarette/Vaping Use: Never Used Second Hand Smoke Exposure: No service: No Current occupational status: employed Current occupation: right hand dominant Cognitive needs: No Hearing needs: No Vision needs: Yes (glasses) Physical Exam Vital Signs: Last Vital Signs Pulse 81 11/27/24 09:44 Resp 16 11/27/24 09:44 BP 117/67 11/27/24 09:44 Pulse Ox 97 11/27/24 09:44 Oxygen Delivery Method Room Air 11/27/24 09:44 BMI result Body Mass Index 26.8 Assessment & Plan Assessment & Plan (1) Spondylosis of lumbar spine: Code(s): M47.816 - Spondylosis without myelopathy or radiculopathy, lumbar region Category: Medical Plan Plan - Initiate L3-L4 medial branch and L5 dorsal ramus test blocks to evaluate facet joint pain. - Proceed with radiofrequency ablation if test blocks confirm significant pain relief. - Discussed and decided against immediate spinal stimulator trial; prioritize RFA. - Education regarding RFA benefits and procedural expectations provided. - Schedule test blocks, ensuring pre-approval protocol adherence for RFA. Patient was informed and verbally consented to the use of an ambient scribe for clinic note documentation during this visit. Discussion Notes During our encounter, I explained to the patient that the likely source of his pain is lumbar facet arthritis, consistent with exacerbation during lumbar extension and facet loading. I detailed the diagnostic pathway involving L3-L4 medial branch and L5 dorsal ramus blocks to confirm facet joint pain, which if positive, would lead to radiofrequency ablation, a procedure offering considerable relief duration for joint-mediated discomfort. The process of RFA was elucidated as a safe, minimally invasive method with potential effectiveness of approximately one year per session. The patient was informed about deferring more aggressive interventions like implantable spinal stimulators for future consideration if needed. We discussed anticipated benefits, and consent for proceeding with test blocks was obtained. The patient was advised that two rounds of test injections are necessary to secure approval for subsequent RFA. Follow-up and communication strategies, including scheduling, were confirmed. Patient Instructions - Await contact to schedule your test injections. - These injections will help confirm the source of your pain. - If injections help, we will proceed with radiofrequency ablation. - Avoid heavy lifting and activities that worsen your back pain. - Watch out for any new or worsening symptoms. Coding Level of Care Code Est Pt Level 3 (98511) Diagnoses Spondylosis of lumbar spine M47.816
--- OUTSIDE RECORDS SUMMARY | 2024-11-27 10:05 | XMS_ITS | Patient Health Record ---
Author Organization [facility] Address [address] [place] [address] Care Team Providers Care Md Psychiatry Name Role Phone Danitza Humphreys MD Primary [...] Problem Status W/U Status Risk Notes Problem [id number] Rectal bleeding (K62.5) Active confirmed Problem 10691697 Epigastric pain (R10.13) Active confirmed Problem 142610793 Personal history of colonic polyps (Z86.010) Active confirmed Problem 980443954 Gastritis, unspecified, without bleeding (K29.70) Active confirmed Problem 064571405 Gastroesophageal reflux disease without esophagitis (K21.9) Active confirmed Problem History of polyp of colon (462006079) History of colon polyps (Z86.010) Active confirmed Problem 520074586 H. pylori infect ion (A04.8) Active confirmed Plan Of Treatment Pending Test Test Name Order Date H PYLORI AG, STOOL 06/10/2021 Future Test Test Name Order Date COLONOSCOPY 12/26/2012 COLONOSCOPY 07/26/2018 UPPER GI ENDOSCOPY 11/09/2020 COLONOSCOPY 11/09/2020 Insurance Providers Payer Name Payer Address Payer Phone Subscriber Number Group Number Insured Name Patient Relationship to Insured Coverage Start Date Coverage End Date [facility] [address] [place], [place] [id number] KATHLEEN MOODY Self - patient is the insured MEDICA[employer] OF [employer] [address] [place] [address] [id number] KATHLEEN MOODY Self - patient is the insured Medical (General) History Medical History History ICD Code colonoscopy 12/01/20, tubular and tubulovi llous adenomas, seven-year followup. hypertension hyperlipidemia Epigastric pain, upper endos copy 12/01/20, antral biopsies showed H. pylori gastritis, treated with OAC x2 weeks Surgical History Surgery Date(Month/Year) rotator cuff tear repair eye surgery - bilateral
== END 2024-11-27 10:00 | disposition home or self-care (01) ==
LOC: HO.PMC 09:38
PROVIDERS: PCP Internal Medicine; Visit Provider Internal Medicine
DX: M47.816 Spondylosis without myelopathy or radiculopathy, lumbar region (principal)
CPT/HCPCS: 99213

== ENCOUNTER → 2024-11-27 09:37 | Outpatient (BNVA) | payer OTHER, SELFPAY | PROVIDERS: PCP Internal Medicine; Visit Provider Internal Medicine | DX: M47.816 Spondylosis without myelopathy or radiculopathy, lumbar region (principal) | CPT/HCPCS: 99212 ==

== ENCOUNTER 2025-01-09 06:09 | Outpatient (REF) | payer OTHER, SELFPAY ==
--- NOTE | ~2025-01-09 | FL_ITS ---
EXAMINATION: FL GUIDANCE ONLY HISTORY: M47.816 - Spondylosis without myelopathy or radiculopathy, lumbar region COMPARISON: None available. TECHNIQUE: Fluoroscopy time: 0.1 minutes. Cumulative Dose: 1.388 mGy. DAP: 0.0129 mGym2 Images: 2. FINDINGS: Fluoroscopic spot films of the lumbar spine demonstrate needles and contrast material in the regions of the bilateral L3-4, L4-5, and L5-S1 facet joints. FL/FL guidance in treatment room IMPRESSION: Fluoroscopy during procedure. Please see procedure report for additional information. Electronically signed by: Omega Lucas MD 01/09/2025 10:53 AM EDT
--- OUTSIDE RECORDS SUMMARY | 2025-01-09 06:12 | XMS_ITS | Patient Health Record ---
Author Organization [facility] Address [address] [place] [address] Care Team Providers Care Incendiaries Supervisor Name Role Phone Danitza Humphreys MD Primary [...] Problem Status W/U Status Risk Notes Problem 48674358 Rectal bleeding (K62.5) Active confirmed Problem 19409888 Epigastric pain (R10.13) Active confirmed Problem 549406634 Personal history of colonic polyps (Z86.010) Active confirmed Problem 842433631 Gastritis, unspecified, without bleeding (K29.70) Active confirmed Problem 919556293 Gastroesophageal reflux disease without esophagitis (K21.9) Active confirmed Problem History of polyp of colon (609583130) History of colon polyps (Z86.010) Active confirmed Problem 477532351 H. pylori infect ion (A04.8) Active confirmed Plan Of Treatment Pending Test Test Name Order Date H PYLORI AG, STOOL 06/10/2021 Future Test Test Name Order Date COLONOSCOPY 12/26/2012 COLONOSCOPY 07/26/2018 UPPER GI ENDOSCOPY 11/09/2020 COLONOSCOPY 11/09/2020 Insurance Providers Payer Name Payer Address Payer Phone Subscriber Number Group Number Insured Name Patient Relationship to Insured Coverage Start Date Coverage End Date [facility] [place] [address] [place], [place] [id number] KATHLEEN MOODY Self - patient is the insured MEDICAID OF [employer] [address] [place] [address] [id number] KATLHEEN MOODY Self - patient is the insured Medical (General) History Medical History History ICD Code colonoscopy 12/01/20, tubular and tubulovi llous adenomas, seven-year followup. hypertension hyperlipidemia Epigastric pain, upper endos copy 12/01/20, antral biopsies showed H. pylori gastritis, treated with OAC x2 weeks Surgical History Surgery Date(Month/Year) rotator cuff tear repair eye surgery - bilateral
== END 2025-01-09 06:10 | disposition home or self-care (01) ==
LOC: CF 06:09
PROVIDERS: Visit Provider Internal Medicine
DX: M47.816 Spondylosis without myelopathy or radiculopathy, lumbar region (principal)
CPT/HCPCS: 64493; 64494; J2003; J2795; Q9967

== ENCOUNTER 2025-01-09 10:19 | Outpatient (AMB) | payer OTHER, SELFPAY ==
--- NOTE | 2025-01-09 10:20 | MHC.OFFVIS ---
Vital Signs 01/09/25 10:26 01/09/25 10:48 Height 5 ft 7 in 5 ft 7 in Weight 171 lb 171 lb BMI 26.8 26.8 BP 120/75 122/79 Blood Pressure Location Lt brachial Lt brachial Position Sitting Sitting Respiration 16 16 Pulse 64 68 Pulse Source Pulse Oximeter Pulse Oximeter Pulse Oximetry (%) 97 94 Oxygen Delivery Method Room Air Room Air Intake Visit Reasons: Manuel Dx L3-L4-L5 MBB Allergies tramadol Adverse Reaction (Severe, Verified 11/27/24 09:45) chest pain, anxiety oxycodone Adverse Reaction (Intermediate, Verified 11/27/24 09:45) hand rash HPI HPI Manuel Dx L3-L4-L5 MBB: Details: Patient presents for scheduled procedure. Denies any recent cough, cold, infection, fever or other significant changes in medical history since last office visit. [facility] Medical History (Updated 11/26/24 @ 13:42 by Danitza Humphreys MD) Impacted cerumen of both ears Knee pain, bilateral [id number] syndrome H. pylori infection Chronic right sacroiliac joint pain Chronic pain syndrome Sciatic nerve pain Lumbosacral radiculopathy due to degenerative joint disease of spine Lumbar radicular pain Left shoulder pain Tendonitis of left rotator cuff Chronic back pain greater than 3 months duration Vertebrogenic low back pain Acromioclavicular joint arthritis Chronic anemia Spondylosis of lumbar spine Radicular low back pain RLQ abdominal pain Frequent falls Headache Radiculopathy, lumbar region Facet arthropathy Sacroiliitis Right flank pain Dyspnea on exertion Myalgia Post-viral cough syndrome COVID-19 GERD (gastroesophageal reflux disease) HTN (hypertension) Right renal stone Fatty liver Respiratory tract infection Rotator cuff disorder Vitamin D deficiency Tubular adenoma of colon Hypercholesterolemia BPH (benign prostatic hyperplasia) Right shoulder pain Surgical History Hx of fusion of cervical spine History of spinal surgery History of arthroscopy of right shoulder History of eye surgery Family History Father Hypertension Mother No problems noted. Paternal Uncle Cancer Social History Housing: House Are you a primary special needs child caregiver to a significant other at home: No Do you presently have visiting nurse or other home services: No Alcohol intake: former Comment: tolerable Patient Tobacco Use Status: Never used Tobacco e-Cigarette/Vaping Use: Never Used Second Hand Smoke Exposure: No service: No Current occupational status: employed Current occupation: right hand dominant Cognitive needs: No Hearing needs: No Vision needs: Yes (glasses) Physical Exam Vital Signs: Last Vital Signs Pulse 64 01/09/25 10:26 Resp 16 01/09/25 10:26 BP 120/75 01/09/25 10:26 Pulse Ox 97 01/09/25 10:26 Oxygen Delivery Method Room Air 01/09/25 10:26 BMI result Body Mass Index 26.8 Office Procedures Details: Lumbar Medial Branch Block, Bilateral L3, L4 medial branches and L5 Dorsal Ramus (2 levels, 3 nerves) After obtaining written consent, pre-procedure blood pressure and pulse were recorded and are in the nursing record for review. The patient was placed in a prone position. The respective lumbosacral area was prepped with chloraprep and draped in sterile fashion. The skin over the target medial branch nerves was anesthetized with 0.5% lidocaine. A 22 gauge 3.5 inch needle was inserted into the target medial branch nerve under fluoroscopic guidance. No paresthesias were elicited with needle placement and aspiration was negative for blood and CSF. Next, 0.2cc of omnipaque 180 was injected to verify positioning in AP and oblique imaging. Next 0.5 ml 0.5% ropivicaine was injected (0.5cc total per level). The identical procedure was performed at the remaining levels. The skin was cleansed and a sterile bandage was applied. Following the procedure the patient's vital signs were stable. The patient tolerated the procedure well and no complications were encountered. Following the procedure the patient's vital signs were stable. The patient was discharged home in good condition with post-procedural instructions. Time Out: Immediately prior to the procedure, the following was verbally confirmed that there is a signed consent form and that the correct patient, planned procedure, site and side are consistent with documentation and that necessary equipment and/or blood products are available prior to the start of the case. Complications: none EBL: <5 cc 94822 - with Fluoroscopy (L3-L4) 14332 - second level with Fluoroscopy (L3-L4-L5) (bilateral) Procedure code (CPT) selection complete Assessment & Plan Assessment & Plan (1) Spondylosis of lumbar spine: Code(s): M47.816 - Spondylosis without myelopathy or radiculopathy, lumbar region Category: Medical Plan Patient is status post bilateral diagnostic lumbar medial branch blocks. Patient tolerated procedure well and was discharged home in stable condition with discharge instructions. All questions were answered. We will follow-up via telephone or in clinic to assess response to therapy. A follow-up appointment was made during today's visit. Orders: Orders FL guidance in treatment room Today Xochitl Trevizo APRN, LOW PRESSURE KETTLE OPERATOR M47.816 - Spondylosis without myelopathy or radiculopathy, lumbar region AMB Medial Branch Block - Lumbar/Sacral Today Paresh Montgomery MD M47.816 - Spondylosis without myelopathy or radiculopathy, lumbar region Coding Level of Care Code Procedure Only Diagnoses Spondylosis of lumbar spine M47.816 CPT Codes Medial Branch Block Lumbar/Sacral1 - Branch Block Lumb/Sac 1: 24226 - with Fluoroscopy (L3-L4) ([id number]) Medial Branch Block Lumbar/Sacral1 - Branch Block Lumb/Sac 2: 55613 - second level with Fluoroscopy (L3-L4-L5) ([id number])
[2025-01-09 10:26] VITALS: BP 120/75; PULSE 64; RESP 16; O2SAT 97; BMI 26.8
[2025-01-09 10:48] VITALS: BP 122/79; PULSE 68; RESP 16; O2SAT 94; BMI 26.8
== END 2025-01-09 10:48 | disposition home or self-care (01) ==
LOC: HO.PMCPRC 10:19
PROVIDERS: PCP Internal Medicine; Visit Provider Internal Medicine
DX: M47.816 Spondylosis without myelopathy or radiculopathy, lumbar region (principal)
CPT/HCPCS: 64493; 64494

== ENCOUNTER 2025-01-15 10:26 | Outpatient (AMB) | payer OTHER, SELFPAY ==
[2025-01-15 10:34] VITALS: BP 141/83; PULSE 80; O2SAT 97; BMI 26.7
--- NOTE | 2025-01-15 10:34 | MHC.OFFVIS ---
Vital Signs 01/15/25 10:34 Height 5 ft 7 in Weight 170 lb 6 oz BMI 26.7 BP 141/83 H Blood Pressure Location Rt brachial Position Sitting Pulse 80 Pulse Source Pulse Oximeter Pulse Oximetry (%) 97 Oxygen Delivery Method Room Air Intake Visit Reasons: s/p mirna Dx L3-L4-L5 MBB Allergies tramadol Adverse Reaction (Severe, Verified 01/15/25 10:37) chest pain, anxiety oxycodone Adverse Reaction (Intermediate, Verified 01/15/25 10:37) hand rash HPI HPI s/p mirna Dx L3-L4-L5 MBB: Details: History of Present Illness The patient is a 64-year-old male presenting for follow-up after diagnostic lumbar medial branch blocks. The patient reports experiencing complete pain relief for one day following the procedure, which is consistent with the expected outcome of the diagnostic blocks. He is scheduled for a second round of diagnostic blocks after returning from travel, with the potential for a more permanent treatment involving nerve cauterization. The patient also reports a history of shoulder pain, which has improved significantly following a previous deep injection, reducing the frequency and intensity of pain. He occasionally experiences mild pain, which he manages with ice application. The patient has a known allergic reaction to oxycodone, which causes a rash and disrupts his sleep. He can tolerate tramadol, although it sometimes causes an internal itch. Pain Description - Lumbar pain relieved completely for one day after diagnostic blocks - Shoulder pain improved significantly after deep injection, with occasional mild pain managed by ice Physical Exam - Appears afebrile. - Alert and oriented. - Mood and affect appropriate. - Follows and participates in conversation appropriately. - Respiratory effort is unlabored. - Able to transition from sit to stand unassisted. - Ambulates with bilaterally normal heel strike and toe off. - Able to stand and walk on toes and heels. Results - 100% relief for 1 day from 1st diagnostic injection Pain Management - Affect: No specific mood impact discussed - Analgesia: Complete relief for one day post-procedure; allergic to oxycodone, tolerates tramadol with minor itch - Adverse Effects: Rash from oxycodone, internal itch from tramadol - Activities of Daily Living: Pain managed with ice, no significant interference reported - Aberrant Drug Related Behaviors: None reported [facility] Medical History (Updated 11/26/24 @ 13:42 by Danitza Humphreys MD) Impacted cerumen of both ears Knee pain, bilateral [id number] syndrome H. pylori infection Chronic right sacroiliac joint pain Chronic pain syndrome Sciatic nerve pain Lumbosacral radiculopathy due to degenerative joint disease of spine Lumbar radicular pain Left shoulder pain Tendonitis of left rotator cuff Chronic back pain greater than 3 months duration Vertebrogenic low back pain Acromioclavicular joint arthritis Chronic anemia Spondylosis of lumbar spine Radicular low back pain RLQ abdominal pain Frequent falls Headache Radiculopathy, lumbar region Facet arthropathy Sacroiliitis Right flank pain Dyspnea on exertion Myalgia Post-viral cough syndrome COVID-19 GERD (gastroesophageal reflux disease) HTN (hypertension) Right renal stone Fatty liver Respiratory tract infection Rotator cuff disorder Vitamin D deficiency Tubular adenoma of colon Hypercholesterolemia BPH (benign prostatic hyperplasia) Right shoulder pain Surgical History Hx of fusion of cervical spine History of spinal surgery History of arthroscopy of right shoulder History of eye surgery Family History Father Hypertension Mother No problems noted. Paternal Uncle Cancer Social History Housing: House Are you a primary care analyst to a significant other at home: No Do you presently have visiting nurse or other home services: No Alcohol intake: former Comment: tolerable Patient Tobacco Use Status: Never used Tobacco e-Cigarette/Vaping Use: Never Used Second Hand Smoke Exposure: No service: No Current occupational status: employed Current occupation: right hand dominant Cognitive needs: No Hearing needs: No Vision needs: Yes (glasses) Physical Exam Vital Signs: Last Vital Signs Pulse 80 01/15/25 10:34 BP 141/83 H 01/15/25 10:34 Pulse Ox 97 01/15/25 10:34 Oxygen Delivery Method Room Air 01/15/25 10:34 BMI result Body Mass Index 26.7 Assessment & Plan Assessment & Plan (1) Spondylosis of lumbar spine: Code(s): M47.816 - Spondylosis without myelopathy or radiculopathy, lumbar region Category: Medical Plan Plan - Schedule a second round of diagnostic lumbar medial branch blocks after the patient's return from travel. - Plan for potential nerve cauterization for longer-term relief if diagnostic blocks confirm the source of pain. - Prescribe Tylenol #3 for pain management during travel, ensuring no concurrent use of additional acetaminophen. - Encourage core strengthening exercises to support spine health and reduce back pain. Patient was informed and verbally consented to the use of an ambient scribe for clinic note documentation during this visit. Discussion Notes I discussed with the patient the plan to repeat the diagnostic lumbar medial branch blocks after his travel to confirm the source of pain and consider nerve cauterization for longer-term relief. We reviewed the temporary nature of the relief from the blocks and the expected duration of relief from nerve cauterization, which is typically about a year. I advised the patient on the use of Tylenol #3 for pain management during travel, emphasizing not to take additional acetaminophen concurrently. We also discussed the importance of core strengthening exercises to support spine health and potentially reduce back pain. The patient was informed about the need for follow-up via phone call after the next procedure to assess the effectiveness before proceeding with further treatment. Patient Instructions - Take Tylenol #3 as prescribed for pain during travel, and do not take additional Tylenol. - Perform core strengthening exercises regularly to help with back pain. - Follow up with a phone call after the next procedure to discuss further treatment options. Medications: New acetaminophen-codeine 300-30 mg 1 tab PO BID PRN 60 tabs 0RF pain Discontinued acetaminophen Discontinued Reason: Duplicate 500 mg PO Q6H PRN 30 tabs 0RF pain Coding Level of Care Code Est Pt Level 3 (39777) Diagnoses Spondylosis of lumbar spine M47.816
--- OUTSIDE RECORDS SUMMARY | 2025-01-15 11:33 | XMS_ITS | Patient Health Record ---
Author Organization [facility] Address [address] [place] [address] Care Team Providers Care Trucking Contractor Name Role Phone Danitza Humphreys MD Primary [...] Problem Status W/U Status Risk Notes Problem 98173351 Rectal bleeding (K62.5) Active confirmed Problem 11449849 Epigastric pain (R10.13) Active confirmed Problem 900059838 Personal history of colonic polyps (Z86.010) Active confirmed Problem 355862433 Gastritis, unspecified, without bleeding (K29.70) Active confirmed Problem 365117408 Gastroesophageal reflux disease without esophagitis (K21.9) Active confirmed Problem History of polyp of colon (944060435) History of colon polyps (Z86.010) Active confirmed Problem 636633353 H. pylori infect ion (A04.8) Active confirmed Plan Of Treatment Pending Test Test Name Order Date H PYLORI AG, STOOL 06/10/2021 Future Test Test Name Order Date COLONOSCOPY 12/26/2012 COLONOSCOPY 07/26/2018 UPPER GI ENDOSCOPY 11/09/2020 COLONOSCOPY 11/09/2020 Insurance Providers Payer Name Payer Address Payer Phone Subscriber Number Group Number Insured Name Patient Relationship to Insured Coverage Start Date Coverage End Date [facility] [address] [place], [place] [id number] KATHLEEN MOODY Self - patient is the insured MEDICAID OF [place] [address] [place] [address] [id number] KATHLEEN MOODY Self - patient is the insured Medical (General) History Medical History History ICD Code colonoscopy 12/01/20, tubular and tubulovi llous adenomas, seven-year followup. hypertension hyperlipidemia Epigastric pain, upper endos copy 12/01/20, antral biopsies showed H. pylori gastritis, treated with OAC x2 weeks Surgical History Surgery Date(Month/Year) rotator cuff tear repair eye surgery - bilateral
== END 2025-01-15 11:08 | disposition home or self-care (01) ==
LOC: HO.PMC 10:27
PROVIDERS: PCP Internal Medicine; Visit Provider Internal Medicine
DX: M47.816 Spondylosis without myelopathy or radiculopathy, lumbar region (principal)
CPT/HCPCS: 99213

== ENCOUNTER → 2025-01-15 10:26 | Outpatient (BNVA) | payer OTHER, SELFPAY | PROVIDERS: PCP Internal Medicine; Visit Provider Internal Medicine | DX: M47.816 Spondylosis without myelopathy or radiculopathy, lumbar region (principal) | CPT/HCPCS: 99212 ==

== ENCOUNTER 2025-02-20 08:19 | Outpatient (REF) | payer OTHER, SELFPAY ==
--- NOTE | ~2025-02-20 | FL_ITS ---
EXAMINATION: FL GUIDANCE ONLY HISTORY: M47.816 - Spondylosis without myelopathy or radiculopathy, lumbar region COMPARISON: None available. TECHNIQUE: Fluoroscopy time: 0.1 minutes. Cumulative Dose: 1.56 mGy. DAP: 0.0123 mGym2 Images: 2. FINDINGS: Fluoroscopic spot films of the lumbar spine demonstrate needles and contrast material in the regions of the bilateral L3-4, L4-5, and L5-S1 facet joints. FL/FL guidance in treatment room IMPRESSION: Fluoroscopy during procedure. Please see procedure report for additional information. Electronically signed by: Omega Lucas MD 02/20/2025 03:00 PM EDT
--- OUTSIDE RECORDS SUMMARY | 2025-02-20 08:54 | XMS_ITS | Patient Health Record ---
Author Organization [facility] Address [address] [place] [address] Care Team Providers Care Boot And Shoe Repairman Name Role Phone Danitza Humphreys MD Primary [...] Problem Status W/U Status Risk Notes Problem 30738429 Rectal bleeding (K62.5) Active confirmed Problem 67744759 Epigastric pain (R10.13) Active confirmed Problem 003587961 Personal history of colonic polyps (Z86.010) Active confirmed Problem 502176687 Gastritis, unspecified, without bleeding (K29.70) Active confirmed Problem 843812083 Gastroesophageal reflux disease without esophagitis (K21.9) Active confirmed Problem History of polyp of colon (203235568) History of colon polyps (Z86.010) Active confirmed Problem 967300436 H. pylori infect ion (A04.8) Active confirmed Plan Of Treatment Pending Test Test Name Order Date H PYLORI AG, STOOL 06/10/2021 Future Test Test Name Order Date COLONOSCOPY 12/26/2012 COLONOSCOPY 07/26/2018 UPPER GI ENDOSCOPY 11/09/2020 COLONOSCOPY 11/09/2020 Insurance Providers Payer Name Payer Address Payer Phone Subscriber Number Group Number Insured Name Patient Relationship to Insured Coverage Start Date Coverage End Date [facility] [address] [place], [place] [id number] KATHLEEN MOODY Self - patient is the insured MEDICAID OF [employer] [address] [place] [address] [id number] KATHLEEN MOODY Self - patient is the insured Medical (General) History Medical History History ICD Code colonoscopy 12/01/20, tubular and tubulovi llous adenomas, seven-year followup. hypertension hyperlipidemia Epigastric pain, upper endos copy 12/01/20, antral biopsies showed H. pylori gastritis, treated with OAC x2 weeks Surgical History Surgery Date(Month/Year) rotator cuff tear repair eye surgery - bilateral
== END 2025-02-20 08:20 | disposition home or self-care (01) ==
LOC: CF 08:19
PROVIDERS: Visit Provider Internal Medicine
DX: M47.816 Spondylosis without myelopathy or radiculopathy, lumbar region (principal)
CPT/HCPCS: 64493; 64494; J2003; J2795; Q9967

== ENCOUNTER 2025-02-20 11:21 | Outpatient (AMB) | payer OTHER, SELFPAY ==
[2025-02-20 11:26] VITALS: BP 118/65; PULSE 73; RESP 16; O2SAT 98; BMI 26.6
--- NOTE | 2025-02-20 11:26 | MHC.OFFVIS ---
Vital Signs 02/20/25 11:26 02/20/25 12:29 Height 5 ft 7 in Weight 170 lb BMI 26.6 BP 118/65 99/76 Blood Pressure Location Lt brachial Lt brachial Position Sitting Sitting Respiration 16 16 Pulse 73 69 Pulse Source Pulse Oximeter Pulse Oximeter Pulse Oximetry (%) 98 100 Oxygen Delivery Method Room Air Room Air Intake Visit Reasons: Manuel Dx L3-L4-L5 MBB Allergies tramadol Adverse Reaction (Severe, Verified 01/15/25 10:37) chest pain, anxiety oxycodone Adverse Reaction (Intermediate, Verified 01/15/25 10:37) hand rash HPI HPI Manuel Dx L3-L4-L5 MBB: Details: Patient presents for scheduled procedure. Denies any recent cough, cold, infection, fever or other significant changes in medical history since last office visit. [facility] Medical History (Updated 11/26/24 @ 13:42 by Danitza Humphreys MD) Impacted cerumen of both ears Knee pain, bilateral [id number] syndrome H. pylori infection Chronic right sacroiliac joint pain Chronic pain syndrome Sciatic nerve pain Lumbosacral radiculopathy due to degenerative joint disease of spine Lumbar radicular pain Left shoulder pain Tendonitis of left rotator cuff Chronic back pain greater than 3 months duration Vertebrogenic low back pain Acromioclavicular joint arthritis Chronic anemia Spondylosis of lumbar spine Radicular low back pain RLQ abdominal pain Frequent falls Headache Radiculopathy, lumbar region Facet arthropathy Sacroiliitis Right flank pain Dyspnea on exertion Myalgia Post-viral cough syndrome COVID-19 GERD (gastroesophageal reflux disease) HTN (hypertension) Right renal stone Fatty liver Respiratory tract infection Rotator cuff disorder Vitamin D deficiency Tubular adenoma of colon Hypercholesterolemia BPH (benign prostatic hyperplasia) Right shoulder pain Surgical History Hx of fusion of cervical spine History of spinal surgery History of arthroscopy of right shoulder History of eye surgery Family History Father Hypertension Mother No problems noted. Paternal Uncle Cancer Social History Housing: House Are you a primary career consultant to a significant other at home: No Do you presently have visiting nurse or other home services: No Alcohol intake: former Comment: tolerable Patient Tobacco Use Status: Never used Tobacco e-Cigarette/Vaping Use: Never Used Second Hand Smoke Exposure: No service: No Current occupational status: employed Current occupation: right hand dominant Cognitive needs: No Hearing needs: No Vision needs: Yes (glasses) Physical Exam Vital Signs: Last Vital Signs Pulse 69 02/20/25 12:29 Resp 16 02/20/25 12:29 BP 99/76 02/20/25 12:29 Pulse Ox 100 02/20/25 12:29 Oxygen Delivery Method Room Air 02/20/25 12:29 BMI result Body Mass Index 26.6 Office Procedures Lumbar/Sacral Facet Inj Details: Lumbar Medial Branch Block, Bilateral L3, L4 medial branches and L5 Dorsal Ramus (2 levels, 3 nerves) After obtaining written consent, pre-procedure blood pressure and pulse were recorded and are in the nursing record for review. The patient was placed in a prone position. The respective lumbosacral area was prepped with chloraprep and draped in sterile fashion. The skin over the target medial branch nerves was anesthetized with 0.5% lidocaine. A 22 gauge 3.5 inch needle was inserted into the target medial branch nerve under fluoroscopic guidance. No paresthesias were elicited with needle placement and aspiration was negative for blood and CSF. Next, 0.2cc of omnipaque 180 was injected to verify positioning in AP and oblique imaging. Next 0.5 ml 0.5% ropivicaine was injected (0.5cc total per level). The identical procedure was performed at the remaining levels. The skin was cleansed and a sterile bandage was applied. Following the procedure the patient's vital signs were stable. The patient tolerated the procedure well and no complications were encountered. Following the procedure the patient's vital signs were stable. The patient was discharged home in good condition with post-procedural instructions. Time Out: Immediately prior to the procedure, the following was verbally confirmed that there is a signed consent form and that the correct patient, planned procedure, site and side are consistent with documentation and that necessary equipment and/or blood products are available prior to the start of the case. Complications: none EBL: <5 cc 91074 - with Fluoroscopy 58744 - second level, with Fluoroscopy (bilateral) Procedure code (CPT) selection complete Assessment & Plan Assessment & Plan (1) Spondylosis of lumbar spine: Code(s): M47.816 - Spondylosis without myelopathy or radiculopathy, lumbar region Category: Medical Plan Patient is status post bilateral L3, L4 MBs and L5 DR diagnostic blocks. Patient tolerated procedure well and was discharged home in stable condition with discharge instructions. All questions were answered. We will follow-up via telephone or in clinic to assess response to therapy. A follow-up appointment was made during today's visit. Orders: Orders FL guidance in treatment room 02/20/25 M47.816 - Spondylosis without myelopathy or radiculopathy, lumbar region Coding Level of Care Code Procedure Only Diagnoses Spondylosis of lumbar spine M47.816 CPT Codes Facet Injection-Lumbar/Sacral - CPT: 51828 - with Fluoroscopy ([id number]) Facet Injection-Lumbar/Sacral - CPT: 72752 - second level, with Fluoroscopy ([id number])
[2025-02-20 12:29] VITALS: BP 99/76; PULSE 69; RESP 16; O2SAT 100
== END 2025-02-20 12:33 | disposition home or self-care (01) ==
LOC: HO.PMCPRC 11:21
PROVIDERS: PCP Internal Medicine; Visit Provider Internal Medicine
DX: M47.816 Spondylosis without myelopathy or radiculopathy, lumbar region (principal)
CPT/HCPCS: 64493; 64494

== ENCOUNTER 2025-02-26 09:28 | Outpatient (AMB) | payer OTHER, SELFPAY ==
--- NOTE | 2025-02-26 09:31 | MHC.OFFVIS ---
Vital Signs 02/26/25 09:33 Height 5 ft 7 in Weight 174 lb BMI 27.2 BP 128/65 Blood Pressure Location Rt brachial Position Sitting Respiration 16 Pulse 68 Pulse Source Pulse Oximeter Pulse Oximetry (%) 99 Oxygen Delivery Method Room Air Intake Visit Reasons: S/P Manuel Dx L3-L4-L5 MBB Atm Servicer Required: No Accompanied by: Spouse Allergies tramadol Adverse Reaction (Severe, Verified 02/26/25 09:34) chest pain, anxiety oxycodone Adverse Reaction (Intermediate, Verified 02/26/25 09:34) hand rash Medication List - Last Reconciled 02/26/25 by Kiah Andrew LPN acetaminophen-codeine 300-30 mg 1 tab PO BID PRN hydrochlorothiazide 12.5 mg PO DAILY hydrocortisone 2.5% (Proctosol HC) 1 appl CA BID-QID PRN lidocaine 5% (Lidoderm) 1 patch topical DAILY lisinopril 30 mg PO DAILY 90 days omeprazole 20 mg PO DAILY 90 days simvastatin 20 mg PO BEDTIME 90 days HPI HPI S/P Manuel Dx L3-L4-L5 MBB: Details: History of Present Illness The patient is a 64-year-old male presenting for follow-up after diagnostic lumbar medial branch blocks. The patient has undergone two rounds of diagnostic lumbar medial branch blocks, both of which provided significant relief from lumbar facet joint pain. The relief from the second round of injections lasted for a few days, providing 100% relief during that period. The patient reports that the right side is more painful, and thus, the plan is to proceed with radiofrequency ablation on the right side first. The procedure will be followed by treatment on the left side two weeks later. Pain Description - Location: Right lumbar region, more painful than left - Relief: 100% relief from second round of diagnostic injections for a few days - Planned intervention: Radiofrequency ablation starting on the right side Physical Exam - Appears afebrile. - Alert and oriented. - Mood and affect appropriate. - Follows and participates in conversation appropriately. - Respiratory effort is unlabored. - Able to transition from sit to stand unassisted. - Ambulates with bilaterally normal heel strike and toe off. - Able to stand and walk on toes and heels. Pain Management - Analgesia: Significant relief from lumbar medial branch blocks, 100% relief for a few days after second round - Activities of Daily Living: Pain management plan includes radiofrequency ablation to improve function [facility] Medical History (Updated 11/26/24 @ 13:42 by Danitza Humphreys MD) Impacted cerumen of both ears Knee pain, bilateral [id number] syndrome H. pylori infection Chronic right sacroiliac joint pain Chronic pain syndrome Sciatic nerve pain Lumbosacral radiculopathy due to degenerative joint disease of spine Lumbar radicular pain Left shoulder pain Tendonitis of left rotator cuff Chronic back pain greater than 3 months duration Vertebrogenic low back pain Acromioclavicular joint arthritis Chronic anemia Spondylosis of lumbar spine Radicular low back pain RLQ abdominal pain Frequent falls Headache Radiculopathy, lumbar region Facet arthropathy Sacroiliitis Right flank pain Dyspnea on exertion Myalgia Post-viral cough syndrome COVID-19 GERD (gastroesophageal reflux disease) HTN (hypertension) Right renal stone Fatty liver Respiratory tract infection Rotator cuff disorder Vitamin D deficiency Tubular adenoma of colon Hypercholesterolemia BPH (benign prostatic hyperplasia) Right shoulder pain Surgical History Hx of fusion of cervical spine History of spinal surgery History of arthroscopy of right shoulder History of eye surgery Family History Father Hypertension Mother No problems noted. Paternal Uncle Cancer Social History Housing: House Are you a primary health care / medical job titles to a significant other at home: No Do you presently have visiting nurse or other home services: No Alcohol intake: former Comment: tolerable Patient Tobacco Use Status: Never used Tobacco e-Cigarette/Vaping Use: Never Used Second Hand Smoke Exposure: No service: No Current occupational status: employed Current occupation: right hand dominant Cognitive needs: No Hearing needs: No Vision needs: Yes (glasses) Physical Exam Vital Signs: Last Vital Signs Pulse 68 02/26/25 09:33 Resp 16 02/26/25 09:33 BP 128/65 02/26/25 09:33 Pulse Ox 99 02/26/25 09:33 Oxygen Delivery Method Room Air 02/26/25 09:33 BMI result Body Mass Index 27.2 Assessment & Plan Assessment & Plan (1) Spondylosis of lumbar spine: Code(s): M47.816 - Spondylosis without myelopathy or radiculopathy, lumbar region Category: Medical Plan Plan Patient was informed and verbally consented to the use of an ambient scribe for clinic note documentation during this visit. 1. Lumbar Facet Joint Pain - Plan to proceed with radiofrequency ablation, starting on the right side due to greater pain, followed by the left side two weeks later. - Patient experienced 100% relief from the second round of diagnostic lumbar medial branch blocks for a few days. Discussion Notes The patient and I discussed the plan to proceed with radiofrequency ablation, starting on the right side due to greater pain, followed by the left side two weeks later. I explained that the patient experienced 100% relief from the second round of diagnostic lumbar medial branch blocks for a few days, which supports the decision to proceed with the ablation. Patient Instructions - Schedule radiofrequency ablation starting with the right side. - Return for follow-up two weeks after the first procedure for the left side treatment. Coding Level of Care Code Est Pt Level 3 (00453) Diagnoses Spondylosis of lumbar spine M47.816
[2025-02-26 09:33] VITALS: BP 128/65; PULSE 68; RESP 16; O2SAT 99; BMI 27.2
--- OUTSIDE RECORDS SUMMARY | 2025-02-26 10:16 | XMS_ITS | Patient Health Record ---
Author Organization [facility] Address [address] [place] [address] Care Team Providers Care Finishing Area Supervisor Name Role Phone Danitza Humphreys MD [...] Problem Status W/U Status Risk Notes Problem 76692883 Rectal bleeding (K62.5) Active confirmed Problem 17727046 Epigastric pain (R10.13) Active confirmed Problem 719426971 Personal history of colonic polyps (Z86.010) Active confirmed Problem 771163866 Gastritis, unspecified, without bleeding (K29.70) Active confirmed Problem 102092952 Gastroesophageal reflux disease without esophagitis (K21.9) Active confirmed Problem History of polyp of colon (679808379) History of colon polyps (Z86.010) Active confirmed Problem 995377377 H. pylori infect ion (A04.8) Active confirmed Plan Of Treatment Pending Test Test Name Order Date H PYLORI AG, STOOL 06/10/2021 Future Test Test Name Order Date COLONOSCOPY 12/26/2012 COLONOSCOPY 07/26/2018 UPPER GI ENDOSCOPY 11/09/2020 COLONOSCOPY 11/09/2020 Insurance Providers Payer Name Payer Address Payer Phone Subscriber Number Group Number Insured Name Patient Relationship to Insured Coverage Start Date Coverage End Date [facility] [address] [place], [place] [id number] KATHLEEN MOODY Self - patient is the insured MEDICAID OF [employer] [address] [place] [address] [id number] KATHLEEN MOODY Self - patient is the insured Medical (General) History Medical History History ICD Code colonoscopy 12/01/20, tubular and tubulovi llous adenomas, seven-year followup. hypertension hyperlipidemia Epigastric pain, upper endos copy 12/01/20, antral biopsies showed H. pylori gastritis, treated with OAC x2 weeks Surgical History Surgery Date(Month/Year) rotator cuff tear repair eye surgery - bilateral
== END 2025-02-26 09:57 | disposition home or self-care (01) ==
LOC: HO.PMC 09:29
PROVIDERS: PCP Internal Medicine; Visit Provider Internal Medicine
DX: M47.816 Spondylosis without myelopathy or radiculopathy, lumbar region (principal)
CPT/HCPCS: 99213

== ENCOUNTER → 2025-02-26 09:28 | Outpatient (BNVA) | payer OTHER, SELFPAY | PROVIDERS: PCP Internal Medicine; Visit Provider Internal Medicine | DX: M47.816 Spondylosis without myelopathy or radiculopathy, lumbar region (principal) | CPT/HCPCS: 99212 ==

== ENCOUNTER 2025-03-11 14:34 | Outpatient (AMB) | payer OTHER, SELFPAY ==
[2025-03-11 14:43] VITALS: BP 112/84; PULSE 80; TEMP 36.3; O2SAT 98; BMI 26.8
--- NOTE | 2025-03-11 14:43 | A.OFFPC_ITS ---
Vital Signs 03/11/25 14:43 Height 5 ft 7 in Weight 171 lb 4 oz BMI 26.8 BP 112/84 Blood Pressure Location Lt brachial Position Sitting Pulse 80 Pulse Source Pulse Oximeter Temp 97.3 F Temp Source Temporal Artery Scan Pulse Oximetry (%) 98 Oxygen Delivery Method Room Air Intake Visit Reasons: post laminectomy syndrome Accompanied by: Spouse Allergies tramadol Adverse Reaction (Severe, Verified 03/11/25 14:46) chest pain, anxiety oxycodone Adverse Reaction (Intermediate, Verified 03/11/25 14:46) hand rash Medication List - Last Reconciled 03/11/25 by Danitza Humphreys MD acetaminophen-codeine 300-30 mg 1 tab PO BID PRN hydrochlorothiazide 12.5 mg PO DAILY hydrocortisone 2.5% (Proctosol HC) 1 appl [place] BID-QID PRN lidocaine 5% (Lidoderm) 1 patch topical DAILY lisinopril 30 mg PO DAILY 90 days omeprazole 20 mg PO DAILY 90 days simvastatin 20 mg PO BEDTIME 90 days Tobacco use date assessed: 03/11/25 Dental Screening Dental Screen Date: 03/11/25 Did you have a dental visit in the last 12 months?: Yes Did you have a dental problem in the last 6 months where you did not have access to dental care?: No Was dental information given to patient?: Patient has dentist [facility] Medical History Impacted cerumen of both ears Knee pain, bilateral 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 pylori infection Chronic right sacroiliac joint pain Chronic pain syndrome Sciatic nerve pain Lumbosacral radiculopathy due to degenerative joint disease of spine Lumbar radicular pain Left shoulder pain Tendonitis of left rotator cuff Chronic back pain greater than 3 months duration Vertebrogenic low back pain Acromioclavicular joint arthritis Chronic anemia Spondylosis of lumbar spine Radicular low back pain RLQ abdominal pain Frequent falls Headache Radiculopathy, lumbar region Facet arthropathy Sacroiliitis Right flank pain Dyspnea on exertion Myalgia Post-viral cough syndrome COVID-19 GERD (gastroesophageal reflux disease) HTN (hypertension) Right renal stone Fatty liver Respiratory tract infection Rotator cuff disorder Vitamin D deficiency Tubular adenoma of colon Hypercholesterolemia BPH (benign prostatic hyperplasia) Right shoulder pain Surgical History Hx of fusion of cervical spine History of spinal surgery History of arthroscopy of right shoulder History of eye surgery Family History Father Hypertension Mother No problems noted. Paternal Uncle Cancer Social History Housing: House Are you a primary home care nurse to a significant other at home: No Do you presently have visiting nurse or other home services: No Alcohol intake: former Comment: tolerable Patient Tobacco Use Status: Never used Tobacco e-Cigarette/Vaping Use: Never Used Second Hand Smoke Exposure: No service: No Current occupational status: employed Current occupation: right hand dominant Cognitive needs: No Hearing needs: No Vision needs: Yes (glasses) Questionnaire PHQ-9 Over the last 2 weeks, how often have you been bothered by any of the following problems? 1. Little interest or pleasure in doing things: not at all 2. Feeling down, depressed, or hopeless: not at all 3. Trouble falling or staying asleep, or sleeping too much: not at all 4. Feeling tired or having little energy: not at all 5. Poor appetite or overeating: not at all 6. Feeling bad about yourself - or that you are a failure or have let yourself or your family down: not at all 7. Trouble concentrating on things, such as reading the newspaper or watching television: not at all 8. Moving or speaking so slowly that other people could have noticed. Or the opposite - being so fidgety or restless that you have been moving around a lot more than usual: not at all 9. Thoughts that you would be better off or of hurting yourself in some way: not at all Total score: 0 Source: Developed by Drs. Omega Solomon, Trini Bingham, Edi Olsen and colleagues, with an educational jimmy from [employer]. Thrive Questionnaire Date Thrive assessed: 11/24/24 I am a: Patient What is your living situation today?: I have a steady place to live Within the past 12 months, did the food you bought not last and you didn't have the money to get more?: Never true Within the past 12 months, did you worry whether your food would run out before you got money to buy more?: Never true Do you have trouble paying for medicines?: No Do you have trouble getting transportation to medical appointments?: No Do you have trouble paying your heating and electricity bill?: No Do you have trouble taking care of your child, family member or friend?: No Do you have trouble with day-to-day activities such as bathing, preparing meals, shopping, managing finances, etc.?: Yes Are you currently unemployed and looking for a job?: Yes Are you interested in more education?: No Please select the resources that you would like help with: None Currently or been in a relationship where the following occur: I choose not to answer THRIVE Score: 0 AUDIT C Alcohol Use Questionnaire (AUDIT-C) 1. How often do you have a drink containing alcohol?: Never 3. How often do you have six or more drinks on one occasion?: Never Total Score: 0 SATNAM-7 AMB Questionnaire SATNAM-7 Date SATNAM - 7 assessed: 11/26/24 Feeling nervous, anxious, or on edge: 0 = Not at all Not being able to stop or control worryin = Not at all Worrying too much about different things: 0 = Not at all Trouble relaxin = Not at all Being so restless that it is hard to sit still: 1 = Several days Becoming easily annoyed or irritable: 1 = Several days Feeling afraid as if something awful might happen: 0 = Not at all Total SATNAM-7 score (0-4 normal; 5-9 mild; 10-14 moderate; 15-21 severe): 2 Source: Developed by Drs. Omega Solomon, Trini Bingham, Edi Olsen and colleagues, with an educational jimmy from [employer]. Physical exam (Primary Care) Vital Signs: Last Vital Signs Temp 97.3 F 03/11/25 14:43 Pulse 80 03/11/25 14:43 BP 112/84 03/11/25 14:43 Pulse Ox 98 03/11/25 14:43 Oxygen Delivery Method Room Air 03/11/25 14:43 BMI result Body Mass Index 26.8 Tobacco/Smoking Status: Tobacco use Status Tobacco use date assessed 03/11/25 03/11/25 14:47 Patient Tobacco Use Status Never used Tobacco 03/11/25 14:47 e-Cigarette/Vaping Use Never Used 03/11/25 14:47 PHQ-9: PHQ-9 Score PHQ-9: Total score 0 03/11/25 14:47 Thrive Assessment: Date of Thrive Assessment Date Thrive assessed 11/24/24 03/11/25 14:47 Currently or been in a relationship where the following occur: I choose not to answer Const General: alert; No acute distress Eyes Conjunctivae: conjunctivae normal Resp Auscultation: clear to auscultation bilaterally Cardio Rate: regular rate Rhythm: regular rhythm GI Inspection: Yes normal to inspection Extrem General: Yes normal to inspection and No edema Coding Level of Care Code Est Pt Level 4 (37923) Complex EM visit Add On G2211 Diagnoses Impaired fasting blood sugar R73.01 Essential hypertension I10 Hypertension type: essential hypertension Hypercholesterolemia E78.00 Gastroesophageal reflux disease without esophagitis K21.9 Esophagitis presence: without esophagitis Fatty liver K76.0 Postlaminectomy syndrome M96.1 Assessment & Plan Assessment & Plan (1) Impaired fasting blood sugar: Code(s): R73.01 - Impaired fasting glucose Category: Medical Plan: Decrease the amount of carbohydrate intake, pasta, bread, rice and potatoes are all sugar and that is aside from all the sweet stuff, remember that fruits are good but they are Sweet also. Patient's blood work in April was 6.0 (2) HTN (hypertension): Code(s): I10 - Essential (primary) hypertension Category: Medical Qualifiers: Hypertension type: essential hypertension Qualified Code(s): I10 - Essential (primary) hypertension Plan: Continue with blood pressure medication. Decrease salt intake and exercise on hydrochlorothiazide 12.5 mg once a day lisinopril 30 mg once a day (3) Hypercholesterolemia: Code(s): E78.00 - Pure hypercholesterolemia, unspecified Category: Medical Plan: Avoid fried foods, chicken skin, eggs, butter margarine, pastries and meat. Be it pork or beef they have a lot of cholesterol LDL goal of less than 130 and triglyceride of less than 150. On simvastatin 20 mg at bedtime. Blood work to be done in the next 2 months (4) GERD (gastroesophageal reflux disease): Code(s): K21.9 - Gastro-esophageal reflux disease without esophagitis Category: Medical Qualifiers: Esophagitis presence: without esophagitis Qualified Code(s): K21.9 - Gastro-esophageal reflux disease without esophagitis Plan: Avoid the foods that causes that usually spicy foods, tomato products, juices, coffee, soda and foods that your sensitive to. After eating do not lie down, allow 3-4 hours before in lie down. And keep the head of bed above 30 degrees to avoid the acid from going up. (5) Fatty liver: Comment: June 2020 Code(s): K76.0 - Fatty (change of) liver, not elsewhere classified Category: Medical Plan: Low-fat diet and exercise (6) Postlaminectomy syndrome: Comment: [place] [facility] done February 13, 2023, [place] Dr. Lay Code(s): M96.1 - Postlaminectomy syndrome, not elsewhere classified Category: Medical Plan: Patient has been follow-up with pain management and has had medial branch blocks and planned radiofrequency ablation in 04/2025. PAtient presently have have the same problem with low back pain and so cannot lift, avoid bending. Plan History of Present Illness The patient is a 64-year-old male presenting for follow-up of multiple chronic conditions including benign prostatic hyperplasia, hypercholesterolemia, and postlaminectomy syndrome. The patient has a history of benign prostatic hyperplasia, hypercholesterolemia, hepatic steatosis, and nephrolithiasis. He also has a history of tubular adenoma, with the last colonoscopy performed in November 2020. The patient has impaired glucose tolerance and hypertension, managed with hydrochlorothiazide and lisinopril. The patient has been diagnosed with gastroesophageal reflux disease, managed with dietary modifications including a low-fat diet and exercise. He reports cervical pain and postlaminectomy syndrome, for which he attends pain management and has undergone medial branch blocks with planned radiofrequency ablation. The patient's last blood work in April showed mild anemia and mildly elevated liver function tests. His cholesterol levels were noted with an LDL of 100 mg/dL and triglycerides of 427 mg/dL. The hemoglobin A1c was 6.0, indicating impaired glucose tolerance. The patient reports a persistent cough lasting about two weeks, primarily occurring in the morning. He has been advised to take allergy medication and monitor the symptoms, with a potential chest x-ray if the cough persists. Health Maintenance - Colonoscopy last performed in November 2020 - Blood work planned in the next 3 months - Low-fat diet and exercise recommended for GERD management Social History Review of Systems - Respiratory: Reports persistent cough for about two weeks, primarily in the morning. Denies COVID-19 as tests were negative. Physical Exam - Respiratory: Auscultation performed during breathing exercises Results - Labs: Mild anemia with hemoglobin 13.7 g/dL - Labs: Hemoglobin A1c of 6.0 - Labs: LDL cholesterol of 100 mg/dL, triglycerides of 427 mg/dL - Labs: Mildly elevated liver function tests Plan Patient was informed and verbally consented to the use of an ambient scribe for clinic note documentation during this visit. 1. Benign Prostatic Hyperplasia The patient is being monitored for benign prostatic hyperplasia, with no specific interventions discussed during this visit. 2. Hypercholesterolemia The patient is on simvastatin 20 mg at bedtime, with a goal LDL of less than 130 mg/dL and triglycerides of less than 150 mg/dL. Follow-up blood work is planned in the next 2 months. 3. Hepatic Steatosis The patient has mildly elevated liver function tests, and further monitoring is planned with upcoming blood work. 4. Nephrolithiasis The patient has a history of nephrolithiasis, with no specific interventions discussed during this visit. 5. Impaired Glucose Tolerance The patient's hemoglobin A1c is 6.0, indicating impaired glucose tolerance. Blood work is planned in the next couple of months to monitor glucose levels. 6. Hypertension The patient is on hydrochlorothiazide 12.5 mg once a day and lisinopril 30 mg once a day for hypertension management. 7. Gastroesophageal Reflux Disease The patient is advised to follow a low-fat diet and engage in regular exercise to manage gastroesophageal reflux disease. 8. Postlaminectomy Syndrome The patient is under pain management care, having undergone medial branch blocks and planning for radiofrequency ablation starting on the right side. 9. Cough The patient reports a persistent cough for about two weeks, primarily in the morning. Allergy medication has been recommended, with a potential chest x-ray if symptoms persist. Discussion Notes During the visit, we discussed the management of the patient's chronic conditions, including the continuation of current medications and lifestyle modifications for hypercholesterolemia and gastroesophageal reflux disease. We also reviewed the patient's pain management plan, including the upcoming radiofrequency ablation for postlaminectomy syndrome. The patient was advised to monitor his cough and use allergy medication, with a follow-up plan for a chest x-ray if symptoms persist. Patient Instructions - Continue taking simvastatin and monitor cholesterol levels. - Follow a low-fat diet and exercise regularly for GERD management. - Monitor cough symptoms and take allergy medication as advised. - Schedule follow-up blood work in the next 2-3 months. Orders: Orders Free T4 (Free Thyroxine) 2 Months R73.01 - Impaired fasting glucose Comprehensive Met. Panel 2 Months R73.01 - Impaired fasting glucose Lipid Panel 2 Months E78.00 - Pure hypercholesterolemia, unspecified, R73.01 - Impaired fasting glucose Vitamin B12 and Folate 2 Months R73.01 - Impaired fasting glucose Magnesium 2 Months R73.01 - Impaired fasting glucose Hemoglobin A1c 2 Months R73.01 - Impaired fasting glucose Complete Blood Count Auto Diff 2 Months R73.01 - Impaired fasting glucose Thyroid Stimulating Hormone 2 Months R73.01 - Impaired fasting glucose Prostate Specific Antigen Scr 2 Months R73.01 - Impaired fasting glucose
--- OUTSIDE RECORDS SUMMARY | 2025-03-11 18:16 | XMS_ITS | Patient Health Record ---
Author Organization [facility] Address [address] [place] [address] Care Team Providers Care Shank Rander Name Role Phone Danitza Humphreys MD Primary Care Provider John Gomez Jr Unavailable [phone] Reason For Referral No Information Medications Medication [...] Problem Status W/U Status Risk Notes Problem [id number] Rectal bleeding (K62.5) Active confirmed Problem 81567145 Epigastric pain (R10.13) Active confirmed Problem 602952890 Personal history of colonic polyps (Z86.010) Active confirmed Problem 637604301 Gastritis, unspecified, without bleeding (K29.70) Active confirmed Problem 159873797 Gastroesophageal reflux disease without esophagitis (K21.9) Active confirmed Problem History of polyp of colon (299065788) History of colon polyps (Z86.010) Active confirmed Problem 375322358 H. pylori infect ion (A04.8) Active confirmed Plan Of Treatment Pending Test Test Name Order Date H PYLORI AG, STOOL 06/10/2021 Future Test Test Name Order Date COLONOSCOPY 12/26/2012 COLONOSCOPY 07/26/2018 UPPER GI ENDOSCOPY 11/09/2020 COLONOSCOPY 11/09/2020 Insurance Providers Payer Name Payer Address Payer Phone Subscriber Number Group Number Insured Name Patient Relationship to Insured Coverage Start Date Coverage End Date [facility] [address] [place], [place] [id number] KATHLEEN MOODY Self - patient is the insured MEDICAID OF [employer] [address] [place] [address] [id number] KATHLEEN MOODY Self - patient is the insured Medical (General) History Medical History History ICD Code colonoscopy 12/01/20, tubular and tubulovi llous adenomas, seven-year followup. hypertension hyperlipidemia Epigastric pain, upper endos copy 12/01/20, antral biopsies showed H. pylori gastritis, treated with OAC x2 weeks Surgical History Surgery Date(Month/Year) rotator cuff tear repair eye surgery - bilateral
== END 2025-03-11 15:27 | disposition home or self-care (01) ==
LOC: HO.HMCH 14:35
PROVIDERS: PCP Internal Medicine; Visit Provider Internal Medicine
DX: R73.01 Impaired fasting glucose (principal); I10 Essential (primary) hypertension; E78.00 Pure hypercholesterolemia, unspecified; K21.9 Gastro-esophageal reflux disease without esophagitis; K76.0 Fatty (change of) liver, not elsewhere classified; M96.1 Postlaminectomy syndrome, not elsewhere classified

== ENCOUNTER → 2025-03-11 14:34 | Outpatient (BNVA) | payer OTHER, SELFPAY | PROVIDERS: PCP Internal Medicine; Visit Provider Internal Medicine | DX: I10 Essential (primary) hypertension (principal); E78.00 Pure hypercholesterolemia, unspecified; R73.01 Impaired fasting glucose; K21.9 Gastro-esophageal reflux disease without esophagitis; K76.0 Fatty (change of) liver, not elsewhere classified; M96.1 Postlaminectomy syndrome, not elsewhere classified; N40.0 Benign prostatic hyperplasia without lower urinary tract symptoms; R05.9 Cough, unspecified; Z87.442 Personal history of urinary calculi | CPT/HCPCS: 99212 ==

== ENCOUNTER 2025-04-03 06:16 | Outpatient (REF) | payer OTHER, SELFPAY ==
--- NOTE | ~2025-04-03 | FL_ITS ---
EXAMINATION: FL GUIDANCE ONLY HISTORY: M47.816 - Spondylosis without myelopathy or radiculopathy, lumbar region COMPARISON: None available. TECHNIQUE: Fluoroscopy time: 0.2 minutes. Cumulative Dose: 2.68 mGy. DAP: 0.0240 mGycm2 Images: 2. FINDINGS: Fluoroscopic spot films of the lumbar spine demonstrate needles in the regions of the right L3-4, L4-5, and L5-S1 facet joints. FL/FL guidance in treatment room IMPRESSION: Fluoroscopy during procedure. Please see procedure report for additional information. Electronically signed by: Omega Lucas MD 04/03/2025 03:01 PM EDT
== END 2025-04-03 06:17 | disposition home or self-care (01) ==
LOC: CF 06:16
PROVIDERS: Visit Provider Internal Medicine
DX: M47.816 Spondylosis without myelopathy or radiculopathy, lumbar region (principal)
CPT/HCPCS: 64635; 64636; J2003; J2795

== ENCOUNTER 2025-04-03 10:19 | Outpatient (AMB) | payer OTHER, SELFPAY ==
[2025-04-03 10:48] VITALS: BP 109/76; PULSE 66; O2SAT 97; BMI 26.8
--- NOTE | 2025-04-03 10:48 | A.OFFVIS_ITS ---
Vital Signs 04/03/25 10:48 Height 5 ft 7 in Weight 171 lb BMI 26.8 BP 109/76 Blood Pressure Location Rt brachial Position Sitting Pulse 66 Pulse Source Pulse Oximeter Pulse Oximetry (%) 97 Oxygen Delivery Method Room Air Intake Visit Reasons: Right L3-L4-L5 RFA/ valium & T#3 Optical Fabricator Required: No Manager Legal: Manager Legal Present Accompanied by: Employee Allergies tramadol Adverse Reaction (Severe, Verified 04/03/25 10:49) chest pain, anxiety oxycodone Adverse Reaction (Intermediate, Verified 04/03/25 10:49) hand rash Medication List - Last Reconciled 04/03/25 by Demetria Houston, POSTDOCTORAL FELLOW acetaminophen-codeine 300-30 mg 1 tab PO ONCE diazepam (Valium) 5 mg PO ONCE PRN hydrochlorothiazide 12.5 mg PO DAILY hydrocortisone 2.5% (Proctosol HC) 1 appl [place] BID-QID PRN lidocaine 5% (Lidoderm) 1 patch topical DAILY lisinopril 30 mg PO DAILY 90 days omeprazole 20 mg PO DAILY 90 days simvastatin 20 mg PO BEDTIME 90 days HPI HPI Right L3-L4-L5 RFA/ valium & T#3: Details: Patient presents for scheduled procedure. Denies any recent cough, cold, infection, fever or other significant changes in medical history since last office visit. [facility] Medical History Impacted cerumen of both ears Knee pain, bilateral [id number] syndrome H. pylori infection Chronic right sacroiliac joint pain Chronic pain syndrome Sciatic nerve pain Lumbosacral radiculopathy due to degenerative joint disease of spine Lumbar radicular pain Left shoulder pain Tendonitis of left rotator cuff Chronic back pain greater than 3 months duration Vertebrogenic low back pain Acromioclavicular joint arthritis Chronic anemia Spondylosis of lumbar spine Radicular low back pain RLQ abdominal pain Frequent falls Headache Radiculopathy, lumbar region Facet arthropathy Sacroiliitis Right flank pain Dyspnea on exertion Myalgia Post-viral cough syndrome COVID-19 GERD (gastroesophageal reflux disease) HTN (hypertension) Right renal stone Fatty liver Respiratory tract infection Rotator cuff disorder Vitamin D deficiency Tubular adenoma of colon Hypercholesterolemia BPH (benign prostatic hyperplasia) Right shoulder pain Surgical History Hx of fusion of cervical spine History of spinal surgery History of arthroscopy of right shoulder History of eye surgery Family History Father Hypertension Mother No problems noted. Paternal Uncle Cancer Social History Housing: House Are you a primary care coordination manager to a significant other at home: No Do you presently have visiting nurse or other home services: No Alcohol intake: former Comment: tolerable Patient Tobacco Use Status: Never used Tobacco e-Cigarette/Vaping Use: Never Used Second Hand Smoke Exposure: No service: No Current occupational status: employed Current occupation: right hand dominant Cognitive needs: No Hearing needs: No Vision needs: Yes (glasses) Physical Exam Vital Signs: Last Vital Signs Pulse 66 04/03/25 10:48 BP 109/76 04/03/25 10:48 Pulse Ox 97 04/03/25 10:48 Oxygen Delivery Method Room Air 04/03/25 10:48 BMI result Body Mass Index 26.8 Office Procedures Details: Radiofrequency lesioning medial branch nerves, Right L3, L4 medial branches and L5 dorsal ramus (L4/5 and L5/S1) (2 levels, 3 nerves) After obtaining written consent, pre-procedure blood pressure and heart rate were stable and recorded in the nursing record. Standard monitors were applied. The patient was placed in the prone position. The lumbar area was prepped with chloraprep and draped in sterile fashion. The skin over the target for each medial branch nerve was anesthetized with 0.5% lidocaine. An 18 gauge radiofrequency cannula was advanced to each target site under fluoroscopic guidance. No paresthesias were elicited with needle placement and aspiration was negative for heme and CSF. Impedences were verified under 600 ohms. Motor testing (2 Hz) confirmed needle placement at each site within the appropriate voltage thresholds. Each site was injected with 0.5 ml 2% preservative-free lidocaine. Radiofrequency lesioning was performed for 90 seconds at 80 deg Celcius. Each site was then injected with 0.5ml 2% lidocaine. The needle was removed, skin cleansed and a sterile bandage was applied. The patient tolerated the procedure well and no complications were encountered. Following the procedure the patient's vital signs were stable. The patient was discharged home in good condition with post-procedural instructions. Time Out: Immediately prior to the procedure, the following was verbally confirmed that there is a signed consent form and that the correct patient, planned procedure, site and side are consistent with documentation and that necessary equipment and/or blood products are available prior to the start of the case. Complications: none EBL: <5 cc 56841 - RFA Lumbar Medial Branches 58150 - Lumbar Medial Branches ADDNL Procedure code (CPT) selection complete Office Meds lidocaine (PF) 10 mg/mL (1 %) injection solution Performing Provider: Paresh Montgomery MD Performing Location: [facility] – [place] [facility] Administered by: Paresh Montgomery MD on 04/03/25 12:10 Dose Route Admin Location Dispensed Lot Number Expiration Date [facility][NOTE 3] [employer] Supervisor 5 mL subcut 5 mL Total Dispensed Waste 5 mL 0 % Assessment & Plan Assessment & Plan (1) Spondylosis of lumbar spine: Code(s): M47.816 - Spondylosis without myelopathy or radiculopathy, lumbar region Category: Medical Plan Patient is status post right L3, L4 medial branches and L5 dorsal ramus radiofrequency ablation. Patient tolerated procedure well and was discharged home in stable condition with discharge instructions. All questions were an swered. We will follow-up via telephone or in clinic to assess response to therapy. A follow-up appointment was made during today's visit. Orders: Orders FL guidance in treatment room Today Xochitl Trevizo APRN, CNP M47.816 - Spondylosis without myelopathy or radiculopathy, lumbar region AMB RFA Radiofrequency Ablation Pain Management Today Paresh Montgomery MD M47.817 - Spondylosis without myelopathy or radiculopathy, lumbosacral region Medications: New diazepam (Valium) please take 30minutes prior to arrival for procedure 5 mg PO ONCE PRN 1 tab 0RF sleep Xochitl Trevizo APRN, CNP Changed From acetaminophen-codeine 300-30 mg 1 tab PO BID PRN 60 tabs 0RF pain To acetaminophen-codeine 300-30 mg Take 30 minutes prior to arrival for procedure 1 tab PO ONCE 1 tab 0RF Xochitl Trevizo APRN, ROSANNE Coding Level of Care Code Procedure Only Diagnoses Spondylosis of lumbar spine M47.816 CPT Codes Radiofrequency Ablation - Rad-Ablation 3: 99203 - RFA Lumbar Medial Branches ([id number]) Radiofrequency Ablation - Rad-Ablation 4: 34675 - Lumbar Medial Branches ADDNL ([id number])
== END 2025-04-03 11:21 | disposition home or self-care (01) ==
LOC: HO.PMCPRC 10:19
PROVIDERS: PCP Internal Medicine; Visit Provider Internal Medicine
DX: M47.817 Spondylosis without myelopathy or radiculopathy, lumbosacral region (principal); M47.816 Spondylosis without myelopathy or radiculopathy, lumbar region
CPT/HCPCS: 64635; 64636

== ENCOUNTER 2025-04-17 06:12 | Outpatient (REF) | payer OTHER, SELFPAY ==
--- NOTE | ~2025-04-17 | FL_ITS ---
EXAMINATION: FL GUIDANCE ONLY HISTORY: M47.816 - Spondylosis without myelopathy or radiculopathy, lumbar region COMPARISON: None available. TECHNIQUE: Fluoroscopy time: 0.4 minutes. Cumulative Dose: 6.90 mGy. DAP: 158.04 uGym2 Images: 1. FINDINGS: A single fluoroscopic spot film of lumbar spine in the AP projection demonstrates needles adjacent to the left L3, L4, and L5 pedicles. FL/FL guidance in treatment room IMPRESSION: Fluoroscopy during procedure. Please see procedure report for additional information. Electronically signed by: Omega Lucas MD 04/17/2025 03:07 PM EDT
== END 2025-04-17 06:13 | disposition home or self-care (01) ==
LOC: CF 06:12
PROVIDERS: Visit Provider Internal Medicine
DX: M47.816 Spondylosis without myelopathy or radiculopathy, lumbar region (principal)
CPT/HCPCS: 64635; 64636; J2003

== ENCOUNTER 2025-04-17 09:04 | Outpatient (AMB) | payer OTHER, SELFPAY ==
[2025-04-17 09:10] VITALS: BP 110/70; PULSE 78; RESP 16; O2SAT 98
--- NOTE | 2025-04-17 09:10 | MHC.OFFVIS ---
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 Denies any recent cough, cold, infection, fever or other significant changes in medical history since last office visit. [facility] Medical History Impacted cerumen of both ears Knee pain, bilateral [id number] syndrome H. pylori infection Chronic right sacroiliac joint pain Chronic pain syndrome Sciatic nerve pain Lumbosacral radiculopathy due to degenerative joint disease of spine Lumbar radicular pain Left shoulder pain Tendonitis of left rotator cuff Chronic back pain greater than 3 months duration Vertebrogenic low back pain Acromioclavicular joint arthritis Chronic anemia Spondylosis of lumbar spine Radicular low back pain RLQ abdominal pain Frequent falls Headache Radiculopathy, lumbar region Facet arthropathy Sacroiliitis Right flank pain Dyspnea on exertion Myalgia Post-viral cough syndrome COVID-19 GERD (gastroesophageal reflux disease) HTN (hypertension) Right renal stone Fatty liver Respiratory tract infection Rotator cuff disorder Vitamin D deficiency Tubular adenoma of colon Hypercholesterolemia BPH (benign prostatic hyperplasia) Right shoulder pain Surgical History Hx of fusion of cervical spine History of spinal surgery History of arthroscopy of right shoulder History of eye surgery Family History Father Hypertension Mother No problems noted. Paternal Uncle Cancer Social History Housing: House Are you a primary landcare facilitator to a significant other at home: No Do you presently have visiting nurse or other home services: No Alcohol intake: former Comment: tolerable Patient Tobacco Use Status: Never used Tobacco e-Cigarette/Vaping Use: Never Used Second Hand Smoke Exposure: No service: No Current occupational status: employed Current occupation: right hand dominant Cognitive needs: No Hearing needs: No Vision needs: Yes (glasses) Physical Exam Vital Signs: Last Vital Signs Pulse 78 04/17/25 09:10 Resp 16 04/17/25 09:10 BP 110/70 04/17/25 09:10 Pulse Ox 98 04/17/25 09:10 Oxygen Delivery Method Room Air 04/17/25 09:10 Office Procedures Details: Radiofrequency lesioning medial branch nerves, Left L3, L4 medial branches and L5 dorsal ramus (L4/5 and L5/S1) (2 levels, 3 nerves) After obtaining written consent, pre-procedure blood pressure and heart rate were stable and recorded in the nursing record. The patient was placed in the prone position. The lumbar area was prepped with chloraprep and draped in sterile fashion. The skin over the target for each medial branch nerve was anesthetized with 0.5% lidocaine. An 18 gauge radiofrequency cannula was advanced to each target site under fluoroscopic guidance. No paresthesias were elicited with needle placement and aspiration was negative for heme and CSF. Impedences were verified under 600 ohms. Motor testing (2 Hz) confirmed needle placement at each site within the appropriate voltage thresholds. Each site was injected with 0.5 ml 2% preservative-free lidocaine. Radiofrequency lesioning was performed for 90 seconds at 90 deg Celcius. Each site was then injected with 0.5ml 2% lidocaine. The needle was removed, skin cleansed and a sterile bandage was applied. The patient tolerated the procedure well and no complications were encountered. Following the procedure the patient's vital signs were stable. The patient was discharged home in good condition with post-procedural instructions. Time Out: Immediately prior to the procedure, the following was verbally confirmed that there is a signed consent form and that the correct patient, planned procedure, site and side are consistent with documentation and that necessary equipment and/or blood products are available prior to the start of the case. Complications: none EBL: <5 cc 25645 - RFA Lumbar Medial Branches 19909 - Lumbar Medial Branches ADDNL Procedure code (CPT) selection complete Office Meds lidocaine (PF) 10 mg/mL (1 %) injection solution Performing Provider: Paresh Montgomery MD Performing Location: [facility] Administered by: Paresh Montgomery MD on 04/17/25 10:07 Dose Route Admin Location Dispensed Lot Number Expiration Date NDC Head Of Training And Development 5 mL subcut 5 mL Total Dispensed Waste 5 mL 0 % Assessment & Plan Assessment & Plan (1) Spondylosis of lumbar spine: Code(s): M47.816 - Spondylosis without myelopathy or radiculopathy, lumbar region Category: Medical Plan Patient is status post left L3, L4 medial branches and L5 DR RFA. Patient tolerated procedure well and was discharged home in stable condition with discharge instructions. All questions were answered. We will follow-up via telephone or in clinic to assess response to therapy. A follow-up appointment was made during today's visit. Orders: Orders FL guidance in treatment room Today Xochtil Trevizo APRN, CODING VALIDATOR M47.816 - Spondylosis without myelopathy or radiculopathy, lumbar region AMB RFA Radiofrequency Ablation Pain Management Today Paresh Montgomery MD M47.817 - Spondylosis without myelopathy or radiculopathy, lumbosacral region Coding Level of Care Code Procedure Only Diagnoses Spondylosis of lumbar spine M47.816 CPT Codes Radiofrequency Ablation - Rad-Ablation 3: 92063 - RFA Lumbar Medial Branches ([id number]) Radiofrequency Ablation - Rad-Ablation 4: 49350 - Lumbar Medial Branches ADDNL ([id number])
[2025-04-17 10:08] VITALS: BP 98/68; PULSE 70; RESP 16; O2SAT 98
== END 2025-04-17 10:09 | disposition home or self-care (01) ==
LOC: HO.PMCPRC 09:04
PROVIDERS: PCP Internal Medicine; Visit Provider Internal Medicine
DX: M47.816 Spondylosis without myelopathy or radiculopathy, lumbar region (principal)
CPT/HCPCS: 64635; 64636

== ENCOUNTER 2025-05-14 09:23 | Outpatient (AMB) | payer OTHER, SELFPAY ==
[2025-05-14 09:29] VITALS: BP 100/62; PULSE 79; RESP 16; O2SAT 96; BMI 26.9
--- NOTE | 2025-05-14 09:29 | A.OFFVIS_ITS ---
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 Required: No Accompanied by: Spouse Allergies tramadol Adverse Reaction (Severe, Verified 05/14/25 09:32) chest pain, anxiety oxycodone Adverse Reaction (Intermediate, Verified 05/14/25 09:32) hand rash Medication List - Last Reconciled 05/14/25 by Kiah Andrew LPN hydrochlorothiazide 12.5 mg PO DAILY hydrocortisone 2.5% (Proctosol HC) 1 appl ID BID-QID PRN lidocaine 5% (Lidoderm) 1 patch topical DAILY lisinopril 30 mg PO DAILY 90 days omeprazole 20 mg PO DAILY 90 days simvastatin 20 mg PO BEDTIME 90 days HPI HPI s/p mirna L3-L4-L5 RFA: Details: History of Present Illness The patient is a 64-year-old male presenting with chronic lower back pain management. The pain is described as intermittent, with severe episodes confini ng him to the sofa, particularly during rainy weather. The pain is both sharp and dull, primarily located in the lower back and right flank, and is sensitive to touch. The patient has a history of kidney stones and renal cysts, identified during a previous hospitalization. A CT scan conducted two years ago revealed kidney- related issues, but the patient continues to experience persistent pain att ributed to muscle dysfunction secondary to postlaminectomy syndrome. The patient underwent radiofrequency ablation for lumbar spondylosis, achieving approximately 50% relief from lower back pain. Despite this, pain persists due to postlaminectomy syndrome and muscle dysfunction, with concerns about a possible intra-abdominal process. Pain Description - Onset and Timing: Pain is intermittent, with severe episodes confining the patient to the sofa, particularly during rainy weather. - Quality and Character: Pain is described as both sharp and dull. - Primary Location: Lower back and right flank. - Exacerbating Factors: Rainy weather appears to exacerbate the pain. - Relieving Factors: None explicitly mentioned. - Interference with Activities: Pain confines the patient to the sofa during s evere episodes. Physical Exam - Musculoskeletal: Tenderness noted in the right flank area. Results - CT Scan: Conducted two years ago, revealing kidney-related issues. Pain Management - Affect: Pain impacts the patient's ability to perform daily activities, confining him to the sofa during severe episodes. - Analgesia: Approximately 50% relief achieved from radiofrequency ablation for lumbar spondylosis. - Adverse Effects: None explicitly mentioned. - Activities of Daily Living: Pain interferes with daily activities, particularly during severe episodes. - Aberrant Drug Related Behaviors: None reported. [facility] Medical History (Updated 05/14/25 @ 09:45 by Paresh Montgomery MD) Right flank pain Impacted cerumen of both ears Knee pain, bilateral [id number] syndrome H. pylori infection Chronic right sacroiliac joint pain Chronic pain syndrome Sciatic nerve pain Lumbosacral radiculopathy due to degenerative joint disease of spine Lumbar radicular pain Left shoulder pain Tendonitis of left rotator cuff Chronic back pain greater than 3 months duration Vertebrogenic low back pain Acromioclavicular joint arthritis Chronic anemia Spondylosis of lumbar spine Radicular low back pain RLQ abdominal pain Frequent falls Headache Radiculopathy, lumbar region Facet arthropathy Sacroiliitis Dyspnea on exertion Myalgia Post-viral cough syndrome COVID-19 GERD (gastroesophageal reflux disease) HTN (hypertension) Right renal stone Fatty liver Respiratory tract infection Rotator cuff disorder Vitamin D deficiency Tubular adenoma of colon Hypercholesterolemia BPH (benign prostatic hyperplasia) Right shoulder pain Surgical History Hx of fusion of cervical spine History of spinal surgery History of arthroscopy of right shoulder History of eye surgery Family History Father Hypertension Mother No problems noted. Paternal Uncle Cancer Social History Housing: House Are you a primary wound care nurse to a significant other at home: No Do you presently have visiting nurse or other home services: No Alcohol intake: former Comment: tolerable Patient Tobacco Use Status: Never used Tobacco e-Cigarette/Vaping Use: Never Used Second Hand Smoke Exposure: No service: No Current occupational status: employed Current occupation: right hand dominant Cognitive needs: No Hearing needs: No Vision needs: Yes (glasses) Physical Exam Vital Signs: Last Vital Signs Pulse 79 05/14/25 09:29 Resp 16 05/14/25 09:29 BP 100/62 05/14/25 09:29 Pulse Ox 96 05/14/25 09:29 Oxygen Delivery Method Room Air 05/14/25 09:29 BMI result Body Mass Index 26.9 Assessment & Plan Assessment & Plan (1) Right flank pain: Code(s): R10.9 - Unspecified abdominal pain Category: Medical (2) Spondylosis of lumbar spine: Code(s): M47.816 - Spondylosis without myelopathy or radiculopathy, lumbar region Category: Medical Plan Plan Patient was informed and verbally consented to the use of an ambient scribe for clinic note documentation during this visit. 1. Chronic Lower Back Pain - A CT scan of the abdomen and pelvis will be ordered to rule out intra- abdominal causes of pain. - Muscle dysfunction secondary to postlaminectomy syndrome is considered a contributing factor. 2. Postlaminectomy Syndrome - Management will continue with consideration of muscle dysfunction as a contributing factor to pain. 3. Right Flank Pain - A CT scan of the abdomen and pelvis will be ordered to evaluate potential causes. 4. History Of Kidney Stones - Kidney stones are considered a potential cause of pain, though unlikely given the superficial nature of tenderness. 5. History Of Renal Cysts - Renal cysts will be monitored as part of the CT scan evaluation. Discussion Notes I discussed with the patient the possibility of conducting a CT scan of the abdomen and pelvis to rule out any intra-abdominal causes of his pain. We also considered the role of muscle dysfunction secondary to postlaminectomy syndrome as a contributing factor to his symptoms. The patient was informed that while kidney stones are a potential cause, the superficial nature of the tenderness suggests otherwise. Patient Instructions - Follow up with the ordered CT scan of the abdomen and pelvis. - Monitor for any changes in pain or new symptoms and report them promptly. - Continue current pain management strategies and consult if pain worsens. Orders: Orders CT abdomen pelvis wo IV con Today M47.816 - Spondylosis without myelopathy or radiculopathy, lumbar region, R10.9 - Unspecified abdominal pain Coding Level of Care Code Est Pt Level 4 (18708) Diagnoses Right flank pain R10.9 Spondylosis of lumbar spine M47.816
--- OUTSIDE RECORDS SUMMARY | 2025-05-14 17:18 | XMS_ITS | Patient Health Record ---
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 Artist Name Role Phone Danitza Humphreys MD Primary Care Provider John Gomez Jr Unavailable [phone] Reason For Referral No Information Medications Medication SIG (Take, Route, Frequency, Duration) Notes Start Date End Date Status Vitamin B12 Active Vitamin C Active hydroCHLOROthiazide 12.5 MG Tablet Orally Active Simvastatin 5 MG Tablet TAKE 1 TABLET BY MOUTH EVERY DAY IN THE EVENING Oral Once a day Active oxyCODONE-Acetaminophen Active Cyclobenzaprine HCl Active Amoxicillin 500 MG Capsule 2 capsules Or ally Twice a day; Duration: 14 days 12/03/2020 Unknown Clarithromycin 500 MG Tablet 1 tablet Or ally every 12 hrs; Duration: 14 days 12/03/2020 Active MiraLax (colon prep) 8.3 oun ce ((238) grams mixed with Gatorade or Crystal Light orally begin at 5:00 p.m. 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 [employer] Problems Problem Type SNOMED Code ICD Code Onset Dates Problem Status W/U Status Risk Notes Problem Rectal bleeding (32246597) Rectal bleeding (K62.5) Active confirmed Problem Epigastric pain (97327985) Epigastric pain (R10.13) Active confirmed Problem History of polyp of colon (situation) (536054168) Personal history of colonic polyps (Z86.010) Active confirmed Problem Gastroduodenitis (741469313) Gastritis, unspecified, without bleeding (K29.70) Active confirmed Problem Gastroesophageal reflux disease without esophagitis (793648566) Gastroesophageal reflux disease without esophagitis (K21.9) Active confirmed Problem History of polyp of colon (situation) (326587117) History of colon polyps (Z86.010) Active confirmed Problem Helicobacter pylori gastrointestinal tract infection (956724408) H. pylori infection (A04.8) Active confirmed Plan Of Treatment Pending Test Test Name Order Date H PYLORI AG, STOOL 06/10/2021 Future Test Test Name Order Date COLONOSCOPY 12/26/2012 COLONOSCOPY 07/26/2018 UPPER GI ENDOSCOPY 11/09/2020 COLONOSCOPY 11/09/2020 Insurance Providers Payer Name Payer Address Payer Phone Subscriber Number Group Number Insured Name Patient Relationship to Insured Coverage Start Date Coverage End Date [facility] [address] [place], [place] [id number] KATHLEEN MOODY Self - patient is the insured MEDICAID OF [employer] [address] [place] [address] [id number] KATHLEEN MOODY Self - patient is the insured Medical (General) History Medical History History ICD Code colonoscopy 12/01/20, tubular and tubulovi llous adenomas, seven-year followup. hypertension hyperlipidemia Epigastric pain, upper endos copy 12/01/20, antral biopsies showed H. pylori gastritis, treated with OAC x2 weeks Surgical History Surgery Date(Month/Year) rotator cuff tear repair eye surgery - bilateral
== END 2025-05-14 09:48 | disposition home or self-care (01) ==
LOC: HO.PMC 09:24
PROVIDERS: PCP Internal Medicine; Visit Provider Internal Medicine
DX: R10.A1 Flank pain, right side (principal); M47.816 Spondylosis without myelopathy or radiculopathy, lumbar region
CPT/HCPCS: 99213

== ENCOUNTER → 2025-05-14 09:23 | Outpatient (BNVA) | payer OTHER, SELFPAY | PROVIDERS: PCP Internal Medicine; Visit Provider Internal Medicine | DX: M47.816 Spondylosis without myelopathy or radiculopathy, lumbar region (principal); R10.A1 Flank pain, right side; G89.29 Other chronic pain; Z87.442 Personal history of urinary calculi; Z87.448 Personal history of other diseases of urinary system | CPT/HCPCS: 99212 ==

== ENCOUNTER 2025-06-10 08:59 | Outpatient (REF) | payer OTHER, SELFPAY ==
[2025-06-10 09:13] LABS: MANUAL DIFF FLAG NO
[2025-06-10 09:30] LABS: Hematocrit 45.5 % (42.0-52.0); Hemoglobin 15.1 g/dl (14.0-18.0); Imm Gran Abs Auto 0.00 X10*3/uL (0.00-0.03); Imm Gran Pct Auto 0.0 % (0.0-0.4); Lymphocytes Absolute Auto 2.9 X10*3/uL (1.2-4.9); Mean Corpuscular HGB Conc 33.2 g/dl (31.0-36.0); Mean Corpuscular Hemoglobin 30.6 pg (27.0-33.0); Mean Corpuscular Volume 92.1 fL (80.0-98.0); NRBC Abs Auto 0.000 X10*3/uL (0.0-0.012); NRBC Pct Auto 0.0 /100WBC (0.0-0.2); Platelet Count 272 X10*3/uL (160-400); Red Blood Count 4.94 X10*6/uL (4.60-5.80); White Blood Count 6.5 X10*3/uL (4.8-10.8)
[2025-06-10 10:03] LABS: Alanine Aminotransferase 34 U/L (0-40); Albumin Level 5.0 g/dL (3.5-5.0); Alkaline Phosphatase 89 U/L (39-117); Anion Gap 15 (12-20); Aspartate Amino Transferase 31 U/L (5-37); Blood Urea Nitrogen 24 mg/dL (9-16); Calcium 10.2 mg/dL (8.4-10.2); Carbon Dioxide 27 mmol/L (22-29); Chloride 107 mmol/L (96-108); Cholesterol 146 mg/dL (<200); Estimated Glomerular Filt Rate > 60; HDL Cholesterol 32 mg/dL (>40); Magnesium 2.2 mg/dL (1.6-2.6); Potassium 4.5 mmol/L (3.3-5.1); Sodium 144 mmol/L (135-145); Total Protein 8.2 g/dL (6.5-8.0); Triglycerides 177 mg/dL (<150)
--- OUTSIDE RECORDS SUMMARY | 2025-06-10 10:08 | XMS_ITS | Patient Health Record ---
Author Organization [facility] Address [address] [place] [address] Care Team Providers Care Manager Knowledge Name Role Phone Danitza Humphreys MD Primary Care Provider John Gomez Jr Unavailable [phone] Reason For Referral No Information Medications [...] W/U Status Risk Notes Problem Rectal bleeding (89120896) Rectal bleeding (K62.5) Active confirmed Problem Epigastric pain (79636559) Epigastric pain (R10.13) Active confirmed Problem History of polyp of colon (situation) (524073526) Personal history of colonic polyps (Z86.010) Active confirmed Problem Gastroduodenitis (587196441) Gastritis, unspecified, without bleeding (K29.70) Active confirmed Problem Gastroesophageal reflux disease without esophagitis (232794546) Gastroesophageal reflux disease without esophagitis (K21.9) Active confirmed Problem History of polyp of colon (situation) (803295304) History of colon polyps (Z86.010) Active confirmed Problem Helicobacter pylori gastrointestinal tract infection (709672139) H. pylori infection (A04.8) Active confirmed Plan Of Treatment Pending Test Test Name Order Date H PYLORI AG, STOOL 06/10/2021 Future Test Test Name Order Date COLONOSCOPY 12/26/2012 COLONOSCOPY 07/26/2018 UPPER GI ENDOSCOPY 11/09/2020 COLONOSCOPY 11/09/2020 Insurance Providers Payer Name Payer Address Payer Phone Subscriber Number Group Number Insured Name Patient Relationship to Insured Coverage Start Date Coverage End Date [facility] [address] [place], [place] [id number] KATHLEEN MOODY Self - patient is the insured MEDICAID OF [employer] [address] [place] [address] [id number] KATHLEEN MOODY Self - patient is the insured Medical (General) History Medical History History ICD Code colonoscopy 12/01/20, tubular and tubulovi llous adenomas, seven-year followup. hypertension hyperlipidemia Epigastric pain, upper endos copy 12/01/20, antral biopsies showed H. pylori gastritis, treated with OAC x2 weeks Surgical History Surgery Date(Month/Year) rotator cuff tear repair eye surgery - bilateral
[2025-06-10 10:19] LABS: Free T4 (Free Thyroxine) 0.94 ng/dL (0.71-1.85); Thyroid Stimulating Hormone 1.18 uIU/mL (0.32-4.0)
[2025-06-10 10:33] LABS: Folate 10.6 ng/mL (> or = 4.0); Vitamin B12 212 pg/mL (200-900)
== END 2025-06-10 09:00 | disposition home or self-care (01) ==
LOC: HO.LAB 08:59
PROVIDERS: PCP Internal Medicine; Visit Provider Internal Medicine
DX: R73.01 Impaired fasting glucose (principal); E78.00 Pure hypercholesterolemia, unspecified
CPT/HCPCS: 36415; 80053; 80061; 82607; 82746; 83036; 83735; 84153; 84439; 84443; 85025